=== PATIENT | male | born 1985 | race Caucasian/White ===

== ENCOUNTER 2018-04-30 20:27 | Emergency (ER) | payer OTHER, SELFPAY ==
[2018-04-30 20:28] VITALS: BP 154/76; PULSE 86; RESP 14; TEMP 37.3; O2SAT 98; BMI 32.8
--- NOTE | 2018-04-30 21:42 | ED.VISSUMM ---
- ER Visit Summary Date of Service: 04/30/18 Chief Complaint: Knee pain History of Present Illness: Patient presents with left knee pain. Apparently there was a lesion which the broke up and expectorated pus from yesterday. Now there is worsening redness around it. There is no joint pain no pain with ambulation. There is no fever chills or noted lymphangitic streaking. Physical Examination: Otherwise unremarkable exam. He has no abdominal pain. He has a small lesion anterior knee. There is no bursitis in the prepatellar region. There is slight cellulitis. No induration or fluctuance present. The knee has full range of motion without any pain or signs of effusion. Emergency Department Course and Treatment: Patient has cellulitis there are no signs or symptoms of septic arthritis there are no signs or symptoms of prepatellar bursitis. There are no signs or symptoms of an abscess that needs drained. Patient will be started on antibiotics she was warned about all the above symptoms and if he worsens he needs to return. Discharge stable condition Impression: [Left knee cellulitis] This note was generated with inmobly dictation software. It may contain incorrect words, spelling, and punctuation that were not noted in review of the chart prior to signing ED Disposition - Plan for ED Patient: Disposition: Home or Assisted Living Chief Complaint: Lower Extremity Injury Instructions: Cellulitis - Causes,Symptoms,Treating Prescriptions: Clindamycin [Cleocin] 300 mg PO 4X/DAY #80 cap Referrals: NOT,DEFINED [Primary Care Provider] - 3-5 Days
[2018-04-30] MEDS: Clindamycin HCl 150 MG Capsule 300 MG PO (23:06)
[2018-04-30 23:11] VITALS: BP 131/67; PULSE 94; RESP 18; O2SAT 100
--- NOTE | 2018-04-30 23:12 | ED.RN ---
THIS NURSE REVIEWED D/C INSTRUCTIONS WITH PT. PT VERBALIZED UNDERSTANDING OF INSTRUCTIONS. PT DENIES FURTHER NEEDS OR QUESTIONS AT THIS TIME. PT AMBULATES FROM ROOM ON OWN WITHOUT ASSISTANCE FROM STAFF
== END 2018-04-30 23:13 | disposition home or self-care (01) ==
PROVIDERS: Emergency Provider Emergency Medicine; Family Provider Family Medicine; PCP Family Medicine
DX: L03.116 Cellulitis of left lower limb (principal); B96.89 Other specified bacterial agents as the cause of diseases classified elsewhere; Z72.0 Tobacco use
CPT/HCPCS: 99283

== ENCOUNTER 2018-05-02 05:52 | Inpatient (IN) | payer OTHER, SELFPAY ==
[2018-05-02] VITALS (7 sets, daily range): BP systolic 123–149; BP diastolic 68–85; PULSE 83–107; RESP 16–18; TEMP 36.8–39; O2SAT 94–98; BMI 29.0; BMI 32.3; BMI 32.4
--- NOTE | 2018-05-02 06:25 | ED.VISSUMM ---
- ER Visit Summary Date of Service: 05/02/18 Chief Complaint: [Redness and swelling to the left knee] History of Present Illness: The patient is a 33 M [presents the emergency department complaint of redness and swelling the left knee that started initially about 5 days ago. Patient started with what he thought was a pimple on his left knee and he and the try to squeeze it and pop it. Patient continued to have increased redness and swelling and was seen in the emergency department 2 days ago and was started on clindamycin. Patient continues to have increased redness and swelling and pain and presents back to the emergency department. Patient denies any fever or chills. He has no medical history otherwise.] Physical Examination: [HEENT-PERRLA, EOMI. Cranial nerves II through XII grossly intact. TMs clear. Mucous membranes moist. No adenopathy. Cardiovascular-regular rate and rhythm without murmur or ectopy Lungs-clear to auscultation, chest wall stable without crepitus or subcu emphysema Abdomen-normoactive bowel sounds, soft, nontender, no rebound or rigidity, no peritoneal signs. Extremities-intact ?4, normal range of motion, normal pulses, atraumatic]. Left knee-patient has induration over the area of the patella with a small vesicular lesion measuring about a centimeter in diameter oozing some yellowish discharge. Discussed surrounding erythema and involving the area of the knee down onto the lao and now extending toward the thigh. Area is warm to the touch. Patient neurovascular intact distally. He has no significant joint pain with range of motion. Test Results: [CBC with differential and chemistries ordered. Wound culture ordered from the fluid anterior to the patella. There is no significant abscess noted for incision and drainage.] Emergency Department Course and Treatment: [Patient was started on Unasyn and vancomycin. I do not feel patient has a septic joint.] Treatment Plan: [Admit for IV antibiotics] Disposition: [Admit] Impression: [Cellulitis left lower extremity with failed outpatient therapy] This note was generated with [employer] dictation software. It may contain incorrect words, spelling, and punctuation that were not noted in review of the chart prior to signing ED Disposition - Plan for ED Patient: Chief Complaint: Cellulitis Referrals: Jian Syed MD [Primary Care Provider] -
[2018-05-02 06:44] LABS: Absolute Lymphocyte Count 1.03 X10^3/ul (0.83-4.51); Basophil# 0.01 X10^3/uL; Basophil% 0.1 % (0-1); Eosinophil# 0.13 X10^3/uL; Eosinophils% 0.8 % (0-5); Hemoglobin 14.5 g/dl (13.0-16.5); Lymphocyte # 1.03 X10^3/ul (4.0); Lymphocyte % 6.2 % (19-41); Mean Corp Hgb Conc 33.7 g/gl (32-36); Mean Corpuscular Hgb 29.7 pg (27.0-32.0); Mean Corpuscular Volume 88.1 fL (80-94); Mean Platelet Vol. 11.5 fl (6.2-12.0); Monocyte# 1.47 X10^3/uL; Monocyte% 8.8 % (0-10); Neutrophil # 14.02 X10^3/uL (2.7-7.7); Neutrophil % 83.8 % (47-70); POSITIVE COUNT NO; POSITIVE DIFFERENTIAL NO; POSITIVE MORPHOLOGY NO; Platelet Count 173 K/mm3 (150-450); RBC Distribution Width CV 11.9 % (11.6-14.6); RBC Distribution Width SD 37.8 fl (35.1-43.9); Red Blood Count 4.88 M/mm3 (4.6-6.2); White Blood Count 16.7 K/mm3 (4.4-11.0)
[2018-05-02 06:52] LABS: Anion Gap 6 (5-15); BUN 13 mg/dL (7-18); BUN/Creat Ratio 12.5 RATIO (10-20); Calcium,Total 8.1 mg/dL (8.5-10.1); Chloride 106 mmol/L (98-107); Creatinine, Serum 1.04 mg/dL (0.70-1.30); EST Glomerular Filtration Rate 87 mL/min (>60); Est Glom Filt Rate - Afr Amer 106 mL/min (>60); Estimated Creatinine Clearance 110.89 ml/min; Glucose 125 mg/dL (74-106); Potassium 3.6 mmol/L (3.5-5.1); Sodium Level 138 mmol/L (136-145)
--- NOTE | 2018-05-02 07:22 | PCM.HP.STD ---
Problem List (1) Left leg cellulitis Status: Acute (2) Sepsis Status: Acute History of Present Illness Date of Admission: 05/02/18 Chief Complaint: left leg redness. The patient is a 33 year old M who presents with left lower extremity redness. Approximately Monday patient noted a pimple on his left kneecap that would irritate him when he would wear pants. Patient squeeze and did get some slight purulence out. Went to work and noted that he had some swelling in his right knee. Presented to the emergency room and diagnosed with cellulitis. Patient was discharged and since with clindamycin. Patient took clindamycin yesterday and this morning noted that he is left leg was much more swollen and painful and red. Presented to the emergency room and diagnosed with a left lower extremity cellulitis and I received Unasyn as well as for vancomycin. Patient has never had cellulitis before. [] Past Medical History Allergies No Known Allergies Allergy (Verified 04/30/18 20:31) Home Medications: Ambulatory Orders Medication Instructions Recorded Clindamycin [Cleocin] 300 mg PO 4X/DAY #80 cap 04/30/18 Psychiatric History: No pertinent psych hx Lives: Spouse/ Significant Other Smoking Status: Never smoker Tobacco Use: Chew Alcohol: Occasional Drugs: None - *Family History Maternal History Items: - - No medical history that he is aware of. Paternal History Items: - - Medical history that he is aware of Review of Systems Constitutional: Denies: Anorexia, Chills, Fever, Malaise, Weakness Eyes: Denies: Blurred vision, Double vision HEENT: Denies: Head Aches, Sinus Congestion, Sinus Drainage Cardiovascular: Denies: Chest Pain, Palpitations Respiratory: Denies: Cough, Shortness of breath at rest, Sputum production Gastrointestinal: Denies: Abdominal Pain, Nausea, Vomiting Genitourinary: Denies: Dysuria Musculoskeletal: Reports: Leg Pain. Denies: Arm Pain Skin: Denies: Dryness, Jaundice Neurological: Denies: Numbness, Tingling, Focal weakness Psychiatric: Denies: Anxiety, Depression Hematologic/ Lymphatic: Denies: Easy Bruising, Easy Bleeding, Hx of blood clot Comment: All review of systems are negative except as mentioned in the history of present illness and the other review of systems. VTE Information - Inpt Only VTE Present on Admission: No VTE Pharm Prophylaxis ordered?: Yes Patient Problems: Active and Suspected Problems Left leg cellulitis (Acute) Sepsis (Acute) - Physical Exam General: Alert, No apparent distress HEENT: Atraumatic, Normocephalic Oral: Moist Mucosa, No Gingival or Mucosal Lesions/ Ulcerations Neck: No Nodes, Thyroid Normal Size and Texture Lungs: Clear to auscultation, Normal air movement, No rhonchi, No wheeze Cardiovascular: Regular rate, Regular Rhythm, Normal S1, Normal S2, No murmurs Abdomen: Bowel Sounds Present, Soft, Non Tender, Non-Distended, No Hepato-splenomegaly Extremities: No edema, No Calf Tenderness, - - No joint effusion Skin: - - Left anterior knee with some mild induration and numbness. No fluctuance appreciated. Does have splotchy areas of erythema extending proximally up his thigh from his knee but also distally down his anterior calf. Is some tenderness to palpation. Musculoskeletal: No Muscle Wasting, Tenderness Neurological: Neuro grossly intact, Sensory exam intact to light touch and pain, Coordination normal Psych/Mental Status: Normal Affect, Appropriate Vital Signs Temp Pulse Resp BP Pulse Ox 36.9 C 98 18 149/85 H 97 05/02/18 05:52 05/02/18 05:52 05/02/18 06:12 05/02/18 05:52 05/02/18 05:52 Oxygen Delivery Method Room Air Weight: 96.9 kg Body Mass Index (BMI) 29.0 Laboratory Tests Past 24 Hrs 05/02/18 05/02/18 06:30 06:30 WBC 16.7 H RBC 4.88 Hgb 14.5 Hct 43.0 MCV 88.1 MCH 29.7 MCHC 33.7 RDW 11.9 RDW Differential 37.8 Plt Count 173 MPV 11.5 Immature Gran % (Auto) 0.300 Neut % (Auto) 83.8 H Lymph % (Auto) 6.2 L [place] % (Auto) 8.8 Eos % (Auto) 0.8 Baso % (Auto) 0.1 Absolute Neuts (auto) 14.0 H Absolute Lymphs (auto) 1.03 Total Counted Not Reportable Sodium 138 Potassium 3.6 Chloride 106 Carbon Dioxide 26.0 Anion Gap 6 BUN 13 Creatinine 1.04 Estim Creat Clear Calc 110.89 Est GFR (MDRD) Af Amer 106 Est GFR (MDRD) Non-Af 87 BUN/Creatinine Ratio 12.5 Glucose 125 H Calcium 8.1 L Assessment/Plan All Active Problems Left leg cellulitis (Acute) Sepsis (Acute) 1. Sepsis Present on admission Secondary to left lower extremity cellulitis Supportive management 2. Left lower extremity cellulitis Secondary to is a pimple or squeezing the pimple that he had on his knee Continue with vancomycin Culture was done and will await results. Would like to see great improvement of the patient's cellulitis prior to him being discharged. Patient does demonstrate good improvements on the 18th is possible that he could be discharged then but would prefer something along the lines of Bactrim or doxycycline. Failed outpatient clindamycin 3. DVT prophylaxis: Moderate risk given the left lower extremity cellulitis. Patient will be on Lovenox. Code Visit Inpatient E&M: 24096 Init Hosp L3
--- NOTE | 2018-05-02 07:26 | HP.PCM_ITS ---
Problem List (1) Left leg cellulitis Status: Acute (2) Sepsis Status: Acute History of Present Illness Date of Admission: 05/02/18 Chief Complaint: left leg redness. The patient is a 33 year old M who presents with left lower extremity redness. Approximately Monday patient noted a pimple on his left kneecap that would irritate him when he would wear pants. Patient squeeze and did get some slight purulence out. Went to work and noted that he had some swelling in his right knee. Presented to the emergency room and diagnosed with cellulitis. Patient was discharged and since with clindamycin. Patient took clindamycin yesterday and this morning noted that he is left leg was much more swollen and painful and red. Presented to the emergency room and diagnosed with a left lower extremity cellulitis and I received Unasyn as well as for vancomycin. Patient has never had cellulitis before. [] Past Medical History Allergies No Known Allergies Allergy (Verified 04/30/18 20:31) Home Medications: Ambulatory Orders Medication Instructions Recorded Clindamycin [Cleocin] 300 mg PO 4X/DAY #80 cap 04/30/18 Psychiatric History: No pertinent psych hx Lives: Spouse/ Significant Other Smoking Status: Never smoker Tobacco Use: Chew Alcohol: Occasional Drugs: None - *Family History Maternal History Items: - - No medical history that he is aware of. Paternal History Items: - - Medical history that he is aware of Review of Systems Constitutional: Denies: Anorexia, Chills, Fever, Malaise, Weakness Eyes: Denies: Blurred vision, Double vision HEENT: Denies: Head Aches, Sinus Congestion, Sinus Drainage Cardiovascular: Denies: Chest Pain, Palpitations Respiratory: Denies: Cough, Shortness of breath at rest, Sputum production Gastrointestinal: Denies: Abdominal Pain, Nausea, Vomiting Genitourinary: Denies: Dysuria Musculoskeletal: Reports: Leg Pain. Denies: Arm Pain Skin: Denies: Dryness, Jaundice Neurological: Denies: Numbness, Tingling, Focal weakness Psychiatric: Denies: Anxiety, Depression Hematologic/ Lymphatic: Denies: Easy Bruising, Easy Bleeding, Hx of blood clot Comment: All review of systems are negative except as mentioned in the history of present illness and the other review of systems. VTE Information - Inpt Only VTE Present on Admission: No VTE Pharm Prophylaxis ordered?: Yes Patient Problems: Active and Suspected Problems Left leg cellulitis (Acute) Sepsis (Acute) - Physical Exam General: Alert, No apparent distress HEENT: Atraumatic, Normocephalic Oral: Moist Mucosa, No Gingival or Mucosal Lesions/ Ulcerations Neck: No Nodes, Thyroid Normal Size and Texture Lungs: Clear to auscultation, Normal air movement, No rhonchi, No wheeze Cardiovascular: Regular rate, Regular Rhythm, Normal S1, Normal S2, No murmurs Abdomen: Bowel Sounds Present, Soft, Non Tender, Non-Distended, No Hepato- splenomegaly Extremities: No edema, No Calf Tenderness, - - No joint effusion Skin: - - Left anterior knee with some mild induration and numbness. No fluctuance appreciated. Does have splotchy areas of erythema extending proximally up his thigh from his knee but also distally down his anterior calf. Is some tenderness to palpation. Musculoskeletal: No Muscle Wasting, Tenderness Neurological: Neuro grossly intact, Sensory exam intact to light touch and pain, Coordination normal Psych/Mental Status: Normal Affect, Appropriate Vital Signs Temp Pulse Resp BP Pulse Ox 36.9 C 98 18 149/85 H 97 05/02/18 05:52 05/02/18 05:52 05/02/18 06:12 05/02/18 05:52 05/02/18 05:52 Oxygen Delivery Method Room Air Weight: 96.9 kg Body Mass Index (BMI) 29.0 Laboratory Tests Past 24 Hrs 05/02/18 05/02/18 06:30 06:30 WBC 16.7 H RBC 4.88 Hgb 14.5 Hct 43.0 MCV 88.1 MCH 29.7 MCHC 33.7 RDW 11.9 RDW Differential 37.8 Plt Count 173 MPV 11.5 Immature Gran % (Auto) 0.300 Neut % (Auto) 83.8 H Lymph % (Auto) 6.2 L [place] % (Auto) 8.8 Eos % (Auto) 0.8 Baso % (Auto) 0.1 Absolute Neuts (auto) 14.0 H Absolute Lymphs (auto) 1.03 Total Counted Not Reportable Sodium 138 Potassium 3.6 Chloride 106 Carbon Dioxide 26.0 Anion Gap 6 BUN 13 Creatinine 1.04 Estim Creat Clear Calc 110.89 Est GFR (MDRD) Af Amer 106 Est GFR (MDRD) Non-Af 87 BUN/Creatinine Ratio 12.5 Glucose 125 H Calcium 8.1 L Assessment/Plan All Active Problems Left leg cellulitis (Acute) Sepsis (Acute) 1. Sepsis * Present on admission * Secondary to left lower extremity cellulitis * Supportive management 2. Left lower extremity cellulitis * Secondary to is a pimple or squeezing the pimple that he had on his knee * Continue with vancomycin * Culture was done and will await results. * Would like to see great improvement of the patient's cellulitis prior to him being discharged. Patient does demonstrate good improvements on the 18th is possible that he could be discharged then but would prefer something along the lines of Bactrim or doxycycline. * Failed outpatient clindamycin 3. DVT prophylaxis: Moderate risk given the left lower extremity cellulitis. Patient will be on Lovenox. Code Visit Inpatient E&M: 22320 Init Hosp L3
[2018-05-02] MEDS: oxyCODONE 5 MG Tablet PO ×3 (10:35→20:27)
[2018-05-02] MEDS: Enoxaparin 40 MG/0.4 ML Syringe SC (10:36)
--- NOTE | 2018-05-02 10:48 | PCM.RX.CS ---
Consult Pharmacy has been consulted to manage selected antiobiotic: Vancomycin Type of Consult: New start Suspected Infection: Sepsis Prior Doses of Antibiotics Received/Current Regimen: 1 at 0732 on 05/02/18 Labs: Sodium 138 mmol/L (136-145) 05/02/18 06:30 Potassium 3.6 mmol/L (3.5-5.1) 05/02/18 06:30 Chloride 106 mmol/L (98-107) 05/02/18 06:30 Carbon Dioxide 26.0 mmol/L (21.0-32.0) 05/02/18 06:30 Anion Gap 6 (5-15) 05/02/18 06:30 BUN 13 mg/dL (7-18) 05/02/18 06:30 Creatinine 1.04 mg/dL (0.70-1.30) 05/02/18 06:30 Est GFR (MDRD) Af Amer 106 mL/min (>60) 05/02/18 06:30 Est GFR (MDRD) Non-Af 87 mL/min (>60) 05/02/18 06:30 BUN/Creatinine Ratio 12.5 RATIO (10-20) 05/02/18 06:30 Glucose 125 mg/dL (74-106) H 05/02/18 06:30 Microbiology: Microbiology 05/02/18 06:06 Wound - Knee Gram Stain - Final Weight used for dosin.3 kg Estimated Creatinine Clearance: 111 Goal Trough: 15-20 mcg/mL - VANCOMYCIN 1250MG IVPB Q8H, CHECK TROUGH LEVEL PRIOR TO 4TH DOSE Pharmacy Plan for Drug Dosing: Pharmacy Service will continue to monitor and adjust dosing as required.
--- NOTE | 2018-05-02 11:09 | NURSING ---
wound photo: left knee
[2018-05-02 12:23] LABS: M R Staph aureus DNA By PCR POSITIVE (Negative); Probe Check PASS; Staph aureus DNA By PCR POSITIVE (Negative)
--- NOTE | 2018-05-02 14:10 | CASEMGMT ---
DAMARIS CASTANO INITIAL REVIEW ASSESSMENT D/C PLAN: Home Face to Face with patient for initial transition planning/care coordination assessment. DAMARIS CASTANO introduced self and role at [facility]. Care providers, pharmacy, and demographics verified. PCP:Dr Jian Syed Preferred Pharmacy: [facility]. [facility] on discharge day only. Insurance: [employer] Living Will/HPOA: States does not have LW or HPOA. Declines wanting any further information. Living Arrangements: Lives with his in one-story home. 1 step to enter. Independent at home with ADL's and ambulation. Transportation: Pt reports he drives. DME: Denies using any DME and denies needs. HHC: Pt states has never use HHC in the past of been to SNF. Pt's plans on D/C: Wishes to return home. Denies needs or concerns. CM to follow for any further discharge planning needs that may arise. Tree HOLT RN, CM
[2018-05-02 16:06] LABS: Bedside Glucose 114 mg/dL (70-110)
[2018-05-02] MEDS: Ondansetron 4 MG/2 ML Vial IV (20:26)
[2018-05-02] MEDS: Acetaminophen 325 MG Tablet 650 MG PO (21:06)
[2018-05-03] VITALS (8 sets, daily range): BP systolic 112–135; BP diastolic 54–83; PULSE 85–108; RESP 16–18; TEMP 36.9–38.1; O2SAT 93–98
[2018-05-03] MEDS: 0.9% NaCl Peripheral Flush Adult/Peds IV ×3 (04:43→15:36)
[2018-05-03] MEDS: oxyCODONE 5 MG Tablet PO ×4 (07:01→19:49)
[2018-05-03 07:38] LABS: Absolute Lymphocyte Count 1.81 X10^3/ul (0.83-4.51); Absolute Neutrophil Count 12.7 X10^3/uL (2.0-7.7); Basophil# 0.02 X10^3/uL; Basophil% 0.1 % (0-1); Eosinophil# 0.18 X10^3/uL; Eosinophils% 1.1 % (0-5); Hematocrit 42.7 % (40-54); Hemoglobin 13.8 g/dl (13.0-16.5); Lymphocyte # 1.81 X10^3/ul (4.0); Lymphocyte % 11.1 % (19-41); Mean Corp Hgb Conc 32.3 g/gl (32-36); Mean Corpuscular Hgb 29.4 pg (27.0-32.0); Mean Corpuscular Volume 90.9 fL (80-94); Mean Platelet Vol. 10.9 fl (6.2-12.0); Monocyte# 1.52 X10^3/uL; Monocyte% 9.4 % (0-10); Neutrophil # 12.69 X10^3/uL (2.7-7.7); Neutrophil % 78.2 % (47-70); Platelet Count 164 K/mm3 (150-450); RBC Distribution Width CV 12.2 % (11.6-14.6); RBC Distribution Width SD 40.5 fl (35.1-43.9); White Blood Count 16.2 K/mm3 (4.4-11.0)
[2018-05-03 07:41] LABS: Anion Gap 5 (5-15); BUN 11 mg/dL (7-18); BUN/Creat Ratio 10.4 RATIO (10-20); Calcium,Total 8.5 mg/dL (8.5-10.1); Chloride 105 mmol/L (98-107); Creatinine, Serum 1.06 mg/dL (0.70-1.30); EST Glomerular Filtration Rate 86 mL/min (>60); Est Glom Filt Rate - Afr Amer 103 mL/min (>60); Estimated Creatinine Clearance 108.79 ml/min; Glucose 102 mg/dL (74-106); Potassium 4.3 mmol/L (3.5-5.1); Sodium Level 139 mmol/L (136-145)
[2018-05-03 07:42] LABS: Vancomycin, Trough Level 13.6 ug/mL (5.0-15.0)
[2018-05-03 07:43] LABS: Differential Indicated SCAN CRITERIA MET; POSITIVE COUNT NO; POSITIVE DIFFERENTIAL YES; POSITIVE MORPHOLOGY NO
[2018-05-03] MEDS: Enoxaparin 40 MG/0.4 ML Syringe SC (09:00)
[2018-05-03] MEDS: Acetaminophen 325 MG Tablet 650 MG PO ×2 (10:05→20:14)
--- NOTE | 2018-05-03 10:32 | CT_ITS ---
STUDY: CT LEFT KNEE WITH CONTRAST REASON FOR EXAM: Male, 33 years old. Redness, swelling, and drainage left knee x 4 days. RADIATION DOSAGE (If Supplied By Facility): CTDIvol = ( ) mGy, DLP = ( ) mGycm TECHNIQUE: Transaxial CT imaging of the knee was performed post contrast administration. The examination was performed with intravenous administration of 100 ml of Isovue-300 contrast material. # of Images: 518 Individualized dose optimization techniques were used for this CT. COMPARISON: None. FINDINGS: Normal medial femoral condyle and medial tibial plateau. There is preservation of the articular joint space of the medial knee compartment. Normal lateral femoral condyle and lateral tibial plateau. There is preservation of the articular joint space of the lateral knee compartment. Normal proximal tibiofibular articulation. There is minimal retropatellar fluid, but no significant joint effusion. There is medial superficial soft tissue edema in the lower thigh, extending anteriorly and posteriorly at the level of the knee, and becoming more circumferential in the calf. More defined, elongated lentiform shaped fluid accumulations noted within the tissue planes of the subcutaneous fat and superficial fascial margins of the vessel bundles at these levels. There is no demonstrated abnormal enhancement or sign of a defined abscess. 2 mm calcification incidentally noted in the superficial anterior suprapatellar fatty tissues. The quadriceps tendon is grossly normal. The patellar tendon is grossly normal. Normal Hoffa's fat pad. CT/Extremity Lower WITH Contrast IMPRESSION: Superficial soft tissue swelling with fluid accumulations along the fatty and superficial muscular fascial planes from the mid thigh to the mid lower leg, as noted. No defined rim-enhancing collection to indicate an abscess. No acute osseous abnormality to suggest osteomyelitis. Electronically Signed: Aaron Queen MD at 12:19 EDT , Service support ,
--- NOTE | 2018-05-03 13:46 | PHA.PHARE_ITS ---
Consult Pharmacy has been consulted to manage selected antiobiotic: Vancomycin Type of Consult: Follow-up Suspected Infection: Sepsis, Skin/Soft tissue Prior Doses of Antibiotics Received/Current Regimen: VANCOMYCIN 1250MG IV Q8H: 05/02 @1548, 05/03 @0012, 0854 Labs: Sodium 139 mmol/L (136-145) 05/03/18 07:20 Potassium 4.3 mmol/L (3.5-5.1) 05/03/18 07:20 Chloride 105 mmol/L (98-107) 05/03/18 07:20 Carbon Dioxide 29.0 mmol/L (21.0-32.0) 05/03/18 07:20 Anion Gap 5 (5-15) 05/03/18 07:20 BUN 11 mg/dL (7-18) 05/03/18 07:20 Creatinine 1.06 mg/dL (0.70-1.30) 05/03/18 07:20 Est GFR (MDRD) Af Amer 103 mL/min (>60) 05/03/18 07:20 Est GFR (MDRD) Non-Af 86 mL/min (>60) 05/03/18 07:20 BUN/Creatinine Ratio 10.4 RATIO (10-20) 05/03/18 07:20 Glucose 102 mg/dL (74-106) 05/03/18 07:20 Vancomycin Trough 13.6 ug/mL (5.0-15.0) 05/03/18 07:20 Microbiology: Microbiology 05/02/18 06:06 Wound - Knee Gram Stain - Final 05/02/18 06:06 Wound - Knee Wound Culture - Preliminary Staphylococcus aureus Goal Trough: 15-20 mcg/mL Pharmacy Plan for Drug Dosing: The patient had a trough level drawn 03/03/18 @0720, prior to the 4th total dose of vancomycin (initial loading + scheduled), which resulted in a value of 13.6 (drawn ~7.5hrs from last administered dose). The patient's vital signs appear stable at this time, and his WBC did go down from the previous day. Wound Cx are MRSA(+). Given that the patient is on a Q8hr schedule, and the dose is higher, will continue for now and draw a trough in another 4 doses instead of a few days to analyze the trough at that time. Would hesitate to increase the dose at this time, since the patient has only got 2 doses of the Q8h scheduled plus the one- time loading dose. Will continue to follow. PLAN/RECOMMENDATIONS 1. Continue vancomycin 1250mg IV Q8hr 2. Trough scheduled for 05/04/18 @1530 to assess at that time. 3. Pharmacy Service will continue to monitor and adjust dosing as required.
--- NOTE | 2018-05-03 17:08 | PN_ITS ---
Patient Problems: Active and Suspected Problems Left leg cellulitis (Acute) Sepsis (Acute) Subjective: Patient was seen and examined today, his significant other was in the room today and I talked with her briefly also, wound care nurse felt it cleary to get a CT of the patient's left knee to make sure there was not an abscess present, there was not an abscess present however. The patient's demarcation lines on his leg appears to be resolving, patient's white blood cell count today is still elevated. Patient's max temp today was 99.2 - Physical Exam General: Alert, Oriented x3, Cooperative, No apparent distress, Well developed, Well nourished HEENT: Atraumatic, PERRLA, EOMI, Normocephalic Oral: Moist Mucosa Neck: Supple, Trachea Midline, Thyroid Normal Size and Texture Lungs: Clear to auscultation, Normal air movement, No rhonchi, No wheeze, No rales Cardiovascular: Regular rate, Regular Rhythm, Normal S1, Normal S2, No murmurs, No Ectopic Activity, PMI Normal, No rub noted, No Gallop Abdomen: Bowel Sounds Present, Soft, Non Tender, Non-Distended, No hernias noted Extremities: Capillary Refill Less than 3 Seconds, Edema - There is generalized edema noted around the left patellar area extending into the distal thigh area Skin: No rashes, - - There is an eschar present over the patient's left patellar area, this area is also reddened and tender to palpation, no drainage could be expressed at this time from the area Neurological: Cranial nerves II-XII grossly intact, Neuro grossly intact, Coordination normal Psych/Mental Status: Normal Affect, Appropriate, Alert and oriented to time, place, person, mood and affect Vital Signs Temp Pulse Resp BP Pulse Ox 98.4 F 99 18 126/74 H 98 05/03/18 15:38 05/03/18 15:38 05/03/18 15:38 05/03/18 15:38 05/03/18 15:38 Oxygen Delivery Method Room Air Weight: 108.3 kg Body Mass Index (BMI) 32.3 Intake and Output for Last 24 Hours 05/01/18 05/02/18 05/03/18 23:59 23:59 23:59 Intake Total 2292 / 2292 1946 / 1946 Output Total 825 / 825 Balance 229 / 2292 1121 / 1121 Microbiology Past 72 Hours 05/02/18 06:06 Gram Stain - Final Wound - Knee Wound Culture - Preliminary Staphylococcus aureus Laboratory Tests Past 24 Hrs 05/02/18 05/03/18 05/03/18 21:38 07:20 07:20 WBC 16.2 H RBC 4.70 Hgb 13.8 Hct 42.7 MCV 90.9 MCH 29.4 MCHC 32.3 RDW 12.2 RDW Differential 40.5 Plt Count 164 MPV 10.9 Immature Gran % (Auto) 0.100 Neut % (Auto) 78.2 H Lymph % (Auto) 11.1 L [place] % (Auto) 9.4 Eos % (Auto) 1.1 Baso % (Auto) 0.1 Absolute Neuts (auto) 12.7 H Absolute Lymphs (auto) 1.81 Total Counted Not Reportable Diff Path Review May foll Sodium 139 Potassium 4.3 Chloride 105 Carbon Dioxide 29.0 Anion Gap 5 BUN 11 Creatinine 1.06 Estim Creat Clear Calc 108.79 Est GFR (MDRD) Af Amer 103 Est GFR (MDRD) Non-Af 86 BUN/Creatinine Ratio 10.4 Glucose 102 Lactic Acid 1.0 Calcium 8.5 Vancomycin Trough 05/03/18 07:20 WBC RBC Hgb Hct MCV MCH MCHC RDW RDW Differential Plt Count MPV Immature Gran % (Auto) Neut % (Auto) Lymph % (Auto) [place] % (Auto) Eos % (Auto) Baso % (Auto) Absolute Neuts (auto) Absolute Lymphs (auto) Total Counted Diff Path Review Sodium Potassium Chloride Carbon Dioxide Anion Gap BUN Creatinine Estim Creat Clear Calc Est GFR (MDRD) Af Amer Est GFR (MDRD) Non-Af BUN/Creatinine Ratio Glucose Lactic Acid Calcium Vancomycin Trough 13.6 Medical Necessity - Tobacco Use Smoking Status: Never smoker Tobacco Use: Chew Assessment/Plan All Active Problems Left leg cellulitis (Acute) Sepsis (Acute) #1 acute sepsis secondary to left leg cellulitis from MRSA-continue vancomycin, await for cultures to come back for sensitivity on MRSA #2 acute cellulitis of the left leg secondary to MRSA, failed outpatient treatment-patient will have a CBC repeated tomorrow Code Visit Inpatient E&M: 56252 Subs Hosp L2
[2018-05-04] VITALS (10 sets, daily range): BP systolic 123–158; BP diastolic 68–90; PULSE 92–106; RESP 16–18; TEMP 36.8–38.1; O2SAT 90–95; BMI 32.3
[2018-05-04 05:47] LABS: Absolute Lymphocyte Count 2.56 X10^3/ul (0.83-4.51); Absolute Neutrophil Count 11.1 X10^3/uL (2.0-7.7); Basophil# 0.03 X10^3/uL; Basophil% 0.2 % (0-1); Differential Indicated SCAN CRITERIA MET; Eosinophil# 0.26 X10^3/uL; Eosinophils% 1.7 % (0-5); Hematocrit 40.9 % (40-54); Hemoglobin 13.4 g/dl (13.0-16.5); Lymphocyte # 2.56 X10^3/ul (4.0); Lymphocyte % 16.4 % (19-41); Mean Corp Hgb Conc 32.8 g/gl (32-36); Mean Corpuscular Hgb 29.8 pg (27.0-32.0); Mean Corpuscular Volume 91.1 fL (80-94); Mean Platelet Vol. 10.6 fl (6.2-12.0); Monocyte# 1.67 X10^3/uL; Monocyte% 10.7 % (0-10); Neutrophil # 11.06 X10^3/uL (2.7-7.7); Neutrophil % 70.7 % (47-70); POSITIVE COUNT NO; POSITIVE DIFFERENTIAL YES; POSITIVE MORPHOLOGY NO; Platelet Count 201 K/mm3 (150-450); RBC Distribution Width CV 11.9 % (11.6-14.6); RBC Distribution Width SD 39.3 fl (35.1-43.9); Red Blood Count 4.49 M/mm3 (4.6-6.2); White Blood Count 15.6 K/mm3 (4.4-11.0)
[2018-05-04 06:15] LABS: Differential Comment SCANNED
[2018-05-04] MEDS: oxyCODONE 5 MG Tablet PO ×3 (06:20→15:12)
[2018-05-04] MEDS: Acetaminophen 325 MG Tablet 650 MG PO ×2 (07:31→13:31)
[2018-05-04] MEDS: 0.9% NaCl Peripheral Flush Adult/Peds IV (08:22)
[2018-05-04] MEDS: Enoxaparin 40 MG/0.4 ML Syringe SC (08:24)
--- NOTE | 2018-05-04 11:45 | NURSING ---
wound photo: left knee
--- NOTE | 2018-05-04 11:45 | NURSING ---
wound photo: left knee
--- NOTE | 2018-05-04 11:47 | NURSING ---
wound photo: left leg (medial view)
--- NOTE | 2018-05-04 15:44 | CON.PCM_ITS ---
Problem List (1) Left leg cellulitis Status: Acute Reason for Consult: cellulitis Consulted by: Dr. Manriquez History of Present Illness: The patient is a 33 year old M with no past h/o MRSA who presented 05/02 with 2 days of progressive L knee pain, swelling, and redness that started as a small pimple. His tried to pop it with her fingers, but minimal fluid obtained. Redness spread up and down leg. Pain was severe. Had fever, chills, nausea. Came to ED, started on vanc, also given unasyn x1. Redness has continued to worsen, and still with purulence able to be expressed per wound care nurse. Full ROS performed and neg except as noted above. - Medical History Surgical History: reviewed Allergies/Adverse Reactions: Allergies No Known Allergies Allergy (Verified 04/30/18 20:31) Home Medications: Ambulatory Orders Medication Instructions Recorded Clindamycin [Cleocin] 300 mg PO 4X/DAY #80 cap 04/30/18 - Social History SMOKING STATUS:: Never smoker Vital Signs Temp Pulse Resp BP Pulse Ox 99.3 F H 94 16 144/73 H 94 05/04/18 15:00 05/04/18 15:00 05/04/18 15:00 05/04/18 15:00 05/04/18 15:00 Oxygen Flow Rate (L/min) 2 Oxygen Delivery Method Room Air Weight: 108.3 kg Body Mass Index (BMI) 32.3 Microbiology Past 72 Hours 05/02/18 06:06 Gram Stain - Final Wound - Knee Wound Culture - Final Meth. resistant Staph. aureus Laboratory Tests Past 24 Hrs 05/04/18 05:20 WBC 15.6 H RBC 4.49 L Hgb 13.4 Hct 40.9 MCV 91.1 MCH 29.8 MCHC 32.8 RDW 11.9 RDW Differential 39.3 Plt Count 201 MPV 10.6 Immature Gran % (Auto) 0.300 Neut % (Auto) 70.7 H Lymph % (Auto) 16.4 L [place] % (Auto) 10.7 H Eos % (Auto) 1.7 Baso % (Auto) 0.2 Absolute Neuts (auto) 11.1 H Absolute Lymphs (auto) 2.56 Total Counted Not Reportable Differential Comment SCANNED - Other Studies Radiology: [] reviewed Other Studies: [] Route of nutrition/ use of supplements: [] Nutritional Intake: [] IV Site: [] Alfaro Catheter: [] - Physical Exam General: Alert, Oriented x3, Cooperative, No apparent distress HEENT: Atraumatic, PERRLA, EOMI Neck: Supple, No Nodes Lungs: Clear to auscultation, Normal air movement Cardiovascular: Regular rate, Regular Rhythm Abdomen: Soft, Non Tender, Non-Distended Extremities: Edema Skin: Ulcer/ Wound - L patella with surrounding redness, tenderness IV Site: Peripheral, without redness Neurological: Cranial nerves II-XII grossly intact - Assessment/Plan Antibiotics: [] Assessment/Plan: [] Active and Suspected Problems Left leg cellulitis (Acute) Sepsis (Acute) sepsis due to L patellar MRSA abscess and cellulitis - worsening despite IV vanc with ongoing purulent drainage. Recommend surgical I&D for source control. Continue vanc. Bcx neg. Will follow, thank you. D/w nursing and primary team.
--- NOTE | 2018-05-04 16:13 | PCM.PROGNOTE ---
Patient Problems: Active and Suspected Problems Left leg cellulitis (Acute) Sepsis (Acute) Subjective: Patient seen and examined today, he continues to have redness over the area of his left patella and distal thigh area as well as some redness over the lower leg. I decided to have infectious diseases see the patient today and also plastic surgery for possible debridement. Patient is still running a low-grade temperature, white blood cell count is still elevated at 15.6 - Physical Exam General: Alert, Oriented x3, Cooperative, No apparent distress, Well developed, Well nourished HEENT: Atraumatic, PERRLA, EOMI, Normocephalic Oral: Moist Mucosa Neck: Supple, No Nuchal Rigidity, Trachea Midline, Thyroid Normal Size and Texture Lungs: Clear to auscultation, Normal air movement, No rhonchi, No wheeze, No rales Cardiovascular: Regular rate, Regular Rhythm, Normal S1, Normal S2, No murmurs, No Ectopic Activity, PMI Normal, No rub noted, No Gallop Abdomen: Bowel Sounds Present, Soft, Non Tender, Non-Distended Extremities: Capillary Refill Less than 3 Seconds, Edema - There is edema noted around the patella area of the left leg along with erythema and tenderness. Pressure on the area elicits purulent material from the center of the eschar over the patella Skin: Rash Present - There is a reddened area noted over the patient's patella, distal left thigh, and proximal left lower leg Musculoskeletal: No Tenderness to Palpation of Joints or Extremities Neurological: Cranial nerves II-XII grossly intact, Neuro grossly intact, Sensory exam intact to light touch and pain, Coordination normal Psych/Mental Status: Normal Affect, Appropriate, Alert and oriented to time, place, person, mood and affect Vital Signs Temp Pulse Resp BP Pulse Ox 99.3 F H 94 16 144/73 H 94 05/04/18 15:00 05/04/18 15:00 05/04/18 15:00 05/04/18 15:00 05/04/18 15:00 Oxygen Flow Rate (L/min) 2 Oxygen Delivery Method Room Air Weight: 108.3 kg Body Mass Index (BMI) 32.3 Intake and Output for Last 24 Hours 05/02/18 05/03/18 05/04/18 23:59 23:59 23:59 Intake Total 2292 / 2292 2546 / 2546 2194 / 2194 Output Total 825 / 825 1300 / 1300 Balance 2292 / 2292 1721 / 1721 894 / 894 Microbiology Past 72 Hours 05/02/18 06:06 Gram Stain - Final Wound - Knee Wound Culture - Final Meth. resistant Staph. aureus Laboratory Tests Past 24 Hrs 05/04/18 05/04/18 05:20 15:40 WBC 15.6 H RBC 4.49 L Hgb 13.4 Hct 40.9 MCV 91.1 MCH 29.8 MCHC 32.8 RDW 11.9 RDW Differential 39.3 Plt Count 201 MPV 10.6 Immature Gran % (Auto) 0.300 Neut % (Auto) 70.7 H Lymph % (Auto) 16.4 L [place] % (Auto) 10.7 H Eos % (Auto) 1.7 Baso % (Auto) 0.2 Absolute Neuts (auto) 11.1 H Absolute Lymphs (auto) 2.56 Total Counted Not Reportable Differential Comment SCANNED Vancomycin Trough Pending Medical Necessity - Tobacco Use Smoking Status: Never smoker Tobacco Use: Chew Assessment/Plan All Active Problems Left leg cellulitis (Acute) Sepsis (Acute) #1 acute sepsis secondary to left leg cellulitis from MRSA-continue vancomycin, infectious diseases is participating and his care, plastic surgery will see the patient today #2 acute cellulitis of the left leg secondary to MRSA, failed outpatient treatment-continue IV vancomycin per ID Code Visit Inpatient E&M: 63424 Subs Hosp L2
[2018-05-04 16:30] LABS: Vancomycin, Trough Level 15.4 ug/mL (5.0-15.0)
--- NOTE | 2018-05-04 16:59 | PCM.RX.CS ---
Consult Pharmacy has been consulted to manage selected antiobiotic: Vancomycin Type of Consult: Follow-up Suspected Infection: Sepsis, Skin/Soft tissue Prior Doses of Antibiotics Received/Current Regimen: Currently receiving 1250mg iv q8h. Labs: Sodium 139 mmol/L (136-145) 05/03/18 07:20 Potassium 4.3 mmol/L (3.5-5.1) 05/03/18 07:20 Chloride 105 mmol/L (98-107) 05/03/18 07:20 Carbon Dioxide 29.0 mmol/L (21.0-32.0) 05/03/18 07:20 Anion Gap 5 (5-15) 05/03/18 07:20 BUN 11 mg/dL (7-18) 05/03/18 07:20 Creatinine 1.06 mg/dL (0.70-1.30) 05/03/18 07:20 Est GFR (MDRD) Af Amer 103 mL/min (>60) 05/03/18 07:20 Est GFR (MDRD) Non-Af 86 mL/min (>60) 05/03/18 07:20 BUN/Creatinine Ratio 10.4 RATIO (10-20) 05/03/18 07:20 Glucose 102 mg/dL (74-106) 05/03/18 07:20 Vancomycin Trough 15.4 ug/mL (5.0-15.0) H 05/04/18 15:40 Microbiology: Microbiology 05/02/18 06:06 Wound - Knee Gram Stain - Final 05/02/18 06:06 Wound - Knee Wound Culture - Final Meth. resistant Staph. aureus Weight used for dosin.3 kg Estimated Creatinine Clearance: 109 ml/hr Goal Trough: 10-15 mcg/mL Pharmacy Plan for Drug Dosing: Trough on 05.04.18 15.4 mcg/ml. Renal status same. Will continue 1250mg iv q8h and obtain another trough level on 05.05.18 @1530. Pharmacy Service will continue to monitor and adjust dosing as required. Follow-Up Labs: Trough Vancomycin - 05.05.18 @1530 before 1600 dose
--- NOTE | 2018-05-04 18:52 | PCM.CONS.GEN ---
Reason for Consult Date of Consultation: 05/04/18 Reason for Consultation: Infected MRSA ulcer left knee with worsening cellulitis. REFERRING PHYSICIAN: Dr. Manriquez. MASTER HEARTH TECHNICIAN: Dr. Torrez. History of Present Illness: The patient is a 33 year old M who was recently admitted to the hospital on 05/02/18 because of increasing pain and redness and swelling in his left lower extremity. On Monday. 04/29/18, patient noted a pimple on his left kneecap that would irritate him when he would wear pants. Patient's tried to squeeze it and did get some slight purulence out. Went to work and noted that he had some swelling in his right knee. Presented to the emergency room on 04/30/17 and diagnosed with cellulitis. Patient was discharged on clindamycin. Patient continued to have worsening symptoms and went to the ED on 05/02/18 and was admitted. He received Unasyn and was started on Vancomycin. Upon admission his Temp was 102.2. It is still low grade at 99.6. His WBC on admission was 16.7 and has only improved slightly to 15.6 despite being on Vancomycin. CT was done on 05/03/18 which showed Superficial soft tissue swelling with fluid accumulations along the fatty and superficial muscular fascial planes from the mid thigh to the mid lower leg, as noted. No defined rim-enhancing collection to indicate an abscess. No acute osseous abnormality to suggest osteomyelitis. Initial culture from the infected ulcer showed MRSA. Despite the Vancomycin, the cellulitis has spread. Because of his worsening symptomatology, I was asked to evaluate this patient for surgical options for treatment. Past Medical History Allergies No Known Allergies Allergy (Verified 04/30/18 20:31) Current Medications Acetaminophen (Tylenol) 650 mg PO Q6H PRN Enoxaparin Sodium (Lovenox) 40 mg SC DAILY@1000 [facility]ODA Vancomycin IV Pharmacy to Dose (1 ea/ Sodium Chloride) 500 mls @ 250 mls/hr IV X1 PRN; Protocol Vancomycin HCl 1,250 mg/ (Sodium Chloride) 275 mls @ 167 mls/hr IV Q8H [facility] Magnesium Hydroxide (Milk Of Magnesia) 30 ml PO DAILY PRN Ondansetron HCl (Zofran) 4 mg IV Q8H PRN Oxycodone HCl (Oxyir) 5 - 10 mg PO Q4H PRN Home Medications: Ambulatory Orders Medication Instructions Recorded Clindamycin [Cleocin] 300 mg PO 4X/DAY #80 cap 04/30/18 Psychiatric History: No pertinent psych hx Lives: Spouse/ Significant Other Smoking Status: Never smoker Tobacco Use: Chew Alcohol: Occasional Drugs: None - *Family History Maternal History Items: - - No medical history that he is aware of. Paternal History Items: - - Medical history that he is aware of Review of Systems Comment: Constitutional: Denies: Anorexia, Chills, Fever, Malaise, Weakness. Eyes: Denies: Blurred vision, Double vision. HEENT: Denies: Head Aches, Sinus Congestion, Sinus Drainage. Cardiovascular: Denies: Chest Pain, Palpitations. Respiratory: Denies: Cough, Shortness of breath at rest, Sputum production. Gastrointestinal: Denies: Abdominal Pain, Nausea, Vomiting. Genitourinary: Denies: Dysuria. Musculoskeletal: Reports: Leg Pain. Denies: Arm Pain. Skin: Denies: Dryness, Jaundice. Neurological: Denies: Numbness, Tingling, Focal weakness. Psychiatric: Denies: Anxiety, Depression. Hematologic/ Lymphatic: Denies: Easy Bruising, Easy Bleeding, Hx of blood clot. Patient Problems: Active and Suspected Problems Abscess of left knee (Acute) MRSA (methicillin resistant Staphylococcus aureus) infection (Acute) Necrotizing soft tissue infection (Acute) Left leg cellulitis (Acute) Sepsis (Acute) - Physical Exam General: Alert, Oriented. Patient is shivering. Is fearful. HEENT: PERRL. EOMI. Oral: Moist Mucosa. Neck: soft and nontender. No cervical adenopathy. Lungs: Clear to auscultation. Cardiovascular: Regular rate, Regular Rhythm. Abdomen: Soft, Non-Distended. Extremities: Left leg is more swollen than the right leg. Dorsalis pedis pulses are palpable. No inguinal adenopathy. No sensory deficits. Skin: - - Left anterior knee with a draining ulcer with purulent drainage. Increased palpable tenderness extending laterally with discoloration. Indurated. Fluctuant. Has extensive cellulitis (blotchy) extending proximally 2/3 up the thigh and distally 2/3 down the leg. Increased tenderness to palpation in these areas as well. Musculoskeletal: No Muscle Wasting, Tenderness Neurological: CN II - XII grossly intact, Sensory exam intact to light touch and pain, Coordination normal Psych/Mental Status: Normal Affect, Appropriate Vital Signs Temp Pulse Resp BP Pulse Ox 99.3 F H 94 16 144/73 H 94 05/04/18 15:00 05/04/18 15:00 05/04/18 15:00 05/04/18 15:00 05/04/18 15:00 Oxygen Flow Rate (L/min) 2 Oxygen Delivery Method Room Air Weight: 238 lb 12.17 oz Body Mass Index (BMI) 32.3 Intake and Output for Last 24 Hours 05/02/18 05/03/18 05/04/18 23:59 23:59 23:59 Intake Total 2292 / 2292 2546 / 2546 2940 / 2940 Output Total 825 / 825 2650 / 2650 Balance 2292 / 2292 1721 / 1721 290 / 290 Microbiology Past 72 Hours 05/02/18 06:06 Gram Stain - Final Wound - Knee Wound Culture - Final Meth. resistant Staph. aureus Laboratory Tests Past 24 Hrs 05/04/18 05/04/18 05:20 15:40 WBC 15.6 H RBC 4.49 L Hgb 13.4 Hct 40.9 MCV 91.1 MCH 29.8 MCHC 32.8 RDW 11.9 RDW Differential 39.3 Plt Count 201 MPV 10.6 Immature Gran % (Auto) 0.300 Neut % (Auto) 70.7 H Lymph % (Auto) 16.4 L [place] % (Auto) 10.7 H Eos % (Auto) 1.7 Baso % (Auto) 0.2 Absolute Neuts (auto) 11.1 H Absolute Lymphs (auto) 2.56 Total Counted Not Reportable Differential Comment SCANNED Vancomycin Trough 15.4 H Assessment/Plan All Active Problems Abscess of left knee (Acute) MRSA (methicillin resistant Staphylococcus aureus) infection (Acute) Necrotizing soft tissue infection (Acute) Left leg cellulitis (Acute) Sepsis (Acute) 1. Infected MRSA ulcer left knee. 2. Worsening cellulitis extending proximally onto thigh and distally onto leg. 3. MRSA. 4. Possible necrotizing infection. Continue Vancomycin. He has a MRSA infection that has spread both proximally and distally along with increasing pain and swelling. He has worsening symptomatology despite being on Vancomycin. He still has low grade temps and his WBC has improved very little. CT reviewed. There is no defined abscess but there is soft tissue swelling along fatty and superficial muscular fascial planes extending both proximally onto the thigh and distally onto the leg. Clinically there is concern about a necrotizing process. Recommend operative intervention today CHASITY. He needs the infection around the knee opened up and drained. He will also need aggressive I&D along the thigh and leg to look for a necrotizing process involving the muscle and fascia. With concern for a necrotizing process, will add Zosyn to cover the Anaerobes. At the time of surgery, will send tissue to Pathology for analysis and to Microbiology for culture. A positive culture may necessitate antibiotic modification. Will leave the wounds open and proceed with daily dressing changes after surgery. It may be difficult to apply the VAC because of the anticipated multiple incisions made during surgery. After discharge, can followup at [facility]. Depending on the healing process, we may proceed with delayed complex secondary wound closure and/or skin grafting. Postop I anticipate increased metabolic demands from the wounds and from the infection. Will check a Prealbumin and encourage nutritional supplementation with protein to help the healing process. Patient was informed of the risks and complications of the procedure including alternatives to surgery. These were discussed with the patient personally. Patient voices understanding and wishes to proceed. Patient understands that there will be several open wounds after the surgery. He voices understanding and wishes to proceed. He understands that if surgery is not done, he is at increased risk for worsening infection, amputation, or . Code Visit Inpatient E&M: 19742 Subs Hosp L3 - Modifier 57 ICD-10 - M79.89, L02.416, A49.02, L03.116
[2018-05-04] MEDS: Piperacil/Tazobactam 3.375 GM/50 ML ML IV (19:56)
--- NOTE | 2018-05-04 22:25 | PCM.IMDPSTOP ---
Immediate Post-Op Note Date of Procedure: 05/04/18 Primary Surgeon/Physician: Dipak Torrez financial business analyst: None Pre-Operative Diagnosis: 1. Infected MRSA ulcer left knee. 2. Worsening cellulitis extending proximally onto thigh and distally onto leg. 3. MRSA. 4. Possible necrotizing infection. Post-Operative Diagnosis: 1. Necrotizing infected MRSA ulcer left knee. 2. Worsening cellulitis extending proximally onto thigh and distally onto leg. 3. MRSA. Surgery/Procedure Performed:: 1. Surgical preparation left knee and left thigh and left leg with incision and drainage and excisional debridement necrotizing infected MRSA ulcer (275.5 cm2). 2. Multiple left leg and left thigh fasciotomies. Description of Surgical Findings:: The patient is a 33 year old M who was recently admitted to the hospital on 05/02/18 because of increasing pain and redness and swelling in his left lower extremity. On Monday. 04/29/18, patient noted a pimple on his left kneecap that would irritate him when he would wear pants. Patient's tried to squeeze it and did get some slight purulence out. Went to work and noted that he had some swelling in his right knee. Presented to the emergency room on 04/30/17 and diagnosed with cellulitis. Patient was discharged on clindamycin. Patient continued to have worsening symptoms and went to the ED on 05/02/18 and was admitted. He received Unasyn and was started on Vancomycin. Upon admission his Temp was 102.2. It is still low grade at 99.6. His WBC on admission was 16.7 and has only improved slightly to 15.6 despite being on Vancomycin. CT was done on 05/03/18 which showed Superficial soft tissue swelling with fluid accumulations along the fatty and superficial muscular fascial planes from the mid thigh to the mid lower leg, as noted. No defined rim-enhancing collection to indicate an abscess. No acute osseous abnormality to suggest osteomyelitis. Initial culture from the infected ulcer showed MRSA. Despite the Vancomycin, the cellulitis has spread. Because of his worsening symptomatology, I was asked to evaluate this patient for surgical options for treatment. There was concern about a necrotizing process and urgent surgical debridement was recommended CHASITY. Patient was aware that multiple incisions will be made and the wounds will be left open. Patient was also aware that an unnecessary delay in surgery may increase risk of worsening infection, amputation, or . He voiced understanding and wished to proceed. He was then taken to surgery urgently where he underwent surgical preparation left knee and left thigh and left leg with incision and drainage and excisional debridement necrotizing infected MRSA ulcer (275.5 cm2) and multiple left leg and left thigh fasciotomies. Size of defect left knee - 12.5 x 3 x 1 cm. Size of defect left medial thigh - 14 x 5 x 4 cm. Size of defect left medial leg - 15 x 4 x 2.5 cm. Size of defect left lateral thigh - 15 x 4 x 3 cm. Size of defect left lateral leg - 16 x 3 x 1 cm. Estimated Blood Loss: 150 ml. Specimen's removed: Left knee and lower extremity necrotizing MRSA ulcer to Pathology and Microbiology. Drains: None. Type of Anesthesia:: General - Admit VTE Documentation VTE Present on Admission: No VTE Mechan Device Prophylaxis: SCD's VTE Pharm Prophylaxis ordered?: Yes
--- NOTE | 2018-05-04 22:56 | NURSING ---
Patient left floor at [address] Torrez for a surgical preparation left knee and lower extremity with incision and drainage and excisional debridement infected MRSA ulcer.
[2018-05-05 01:35] VITALS: BP 113/56; PULSE 89; RESP 16; TEMP 36.4; O2SAT 96
[2018-05-05 03:41] VITALS: BP 118/58; PULSE 73; RESP 16; TEMP 36.4; O2SAT 95
[2018-05-05] MEDS: Piperacil/Tazobactam 3.375 GM/50 ML ML IV ×3 (05:29→22:25)
[2018-05-05] MEDS: oxyCODONE 5 MG Tablet PO ×2 (05:39→09:35)
[2018-05-05 08:58] VITALS: BP 120/65; PULSE 83; RESP 18; TEMP 36.6; O2SAT 94
[2018-05-05] MEDS: Magnesium Hydroxide 30 ML UDC PO (10:43)
[2018-05-05] MEDS: BENZOCAINE/MENTHOL 1 LOZENGE MUCOUS MEM (10:43)
[2018-05-05] MEDS: Enoxaparin 40 MG/0.4 ML Syringe SC (10:44)
--- NOTE | 2018-05-05 11:56 | PCM.PROGNOTE ---
Patient Problems: Active and Suspected Problems Left leg cellulitis (Acute) Sepsis (Acute) Subjective: Patient was seen and examined today, patient's wound culture grew out staph aureus from yesterday, his left leg is wrapped with an Davy wrap and surgical dressing. I talked briefly with plastic surgery about his care today, they are not against him being ambulatory in the room but they do not want him to remain standing for long periods of time. Also if the patient is more ambulatory today, his Alfaro could be removed. - Physical Exam General: Alert, Oriented x3, Cooperative, No apparent distress HEENT: Atraumatic, PERRLA, EOMI, Normocephalic Oral: Moist Mucosa Neck: Supple, No Nuchal Rigidity, Trachea Midline, Thyroid Normal Size and Texture Lungs: Clear to auscultation, Normal air movement, No rhonchi, No wheeze, No rales Cardiovascular: Regular rate, Regular Rhythm, Normal S1, Normal S2, No murmurs, No Ectopic Activity, PMI Normal Abdomen: Bowel Sounds Present, Soft, Non Tender, Non-Distended, No hernias noted Extremities: Capillary Refill Less than 3 Seconds Neurological: Cranial nerves II-XII grossly intact, Neuro grossly intact, Sensory exam intact to light touch and pain, Coordination normal Psych/Mental Status: Normal Affect, Appropriate, Alert and oriented to time, place, person, mood and affect Vital Signs Temp Pulse Resp BP Pulse Ox 98 F 83 18 120/65 94 05/05/18 08:58 05/05/18 08:58 05/05/18 08:58 05/05/18 08:58 05/05/18 08:58 Oxygen Flow Rate (L/min) 2 Oxygen Delivery Method Nasal Cannula Weight: 108.3 kg Body Mass Index (BMI) 32.3 Intake and Output for Last 24 Hours 05/03/18 05/04/18 05/05/18 23:59 23:59 23:59 Intake Total 2546 / 2546 4640 / 4640 2485 / 2485 Output Total 825 / 825 3300 / 3300 1900 / 1900 Balance 1721 / 1721 1340 / 1340 585 / 585 Microbiology Past 72 Hours 05/04/18 22:00 Wound Culture - Preliminary Tissue - Other Staphylococcus aureus 05/02/18 21:38 Blood Culture - Preliminary Blood Culture (Wb) - Anticubital Right No growth in 48 hours. 05/02/18 21:30 Blood Culture - Preliminary Blood Culture (Wb) - Anticubital Left No growth in 48 hours. 05/02/18 06:06 Gram Stain - Final Wound - Knee Wound Culture - Final Meth. resistant Staph. aureus Laboratory Tests Past 24 Hrs 05/04/18 15:40 Vancomycin Trough 15.4 H Medical Necessity - Tobacco Use Smoking Status: Never smoker Tobacco Use: Chew Assessment/Plan All Active Problems Left leg cellulitis (Acute) Sepsis (Acute) #1 acute sepsis secondary to left leg cellulitis from MRSA-continue vancomycin, infectious diseases is participating and his care, plastic surgery is also participating in his care. Plastic surgery requested continuation of Zosyn for now until we get final culture results back. CBC will be ordered for tomorrow morning. I will discontinue IV fluids for now, patient is able to intake fluids on his own. Postop day #1 incision and drainage of left leg #2 acute cellulitis of the left leg secondary to MRSA, failed outpatient treatment-continue IV vancomycin Code Visit Inpatient E&M: 32674 Subs Hosp L2
--- NOTE | 2018-05-05 12:33 | OP.PCM_ITS ---
Report of Operation Date of Procedure: 05/04/18 Pre-Operative Diagnosis: 1. Infected MRSA ulcer left knee. 2. Worsening cellulitis extending proximally onto thigh and distally onto leg. 3. MRSA. 4. Possible necrotizing infection. Post-Operative Diagnosis: 1. Necrotizing infected MRSA ulcer left knee. 2. Worsening cellulitis extending proximally onto thigh and distally onto leg. 3. MRSA. Surgery/Procedure Performed:: 1. Surgical preparation left knee and left thigh and left leg with incision and drainage and excisional debridement necrotizing infected MRSA ulcer (275.5 cm2). 2. Multiple left leg and left thigh fasciotomies. Description of Surgical Findings:: The patient is a 33 year old M who was recently admitted to the hospital on 05/02/18 because of increasing pain and redness and swelling in his left lower extremity. On Monday. 04/29/18, patient noted a pimple on his left kneecap that would irritate him when he would wear pants. Patient's tried to squeeze it and did get some slight purulence out. Went to work and noted that he had some swelling in his right knee. Presented to the emergency room on 04/30/17 and diagnosed with cellulitis. Patient was discharged on clindamycin. Patient continued to have worsening symptoms and went to the ED on 05/02/18 and was admitted. He received Unasyn and was started on Vancomycin. Upon admission his Temp was 102.2. It is still low grade at 99.6. His WBC on admission was 16.7 and has only improved slightly to 15.6 despite being on Vancomycin. CT was done on 05/03/18 which showed Superficial soft tissue swelling with fluid accumulations along the fatty and superficial muscular fascial planes from the mid thigh to the mid lower leg, as noted. No defined rim-enhancing collection to indicate an abscess. No acute osseous abnormality to suggest osteomyelitis. Initial culture from the infected ulcer showed MRSA. Despite the Vancomycin, the cellulitis has spread. Because of his worsening symptomatology, I was asked to evaluate this patient for surgical options for treatment. There was concern about a necrotizing process and urgent surgical debridement was recommended CHASITY. Patient was informed of the risks and complications of the procedure including alternatives to surgery. These were discussed with the patient personally. Patient voices understanding and wishes to proceed. Patient understands that there will be several open wounds after the surgery. He voices understanding and wishes to proceed. He understands that if surgery is not done, he is at increased risk for worsening infection, amputation, or . Size of defect left knee - 12.5 x 3 x 1 cm. Size of defect left medial thigh - 14 x 5 x 4 cm. Size of defect left medial leg - 15 x 4 x 2.5 cm. Size of defect left lateral thigh - 15 x 4 x 3 cm. Size of defect left lateral leg - 16 x 3 x 1 cm. oil process stillman: None Type of Anesthesia:: General Specimen's removed: Left knee and lower extremity necrotizing MRSA ulcer to Pathology and Microbiology. Drains: None. Estimated Blood Loss (mL): 150 ml. Description of Procedure: Patient was taken to OR in supine position and was placed under general anesthesia. The left lower extremity was prepped and draped in the usual fashion. SCD's were placed on the right leg for DVT prophylaxis . Perioperative antibiotics were given intravenously. A lagos catheter was then placed. I probed the MRSA ulcer left knee and there was a large cavity which extended laterally. Copious amounts of thick discolored looking pus was expressed with some odor. I proceeded with an aggressive incision and drainage to open up the undermined areas. The initial circular incision around the knee ulcer extended as a horizontal ellipse to encompass the extension of the pus laterally. There was a lot of necrotizing subcutaneous tissue. No exposed bone was seen. Due to the rapidity of the worsening of the cellulitis and the lack of CT findings, I was concerned about a necrotizing process and made several longitudinal incisions both proximally on the thigh and distally on the leg. The incisions were made on both the medial and lateral aspects. The subcutaneous tissue was necrotic and brownish grayish looking. Some bubbles were noted in the subcutaneous tissue. I extended the incisions down to the muscle and fascia. The fascia was inflamed and looked viable. Fasciotomies were placed and the underlying muscles were initially dusky but became pink and viable with releasing some tension and irrigation with saline and allowing air into the wounds. So I made 4 separate longitudinal incisions (medial thigh, lateral thigh, medial leg, and lateral leg). Fasciotomies were made in all the incisions. The firmness of the skin softened up fairly quickly after these incisions were made. A lot of edema was seen in the wounds and extra gauze bandages and suction was needed to keep the wounds relatively dry. Tissue that was removed tonight was sent to Pathology for analysis to rule out carcinoma and to Microbiology for culture. A positive culture may necessitate antibiotic modification. He has MRSA thus far. After irrigation of the wounds in a pulsatile fashion, I obtained hemostasis with electrocautery. The size of the defects created with the multiple incisions were - 12.5 x 3 x 1 cm for the left knee with extension laterally, 14 x 5 x 4 cm for the left medial thigh, 15 x 4 x 2.5 cm for the left medial leg, 15 x 4 x 3 cm for the left lateral thigh, and 16 x 3 x 1 cm for the left lateral leg for a combined 275.5 cm2. The wounds were then dressed with Mepitel nonadherent dressing followed by Kerlix gauze with Betadine followed by dry Kerlix gauze followed by 6 inch pal wraps for compression. Patient tolerated the procedure well and was sent to PACU in stable condition. Patient will be sent upstairs for continued postop care. With multiple wounds, will begin wound care with Silver dressing changes daily. Will reassess clinically over the next several days to see if additional operative intervention is necessary depending on how the wounds look during the healing process and how well the patient is doing clinically. Grafts/Implants Used: None. - Complications None. - Admit VTE Documentation VTE Present on Admission: No VTE Mechan Device Prophylaxis: SCD's VTE Pharm Prophylaxis ordered?: Yes Code Visit Surgery Charges CPT - 42630 ICD-10 - L02.416, A49.02, M79.89, L03.116, S81.002A, S71.102A, S81.802A 89641 L02.416, A49.02, M79.89, L03.116, S81.002A, S71.102A, S81.802A 66162 L02.416, A49.02, M79.89, L03.116, S81.002A 36281 L02.416, A49.02, M79.89, L03.116, S71.102A 39553 L02.416, A49.02, M79.89, L03.166, S81.802A
[2018-05-05 12:52] LABS: Hematocrit 41.2 % (40-54); Hemoglobin 13.5 g/dl (13.0-16.5); Mean Corp Hgb Conc 32.8 g/gl (32-36); Mean Corpuscular Hgb 29.1 pg (27.0-32.0); Mean Corpuscular Volume 88.8 fL (80-94); Mean Platelet Vol. 10.4 fl (6.2-12.0); Platelet Count 258 K/mm3 (150-450); RBC Distribution Width CV 11.7 % (11.6-14.6); RBC Distribution Width SD 37.8 fl (35.1-43.9); Red Blood Count 4.64 M/mm3 (4.6-6.2); Scan Indicated on CBC? Y/N NO; White Blood Count 14.8 K/mm3 (4.4-11.0)
[2018-05-05 13:10] LABS: Anion Gap 9 (5-15); BUN 13 mg/dL (7-18); BUN/Creat Ratio 11.6 RATIO (10-20); Calcium,Total 8.4 mg/dL (8.5-10.1); Chloride 104 mmol/L (98-107); Creatinine, Serum 1.12 mg/dL (0.70-1.30); EST Glomerular Filtration Rate 80 mL/min (>60); Est Glom Filt Rate - Afr Amer 97 mL/min (>60); Estimated Creatinine Clearance 102.97 ml/min; Glucose 222 mg/dL (74-106); Prealbumin 9.9 mg/dL (20.0-40.0); Sodium Level 139 mmol/L (136-145)
[2018-05-05] MEDS: HYDROmorphone 1 MG/ML Syringe IV (13:26)
--- NOTE | 2018-05-05 13:45 | PCM.PN.SRG ---
Patient Problems: Active and Suspected Problems Abscess of left knee (Acute) MRSA (methicillin resistant Staphylococcus aureus) infection (Acute) Necrotizing soft tissue infection (Acute) Left leg cellulitis (Acute) Sepsis (Acute) Subjective: Postop #1 Patient is resting comfortably. Silver dressing change done today. He needed IV analgesia and tolerated it reasonably well. States when he stands up he is able to put more weight on his left leg. - Physical Exam General: Alert, Oriented x3 HEENT: PERRLA, EOMI Oral: Moist Mucosa Neck: Supple Extremities: Edema - much less edema in left leg today., Peripheral Pulses Normal Skin: Ulcer/ Wound - wounds left leg are stable. No bleeding seen. Muscle looks pink and viable. No further evidence of infection. Cellulitis much improved. Redressed wounds with Aquacel Silver. Lymphatic: - - no inguinal adenopathy. Neurological: Cranial nerves II-XII grossly intact Psych/Mental Status: Normal Affect, Appropriate Vital Signs Temp Pulse Resp BP Pulse Ox 98 F 83 18 120/65 94 05/05/18 08:58 05/05/18 08:58 05/05/18 08:58 05/05/18 08:58 05/05/18 08:58 Oxygen Flow Rate (L/min) 2 Oxygen Delivery Method Nasal Cannula Weight: 238 lb 12.17 oz Body Mass Index (BMI) 32.3 Intake and Output for Last 24 Hours 05/03/18 05/04/18 05/05/18 23:59 23:59 23:59 Intake Total 2546 / 2546 4640 / 4640 2485 / 2485 Output Total 825 / 825 3300 / 3300 1900 / 1900 Balance 1721 / 1721 1340 / 1340 585 / 585 Microbiology Past 72 Hours 05/04/18 22:00 Gram Stain - Final Tissue - Other Wound Culture - Preliminary Staphylococcus aureus 05/02/18 21:38 Blood Culture - Preliminary Blood Culture (Wb) - Anticubital Right No growth in 48 hours. 05/02/18 21:30 Blood Culture - Preliminary Blood Culture (Wb) - Anticubital Left No growth in 48 hours. 05/02/18 06:06 Gram Stain - Final Wound - Knee Wound Culture - Final Meth. resistant Staph. aureus Laboratory Tests Past 24 Hrs 05/04/18 05/05/18 05/05/18 15:40 11:30 11:30 WBC 14.8 H RBC 4.64 Hgb 13.5 Hct 41.2 MCV 88.8 MCH 29.1 MCHC 32.8 RDW 11.7 RDW Differential 37.8 Plt Count 258 MPV 10.4 Sodium 139 Potassium 4.0 Chloride 104 Carbon Dioxide 26.0 Anion Gap 9 BUN 13 Creatinine 1.12 Estim Creat Clear Calc 102.97 Est GFR (MDRD) Af Amer 97 Est GFR (MDRD) Non-Af 80 BUN/Creatinine Ratio 11.6 Glucose 222 H Calcium 8.4 L Prealbumin 9.9 L Vancomycin Trough 15.4 H Medical Necessity - Tobacco Use Smoking Status: Never smoker Tobacco Use: Chew Assessment/Plan All Active Problems Abscess of left knee (Acute) MRSA (methicillin resistant Staphylococcus aureus) infection (Acute) Necrotizing soft tissue infection (Acute) Left leg cellulitis (Acute) Sepsis (Acute) 1. Necrotizing infected MRSA ulcer left knee. 2. Worsening cellulitis extending proximally onto thigh and distally onto leg. 3. MRSA. 4. s/p surgical preparation left knee and left thigh and left leg with incision and drainage and excisional debridement necrotizing infected MRSA ulcer (275.5 cm2). Continue Vancomycin for the MRSA. Continue Zosyn through the weekend until the operative cultures are available. Thus far it shows Staphylococcus aureus. Wounds are clean. Muscle is pink and viable. Much less swelling. Cellulitis is much improved. Redressed the wounds with Aquacel Silver. Needed IV analgesia and tolerated it reasonably well. Prealbumin was 9.9. Encourage nutritional supplementation with protein to help the healing process. May ambulate with assist. No standing. When he sits, he needs to elevate left leg. Alfaro catheter can be removed today. After discharge, can followup at the [facility]. Depending on the healing process, we may proceed with delayed complex secondary wound closure and/or skin grafting.
[2018-05-05 14:30] VITALS: BP 136/67; PULSE 86; RESP 18; TEMP 36.7; O2SAT 96
[2018-05-05 16:23] LABS: Vancomycin, Trough Level 15.6 ug/mL (5.0-15.0)
[2018-05-05] MEDS: oxyCODONE 5 MG Tablet 10 MG PO ×2 (16:24→20:37)
--- NOTE | 2018-05-05 17:24 | PCM.RX.CS ---
Consult Pharmacy has been consulted to manage selected antiobiotic: Vancomycin Type of Consult: Follow-up Suspected Infection: Skin/Soft tissue Prior Doses of Antibiotics Received/Current Regimen: VANCOMYCIN 1250MG IV Q8HRS SINCE 05/03/18 Labs: Sodium 139 mmol/L (136-145) 05/05/18 11:30 Potassium 4.0 mmol/L (3.5-5.1) 05/05/18 11:30 Chloride 104 mmol/L (98-107) 05/05/18 11:30 Carbon Dioxide 26.0 mmol/L (21.0-32.0) 05/05/18 11:30 Anion Gap 9 (5-15) 05/05/18 11:30 BUN 13 mg/dL (7-18) 05/05/18 11:30 Creatinine 1.12 mg/dL (0.70-1.30) 05/05/18 11:30 Est GFR (MDRD) Af Amer 97 mL/min (>60) 05/05/18 11:30 Est GFR (MDRD) Non-Af 80 mL/min (>60) 05/05/18 11:30 BUN/Creatinine Ratio 11.6 RATIO (10-20) 05/05/18 11:30 Glucose 222 mg/dL (74-106) H 05/05/18 11:30 Vancomycin Trough 15.6 ug/mL (5.0-15.0) H 05/05/18 15:30 Microbiology: Microbiology 05/04/18 22:00 Tissue - Other Gram Stain - Final 05/04/18 22:00 Tissue - Other Wound Culture - Preliminary Staphylococcus aureus 05/02/18 21:38 Blood Culture (Wb) - Anticubital Right Blood Culture - Preliminary No growth in 48 hours. 05/02/18 21:30 Blood Culture (Wb) - Anticubital Left Blood Culture - Preliminary No growth in 48 hours. 05/02/18 06:06 Wound - Knee Gram Stain - Final 05/02/18 06:06 Wound - Knee Wound Culture - Final Meth. resistant Staph. aureus Goal Trough: 15-20 mcg/mL Pharmacy Plan for Drug Dosing: The patient had a trough drawn which resulted in a value of 15.6 (drawn 6hrs from last dose given). Since the patient has a goal of 15-20, will continue current regimen and reassess the trough in 4 days per protocol. Will plan on drawing a trough sooner is there are any acute changes in renal function. PLAN/RECOMMENDATIONS 1. Continue vancomycin 1250mg iv q8hr 2. Trough scheduled 05/09 @1530 to assess dosing 3. Pharmacy Service will continue to monitor and adjust dosing as required.
[2018-05-05] MEDS: Acetaminophen 325 MG Tablet 650 MG PO (20:38)
[2018-05-05 20:39] VITALS: BP 147/71; PULSE 88; RESP 16; RESP 18; TEMP 36.7; O2SAT 92
[2018-05-06] VITALS: BP 129/74; PULSE 76; RESP 16; TEMP 36.5; O2SAT 96
[2018-05-06 05:31] VITALS: BP 130/77; PULSE 88; RESP 16; TEMP 36.6; O2SAT 96
[2018-05-06] MEDS: oxyCODONE 5 MG Tablet 10 MG PO ×4 (05:35→19:55)
[2018-05-06] MEDS: Piperacil/Tazobactam 3.375 GM/50 ML ML IV ×2 (05:35→13:54)
[2018-05-06] MEDS: Acetaminophen 325 MG Tablet 650 MG PO (05:35)
[2018-05-06 06:53] LABS: Hematocrit 37.4 % (40-54); Hemoglobin 12.3 g/dl (13.0-16.5); Mean Corp Hgb Conc 32.9 g/gl (32-36); Mean Corpuscular Hgb 29.6 pg (27.0-32.0); Mean Corpuscular Volume 90.1 fL (80-94); Mean Platelet Vol. 10.7 fl (6.2-12.0); Platelet Count 251 K/mm3 (150-450); RBC Distribution Width CV 11.4 % (11.6-14.6); RBC Distribution Width SD 36.7 fl (35.1-43.9); Red Blood Count 4.15 M/mm3 (4.6-6.2); White Blood Count 17.2 K/mm3 (4.4-11.0)
[2018-05-06 06:59] LABS: Scan Indicated on CBC? Y/N NO
[2018-05-06 07:10] LABS: Anion Gap 4 (5-15); BUN 18 mg/dL (7-18); BUN/Creat Ratio 18.1 RATIO (10-20); Calcium,Total 8.2 mg/dL (8.5-10.1); Chloride 104 mmol/L (98-107); EST Glomerular Filtration Rate 92 mL/min (>60); Est Glom Filt Rate - Afr Amer 111 mL/min (>60); Estimated Creatinine Clearance 115.32 ml/min; Glucose 150 mg/dL (74-106); Potassium 4.2 mmol/L (3.5-5.1); Sodium Level 138 mmol/L (136-145)
[2018-05-06 08:42] VITALS: BP 133/74; PULSE 83; RESP 18; TEMP 37; O2SAT 96
[2018-05-06] MEDS: Enoxaparin 40 MG/0.4 ML Syringe SC (08:44)
[2018-05-06 13:02] VITALS: O2SAT 97
[2018-05-06 13:58] VITALS: BP 144/79; PULSE 83; RESP 18; TEMP 36.6; O2SAT 96
--- NOTE | 2018-05-06 14:42 | PCM.PN.SRG ---
Patient Problems: Active and Suspected Problems Abscess of left knee (Acute) MRSA (methicillin resistant Staphylococcus aureus) infection (Acute) Necrotizing soft tissue infection (Acute) Left leg cellulitis (Acute) Sepsis (Acute) Subjective: Postop #2 Patient is resting comfortably. Does have some burning pain in the lateral wounds. After lagos removed, he has been voiding without difficulty. - Physical Exam General: Alert, Oriented x3 HEENT: PERRLA, EOMI Oral: Moist Mucosa Neck: Supple Abdomen: Soft, Non-Distended Extremities: Edema - much improved in left leg., Peripheral Pulses Normal, - - has some burning pain in lateral wounds. dorsiflexion intact in left foot. Skin: Ulcer/ Wound - left lower extremities wounds are clean. No bleeding noted. No further evidence of infection noted. Swelling much improved. Lymphatic: - - no inguinal adenopathy. Neurological: Cranial nerves II-XII grossly intact Psych/Mental Status: Normal Affect, Appropriate Vital Signs Temp Pulse Resp BP Pulse Ox 98 F 83 18 144/79 H 96 05/06/18 13:58 05/06/18 13:58 05/06/18 13:58 05/06/18 13:58 05/06/18 13:58 Oxygen Flow Rate (L/min) 2 Oxygen Delivery Method Room Air Weight: 238 lb 12.17 oz Body Mass Index (BMI) 32.3 Intake and Output for Last 24 Hours 05/04/18 05/05/18 05/06/18 23:59 23:59 23:59 Intake Total 4640 / 4640 4190 / 4190 2495.7 / 2495.7 Output Total 3300 / 3300 3950 / 3950 1100 / 1100 Balance 1340 / 1340 240 / 240 1395.7 / 1395.7 Microbiology Past 72 Hours 05/04/18 22:00 Gram Stain - Final Tissue - Other Wound Culture - Final Meth. resistant Staph. aureus 05/02/18 21:38 Blood Culture - Preliminary Blood Culture (Wb) - Anticubital Right No growth in 48 hours. 05/02/18 21:30 Blood Culture - Preliminary Blood Culture (Wb) - Anticubital Left No growth in 48 hours. 05/02/18 06:06 Gram Stain - Final Wound - Knee Wound Culture - Final Meth. resistant Staph. aureus Laboratory Tests Past 24 Hrs 05/05/18 05/06/18 05/06/18 15:30 06:31 06:31 WBC 17.2 H RBC 4.15 L Hgb 12.3 L Hct 37.4 L MCV 90.1 MCH 29.6 MCHC 32.9 RDW 11.4 L RDW Differential 36.7 Plt Count 251 MPV 10.7 Sodium 138 Potassium 4.2 Chloride 104 Carbon Dioxide 30.0 Anion Gap 4 L BUN 18 Creatinine 1.00 Estim Creat Clear Calc 115.32 Est GFR (MDRD) Af Amer 111 Est GFR (MDRD) Non-Af 92 BUN/Creatinine Ratio 18.1 Glucose 150 H Calcium 8.2 L Vancomycin Trough 15.6 H Medical Necessity - Tobacco Use Smoking Status: Never smoker Tobacco Use: Chew Assessment/Plan All Active Problems Abscess of left knee (Acute) MRSA (methicillin resistant Staphylococcus aureus) infection (Acute) Necrotizing soft tissue infection (Acute) Left leg cellulitis (Acute) Sepsis (Acute) 1. Necrotizing infected MRSA ulcer left knee. 2. Cellulitis extending proximally onto thigh and distally onto leg, much improved after surgery. 3. MRSA. 4. s/p surgical preparation left knee and left thigh and left leg with incision and drainage and excisional debridement necrotizing infected MRSA ulcer (275.5 cm2). Continue Vancomycin for the MRSA. Operative culture also shows Staphylococcus aureus. Will stop Zosyn and begin Flagyl until Anaerobic cultures are available. Wounds are clean. Muscle is pink and viable. Much less swelling. Cellulitis is much improved. WBC has increased a little today. Will observe. Could be residual effect form surgical manipulation on Monday. If WBC continues to increase, will obtain a CXR and Urinalysis to look for other sources. Also a repeat scan would be done as well. Patient is aware that if continued increase is seen and no other source is found, then further operative irrigation and debridement would be necessary. Redressed the wounds with Aquacel Silver. Needed IV analgesia and tolerated it reasonably well. Had some burning pain in lateral wounds. Will add Neurontin. Prealbumin was 9.9. Encourage nutritional supplementation with protein to help the healing process. May ambulate with assist. No standing. When he sits, he needs to elevate left leg. Lagos removed yesterday. He is voiding today without difficulty. After discharge, can followup at the [facility] Center. Depending on the healing process, we may proceed with delayed complex secondary wound closure and/or skin grafting.
[2018-05-06] MEDS: Gabapentin 300 MG Capsule PO (15:39)
[2018-05-06] MEDS: diazePAM 5 MG Tablet PO (16:18)
--- NOTE | 2018-05-06 18:25 | PCM.PROGNOTE ---
Patient Problems: Active and Suspected Problems Left leg cellulitis (Acute) Sepsis (Acute) Subjective: Patient was seen and examined today, his white blood cell count was 17.2 today, patient has been afebrile, he does not complain of excessive pain in the area of his leg wounds. - Physical Exam General: Alert, Oriented x3, Cooperative, No apparent distress, Well developed, Well nourished HEENT: Atraumatic, PERRLA, EOMI, Normocephalic Oral: Moist Mucosa Neck: Supple, No Nuchal Rigidity, Trachea Midline, Thyroid Normal Size and Texture Lungs: Clear to auscultation, Normal air movement, No rhonchi, No wheeze, No rales Cardiovascular: Regular rate, Regular Rhythm, Normal S1, Normal S2, No murmurs, No Ectopic Activity, PMI Normal, No rub noted, No Gallop Abdomen: Bowel Sounds Present, Soft, Non Tender, Non-Distended, No hernias noted Extremities: No clubbing, No cyanosis, Capillary Refill Less than 3 Seconds Skin: Ulcer/ Wound - There are multiple leg wounds noted over the left leg, these wounds are bandaged at this time and I have not remove the bandage for inspection of the wounds Neurological: Cranial nerves II-XII grossly intact, Neuro grossly intact, Sensory exam intact to light touch and pain, Coordination normal Psych/Mental Status: Normal Affect, Appropriate, Alert and oriented to time, place, person, mood and affect Vital Signs Temp Pulse Resp BP Pulse Ox 98 F 83 18 144/79 H 96 05/06/18 13:58 05/06/18 13:58 05/06/18 13:58 05/06/18 13:58 05/06/18 13:58 Oxygen Flow Rate (L/min) 2 Oxygen Delivery Method Room Air Weight: 108.3 kg Body Mass Index (BMI) 32.3 Intake and Output for Last 24 Hours 05/04/18 05/05/18 05/06/18 23:59 23:59 23:59 Intake Total 4640 / 4640 4190 / 4190 4588.7 / 4588.7 Output Total 3300 / 3300 3950 / 3950 3100 / 3100 Balance 1340 / 1340 240 / 240 1488.7 / 1488.7 Microbiology Past 72 Hours 05/04/18 22:00 Gram Stain - Final Tissue - Other Wound Culture - Final Meth. resistant Staph. aureus 05/02/18 21:38 Blood Culture - Preliminary Blood Culture (Wb) - Anticubital Right No growth in 48 hours. 05/02/18 21:30 Blood Culture - Preliminary Blood Culture (Wb) - Anticubital Left No growth in 48 hours. 05/02/18 06:06 Gram Stain - Final Wound - Knee Wound Culture - Final Meth. resistant Staph. aureus Laboratory Tests Past 24 Hrs 05/06/18 05/06/18 06:31 06:31 WBC 17.2 H RBC 4.15 L Hgb 12.3 L Hct 37.4 L MCV 90.1 MCH 29.6 MCHC 32.9 RDW 11.4 L RDW Differential 36.7 Plt Count 251 MPV 10.7 Sodium 138 Potassium 4.2 Chloride 104 Carbon Dioxide 30.0 Anion Gap 4 L BUN 18 Creatinine 1.00 Estim Creat Clear Calc 115.32 Est GFR (MDRD) Af Amer 111 Est GFR (MDRD) Non-Af 92 BUN/Creatinine Ratio 18.1 Glucose 150 H Calcium 8.2 L Medical Necessity - Tobacco Use Smoking Status: Never smoker Tobacco Use: Chew Assessment/Plan All Active Problems Abscess of left knee (Acute) MRSA (methicillin resistant Staphylococcus aureus) infection (Acute) Necrotizing soft tissue infection (Acute) Left leg cellulitis (Acute) Sepsis (Acute) #1 acute sepsis secondary to left leg cellulitis from MRSA- Postop day #2 incision and drainage of left leg by plastic surgery (Dr. Torrze) #2 acute cellulitis of the left leg secondary to MRSA, failed outpatient treatment-continue IV vancomycin, infectious diseases is participating in his care Code Visit Inpatient E&M: 12130 Subs Hosp L2
[2018-05-06 19:48] VITALS: BP 143/80; PULSE 89; RESP 16; TEMP 36.8; O2SAT 95
[2018-05-06 20:12] LABS: Hematocrit 38.4 % (40-54); Hemoglobin 12.5 g/dl (13.0-16.5); Mean Corp Hgb Conc 32.6 g/gl (32-36); Mean Corpuscular Hgb 29.2 pg (27.0-32.0); Mean Corpuscular Volume 89.7 fL (80-94); Mean Platelet Vol. 10.2 fl (6.2-12.0); Platelet Count 239 K/mm3 (150-450); RBC Distribution Width CV 11.8 % (11.6-14.6); RBC Distribution Width SD 38.4 fl (35.1-43.9); Red Blood Count 4.28 M/mm3 (4.6-6.2); Scan Indicated on CBC? Y/N NO; White Blood Count 14.1 K/mm3 (4.4-11.0)
[2018-05-06 20:51] LABS: Anion Gap 8 (5-15); BUN 20 mg/dL (7-18); BUN/Creat Ratio 17.7 RATIO (10-20); Calcium,Total 8.1 mg/dL (8.5-10.1); Chloride 105 mmol/L (98-107); Creatinine, Serum 1.13 mg/dL (0.70-1.30); EST Glomerular Filtration Rate 79 mL/min (>60); Est Glom Filt Rate - Afr Amer 96 mL/min (>60); Estimated Creatinine Clearance 102.06 ml/min; Glucose 146 mg/dL (74-106); Potassium 3.7 mmol/L (3.5-5.1); Prealbumin 15.3 mg/dL (20.0-40.0); Sodium Level 143 mmol/L (136-145)
[2018-05-06] MEDS: Docusate Sodium 100 MG Capsule PO (22:26)
[2018-05-07] VITALS (8 sets, daily range): BP systolic 121–137; BP diastolic 61–81; PULSE 73–90; RESP 14–18; TEMP 36.6–37.1; O2SAT 89–96
--- NOTE | 2018-05-07 | LES_PTH ---
PATIENT: NILSON PINA LOC: [facility] U#:[id number] AGE/SX: 33/M ROOM: [facility] RE05/02/[address]: Dr. Fortunato Lucio MD : [id number] BED: 1 DIS: 05/11/2018 SPEC #: [id number] RECD: 05/07/18 13:43 STATUS: REJI REQ #: [id number] MARISA: 05/07/18 00:[address]: Dipak Torrez DEPT: SURGICAL PATHOLOGY RECD BY: Shorty Llanes ENTERED: 05/07/18 13:44 SP TYPE: Lesion OTHR DR: Dr. Kevin Cervantes, MD Dr. Jian Reese Dr., MD Dr. Mark Tereletsky, DO Dr. Alec oRyal MD Tissues: Knee, NOS Procedures: Special Stain Group I Surgery Specimen Level III AFB Stain (control) GMS Stain (control) Comments: @ Ordering doctor for SUIII edited from to @ by DARIA at 05/08/18909 @ Submitting doctor edited from to @ by RGOOD at 05/08/18909 HEADER OPERATION: Left knee and lower extremity with incision and drainage PRE-OP DIAGNOSIS: Left leg cellulitis TISSUE SUBMITTED: Left knee MRSA infection MICROSCOPIC DIAGNOSIS Left knee MRSA infection: Skin with underlying tissue with acute and chronic inflammation and abscess formation. Special stains for acid fast bacilli and fungi are negative for organisms; matched controls are appropriate. POWER:maddie 05/08/18 MICROSCOPIC DESCRIPTION Slides are reviewed. GROSS DESCRIPTION Received in fixative is one container labeled with the patient's name and designated left knee MRSA infection. The specimen consists of multiple pieces of skin with underlying tissue. A piece of tissue consists of a round piece of skin which measures 3.5 x 3 cm and up to 1.4 cm in thickness. Additional pieces measure in aggregate 5 x 3 x 0.5 cm. A focal area of ulceration is noted. Financial Underwriter sections are submitted in two cassettes. / Angeline 05/07/18 TC:2 CPT: 83580, 01287 x2
[2018-05-07] MEDS: oxyCODONE 5 MG Tablet 10 MG PO ×6 (00:17→22:33)
[2018-05-07 07:46] LABS: Anion Gap 9 (5-15); BUN 18 mg/dL (7-18); BUN/Creat Ratio 19.6 RATIO (10-20); Calcium,Total 8.1 mg/dL (8.5-10.1); Chloride 105 mmol/L (98-107); Creatinine, Serum 0.92 mg/dL (0.70-1.30); EST Glomerular Filtration Rate 101 mL/min (>60); Est Glom Filt Rate - Afr Amer 122 mL/min (>60); Estimated Creatinine Clearance 125.35 ml/min; Glucose 99 mg/dL (74-106); Potassium 3.8 mmol/L (3.5-5.1); Sodium Level 142 mmol/L (136-145)
[2018-05-07 07:53] LABS: Hematocrit 37.3 % (40-54); Hemoglobin 12.2 g/dl (13.0-16.5); Mean Corp Hgb Conc 32.7 g/gl (32-36); Mean Corpuscular Volume 91.9 fL (80-94); Mean Platelet Vol. 10.6 fl (6.2-12.0); Platelet Count 245 K/mm3 (150-450); RBC Distribution Width CV 11.7 % (11.6-14.6); RBC Distribution Width SD 38.4 fl (35.1-43.9); Red Blood Count 4.06 M/mm3 (4.6-6.2); White Blood Count 11.1 K/mm3 (4.4-11.0)
[2018-05-07] MEDS: Docusate Sodium 100 MG Capsule PO ×2 (08:06→22:34)
[2018-05-07] MEDS: Gabapentin 300 MG Capsule PO ×2 (08:06→16:50)
[2018-05-07 08:07] LABS: Scan Indicated on CBC? Y/N NO
[2018-05-07] MEDS: Enoxaparin 40 MG/0.4 ML Syringe SC (08:21)
[2018-05-07] MEDS: diazePAM 5 MG Tablet PO (11:02)
[2018-05-07] MEDS: Ondansetron 4 MG/2 ML Vial IV (11:06)
[2018-05-07 11:48] LABS: Pathologist Review Reviewed
[2018-05-07] MEDS: 0.9% NaCl Peripheral Flush Adult/Peds IV (13:25)
[2018-05-07] MEDS: HYDROmorphone 1 MG/ML Syringe IV (13:25)
--- NOTE | 2018-05-07 13:47 | PCM.PN.ID ---
Patient Problems: Active and Suspected Problems Open wound of left lower leg (Acute) left medial leg and left lateral leg Open wound of left knee (Acute) Open wound of left thigh (Acute) left medial thigh and left lateral thigh Left leg cellulitis (Acute) Sepsis (Acute) Subjective: Feeling ok, pain controlled, no fever, no n/v/d. - Physical Exam General: Alert, Cooperative, No apparent distress Lungs: Clear to auscultation, Normal air movement Cardiovascular: Regular rate, Regular Rhythm Abdomen: Soft, Non Tender, Non-Distended Skin: Incision - Leg wrapped Vital Signs Temp Pulse Resp BP Pulse Ox 98.5 F 73 16 129/69 H 89 05/07/18 11:36 05/07/18 11:36 05/07/18 11:42 05/07/18 11:36 05/07/18 11:42 Oxygen Flow Rate (L/min) 2 Oxygen Delivery Method Room Air Weight: 108.3 kg Body Mass Index (BMI) 32.3 Intake and Output for Last 24 Hours 05/05/18 05/06/18 05/07/18 23:59 23:59 23:59 Intake Total 4190 / 4190 4588.7 / 4588.7 1633 / 1633 Output Total 3950 / 3950 3100 / 3100 1000 / 1000 Balance 240 / 240 1488.7 / 1488.7 633 / 633 Microbiology Past 72 Hours 05/04/18 22:00 Gram Stain - Final Tissue - Other Wound Culture - Final Meth. resistant Staph. aureus 05/02/18 21:38 Blood Culture - Preliminary Blood Culture (Wb) - Anticubital Right No growth in 48 hours. 05/02/18 21:30 Blood Culture - Preliminary Blood Culture (Wb) - Anticubital Left No growth in 48 hours. Laboratory Tests Past 24 Hrs 05/03/18 05/06/18 05/06/18 07:20 19:45 19:45 WBC 14.1 H RBC 4.28 L Hgb 12.5 L Hct 38.4 L MCV 89.7 MCH 29.2 MCHC 32.6 RDW 11.8 RDW Differential 38.4 Plt Count 239 MPV 10.2 Diff Path Review Reviewed Sodium 143 Potassium 3.7 Chloride 105 Carbon Dioxide 30.0 Anion Gap 8 BUN 20 H Creatinine 1.13 Estim Creat Clear Calc 102.06 Est GFR (MDRD) Af Amer 96 Est GFR (MDRD) Non-Af 79 BUN/Creatinine Ratio 17.7 Glucose 146 H Calcium 8.1 L Prealbumin 15.3 L 05/07/18 05/07/18 06:28 06:28 WBC 11.1 H RBC 4.06 L Hgb 12.2 L Hct 37.3 L MCV 91.9 MCH 30.0 MCHC 32.7 RDW 11.7 RDW Differential 38.4 Plt Count 245 MPV 10.6 Diff Path Review Sodium 142 Potassium 3.8 Chloride 105 Carbon Dioxide 28.0 Anion Gap 9 BUN 18 Creatinine 0.92 Estim Creat Clear Calc 125.35 Est GFR (MDRD) Af Amer 122 Est GFR (MDRD) Non-Af 101 BUN/Creatinine Ratio 19.6 Glucose 99 Calcium 8.1 L Prealbumin Medical Necessity - Tobacco Use Smoking Status: Never smoker Tobacco Use: Chew Route of nutrition/ use of supplements: [] Nutritional Intake: [] IV Site: [] Alfaro Catheter: [] - Assessment/Plan Antibiotics: [] Assessment/Plan: [] Active and Suspected Problems Left leg cellulitis (Acute) Sepsis (Acute) sepsis due to L patellar MRSA abscess and cellulitis causing nec fasc - Taken to OR 05/[address] Torrez. On iv vanc. Will stop flagyl. Will use iv clinda instead for toxin production related to nec fasc. Will follow
--- NOTE | 2018-05-07 14:25 | NURSING ---
wound photo: left lateral thigh
--- NOTE | 2018-05-07 14:26 | NURSING ---
wound photo: left lateral lower leg
--- NOTE | 2018-05-07 14:26 | NURSING ---
wound photo: left knee
--- NOTE | 2018-05-07 14:27 | NURSING ---
wound photo: left medial lower leg
--- NOTE | 2018-05-07 14:27 | NURSING ---
wound photo: left medial thigh
--- NOTE | 2018-05-07 17:53 | PCM.PROGNOTE ---
Patient Problems: Active and Suspected Problems Left leg cellulitis (Acute) Sepsis (Acute) Subjective: Patient was seen and examined today, his is in the room, we discussed who would pack the patient's wounds if he returned home-his states that they would probably hire nursing to come in on the days that the visiting nurse service does not come in to change his dressing. I briefly discussed his care with plastic surgery today. I also briefly discussed his care with infectious diseases who ordered IV clindamycin on the patient for control of toxin-the MRSA is not sensitive to clindamycin. Patient remains on vancomycin at this time. - Physical Exam General: Alert, Oriented x3, Cooperative, Well developed HEENT: Atraumatic, PERRLA, EOMI, Normocephalic Oral: Moist Mucosa Neck: Supple, Trachea Midline, Thyroid Normal Size and Texture Lungs: Clear to auscultation, Normal air movement, No rhonchi, No wheeze, No rales Cardiovascular: Regular rate, Regular Rhythm, Normal S1, Normal S2, No murmurs, No Ectopic Activity, PMI Normal, No rub noted, No Gallop Abdomen: Bowel Sounds Present, Soft, Non Tender, Non-Distended Extremities: No clubbing, No cyanosis, Edema - There is generalized edema noted in the right foot below his leg bandage Neurological: Cranial nerves II-XII grossly intact, Neuro grossly intact, Sensory exam intact to light touch and pain, Coordination normal Psych/Mental Status: Normal Affect, Appropriate, Alert and oriented to time, place, person, mood and affect Vital Signs Temp Pulse Resp BP Pulse Ox 98.2 F 84 18 121/61 H 93 05/07/18 16:47 05/07/18 16:47 05/07/18 16:47 05/07/18 16:47 05/07/18 16:47 Oxygen Flow Rate (L/min) 2 Oxygen Delivery Method Room Air Weight: 108.3 kg Body Mass Index (BMI) 32.3 Intake and Output for Last 24 Hours 05/05/18 05/06/18 05/07/18 23:59 23:59 23:59 Intake Total 4190 / 4190 4588.7 / 4588.7 2483 / 2483 Output Total 3950 / 3950 3100 / 3100 1000 / 1000 Balance 240 / 240 1488.7 / 1488.7 1483 / 1483 Microbiology Past 72 Hours 05/04/18 22:00 Gram Stain - Final Tissue - Other Wound Culture - Final Meth. resistant Staph. aureus 05/02/18 21:38 Blood Culture - Preliminary Blood Culture (Wb) - Anticubital Right No growth in 48 hours. 05/02/18 21:30 Blood Culture - Preliminary Blood Culture (Wb) - Anticubital Left No growth in 48 hours. Laboratory Tests Past 24 Hrs 05/03/18 05/06/18 05/06/18 07:20 19:45 19:45 WBC 14.1 H RBC 4.28 L Hgb 12.5 L Hct 38.4 L MCV 89.7 MCH 29.2 MCHC 32.6 RDW 11.8 RDW Differential 38.4 Plt Count 239 MPV 10.2 Diff Path Review Reviewed Sodium 143 Potassium 3.7 Chloride 105 Carbon Dioxide 30.0 Anion Gap 8 BUN 20 H Creatinine 1.13 Estim Creat Clear Calc 102.06 Est GFR (MDRD) Af Amer 96 Est GFR (MDRD) Non-Af 79 BUN/Creatinine Ratio 17.7 Glucose 146 H Calcium 8.1 L Prealbumin 15.3 L 05/07/18 05/07/18 06:28 06:28 WBC 11.1 H RBC 4.06 L Hgb 12.2 L Hct 37.3 L MCV 91.9 MCH 30.0 MCHC 32.7 RDW 11.7 RDW Differential 38.4 Plt Count 245 MPV 10.6 Diff Path Review Sodium 142 Potassium 3.8 Chloride 105 Carbon Dioxide 28.0 Anion Gap 9 BUN 18 Creatinine 0.92 Estim Creat Clear Calc 125.35 Est GFR (MDRD) Af Amer 122 Est GFR (MDRD) Non-Af 101 BUN/Creatinine Ratio 19.6 Glucose 99 Calcium 8.1 L Prealbumin Medical Necessity - Tobacco Use Smoking Status: Never smoker Tobacco Use: Chew Assessment/Plan All Active Problems Open wound of left lower leg (Acute) Open wound of left knee (Acute) Open wound of left thigh (Acute) Abscess of left knee (Acute) MRSA (methicillin resistant Staphylococcus aureus) infection (Acute) Necrotizing soft tissue infection (Acute) Left leg cellulitis (Acute) Sepsis (Acute) #1 acute sepsis secondary to left leg cellulitis from MRSA- Postop day #3 incision and drainage of left leg by plastic surgery (Dr. Torrez) #2 acute cellulitis of the left leg secondary to MRSA, failed outpatient treatment-continue IV vancomycin and IV Cleocin, infectious diseases is participating in his care The plan is for the patient to return home with home nursing for bandage changes. Code Visit Inpatient E&M: [id number] Subs Hosp L2
[2018-05-08 03:53] VITALS: BP 128/70; PULSE 88; RESP 18; TEMP 37.1; O2SAT 94
[2018-05-08] MEDS: oxyCODONE 5 MG Tablet 10 MG PO ×5 (06:00→22:50)
[2018-05-08 07:56] VITALS: O2SAT 94
[2018-05-08 08:20] VITALS: BP 149/80; PULSE 74; RESP 16; TEMP 36.3; O2SAT 92
[2018-05-08] MEDS: diazePAM 5 MG Tablet PO ×2 (08:26→13:22)
[2018-05-08] MEDS: Gabapentin 300 MG Capsule PO ×2 (08:26→17:14)
[2018-05-08] MEDS: Docusate Sodium 100 MG Capsule PO ×2 (08:26→22:50)
[2018-05-08] MEDS: Enoxaparin 40 MG/0.4 ML Syringe SC (08:31)
[2018-05-08] MEDS: 0.9% NaCl Peripheral Flush Adult/Peds IV ×2 (08:33→10:23)
[2018-05-08] MEDS: Ondansetron 4 MG/2 ML Vial IV (10:22)
--- NOTE | 2018-05-08 10:41 | PCM.PN.HOSP ---
Patient Problems: Active and Suspected Problems Left leg cellulitis (Acute) Sepsis (Acute) Subjective: Patient is a 33-year-old male who was admitted for left knee cellulitis and is status post I&D on 05/04/18. Patient doing well, without any current complaints. Does have difficulty with ambulation requiring assistance and use of a walker. Does report that he gets nauseated and somewhat dizzy with ambulation but gets better following Zofran. States pain is adequately controlled. Vitals/I&O's: Vital Signs Temp Pulse Resp BP Pulse Ox 98.8 F 88 18 128/70 H 94 05/08/18 03:53 05/08/18 03:53 05/08/18 03:53 05/08/18 03:53 05/08/18 07:56 Oxygen Flow Rate (L/min) 2 Oxygen Delivery Method Room Air Weight: 108.3 kg Body Mass Index (BMI) 32.3 Intake and Output for Last 24 Hours 05/06/18 05/07/18 05/08/18 23:59 23:59 23:59 Intake Total 4588.7 / 4588.7 3608 / 3608 1769 / 1769 Output Total 3100 / 3100 1999 / 1999 Balance 1488.7 / 1488.7 1608 / 1608 1769 / 1769 General: Alert, Oriented x3, Cooperative HEENT: Normocephalic Neck: Supple, No JVD Lungs: Clear to auscultation, Normal air movement Cardiovascular: Regular rate, No murmurs Abdomen: Bowel Sounds Present, Soft, Non Tender Extremities: No edema, - - Left knee wrapped, and dressing, no drainage noted. Skin: No rashes, No breakdown Musculoskeletal: - Neurological: Cranial nerves II-XII grossly intact Psych/Mental Status: Normal Affect, Appropriate Microbiology Past 72 Hours 05/02/18 21:38 Blood Culture (Wb) - Anticubital Right Blood Culture - Final No growth in 5 days. 05/02/18 21:30 Blood Culture (Wb) - Anticubital Left Blood Culture - Final No growth in 5 days. 05/04/18 22:00 Tissue - Other Gram Stain - Final 05/04/18 22:00 Tissue - Other Wound Culture - Final Meth. resistant Staph. aureus Laboratory Results 05/03/18 07:20: Diff Path Review Reviewed Current Medications Acetaminophen (Tylenol) 650 mg PO Q6H PRN PRN PRN Reason: Mild Pain (1-3)/Temp > 100.7 F Last Admin: 05/06/18 05:35 Dose: 650 mg Diazepam (Valium) 5 mg PO 4X/DAY PRN PRN PRN Reason: SPASMS Last Admin: 05/08/18 08:26 Dose: 5 mg Docusate Sodium (Colace) 100 mg PO BID [facility] Last Admin: 05/08/18 08:26 Dose: 100 mg Enoxaparin Sodium (Lovenox) 40 mg SC DAILY@1000 [facility] Last Admin: 05/08/18 08:31 Dose: 40 mg Fentanyl (Duragesic Patch) 50 mcg TRANSDERM. Q3D [facility] Last Admin: 05/05/18 13:26 Dose: 50 mcg Gabapentin (Neurontin) 300 mg PO BIDCM [facility] Last Admin: 05/08/18 08:26 Dose: 300 mg Hydromorphone HCl (Dilaudid Inj) 1 mg IV Q2H PRN PRN PRN Reason: SEVERE PAIN (6-1010) Last Admin: 05/07/18 13:25 Dose: 1 mg Vancomycin IV Pharmacy to Dose (1 ea/ Sodium Chloride) 500 mls @ 250 mls/hr IV X1 PRN; Protocol PRN Reason: Rx to Dose Vancomycin HCl 1,250 mg/ (Sodium Chloride) 275 mls @ 167 mls/hr IV Q8H [facility] Last Admin: 05/08/18 10:24 Dose: 167 mls/hr Clindamycin Phosphate 600 mg/ (Dextrose) 54 mls @ 100 mls/hr IV Q8 [facility] Last Admin: 05/08/18 06:01 Dose: 100 mls/hr Lactobacillus Acidophilus (Acidophilus) 1 tablet PO TID [facility] Last Admin: 05/08/18 06:00 Dose: 1 tablet Magnesium Hydroxide (Milk Of Magnesia) 30 ml PO DAILY PRN PRN PRN Reason: Constipation Last Admin: 05/05/18 10:43 Dose: 30 ml Nutritional Formula (Shaggy - [place] Flavor) [facility] Last Admin: 05/08/18 08:26 Dose: 1 packet Nutritional Formula (Lactose Free) (Ensure Enlive) 120 ml PO 4X/DAY [facility] Ondansetron HCl (Zofran) 4 mg IV Q8H PRN PRN PRN Reason: NAUSEA Last Admin: 05/08/18 10:22 Dose: 4 mg Oxycodone HCl (Oxyir) 10 mg PO Q4H PRN PRN PRN Reason: SEVERE PAIN (6-10/10) Last Admin: 05/08/18 10:32 Dose: 10 mg Silver Nitrate/Potassium Nitrate (Silver Nitrate (Bkc)) 1 each TOPICAL UD PRN Sodium Chloride () 5 - 30 ml IV UD PRN PRN Reason: SALINE FLUSH Last Admin: 05/08/18 10:23 Dose: 20 ml Throat Lozenges (Cepacol Sore Throat Lozenge) 1 lozenge MUCOUS MEM Q2H PRN PRN PRN Reason: SORE THROAT Last Admin: 05/05/18 10:43 Dose: 1 lozenge Medical Necessity - Tobacco Use Smoking Status: Never smoker Tobacco Use: Chew Assessment/Plan All Active Problems Open wound of left lower leg (Acute) Open wound of left knee (Acute) Open wound of left thigh (Acute) Abscess of left knee (Acute) MRSA (methicillin resistant Staphylococcus aureus) infection (Acute) Necrotizing soft tissue infection (Acute) Left leg cellulitis (Acute) Sepsis (Acute) Patient is a 33-year-old 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 1. Sepsis, secondary to left knee cellulitis, resolved Sepsis now resolved, initially febrile with tachycardia and leukocytosis with source of infection. Receive adequate IV fluid bolus and fluid resuscitation. 2. Left leg cellulitis, MRSA Status post I&D with left thigh fasciotomy on 05/04/18. Appreciate surgery and infectious disease. Currently on vancomycin and Cleocin. Await recommendations from infectious disease regarding outpatient antibiotics. Evaluate need for IV antibiotics, may need PICC line. 3. Normocytic anemia Aware, likely related to minimal blood loss anemia. Asymptomatic, will monitor. 4. DVT prophylaxis On lovenox Anticipate likely discharge home with home health soon pending recommendations regarding IV antibiotics. Code Visit Inpatient E&M: [id number] [place] [phone]
--- NOTE | 2018-05-08 10:48 | PN_ITS ---
Patient Problems: Active and Suspected Problems Left leg cellulitis (Acute) Sepsis (Acute) Subjective: Patient is a 33-year-old male who was admitted for left knee cellulitis and is status post I&D on 05/04/18. Patient doing well, without any current complaints. Does have difficulty with ambulation requiring assistance and use of a walker. Does report that he gets nauseated and somewhat dizzy with ambulation but gets better following Zofran. States pain is adequately controlled. Vitals/I&O's: Vital Signs Temp Pulse Resp BP Pulse Ox 98.8 F 88 18 128/70 H 94 05/08/18 03:53 05/08/18 03:53 05/08/18 03:53 05/08/18 03:53 05/08/18 07:56 Oxygen Flow Rate (L/min) 2 Oxygen Delivery Method Room Air Weight: 108.3 kg Body Mass Index (BMI) 32.3 Intake and Output for Last 24 Hours 05/06/18 05/07/18 05/08/18 23:59 23:59 23:59 Intake Total 4588.7 / 4588.7 3608 / 3608 1769 / 1769 Output Total 3100 / 3100 1999 / 1999 Balance 1488.7 / 1488.7 1608 / 1608 1769 / 1769 General: Alert, Oriented x3, Cooperative HEENT: Normocephalic Neck: Supple, No JVD Lungs: Clear to auscultation, Normal air movement Cardiovascular: Regular rate, No murmurs Abdomen: Bowel Sounds Present, Soft, Non Tender Extremities: No edema, - - Left knee wrapped, and dressing, no drainage noted. Skin: No rashes, No breakdown Musculoskeletal: - Neurological: Cranial nerves II-XII grossly intact Psych/Mental Status: Normal Affect, Appropriate Microbiology Past 72 Hours 05/02/18 21:38 Blood Culture (Wb) - Anticubital Right Blood Culture - Final No growth in 5 days. 05/02/18 21:30 Blood Culture (Wb) - Anticubital Left Blood Culture - Final No growth in 5 days. 05/04/18 22:00 Tissue - Other Gram Stain - Final 05/04/18 22:00 Tissue - Other Wound Culture - Final Meth. resistant Staph. aureus Laboratory Results 05/03/18 07:20: Diff Path Review Reviewed Current Medications Acetaminophen (Tylenol) 650 mg PO Q6H PRN PRN PRN Reason: Mild Pain (1-3)/Temp > 100.7 F Last Admin: 05/06/18 05:35 Dose: 650 mg Diazepam (Valium) 5 mg PO 4X/DAY PRN PRN PRN Reason: SPASMS Last Admin: 05/08/18 08:26 Dose: 5 mg Docusate Sodium (Colace) 100 mg PO BID [facility] Last Admin: 05/08/18 08:26 Dose: 100 mg Enoxaparin Sodium (Lovenox) 40 mg SC DAILY@1000 [facility] Last Admin: 05/08/18 08:31 Dose: 40 mg Fentanyl (Duragesic Patch) 50 mcg TRANSDERM. Q3D [facility] Last Admin: 05/05/18 13:26 Dose: 50 mcg Gabapentin (Neurontin) 300 mg PO BIDCM [facility] Last Admin: 05/08/18 08:26 Dose: 300 mg Hydromorphone HCl (Dilaudid Inj) 1 mg IV Q2H PRN PRN PRN Reason: SEVERE PAIN (6-1010) Last Admin: 05/07/18 13:25 Dose: 1 mg Vancomycin IV Pharmacy to Dose (1 ea/ Sodium Chloride) 500 mls @ 250 mls/hr IV X1 PRN; Protocol PRN Reason: Rx to Dose Vancomycin HCl 1,250 mg/ (Sodium Chloride) 275 mls @ 167 mls/hr IV Q8H [facility] Last Admin: 05/08/18 10:24 Dose: 167 mls/hr Clindamycin Phosphate 600 mg/ (Dextrose) 54 mls @ 100 mls/hr IV Q8 [facility] Last Admin: 05/08/18 06:01 Dose: 100 mls/hr Lactobacillus Acidophilus (Acidophilus) 1 tablet PO TID [facility] Last Admin: 05/08/18 06:00 Dose: 1 tablet Magnesium Hydroxide (Milk Of Magnesia) 30 ml PO DAILY PRN PRN PRN Reason: Constipation Last Admin: 05/05/18 10:43 Dose: 30 ml Nutritional Formula (Shaggy - [place] Flavor) [facility] Last Admin: 05/08/18 08:26 Dose: 1 packet Nutritional Formula (Lactose Free) (Ensure Enlive) 120 ml PO 4X/DAY [facility] Ondansetron HCl (Zofran) 4 mg IV Q8H PRN PRN PRN Reason: NAUSEA Last Admin: 05/08/18 10:22 Dose: 4 mg Oxycodone HCl (Oxyir) 10 mg PO Q4H PRN PRN PRN Reason: SEVERE PAIN (6-10/10) Last Admin: 05/08/18 10:32 Dose: 10 mg Silver Nitrate/Potassium Nitrate (Silver Nitrate (Bkc)) 1 each TOPICAL UD PRN Sodium Chloride () 5 - 30 ml IV UD PRN PRN Reason: SALINE FLUSH Last Admin: 05/08/18 10:23 Dose: 20 ml Throat Lozenges (Cepacol Sore Throat Lozenge) 1 lozenge MUCOUS MEM Q2H PRN PRN PRN Reason: SORE THROAT Last Admin: 05/05/18 10:43 Dose: 1 lozenge Medical Necessity - Tobacco Use Smoking Status: Never smoker Tobacco Use: Chew Assessment/Plan All Active Problems Open wound of left lower leg (Acute) Open wound of left knee (Acute) Open wound of left thigh (Acute) Abscess of left knee (Acute) MRSA (methicillin resistant Staphylococcus aureus) infection (Acute) Necrotizing soft tissue infection (Acute) Left leg cellulitis (Acute) Sepsis (Acute) Patient is a 33-year-old 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 1. Sepsis, secondary to left knee cellulitis, resolved * Sepsis now resolved, initially febrile with tachycardia and leukocytosis with source of infection. Receive adequate IV fluid bolus and fluid resuscitation. 2. Left leg cellulitis, MRSA * Status post I&D with left thigh fasciotomy on 05/04/18. Appreciate surgery a nd infectious disease. Currently on vancomycin and Cleocin. Await recommendations from infectious disease regarding outpatient antibiotics. Evaluate need for IV antibiotics, may need PICC line. 3. Normocytic anemia * Aware, likely related to minimal blood loss anemia. Asymptomatic, will monitor. 4. DVT prophylaxis * On lovenox * Anticipate likely discharge home with home health soon pending recommendations regarding IV antibiotics. Code Visit Inpatient E&M: [id number] [place] [id number]
--- NOTE | 2018-05-08 11:04 | PCM.PN.ID ---
Patient Problems: Active and Suspected Problems Left leg cellulitis (Acute) Sepsis (Acute) Subjective: Feeling ok, some nausea. Pain in LLE. - Physical Exam General: Alert, Cooperative, No apparent distress Lungs: Clear to auscultation, Normal air movement Cardiovascular: Regular rate, Regular Rhythm Abdomen: Soft, Non Tender, Non-Distended Skin: Incision - deep but clean incisions on LLE Vital Signs Temp Pulse Resp BP Pulse Ox 98.8 F 88 18 128/70 H 94 05/08/18 03:53 05/08/18 03:53 05/08/18 03:53 05/08/18 03:53 05/08/18 07:56 Oxygen Flow Rate (L/min) 2 Oxygen Delivery Method Room Air Weight: 108.3 kg Body Mass Index (BMI) 32.3 Intake and Output for Last 24 Hours 05/06/18 05/07/18 05/08/18 23:59 23:59 23:59 Intake Total 4588.7 / 4588.7 3608 / 3608 1769 / 1769 Output Total 3100 / 3100 1999 / 1999 Balance 1488.7 / 1488.7 1608 / 1608 1769 / 1769 Microbiology Past 72 Hours 05/02/18 21:38 Blood Culture - Final Blood Culture (Wb) - Anticubital Right No growth in 5 days. 05/02/18 21:30 Blood Culture - Final Blood Culture (Wb) - Anticubital Left No growth in 5 days. 05/04/18 22:00 Gram Stain - Final Tissue - Other Wound Culture - Final Meth. resistant Staph. aureus Laboratory Tests Past 24 Hrs 05/03/18 07:20 Diff Path Review Reviewed Medical Necessity - Tobacco Use Smoking Status: Never smoker Tobacco Use: Chew Route of nutrition/ use of supplements: [] Nutritional Intake: [] IV Site: [] Alfaro Catheter: [] - Assessment/Plan Antibiotics: [] Assessment/Plan: [] Active and Suspected Problems Left leg cellulitis (Acute) Sepsis (Acute) sepsis due to L patellar MRSA abscess and cellulitis causing nec fasc - Taken to OR 05/[address] Torrez. On iv vanc and iv clinda. Plan will be for po abx at discharge as long as wounds are showing improvement. Will follow
--- NOTE | 2018-05-08 11:18 | PCM.HOSP.N ---
Hospitalist Note Plan for likely p.o. antibiotics upon discharge (likely will not require IV antibiotics). Await further recommendations from infectious disease and improvement in wounds. Continue with current PT/OT. Will require home health for wound dressing and PT/OT.
[2018-05-08] MEDS: HYDROmorphone 1 MG/ML Syringe IV (13:22)
[2018-05-08 15:30] VITALS: BP 124/74; PULSE 69; RESP 16; TEMP 36.9; O2SAT 98
--- NOTE | 2018-05-08 17:17 | PCM.PN.SRG ---
Patient Problems: Active and Suspected Problems Left leg cellulitis (Acute) Sepsis (Acute) Subjective: Postop #4 Patient is resting comfortably. VAC applied today. - Physical Exam General: Alert, Oriented x3 HEENT: PERRLA, EOMI Oral: Moist Mucosa Neck: Supple Abdomen: Soft, Non-Distended Extremities: Edema - resolving., Peripheral Pulses Normal Skin: Ulcer/ Wound - left lower extremity wounds are clean. No bleeding. No further evidence of infection. VAC applied today. Swelling much improved. Some mild residual cellulitis seen in the lateral thigh area. Will observe. Musculoskeletal: - - has some stiffness in his left knee and ankle. Dorsiflexion and plantar flexion are intact. Neurological: Cranial nerves II-XII grossly intact Psych/Mental Status: Normal Affect, Appropriate Vital Signs Temp Pulse Resp BP Pulse Ox 98.5 F 69 16 124/74 H 98 05/08/18 15:30 05/08/18 15:30 05/08/18 15:30 05/08/18 15:30 05/08/18 15:30 Oxygen Flow Rate (L/min) 2 Oxygen Delivery Method Room Air Weight: 238 lb 12.17 oz Body Mass Index (BMI) 32.3 Intake and Output for Last 24 Hours 05/06/18 05/07/18 05/08/18 23:59 23:59 23:59 Intake Total 4588.7 / 4588.7 3608 / 3608 2736 / 2736 Output Total 3100 / 3100 1999 / 1999 1100 / 1100 Balance 1488.7 / 1488.7 1608 / 1608 1636 / 1636 Microbiology Past 72 Hours 05/02/18 21:38 Blood Culture - Final Blood Culture (Wb) - Anticubital Right No growth in 5 days. 05/02/18 21:30 Blood Culture - Final Blood Culture (Wb) - Anticubital Left No growth in 5 days. 05/04/18 22:00 Gram Stain - Final Tissue - Other Wound Culture - Final Meth. resistant Staph. aureus Medical Necessity - Tobacco Use Smoking Status: Never smoker Tobacco Use: Chew Assessment/Plan All Active Problems Open wound of left lower leg (Acute) Open wound of left knee (Acute) Open wound of left thigh (Acute) Abscess of left knee (Acute) MRSA (methicillin resistant Staphylococcus aureus) infection (Acute) Necrotizing soft tissue infection (Acute) Left leg cellulitis (Acute) Sepsis (Acute) 1. Necrotizing infected MRSA ulcer left knee. 2. Cellulitis extending proximally onto thigh and distally onto leg, much improved after surgery. 3. MRSA. 4. s/p surgical preparation left knee and left thigh and left leg with incision and drainage and excisional debridement necrotizing infected MRSA ulcer (275.5 cm2). Continue Vancomycin for the MRSA. Operative culture also shows Staphylococcus aureus. The Flagyl was changed to Cleocin until Anaerobic cultures are available. Wounds are clean. Muscle is pink and viable. Much less swelling. Cellulitis is much improved. Some persistent cellulitis is seen on lateral thigh but is better. Will observef. He has some burning nerve pain in the lateral thigh wound. Was started on Neurontin. He states it feels a little better. WBC has decreased to 11.1. VAC was applied today. To be changed three times per week at 150 mmHg continuous suction. Prealbumin was 9.9. Encourage nutritional supplementation with protein to help the healing process. May ambulate with assist. No standing. When he sits, he needs to elevate left leg. He states he is still having trouble with bending his left knee and placing weight on his left foot. Sometimes when he stands to go to the bathroom, he christiano get nauseated. Will PT evaluate and treat for ambulation, gait training, and strengthening. Depending on their findings, he may benefit from a short stay in the Rehab Unit. After discharge, can followup at the Wound Center. He has a tentative appointment set up for 05/14/18, at 1100am. Depending on the healing process, we may proceed with delayed complex secondary wound closure and/or skin grafting.
[2018-05-08 19:45] VITALS: BP 149/79; PULSE 82; RESP 18; TEMP 37.2; O2SAT 94
--- NOTE | 2018-05-08 19:45 | NURSING ---
DISCUSSED, NUTRITION, ACTIVITY, IN-BED EXERCISES, FLUID INTAKE, I.S., HEALING PROCESS IN DEPTH W/PT, AND MOTHER. ENC ENS CLEAR FOR WOUND HEALING/INCREASE APPETITE SINCE PT IS UNABLE TO ALEKSANDRA ENS ENLIVE. ENC FREQUENT IN-BED EXERCISES FOR MUSCLE RECOVERY. ENC I.S. FOR DIM LS AND INCREASE OXYGENATION. PT AND FAMILY RECEPTIVE TO ENCOURAGEMENT AND EXPRESS APPRECIATION OF INFORMATION.
[2018-05-09 00:24] VITALS: BP 136/82; PULSE 92; RESP 18; TEMP 37.2; O2SAT 97
[2018-05-09 06:10] LABS: Hematocrit 40.9 % (40-54); Hemoglobin 13.3 g/dl (13.0-16.5); Mean Corp Hgb Conc 32.5 g/gl (32-36); Mean Corpuscular Hgb 29.6 pg (27.0-32.0); Mean Corpuscular Volume 91.1 fL (80-94); Mean Platelet Vol. 9.8 fl (6.2-12.0); Platelet Count 290 K/mm3 (150-450); RBC Distribution Width SD 39.1 fl (35.1-43.9); Red Blood Count 4.49 M/mm3 (4.6-6.2); White Blood Count 13.1 K/mm3 (4.4-11.0)
[2018-05-09 06:15] LABS: Scan Indicated on CBC? Y/N NO
[2018-05-09] MEDS: Acetaminophen 325 MG Tablet 650 MG PO (06:25)
[2018-05-09] MEDS: oxyCODONE 5 MG Tablet 10 MG PO ×4 (06:26→18:57)
[2018-05-09 06:32] LABS: Anion Gap 7 (5-15); BUN 17 mg/dL (7-18); BUN/Creat Ratio 17.7 RATIO (10-20); Calcium,Total 8.5 mg/dL (8.5-10.1); Chloride 102 mmol/L (98-107); Creatinine, Serum 0.96 mg/dL (0.70-1.30); EST Glomerular Filtration Rate 96 mL/min (>60); Est Glom Filt Rate - Afr Amer 116 mL/min (>60); Estimated Creatinine Clearance 120.13 ml/min; Glucose 97 mg/dL (74-106); Potassium 4.3 mmol/L (3.5-5.1); Sodium Level 139 mmol/L (136-145)
[2018-05-09 07:46] VITALS: O2SAT 97
[2018-05-09 08:30] VITALS: BP 127/65; PULSE 70; RESP 16; TEMP 36.6; O2SAT 92
[2018-05-09] MEDS: Docusate Sodium 100 MG Capsule PO ×2 (08:35→22:07)
[2018-05-09] MEDS: Gabapentin 300 MG Capsule PO (08:35)
[2018-05-09] MEDS: Enoxaparin 40 MG/0.4 ML Syringe SC (08:35)
--- NOTE | 2018-05-09 08:46 | NURSING ---
encouraged pt to get up to chair. c/o dizziness and nausea when head of bed is lifted. encouraged pt to elevate head of bed slowly and to try to sit up in increments. pt agrees to getting up to chair when breakfast comes. using I/S and verbalized understanding to breathe deeply.
--- NOTE | 2018-05-09 09:33 | CASEMGMT ---
Social Work Note Per PT, pt is agreeable and would benefit from TCU. AZUL placed a call to referral line. Per Hali she is able to accept pt. AZUL met with pt, pt's present in room. Pt confirms he is agreeable to TCU. SW informed Hali to submit for pre-cert. Plan: TCU pending pre-cert Sally Wei [employer] CREASER, ARMOR SENIOR SERGEANT
--- NOTE | 2018-05-09 10:43 | VDLE_ITS ---
[id number] VL^VDUL^Venous Duplex US- Unilateral [id number] TAG_START Cardiovascular Services Venous Doppler [facility] [place] [address] Ordering Physician: Jacquelin Mosquera TAG_ENDED TAG_START Name: NILSON PINA Study Date: 05/09/2018 11:05 AM Patient Location: MS3^[id number]^1^[facility] : 1985 Gender: Male Age: 33 yrs TAG_ENDED Reason For Study: LEG SWELLING Procedure LEFT Exam performed in department. GSV is normal. A preliminary report was called and/or faxed CFV is compressible, spontaneous, phasic, to Dr. Hernandez. competent, and demonstrates normal augmentation. FV is compressible, spontaneous, phasic, competent and demonstrates normal augmentation. POP V is compressible, spontaneous, phasic, competent and demonstrates normal augmentation. PTV is compressible. LT PerV is compressible. T/P trunk and prox calf were not obtained due to wound vac location. <> Interpretation Summary Deep veins of the left lower extremity are patent and compressible segmentally. There is no evidence of left lower extremity deep vein thrombosis. Valvular competence appears intact within the proximal deep venous system on the left . The left greater saphenous vein appears patent and compressible segmentally. The left tibio-peroneal trunk and proximal deep calf veins were not visualized due to the presence of a Wound VAC. TAG_START TAG_ENDED Ordering Physician: Jacquelin Mosquera Referring Physician: MD Kunal Jian Performed By: Matthew MCMAHAN RDCS, Brittni and Student
[2018-05-09] MEDS: DiphenhydrAMINE 25 MG Capsule PO (11:49)
--- NOTE | 2018-05-09 12:49 | PCM.PN.ID ---
Patient Problems: Active and Suspected Problems Left leg cellulitis (Acute) Sepsis (Acute) Subjective: New rash on back and redness around LLE incision sites, spreading up L lateral thigh. Pain is stable, no fever. - Physical Exam General: Alert, Cooperative, No apparent distress Lungs: Clear to auscultation, Normal air movement Cardiovascular: Regular rate, Regular Rhythm Abdomen: Soft, Non Tender, Non-Distended Skin: Rash Present - blanching macular rash on back. Redness around LLE incisions, spreading up to mid-L lateral thigh Vital Signs Temp Pulse Resp BP Pulse Ox 97.8 F 70 16 127/65 H 92 05/09/18 08:30 05/09/18 08:30 05/09/18 08:30 05/09/18 08:30 05/09/18 08:30 Oxygen Flow Rate (L/min) 2 Oxygen Delivery Method Room Air Weight: 108.3 kg Body Mass Index (BMI) 32.3 Intake and Output for Last 24 Hours 05/07/18 05/08/18 05/09/18 23:59 23:59 23:59 Intake Total 3608 / 3608 4193 / 4193 2455 / 2455 Output Total 1999 / 1999 3100 / 3100 1650 / 1650 Balance 1608 / 1608 1093 / 1093 805 / 805 Microbiology Past 72 Hours 05/04/18 22:00 Gram Stain - Final Tissue - Other Wound Culture - Final Meth. resistant Staph. aureus Anaerobic Culture - Final No anaerobic bacteria isolated. 05/02/18 21:38 Blood Culture - Final Blood Culture (Wb) - Anticubital Right No growth in 5 days. 05/02/18 21:30 Blood Culture - Final Blood Culture (Wb) - Anticubital Left No growth in 5 days. Laboratory Tests Past 24 Hrs 05/09/18 05/09/18 05:40 05:40 WBC 13.1 H RBC 4.49 L Hgb 13.3 Hct 40.9 MCV 91.1 MCH 29.6 MCHC 32.5 RDW 12.0 RDW Differential 39.1 Plt Count 290 MPV 9.8 Sodium 139 Potassium 4.3 Chloride 102 Carbon Dioxide 30.0 Anion Gap 7 BUN 17 Creatinine 0.96 Estim Creat Clear Calc 120.13 Est GFR (MDRD) Af Amer 116 Est GFR (MDRD) Non-Af 96 BUN/Creatinine Ratio 17.7 Glucose 97 Calcium 8.5 Medical Necessity - Tobacco Use Smoking Status: Never smoker Tobacco Use: Chew Route of nutrition/ use of supplements: [] Nutritional Intake: [] IV Site: [] Alfaro Catheter: [] - Assessment/Plan Antibiotics: [] Assessment/Plan: [] Active and Suspected Problems Left leg cellulitis (Acute) Sepsis (Acute) sepsis due to L patellar MRSA abscess and cellulitis causing nec fasc - Taken to OR 05/[address] Torrez. On iv vanc and iv clinda. Concern for drug rash and/or worsening infection. Will stop vanc/clinda. Start iv linezolid. No fever and pain is stable, but wbc is up slightly. Will follow, d/w primary team.
--- NOTE | 2018-05-09 13:41 | PN_ITS ---
Patient Problems: Active and Suspected Problems Left leg cellulitis (Acute) Sepsis (Acute) Subjective: Patient is a 33-year-old male who was admitted for left knee MRSA cellulitis with necrotizing fasciitis and is status post I&D on 05/04/18. At this time, patient continues to have pain but no worse than yesterday. He has noticed that he has developed a rash over his back as well as his right upper arm. Denies any itching but does admit some burning sensation in his back. His reports that he developed the rash last night, started on his shoulders then has progressed to his back and abdomen. Also with increased erythema and warmth of his left lower extremity surrounding operative site. Continues to have difficulty with ambulation, requiring full assistance. Objective: General: Alert, Oriented x3, Cooperative HEENT: Normocephalic Neck: Supple, No JVD Lungs: Clear to auscultation, Normal air movement Cardiovascular: Regular rate, No murmurs Abdomen: Bowel Sounds Present, Soft, Non Tender Extremities: No edema, - - Left knee wrapped, and dressing, no drainage noted. Skin: No rashes, No breakdown Musculoskeletal: - Neurological: Cranial nerves II-XII grossly intact Psych/Mental Status: Normal Affect, Appropriate Vitals/I&O's: Vital Signs Temp Pulse Resp BP Pulse Ox 97.8 F 70 16 127/65 H 92 05/09/18 08:30 05/09/18 08:30 05/09/18 08:30 05/09/18 08:30 05/09/18 08:30 Oxygen Flow Rate (L/min) 2 Oxygen Delivery Method Room Air Weight: 108.3 kg Body Mass Index (BMI) 32.3 Intake and Output for Last 24 Hours 05/07/18 05/08/18 05/09/18 23:59 23:59 23:59 Intake Total 3608 / 3608 4193 / 4193 2455 / 2455 Output Total 1999 / 1999 3100 / 3100 1650 / 1650 Balance 1608 / 1608 1093 / 1093 805 / 805 Skin: - - With noted maculopapular rash surrounding the entire back, right axillary region as well as few areas on abdomen, chest, not pruritic Microbiology Past 72 Hours 05/04/18 22:00 Tissue - Other Gram Stain - Final 05/04/18 22:00 Tissue - Other Wound Culture - Final Meth. resistant Staph. aureus 05/04/18 22:00 Tissue - Other Anaerobic Culture - Final No anaerobic bacteria isolated. 05/02/18 21:38 Blood Culture (Wb) - Anticubital Right Blood Culture - Final No growth in 5 days. 05/02/18 21:30 Blood Culture (Wb) - Anticubital Left Blood Culture - Final No growth in 5 days. Laboratory Results 05/09/18 05:40: WBC 13.1 H, RBC 4.49 L, Hgb 13.3, Hct 40.9, MCV 91.1, MCH 29.6, MCHC 32.5, RDW 12.0, RDW Differential 39.1, Plt Count 290, MPV 9.8 05/09/18 05:40: Sodium 139, Potassium 4.3, Chloride 102, Carbon Dioxide 30.0, Anion Gap 7, BUN 17, Creatinine 0.96, Estim Creat Clear Calc 120.13, Est GFR (MDRD) Af Amer 116, Est GFR (MDRD) Non-Af 96, BUN/Creatinine Ratio 17.7, Glucose 97, Calcium 8.5 Current Medications Acetaminophen (Tylenol) 650 mg PO Q6H PRN PRN PRN Reason: Mild Pain (1-3)/Temp > 100.7 F Last Admin: 05/09/18 06:25 Dose: 650 mg Diazepam (Valium) 5 mg PO 4X/DAY PRN PRN PRN Reason: SPASMS Last Admin: 05/08/18 13:22 Dose: 5 mg Diphenhydramine HCl (Benadryl) 25 mg PO TID PRN PRN PRN Reason: ITCHING Last Admin: 05/09/18 11:49 Dose: 25 mg Docusate Sodium (Colace) 100 mg PO BID [facility] Last Admin: 05/09/18 08:35 Dose: 100 mg Enoxaparin Sodium (Lovenox) 40 mg SC DAILY@1000 [facility] Last Admin: 05/09/18 08:35 Dose: 40 mg Fentanyl (Duragesic Patch) 50 mcg TRANSDERM. Q3D [facility] Last Admin: 05/08/18 13:38 Dose: 50 mcg [facility]) [facility] Last Admin: 05/09/18 08:35 Dose: 300 mg Hydrocortisone (Hytone) 1 applic TOPICAL BID [facility]; Protocol Hydromorphone HCl (Dilaudid Inj) 1 mg IV Q2H PRN PRN PRN Reason: SEVERE PAIN (6-10/10) Last Admin: 05/08/18 13:22 Dose: 1 mg Linezolid (Zyvox 600mg) 600 mg in 300 mls @ 200 mls/hr IV Q12 [facility] Lactobacillus Acidophilus (Acidophilus) 1 tablet PO TID [facility] Last Admin: 05/09/18 06:26 Dose: 1 tablet Magnesium Hydroxide (Milk Of Magnesia) 30 ml PO DAILY PRN PRN PRN Reason: Constipation Last Admin: 05/05/18 10:43 Dose: 30 ml Nutritional Formula (Shaggy - Coulters Flavor) 1 packet PO BIDCM [facility] Last Admin: 05/09/18 08:37 Dose: 1 packet Nutritional Formula (Lactose Free) (Ensure Clear) 120 ml PO 4X/DAY [facility] Last Admin: 05/09/18 08:34 Dose: 120 ml Ondansetron HCl (Zofran) 4 mg IV Q8H PRN PRN PRN Reason: NAUSEA Last Admin: 05/08/18 10:22 Dose: 4 mg Oxycodone HCl (Oxyir) 10 mg PO Q4H PRN PRN PRN Reason: SEVERE PAIN (6-10/10) Last Admin: 05/09/18 11:03 Dose: 10 mg Pantoprazole Sodium (Protonix) 20 mg PO BID [facility] Silver Nitrate/Potassium Nitrate (Silver Nitrate (Bkc)) 1 each TOPICAL UD PRN Sodium Chloride () 5 - 30 ml IV UD PRN PRN Reason: SALINE FLUSH Last Admin: 05/08/18 10:23 Dose: 20 ml Throat Lozenges (Cepacol Sore Throat Lozenge) 1 lozenge MUCOUS MEM Q2H PRN PRN PRN Reason: SORE THROAT Last Admin: 05/05/18 10:43 Dose: 1 lozenge Medical Necessity - Tobacco Use Smoking Status: Never smoker Tobacco Use: Chew Assessment/Plan All Active Problems Open wound of left lower leg (Acute) Open wound of left knee (Acute) Open wound of left thigh (Acute) Abscess of left knee (Acute) MRSA (methicillin resistant Staphylococcus aureus) infection (Acute) Necrotizing soft tissue infection (Acute) Left leg cellulitis (Acute) Sepsis (Acute) Patient is a 33-year-old male with a history of MRSA who was admitted for left knee cellulitis with necrotizing fasciitis, status post I&D and excisional debridement of necrotizing infected MRSA ulcer with left thigh fasciotomy on 05/04/18. 1. Sepsis, secondary to left knee cellulitis, resolved * Sepsis now resolved, initially febrile with tachycardia and leukocytosis with source of infection. Receive adequate IV fluid bolus and fluid resuscitation. 2. Left leg cellulitis with necrotizing fasciitis, MRSA * Status post I&D with left thigh fasciotomy on 05/04/18. Was previously on vancomycin and Cleocin. Given suspicion for drug rash, he has been changed to Zyvox instead today. With increased erythema and warmth but no increase in pain. Doppler ultrasounds were ordered and are pending, though this will presumably be limited due to current dressing/wraps. If with progression of erythema, swelling or if with continued leukocytosis and fever, will likely need to reimage site of infection, i.e. CT left lower extremity. Appreciate surgery and infectious disease. Discussed with ID. Blood cultures have been negative. 3. Diffuse maculopapular rash * Possibly related to drug rash? Place him on Pepcid, Benadryl and discontinue vancomycin and Cleocin. Will give 1 dose of Solu-Medrol (anticipating that this will cause further leukocytosis). Add as needed topical hydrocortisone. 3. Normocytic anemia * Resolved. Likely related to minimal blood loss anemia. Continue to monitor. 4. DVT prophylaxis * On lovenox * Anticipate likely discharge to inpatient rehab following clinical improvement. If patient does require IV antibiotics, will need a PICC line (however will evaluate patient on newly started IV Zyvox then can be transitioned to p.o. Zyvox upon discharge). Continue with PT/OT. Discussed with case management, patient is agreeable to rehab versus being discharged home with home health given limited mobility.
--- NOTE | 2018-05-09 14:37 | CASEMGMT ---
Social Work Note AZUL received call from Hali in TCU stating pre-cert has been obtained. AZUL spoke with Dr. Torrez who states pt is not medically cleared to be discharged yet. AZUL updated Hali in TCU of this. Plan: TCU once medically cleared Sally Wei [employer]EWEL [employer]IVING MACHINE OPERATOR, GPS NAVIGATION INSTALLER
--- NOTE | 2018-05-09 14:43 | PN.SURG_ITS ---
Patient Problems: Active and Suspected Problems Left leg cellulitis (Acute) Sepsis (Acute) Subjective: Postop #5 Patient is resting comfortably. He has a systemic rash, mostly on his back but also on his left lower extremity as well. Vancomycin has been changed to Zyvox. - Physical Exam General: Alert, Oriented x3 HEENT: PERRLA, EOMI Oral: Moist Mucosa Neck: Supple Abdomen: Soft, Non-Distended Extremities: Edema - left leg edema continues to improve., Peripheral Pulses Normal Skin: Ulcer/ Wound - wounds left lower extremity are stable. No further evidence of infection noted. Muscles appear pink and viable. Redness on left lateral thigh showing progression proximally. Clinically looks like a rash but associated cellulitis is also possible., Rash Present - maculopapule rash mostly on back. Some is seen on the abdominal wall and right inner thigh. Some is noted on the left lower extremity. Neurological: Cranial nerves II-XII grossly intact Psych/Mental Status: Normal Affect, Appropriate Vital Signs Temp Pulse Resp BP Pulse Ox 97.8 F 70 16 127/65 H 92 05/09/18 08:30 05/09/18 08:30 05/09/18 08:30 05/09/18 08:30 05/09/18 08:30 Oxygen Flow Rate (L/min) 2 Oxygen Delivery Method Room Air Weight: 238 lb 12.17 oz Body Mass Index (BMI) 32.3 Intake and Output for Last 24 Hours 05/07/18 05/08/18 05/09/18 23:59 23:59 23:59 Intake Total 3608 / 3608 4193 / 4193 2455 / 2455 Output Total 1999 / 1999 3100 / 3100 1650 / 1650 Balance 1608 / 1608 1093 / 1093 805 / 805 Microbiology Past 72 Hours 05/04/18 22:00 Gram Stain - Final Tissue - Other Wound Culture - Final Meth. resistant Staph. aureus Anaerobic Culture - Final No anaerobic bacteria isolated. 05/02/18 21:38 Blood Culture - Final Blood Culture (Wb) - Anticubital Right No growth in 5 days. 05/02/18 21:30 Blood Culture - Final Blood Culture (Wb) - Anticubital Left No growth in 5 days. Laboratory Tests Past 24 Hrs 05/09/18 05/09/18 05:40 05:40 WBC 13.1 H RBC 4.49 L Hgb 13.3 Hct 40.9 MCV 91.1 MCH 29.6 MCHC 32.5 RDW 12.0 RDW Differential 39.1 Plt Count 290 MPV 9.8 Sodium 139 Potassium 4.3 Chloride 102 Carbon Dioxide 30.0 Anion Gap 7 BUN 17 Creatinine 0.96 Estim Creat Clear Calc 120.13 Est GFR (MDRD) Af Amer 116 Est GFR (MDRD) Non-Af 96 BUN/Creatinine Ratio 17.7 Glucose 97 Calcium 8.5 Medical Necessity - Tobacco Use Smoking Status: Never smoker Tobacco Use: Chew Assessment/Plan All Active Problems Open wound of left lower leg (Acute) Open wound of left knee (Acute) Open wound of left thigh (Acute) Abscess of left knee (Acute) MRSA (methicillin resistant Staphylococcus aureus) infection (Acute) Necrotizing soft tissue infection (Acute) Left leg cellulitis (Acute) Sepsis (Acute) 1. Necrotizing infected MRSA ulcer left knee. 2. Cellulitis was much improved after surgery, now has increased redness on left lateral thigh with superimposed rash. 3. MRSA. 4. s/p surgical preparation left knee and left thigh and left leg with incision and drainage and excisional debridement necrotizing infected MRSA ulcer (275.5 cm2). 5. Medication rash possibly from Vancomycin. Vancomycin has been stopped and Zyvox started for the MRSA. Operative culture also shows Staphylococcus aureus. Anaerobic culture is negative. Cleocin has been stopped. Wounds are clean. Muscle is pink and viable. Much less swelling. Cellulitis is much improved except for some persistent cellulitis on lateral thigh. Today there is a superimposed rash in this area white proximal extension as well as other areas of the left lower extremity, abdominal wall, and back. Will order Solu-Medrol to see if the rash starts to improve. If so, will hold off on operative intervention at this time. If no improvement in the rash is s een after starting Solu-Medrol, will re-evaluate for operative intervention with further I&D. He has some burning nerve pain in the lateral thigh wound. Was started on Neurontin. He states it feels a little better. WBC has decreased to 13.1. VAC in place. To be changed three times per week at 150 mmHg continuous suction. Prealbumin was 9.9. Encourage nutritional supplementation with protein to help the healing process. May ambulate with assist. No standing. When he sits, he needs to elevate left leg. He states he is still having trouble with bending his left knee and placing weight on his left foot. Sometimes when he stands to go to the bathroom, he christiano get nauseated. Will PT evaluate and treat for ambulation, gait training, and strengthening. Depending on their findings, he may benefit from a short stay in the Rehab Unit. After discharge, can followup at the Wound Center. He has a tentative appointment set up for 05/14/18, at 1100am. Depending on the healing process, we may proceed with delayed complex secondary wound closure and/or skin grafting.
[2018-05-09 14:45] VITALS: BP 130/66; PULSE 78; RESP 16; TEMP 36.4; O2SAT 94
[2018-05-09] MEDS: Linezolid 600 MG 600 MG/300 ML BAG 200 MG IV ×2 (14:45→22:07)
[2018-05-09] MEDS: Hydrocortisone 2.5% Crm 1 APPLIC TOPICAL ×2 (14:52→22:07)
--- NOTE | 2018-05-09 15:34 | NURSING ---
In to assess redness to the left leg with Dr Torrez. the redness to the thighs appears to be a drug reaction rather than infection redness. very blotchy rash noted. patient also has rash to his back, buttocks, posterior thighs, and around his abdomen.
[2018-05-09 16:30] LABS: Vancomycin, Trough Level 19.3 ug/mL (5.0-15.0)
[2018-05-09] MEDS: MethylPREDNISolone 125 MG/2 ML Vial IV (17:39)
[2018-05-09 20:38] VITALS: BP 131/72; PULSE 89; RESP 18; TEMP 36.8; O2SAT 91
[2018-05-09] MEDS: Famotidine 20 MG Tablet PO (22:06)
--- NOTE | 2018-05-09 22:38 | PCM.PN.BLA ---
Progress Note Came up to re-evaluate the patient after having started Solu-Medrol. The redness on the left lateral thigh is more pinkish in color and not as bright red as it was earlier. The redness has not progressed. The thigh is soft and nontender. Clinically it looks more rashlike. Will continue the Solu-Medrol for 24 hours. Will re-evaluate in the morning. If it continues to show improvement, will allow him to eat and then make him NPO at midnight and repeat the process daily.
[2018-05-10] VITALS: BP 136/78; PULSE 86; RESP 18; TEMP 37; O2SAT 92
[2018-05-10] MEDS: oxyCODONE 5 MG Tablet 10 MG PO ×6 (00:07→23:40)
[2018-05-10] MEDS: MethylPREDNISolone 125 MG/2 ML Vial IV ×3 (00:08→12:04)
[2018-05-10] MEDS: DiphenhydrAMINE 25 MG Capsule PO ×3 (00:08→22:15)
[2018-05-10] MEDS: 0.9% NaCl Peripheral Flush Adult/Peds IV ×3 (00:08→12:04)
[2018-05-10 06:00] VITALS: BP 118/64; PULSE 66; RESP 16; TEMP 36.7; O2SAT 91
[2018-05-10] MEDS: Ondansetron 4 MG/2 ML Vial IV (06:49)
[2018-05-10 07:00] LABS: Absolute Lymphocyte Count 1.19 X10^3/ul (0.83-4.51); Absolute Neutrophil Count 16.2 X10^3/uL (2.0-7.7); Basophil# 0.01 X10^3/uL; Basophil% 0.1 % (0-1); Eosinophil# 0.02 X10^3/uL; Eosinophils% 0.1 % (0-5); Hematocrit 41.4 % (40-54); Hemoglobin 13.9 g/dl (13.0-16.5); Lymphocyte # 1.19 X10^3/ul (4.0); Lymphocyte % 6.6 % (19-41); Mean Corp Hgb Conc 33.6 g/gl (32-36); Mean Corpuscular Hgb 29.6 pg (27.0-32.0); Mean Corpuscular Volume 88.3 fL (80-94); Mean Platelet Vol. 10.1 fl (6.2-12.0); Monocyte# 0.21 X10^3/uL; Monocyte% 1.2 % (0-10); Neutrophil # 16.21 X10^3/uL (2.7-7.7); Neutrophil % 89.8 % (47-70); Platelet Count 361 K/mm3 (150-450); RBC Distribution Width CV 11.3 % (11.6-14.6); Red Blood Count 4.69 M/mm3 (4.6-6.2)
[2018-05-10 07:02] LABS: POSITIVE COUNT YES; POSITIVE DIFFERENTIAL NO; POSITIVE MORPHOLOGY YES
[2018-05-10 07:12] LABS: Anion Gap 10 (5-15); BUN 22 mg/dL (7-18); Calcium,Total 8.5 mg/dL (8.5-10.1); Chloride 103 mmol/L (98-107); Creatinine, Serum 0.92 mg/dL (0.70-1.30); EST Glomerular Filtration Rate 101 mL/min (>60); Est Glom Filt Rate - Afr Amer 123 mL/min (>60); Estimated Creatinine Clearance 125.35 ml/min; Glucose 140 mg/dL (74-106); Potassium 4.9 mmol/L (3.5-5.1); Sodium Level 140 mmol/L (136-145)
--- NOTE | 2018-05-10 08:01 | PN.SURG_ITS ---
Patient Problems: Active and Suspected Problems Left leg cellulitis (Acute) Sepsis (Acute) Subjective: Postop #6 Patient is resting comfortably. - Physical Exam General: Alert, Oriented x3 HEENT: PERRLA, EOMI Oral: Moist Mucosa Neck: Supple Abdomen: Soft, Non-Distended Extremities: Edema - resolving edema in left lower extremity. Skin: Ulcer/ Wound - left lower extremity wounds are stable. VAC in place. Minimal drainage in canister. Area on lateral thigh shows no progression. More pinkish in color. Nontender. Looks more rashlike. Neurological: Cranial nerves II-XII grossly intact Psych/Mental Status: Normal Affect, Appropriate Vital Signs Temp Pulse Resp BP Pulse Ox 98.1 F 66 16 118/64 91 05/10/18 06:00 05/10/18 06:00 05/10/18 06:00 05/10/18 06:00 05/10/18 06:00 Oxygen Flow Rate (L/min) 2 Oxygen Delivery Method Room Air Weight: 238 lb 12.17 oz Body Mass Index (BMI) 32.3 Intake and Output for Last 24 Hours 05/08/18 05/09/18 05/10/18 23:59 23:59 23:59 Intake Total 4193 / 4193 3380 / 3380 1400 / 1400 Output Total 3100 / 3100 3650 / 3650 1400 / 1400 Balance 1093 / 1093 -270 / -270 0 / 0 Microbiology Past 72 Hours 05/04/18 22:00 Gram Stain - Final Tissue - Other Wound Culture - Final Meth. resistant Staph. aureus Anaerobic Culture - Final No anaerobic bacteria isolated. 05/02/18 21:38 Blood Culture - Final Blood Culture (Wb) - Anticubital Right No growth in 5 days. 05/02/18 21:30 Blood Culture - Final Blood Culture (Wb) - Anticubital Left No growth in 5 days. Laboratory Tests Past 24 Hrs 05/09/18 05/10/18 05/10/18 15:30 05:48 05:48 WBC 18.0 H RBC 4.69 Hgb 13.9 Hct 41.4 MCV 88.3 MCH 29.6 MCHC 33.6 RDW 11.3 L RDW Differential 36.0 Plt Count 361 MPV 10.1 Immature Gran % (Auto) 2.200 H Neut % (Auto) 89.8 H Lymph % (Auto) 6.6 L [place] % (Auto) 1.2 Eos % (Auto) 0.1 Baso % (Auto) 0.1 Absolute Neuts (auto) 16.2 H Absolute Lymphs (auto) 1.19 Total Counted Not Reportable Diff Path Review May foll Sodium 140 Potassium 4.9 Chloride 103 Carbon Dioxide 27.0 Anion Gap 10 BUN 22 H Creatinine 0.92 Estim Creat Clear Calc 125.35 Est GFR (MDRD) Af Amer 123 Est GFR (MDRD) Non-Af 101 BUN/Creatinine Ratio 24.0 H Glucose 140 H Calcium 8.5 Vancomycin Trough 19.3 H Medical Necessity - Tobacco Use Smoking Status: Never smoker Tobacco Use: Chew Assessment/Plan All Active Problems Open wound of left lower leg (Acute) Open wound of left knee (Acute) Open wound of left thigh (Acute) Abscess of left knee (Acute) MRSA (methicillin resistant Staphylococcus aureus) infection (Acute) Necrotizing soft tissue infection (Acute) Left leg cellulitis (Acute) Sepsis (Acute) 1. Necrotizing infected MRSA ulcer left knee. 2. Cellulitis was much improved after surgery, now has increased redness on left lateral thigh with superimposed rash. 3. MRSA. 4. s/p surgical preparation left knee and left thigh and left leg with incision and drainage and excisional debridement necrotizing infected MRSA ulcer (275.5 cm2). 5. Medication rash possibly from Vancomycin. Continue Zyvox started for the MRSA. Operative culture also shows Staphylococcus aureus. Anaerobic culture is negative. Cleocin has been stopped. VAC in place. Minimal drainage in canister. Redness on lateral thigh shows no progression. More pinkish in color. There is additional rash on his back. Will continue to observe to allow the Solu-Medrol a chance to work. If no improvement or worsening, will need further operative I&D. Right now will continue to observe. He can eat breakfast. Tonight will make him NPO again and reassess in the morning. He has some burning nerve pain in the lateral thigh wound. Was started on Neurontin. He states it feels a little better. WBC has increased to 18. Not reliiable indicator of infection at present because the steroids can increase the WBC. Prealbumin was 9.9. Encourage nutritional supplementation with protein to help the healing process. May ambulate with assist. No standing. When he sits, he needs to elevate left leg. He states he is still having trouble with bending his left knee and placing weight on his left foot. Sometimes when he stands to go to the bathroom, he christiano get nauseated. Will PT evaluate and treat for ambulation, gait training, and strengthening. He tolerated PT yesterday without complaining of much pain. With increasing infection it would be expected to be much more painful during therapy. He has been approved to go to TCU. Will wait a few days to make sure he doesn't need to return to surgery for additional I&D. After discharge, [facility] He has a tentative appointment set up for 05/14/18, at 1100am. Depending on the healing process, we may proceed with delayed complex secondary wound closure and/or skin grafting.
[2018-05-10] MEDS: Gabapentin 300 MG Capsule PO ×2 (08:53→16:58)
[2018-05-10] MEDS: Docusate Sodium 100 MG Capsule PO ×2 (08:53→22:09)
[2018-05-10] MEDS: Famotidine 20 MG Tablet PO ×2 (08:53→22:09)
[2018-05-10] MEDS: Enoxaparin 40 MG/0.4 ML Syringe SC (08:54)
[2018-05-10] MEDS: Hydrocortisone 2.5% Crm 1 APPLIC TOPICAL ×2 (08:54→20:43)
[2018-05-10 09:28] VITALS: BP 128/75; PULSE 76; RESP 16; TEMP 36.4; O2SAT 95
[2018-05-10 09:29] VITALS: PULSE 80
[2018-05-10] MEDS: Linezolid 600 MG 600 MG/300 ML BAG 200 MG IV ×2 (09:33→22:09)
--- NOTE | 2018-05-10 10:21 | PCM.PN.HOSP ---
Patient Problems: Active and Suspected Problems Left leg cellulitis (Acute) Sepsis (Acute) Subjective: Patient is a 33-year-old white male with MRSA of the left knee with necrotizing fasciitis status post I&D on 05/04/2018, developed a rash secondary to vancomycin, patient was DC'd vancomycin and started on Zyvox and given Solu-Medrol. Patient's white count seems to be increasing secondary to Solu-Medrol however reports that rash has improved, and is less itchy. He has still some pain of the surgical wound but not bad working with physical therapy spoke with case management looking for placement to transitional care tomorrow possible if the wound looks okay. Patient currently denies any nausea vomiting diarrhea constipation fevers chills. Vitals/I&O's: Vital Signs Temp Pulse Resp BP Pulse Ox 97.6 F L 80 16 128/75 H 95 05/10/18 09:28 05/10/18 09:29 05/10/18 09:28 05/10/18 09:28 05/10/18 09:28 Oxygen Flow Rate (L/min) 2 Oxygen Delivery Method Room Air Weight: 108.3 kg Body Mass Index (BMI) 32.3 Intake and Output for Last 24 Hours 05/08/18 05/09/18 05/10/18 23:59 23:59 23:59 Intake Total 4193 / 4193 3380 / 3380 1400 / 1400 Output Total 3100 / 3100 3650 / 3650 1400 / 1400 Balance 1093 / 1093 -270 / -270 0 / 0 General: Alert, Oriented x3, Cooperative HEENT: Atraumatic, PERRLA, EOMI Oral: Moist Mucosa, No Gingival or Mucosal Lesions/ Ulcerations Neck: Supple, No JVD, Trachea Midline Lungs: Clear to auscultation, Normal air movement, No rhonchi, No wheeze, No rales Cardiovascular: Regular rate, Normal S1, Normal S2 Abdomen: Soft, Non Tender, Non-Distended Extremities: No clubbing, No cyanosis, Tenderness, - - Patient has a left leg bandage with a wound VAC did not take down dressing and edema associated with that Skin: Ulcer/ Wound, Incision Musculoskeletal: No Tenderness to Palpation of Joints or Extremities Lymphatic: No Cervical, Supraclavicular, or Inguinal Adenopathy Neurological: Cranial nerves II-XII grossly intact, Neuro grossly intact Psych/Mental Status: Normal Affect, Appropriate, Alert and oriented to time, place, person, mood and affect Microbiology Past 72 Hours 05/04/18 22:00 Tissue - Other Gram Stain - Final 05/04/18 22:00 Tissue - Other Wound Culture - Final Meth. resistant Staph. aureus 05/04/18 22:00 Tissue - Other Anaerobic Culture - Final No anaerobic bacteria isolated. 05/02/18 21:38 Blood Culture (Wb) - Anticubital Right Blood Culture - Final No growth in 5 days. 05/02/18 21:30 Blood Culture (Wb) - Anticubital Left Blood Culture - Final No growth in 5 days. Laboratory Results 05/09/18 15:30: Vancomycin Trough 19.3 H 05/10/18 05:48: WBC 18.0 H, RBC 4.69, Hgb 13.9, Hct 41.4, MCV 88.3, MCH 29.6, MCHC 33.6, RDW 11.3 L, RDW Differential 36.0, Plt Count 361, MPV 10.1, Immature Gran % (Auto) 2.200 H, Neut % (Auto) 89.8 H, Lymph % (Auto) 6.6 L, [place] % (Auto) 1.2, Eos % (Auto) 0.1, Baso % (Auto) 0.1, Absolute Neuts (auto) 16.2 H, Absolute Lymphs (auto) 1.19, Total Counted Not Reportable, Diff Path Review November05/10/18 05:48: Sodium 140, Potassium 4.9, Chloride 103, Carbon Dioxide 27.0, Anion Gap 10, BUN 22 H, Creatinine 0.92, Estim Creat Clear Calc 125.35, Est GFR (MDRD) Af Amer 123, Est GFR (MDRD) Non-Af 101, BUN/Creatinine Ratio 24.0 H, Glucose 140 H, Calcium 8.5 Current Medications Acetaminophen (Tylenol) 650 mg PO Q6H PRN PRN PRN Reason: Mild Pain (1-3)/Temp > 100.7 F Last Admin: 05/09/18 06:25 Dose: 650 mg Diazepam (Valium) 5 mg PO 4X/DAY PRN PRN PRN Reason: SPASMS Last Admin: 05/08/18 13:22 Dose: 5 mg Diphenhydramine HCl (Benadryl) 25 mg PO TID PRN PRN PRN Reason: ITCHING Last Admin: 05/10/18 00:08 Dose: 25 mg Docusate Sodium (Colace) 100 mg PO BID [facility] Last Admin: 05/10/18 08:53 Dose: 100 mg Enoxaparin Sodium (Lovenox) 40 mg SC DAILY@1000 [facility] Last Admin: 05/10/18 08:54 Dose: 40 mg Famotidine (Pepcid) 20 mg PO BID [facility] Last Admin: 05/10/18 08:53 Dose: 20 mg Fentanyl (Duragesic Patch) 50 mcg TRANSDERM. Q3D [facility] Last Admin: 05/08/18 13:38 Dose: 50 mcg [facility] Last Admin: 05/10/18 08:53 Dose: 300 mg Hydrocortisone (Hytone) 1 applic TOPICAL BID [facility]; Protocol Last Admin: 05/10/18 08:54 Dose: 1 applicatio Hydromorphone HCl (Dilaudid Inj) 1 mg IV Q2H PRN PRN PRN Reason: SEVERE PAIN (6-04/25) Last Admin: 05/08/18 13:22 Dose: 1 mg Linezolid (Zyvox 600mg) 600 mg in 300 mls @ 200 mls/hr IV Q12 [facility] Last Admin: 05/10/18 09:33 Dose: 200 mls/hr Lactobacillus Acidophilus (Acidophilus) 1 tablet PO TID [facility] Last Admin: 05/10/18 06:49 Dose: 1 tablet Magnesium Hydroxide (Milk Of Magnesia) 30 ml PO DAILY PRN PRN PRN Reason: Constipation Last Admin: 05/05/18 10:43 Dose: 30 ml Methylprednisolone (Solu-Medrol) 125 mg IV Q6 [facility] Stop: 05/10/18 12:01 Last Admin: 05/10/18 06:49 Dose: 125 mg Nutritional Formula (Shaggy - [place] Flavor) 1 packet PO BIDCM [facility] Last Admin: 05/10/18 08:52 Dose: 1 packet Nutritional Formula (Lactose Free) (Ensure Clear) 120 ml PO 4X/DAY [facility] Last Admin: 05/10/18 08:53 Dose: 120 ml Ondansetron HCl (Zofran) 4 mg IV Q8H PRN PRN PRN Reason: NAUSEA Last Admin: 05/10/18 06:49 Dose: 4 mg Oxycodone HCl (Oxyir) 10 mg PO Q4H PRN PRN PRN Reason: SEVERE PAIN (6-10/10) Last Admin: 05/10/18 06:49 Dose: 5 mg Silver Nitrate/Potassium Nitrate (Silver Nitrate (Bkc)) 1 each TOPICAL UD PRN Sodium Chloride () 5 - 30 ml IV UD PRN PRN Reason: SALINE FLUSH Last Admin: 05/10/18 06:49 Dose: 10 ml Throat Lozenges (Cepacol Sore Throat Lozenge) 1 lozenge MUCOUS MEM Q2H PRN PRN PRN Reason: SORE THROAT Last Admin: 05/05/18 10:43 Dose: 1 lozenge Medical Necessity - Tobacco Use Smoking Status: Never smoker Tobacco Use: Chew Assessment/Plan All Active Problems Open wound of left lower leg (Acute) Open wound of left knee (Acute) Open wound of left thigh (Acute) Abscess of left knee (Acute) MRSA (methicillin resistant Staphylococcus aureus) infection (Acute) Necrotizing soft tissue infection (Acute) Left leg cellulitis (Acute) Sepsis (Acute) Patient is a 33-year-old male with a history of MRSA who was admitted for left knee cellulitis with necrotizing fasciitis, status post I&D and excisional debridement of necrotizing infected MRSA ulcer with left thigh fasciotomy on 05/04/18. 1. Sepsis, secondary to left knee cellulitis, resolved Resolved, will continue Zyvox, however developed a drug rash secondary to vancomycin. Patient likely can be switched to p.o. Zyvox as an outpatient. Hopefully will not need a PICC line. Awaiting recommendations of surgery, will continue wound VAC and monitor. Leukocytosis is elevated secondary to steroids 2. Left leg cellulitis with necrotizing fasciitis, MRSA Status post I&D with left thigh fasciotomy on 05/04/18. Was previously on vancomycin and Cleocin. Given suspicion for drug rash, he has been changed to Zyvox. Patient seems to be moving better, less suspicion for for repeat I&D. Appreciate surgery and infectious disease. Blood cultures have been negative. Possible to the TCU if okay with surgery 3. Diffuse maculopapular rash Possibly related to drug rash? Place him on Pepcid, Benadryl and discontinue vancomycin and Cleocin. On 3 of 4 Solu-Medrol (anticipating that this will cause further leukocytosis). Add as needed topical hydrocortisone. Seems to be improving according to patient 3. Normocytic anemia Resolved. Likely related to minimal blood loss anemia. Continue to monitor. 4. DVT prophylaxis On lovenox. Code status full Possibly going to transitional care unit tomorrow, will monitor patient, possibly can be placed on p.o. Zyvox as an outpatient. Have discussed with case management, monitor recommendations of surgery Chart is dictated with community sports coordinator software. Errors may occur in dictation that may change providers meaning. This note was generated with [employer] dictation software. It may contain incorrect words, spelling, and punctuation that were not noted in checking the note before signing.
--- NOTE | 2018-05-10 10:35 | PN_ITS ---
Patient Problems: Active and Suspected Problems Left leg cellulitis (Acute) Sepsis (Acute) Subjective: Patient is a 33-year-old white male with MRSA of the left knee with necrotizing fasciitis status post I&D on 05/04/2018, developed a rash secondary to vancomycin, patient was DC'd vancomycin and started on Zyvox and given Solu-Me drol. Patient's white count seems to be increasing secondary to Solu-Medrol however reports that rash has improved, and is less itchy. He has still some pain of the surgical wound but not bad working with physical therapy spoke with case management looking for placement to transitional care tomorrow possible if the wound looks okay. Patient currently denies any nausea vomiting diarrhea constipation fevers chills. Vitals/I&O's: Vital Signs Temp Pulse Resp BP Pulse Ox 97.6 F L 80 16 128/75 H 95 05/10/18 09:28 05/10/18 09:29 05/10/18 09:28 05/10/18 09:28 05/10/18 09:28 Oxygen Flow Rate (L/min) 2 Oxygen Delivery Method Room Air Weight: 108.3 kg Body Mass Index (BMI) 32.3 Intake and Output for Last 24 Hours 05/08/18 05/09/18 05/10/18 23:59 23:59 23:59 Intake Total 4193 / 4193 3380 / 3380 1400 / 1400 Output Total 3100 / 3100 3650 / 3650 1400 / 1400 Balance 1093 / 1093 -270 / -270 0 / 0 General: Alert, Oriented x3, Cooperative HEENT: Atraumatic, PERRLA, EOMI Oral: Moist Mucosa, No Gingival or Mucosal Lesions/ Ulcerations Neck: Supple, No JVD, Trachea Midline Lungs: Clear to auscultation, Normal air movement, No rhonchi, No wheeze, No rales Cardiovascular: Regular rate, Normal S1, Normal S2 Abdomen: Soft, Non Tender, Non-Distended Extremities: No clubbing, No cyanosis, Tenderness, - - Patient has a left leg bandage with a wound VAC did not take down dressing and edema associated with that Skin: Ulcer/ Wound, Incision Musculoskeletal: No Tenderness to Palpation of Joints or Extremities Lymphatic: No Cervical, Supraclavicular, or Inguinal Adenopathy Neurological: Cranial nerves II-XII grossly intact, Neuro grossly intact Psych/Mental Status: Normal Affect, Appropriate, Alert and oriented to time, place, person, mood and affect Microbiology Past 72 Hours 05/04/18 22:00 Tissue - Other Gram Stain - Final 05/04/18 22:00 Tissue - Other Wound Culture - Final Meth. resistant Staph. aureus 05/04/18 22:00 Tissue - Other Anaerobic Culture - Final No anaerobic bacteria isolated. 05/02/18 21:38 Blood Culture (Wb) - Anticubital Right Blood Culture - Final No growth in 5 days. 05/02/18 21:30 Blood Culture (Wb) - Anticubital Left Blood Culture - Final No growth in 5 days. Laboratory Results 05/09/18 15:30: Vancomycin Trough 19.3 H 05/10/18 05:48: WBC 18.0 H, RBC 4.69, Hgb 13.9, Hct 41.4, MCV 88.3, MCH 29.6, MCHC 33.6, RDW 11.3 L, RDW Differential 36.0, Plt Count 361, MPV 10.1, Immature Gran % (Auto) 2.200 H, Neut % (Auto) 89.8 H, Lymph % (Auto) 6.6 L, [place] % (Auto) 1.2, Eos % (Auto) 0.1, Baso % (Auto) 0.1, Absolute Neuts (auto) 16.2 H, Absolute Lymphs (auto) 1.19, Total Counted Not Reportable, Diff Path Review November05/10/18 05:48: Sodium 140, Potassium 4.9, Chloride 103, Carbon Dioxide 27.0, Anion Gap 10, BUN 22 H, Creatinine 0.92, Estim Creat Clear Calc 125.35, Est GFR (MDRD) Af Amer 123, Est GFR (MDRD) Non-Af 101, BUN/Creatinine Ratio 24.0 H, Glucose 140 H, Calcium 8.5 Current Medications Acetaminophen (Tylenol) 650 mg PO Q6H PRN PRN PRN Reason: Mild Pain (1-3)/Temp > 100.7 F Last Admin: 05/09/18 06:25 Dose: 650 mg Diazepam (Valium) 5 mg PO 4X/DAY PRN PRN PRN Reason: SPASMS Last Admin: 05/08/18 13:22 Dose: 5 mg Diphenhydramine HCl (Benadryl) 25 mg PO TID PRN PRN PRN Reason: ITCHING Last Admin: 05/10/18 00:08 Dose: 25 mg Docusate Sodium (Colace) 100 mg PO BID [facility] Last Admin: 05/10/18 08:53 Dose: 100 mg Enoxaparin Sodium (Lovenox) 40 mg SC DAILY@1000 [facility] Last Admin: 05/10/18 08:54 Dose: 40 mg Famotidine (Pepcid) 20 mg PO BID [facility] Last Admin: 05/10/18 08:53 Dose: 20 mg Fentanyl (Duragesic Patch) 50 mcg TRANSDERM. Q3D [facility] Last Admin: 05/08/18 13:38 Dose: 50 mcg [facility] Last Admin: 05/10/18 08:53 Dose: 300 mg Hydrocortisone (Hytone) 1 applic TOPICAL BID [facility]; Protocol Last Admin: 05/10/18 08:54 Dose: 1 applicatio Hydromorphone HCl (Dilaudid Inj) 1 mg IV Q2H PRN PRN PRN Reason: SEVERE PAIN (-04/25) Last Admin: 05/08/18 13:22 Dose: 1 mg Linezolid (Zyvox 600mg) 600 mg in 300 mls @ 200 mls/hr IV Q12 [facility] Last Admin: 05/10/18 09:33 Dose: 200 mls/hr Lactobacillus Acidophilus (Acidophilus) 1 tablet PO TID [facility] Last Admin: 05/10/18 06:49 Dose: 1 tablet Magnesium Hydroxide (Milk Of Magnesia) 30 ml PO DAILY PRN PRN PRN Reason: Constipation Last Admin: 05/05/18 10:43 Dose: 30 ml Methylprednisolone (Solu-Medrol) 125 mg IV Q6 [facility] Stop: 05/10/18 12:01 Last Admin: 05/10/18 06:49 Dose: 125 mg Nutritional Formula (Shaggy - [place] Flavor) 1 packet PO BIDCM [facility] Last Admin: 05/10/18 08:52 Dose: 1 packet Nutritional Formula (Lactose Free) (Ensure Clear) 120 ml PO 4X/DAY [facility] Last Admin: 05/10/18 08:53 Dose: 120 ml Ondansetron HCl (Zofran) 4 mg IV Q8H PRN PRN PRN Reason: NAUSEA Last Admin: 05/10/18 06:49 Dose: 4 mg Oxycodone HCl (Oxyir) 10 mg PO Q4H PRN PRN PRN Reason: SEVERE PAIN (6-10/10) Last Admin: 05/10/18 06:49 Dose: 5 mg Silver Nitrate/Potassium Nitrate (Silver Nitrate (Bkc)) 1 each TOPICAL UD PRN Sodium Chloride () 5 - 30 ml IV UD PRN PRN Reason: SALINE FLUSH Last Admin: 05/10/18 06:49 Dose: 10 ml Throat Lozenges (Cepacol Sore Throat Lozenge) 1 lozenge MUCOUS MEM Q2H PRN PRN PRN Reason: SORE THROAT Last Admin: 05/05/18 10:43 Dose: 1 lozenge Medical Necessity - Tobacco Use Smoking Status: Never smoker Tobacco Use: Chew Assessment/Plan All Active Problems Open wound of left lower leg (Acute) Open wound of left knee (Acute) Open wound of left thigh (Acute) Abscess of left knee (Acute) MRSA (methicillin resistant Staphylococcus aureus) infection (Acute) Necrotizing soft tissue infection (Acute) Left leg cellulitis (Acute) Sepsis (Acute) Patient is a 33-year-old male with a history of MRSA who was admitted for left knee cellulitis with necrotizing fasciitis, status post I&D and excisional debridement of necrotizing infected MRSA ulcer with left thigh fasciotomy on 05/04/18. 1. Sepsis, secondary to left knee cellulitis, resolved Resolved, will continue Zyvox, however developed a drug rash secondary to vancomycin. Patient likely can be switched to p.o. Zyvox as an outpatient. Hopefully will not need a PICC line. Awaiting recommendations of surgery, will continue wound VAC and monitor. Leukocytosis is elevated secondary to steroids 2. Left leg cellulitis with necrotizing fasciitis, MRSA Status post I&D with left thigh fasciotomy on 05/04/18. Was previously on vancomycin and Cleocin. Given suspicion for drug rash, he has been changed to Zyvox. Patient seems to be moving better, less suspicion for for repeat I&D. Appreciate surgery and infectious disease. Blood cultures have been negative. Possible to the TCU if okay with surgery 3. Diffuse maculopapular rash Possibly related to drug rash? Place him on Pepcid, Benadryl and discontinue vancomycin and Cleocin. On 3 of 4 Solu-Medrol (anticipating that this will ca use further leukocytosis). Add as needed topical hydrocortisone. Seems to be improving according to patient 3. Normocytic anemia Resolved. Likely related to minimal blood loss anemia. Continue to monitor. 4. DVT prophylaxis On lovenox. Code status full Possibly going to transitional care unit tomorrow, will monitor patient, possibly can be placed on p.o. Zyvox as an outpatient. Have discussed with case management, monitor recommendations of surgery Chart is dictated with core setter software. Errors may occur in dictation that may change providers meaning. This note was generated with [email or web address] dictation software. It may contain incorrect words, spelling, and punctuation that were not noted in checking the note before signing.
--- NOTE | 2018-05-10 10:47 | PCM.PN.ID ---
Patient Problems: Active and Suspected Problems Left leg cellulitis (Acute) Sepsis (Acute) Subjective: Solumedrol started yesterday. No fever. Pain stable. Rash better. - Physical Exam General: Alert, Cooperative, No apparent distress Lungs: Clear to auscultation, Normal air movement Cardiovascular: Regular rate, Regular Rhythm Abdomen: Soft, Non Tender, Non-Distended Skin: Incision - redness on back and L lateral thigh fading Vital Signs Temp Pulse Resp BP Pulse Ox 97.6 F L 80 16 128/75 H 95 05/10/18 09:28 05/10/18 09:29 05/10/18 09:28 05/10/18 09:28 05/10/18 09:28 Oxygen Flow Rate (L/min) 2 Oxygen Delivery Method Room Air Weight: 108.3 kg Body Mass Index (BMI) 32.3 Intake and Output for Last 24 Hours 05/08/18 05/09/18 05/10/18 23:59 23:59 23:59 Intake Total 4193 / 4193 3380 / 3380 1400 / 1400 Output Total 3100 / 3100 3650 / 3650 1400 / 1400 Balance 1093 / 1093 -270 / -270 0 / 0 Microbiology Past 72 Hours 05/04/18 22:00 Gram Stain - Final Tissue - Other Wound Culture - Final Meth. resistant Staph. aureus Anaerobic Culture - Final No anaerobic bacteria isolated. 05/02/18 21:38 Blood Culture - Final Blood Culture (Wb) - Anticubital Right No growth in 5 days. 05/02/18 21:30 Blood Culture - Final Blood Culture (Wb) - Anticubital Left No growth in 5 days. Laboratory Tests Past 24 Hrs 05/09/18 05/10/18 05/10/18 15:30 05:48 05:48 WBC 18.0 H RBC 4.69 Hgb 13.9 Hct 41.4 MCV 88.3 MCH 29.6 MCHC 33.6 RDW 11.3 L RDW Differential 36.0 Plt Count 361 MPV 10.1 Immature Gran % (Auto) 2.200 H Neut % (Auto) 89.8 H Lymph % (Auto) 6.6 L [place] % (Auto) 1.2 Eos % (Auto) 0.1 Baso % (Auto) 0.1 Absolute Neuts (auto) 16.2 H Absolute Lymphs (auto) 1.19 Total Counted Not Reportable Diff Path Review May foll Sodium 140 Potassium 4.9 Chloride 103 Carbon Dioxide 27.0 Anion Gap 10 BUN 22 H Creatinine 0.92 Estim Creat Clear Calc 125.35 Est GFR (MDRD) Af Amer 123 Est GFR (MDRD) Non-Af 101 BUN/Creatinine Ratio 24.0 H Glucose 140 H Calcium 8.5 Vancomycin Trough 19.3 H Medical Necessity - Tobacco Use Smoking Status: Never smoker Tobacco Use: Chew Route of nutrition/ use of supplements: [] Nutritional Intake: [] IV Site: [] Alfaro Catheter: [] - Assessment/Plan Antibiotics: [] Assessment/Plan: [] Active and Suspected Problems Left leg cellulitis (Acute) Sepsis (Acute) sepsis due to L patellar MRSA abscess and cellulitis causing nec fasc - Taken to OR 05/[address] Torrez. New redness on back and LLE on 05/09. Concern for drug rash and/or worsening infection, so changed vanc/clinda to linezolid. Solumedrol started by surgery, so Wbc up. Redness better. Would try to limit further steroid use given risk of worsening infection and wound healing. Will follow
--- NOTE | 2018-05-10 10:54 | CASEMGMT ---
Social Work Note Per Dr. Torrez he is hoping to discharge pt tomorrow to TCU. SW placed a call to Hali in TCU and left her a message and updated her on this. Plan: Discharge to TCU once medically cleared Sally Wei MANAGER CASE, R[employer]/ENDANGERED [employer]CI[employer]IST
--- NOTE | 2018-05-10 11:36 | NURSING ---
The redness to the left lower leg is improved. still has diffuse rash over trunk, buttocks, and thighs but is much it investment/portfolio manager red today. plan to change wound VAC dressing tomorrow since patient may be discharged to TCU this weekend. that way patient can be on a -- VAC schedule since the dressings take so long to change. patient doing much better with therapy and home VAC has already been approved, so patient should not have to stay in TCU long. present at bedside.
--- NOTE | 2018-05-10 12:26 | CASEMGMT ---
Social Work Note DAMARIS Daron updated this worker that pt and pt's Ginna are requesting to speak to this worker. AZUL met with pt and pt's Ginna. Ginna asked this worker if insurance has approved for pt to go to TCU. SW explained that [facility] and insurance has approved pt to go. SW explained that pre-cert is only good until tomorrow though and per physician it sounded like pt may be able to discharge tomorrow to TCU. AZUL explained that if pt doesn't go tomorrow, pre-cert will most likely have to be resubmitted and if insurance doesn't get back to TCU tomorrow pt would be at [facility] through the weekend. AZUL explained that the bed at [facility] will be on hold though for pt until he is medically cleared. Pt and pt's states understanding. Plan: TCU when medically cleared Sally Wei STATOR CONNECTOR, MARINA SALES AND SERVICE SUPERVISOR
[2018-05-10 13:31] LABS: Pathologist Review Reviewed
[2018-05-10 14:38] VITALS: BP 147/81; PULSE 102; RESP 16; TEMP 36.4; O2SAT 94
[2018-05-10 20:30] VITALS: BP 153/75; PULSE 89; RESP 20; TEMP 36.8; O2SAT 93
[2018-05-11 02:30] VITALS: BP 126/68; PULSE 67; RESP 16; TEMP 36.6; O2SAT 94
[2018-05-11 06:47] LABS: Absolute Lymphocyte Count 3.75 X10^3/ul (0.83-4.51); Basophil# 0.03 X10^3/uL; Basophil% 0.1 % (0-1); Eosinophil# 0.38 X10^3/uL; Eosinophils% 1.8 % (0-5); Hematocrit 38.6 % (40-54); Hemoglobin 12.5 g/dl (13.0-16.5); Lymphocyte # 3.75 X10^3/ul (4.0); Lymphocyte % 17.4 % (19-41); Mean Corp Hgb Conc 32.4 g/gl (32-36); Mean Corpuscular Hgb 29.2 pg (27.0-32.0); Mean Corpuscular Volume 90.2 fL (80-94); Mean Platelet Vol. 10.1 fl (6.2-12.0); Monocyte% 5.6 % (0-10); Neutrophil % 74.2 % (47-70); Platelet Count 337 K/mm3 (150-450); RBC Distribution Width SD 38.6 fl (35.1-43.9); Red Blood Count 4.28 M/mm3 (4.6-6.2); White Blood Count 21.6 K/mm3 (4.4-11.0)
[2018-05-11 06:52] LABS: POSITIVE COUNT NO; POSITIVE DIFFERENTIAL NO; POSITIVE MORPHOLOGY NO
[2018-05-11 06:55] LABS: Anion Gap 6 (5-15); BUN 25 mg/dL (7-18); BUN/Creat Ratio 25.3 RATIO (10-20); Calcium,Total 8.2 mg/dL (8.5-10.1); Chloride 106 mmol/L (98-107); Creatinine, Serum 0.99 mg/dL (0.70-1.30); EST Glomerular Filtration Rate 93 mL/min (>60); Est Glom Filt Rate - Afr Amer 112 mL/min (>60); Estimated Creatinine Clearance 116.49 ml/min; Glucose 99 mg/dL (74-106); Phosphorus 3.1 mg/dL (2.5-4.9); Potassium 4.5 mmol/L (3.5-5.1); Sodium Level 141 mmol/L (136-145)
[2018-05-11 07:48] VITALS: BP 130/78; PULSE 65; RESP 16; TEMP 36.8; O2SAT 94
[2018-05-11 08:06] VITALS: PULSE 80
[2018-05-11] MEDS: oxyCODONE 5 MG Tablet 10 MG PO (10:11)
[2018-05-11] MEDS: Hydrocortisone 2.5% Crm 1 APPLIC TOPICAL (10:42)
[2018-05-11] MEDS: Enoxaparin 40 MG/0.4 ML Syringe SC (10:44)
[2018-05-11] MEDS: Linezolid 600 MG 600 MG/300 ML BAG 200 MG IV (10:45)
[2018-05-11] MEDS: diazePAM 5 MG Tablet PO (10:46)
[2018-05-11] MEDS: Famotidine 20 MG Tablet PO (10:53)
[2018-05-11] MEDS: HYDROmorphone 1 MG/ML Syringe IV (11:30)
[2018-05-11] MEDS: 0.9% NaCl Peripheral Flush Adult/Peds IV ×2 (11:31→13:23)
--- NOTE | 2018-05-11 11:38 | TREXTCAR_ITS ---
- Diet 05/11/18 11:22 Diet: Regular Diet Is pt able to select menu?: Yes - Routine Orders/Code Status Enema Type: Fleetz Enema Frequency: Daily PRN Suppository Type: Dulcolax 10mg Suppository Frequency: Daily PRN Routine Lab Work: CBC Code Status: Full Code - Wound(s) LEFT KNEE Wound Type: Open Surgical Wound Dressing Change: applied KCI wound VAC left lateral thigh Wound Type: Open Surgical Wound Dressing Change: applied KCI wound VAC left lateral lower leg Wound Type: Open Surgical Wound Dressing Change: applied KCI wound VAC left medial lower leg Wound Type: Open Surgical Wound Dressing Change: applied KCI wound VAC left medial thigh Wound Type: Open Surgical Wound Dressing Change: applied KCI wound VAC - Therapies Weight Bearing: Weight bearing as tolerated Physical Therapy: Eval and Treat Occupational Therapy: Eval and Treat - Allergies/Procedures Done in Hospital Allergies/Adverse Reactions: Allergies No Known Allergies Allergy (Verified 04/30/18 20:31) Procedures: Wound Vac placement, - - Patient Name: NILSON PINA edical Record Number: [id number] Date of : [birth year]Patient Status: Inpatient Attending Provider: Fortunato LucioAccount Number: [id number] Date: 05/04/18 23:13Initialization Date: 05/05/18 12:33 Report of Operation Date of Procedure: 05/04/18 Pre-Operative Diagnosis: 1. Infected MRSA ulcer left knee. 2. Worsening cellulitis extending proximally onto thigh and distally onto leg. 3. MRSA. 4. Possible necrotizing infection. Post-Operative Diagnosis: 1. Necrotizing infected MRSA ulcer left knee. 2. Worsening cellulitis extending proximally onto thigh and distally onto leg. 3. MRSA. Surgery/Procedure Performed:: 1. Surgical preparation left knee and left thigh and left leg with incision and drainage and excisional debridement necrotizing infected MRSA ulcer (275.5 cm2). 2. Multiple left leg and left thigh fasciotomies. Description of Surgical Findings:: The patient is a 33 year old M who was recently admitted to the hospital on 05/02/18 because of increasing pain and redness and swelling in his left lower extremity. On Monday. 04/29/18, patient noted a pimple on his left kneecap that would irritate him when he would wear pants. Patient's tried to squeeze it and did get some slight purulence out. Went to work and noted that he had some swelling in his right knee. Presented to the emergency room on 04/30/17 and diagnosed with cellulitis. Patient was discharged on clindamycin. Patient continued to have worsening symptoms and went to the ED on 05/02/18 and was admitted. He received Unasyn and was started on Vancomycin. Upon admission his Temp was 102.2. It is still low grade at 99.6. His WBC on admission was 16.7 and has only improved slightly to 15.6 despite being on Vancomycin. CT was done on 05/03/18 which showed Superficial soft tissue swelling with fluid accumulations along the fatty and superficial muscular fascial planes from the mid thigh to the mid lower leg, as noted. No defined rim-enhancing collection to indicate an abscess. No acute osseous abnormality to suggest osteomyelitis. Initial culture from the infected ulcer showed MRSA. Despite the Vancomycin, the cellulitis has spread. Because of his worsening symptomatology, I was asked to evaluate this patient for surgical options for treatment. There was concern about a necrotizing process and urgent surgical debridement was recommended CHASITY. Patient was informed of the risks and complications of the procedure including alternatives to surgery. These were discussed with the patient personally. Patient voices understanding and wishes to proceed. Patient understands that there will be several open wounds after the surgery. He voices understanding and wishes to proceed. He understands that if surgery is not done, he is at increased risk for worsening infection, amputation, or . Size of defect left knee - 12.5 x 3 x 1 cm. Size of defect left medial thigh - 14 x 5 x 4 cm. Size of defect left medial leg - 15 x 4 x 2.5 cm. Size of defect left lateral thigh - 15 x 4 x 3 cm. Size of defect left lateral leg - 16 x 3 x 1 cm. retail interior designer: None Type of Anesthesia:: General Specimen's removed: Left knee and lower extremity necrotizing MRSA ulcer to Pathology and Microbiology. Drains: None. Estimated Blood Loss (mL): 150 ml. Description of Procedure: Patient was taken to OR in supine position and was placed under general anesthesia. The left lower extremity was prepped and draped in the usual fashion. SCD's were placed on the right leg for DVT prophylaxis . Perioperative antibiotics were given intravenously. A lagos catheter was then placed. I probed the MRSA ulcer left knee and there was a la rge cavity which extended laterally. Copious amounts of thick discolored looking pus was expressed with some odor. I proceeded with an aggressive incision and drainage to open up the undermined areas. The initial circular incision around the knee ulcer extended as a horizontal ellipse to encompass the extension of the pus laterally. There was a lot of necrotizing subcutaneous tissue. No exposed bone was seen. Due to the rapidity of the worsening of the cellulitis and the lack of CT findings, I was concerned about a necrotizing process and made several longitudinal incisions both proximally on the thigh and distally on the leg. The incisions were made on both the medial and lateral aspects. The subcutaneous tissue was necrotic and brownish grayish looking. Some bubbles were noted in the subcutaneous tissue. I extended the incisions down to the muscle and fascia. The fascia was inflamed and looked viable. Fasciotomies were placed and the underlying muscles were initially dusky but became pink and viable with releasing some tension and irrigation with saline and allowing air into the wounds. So I made 4 separate longitudinal incisions (medial thigh, lateral thigh, medial leg, and lateral leg). Fasciotomies were made in all the incisions. The firmness of the skin softened up fairly quickly after these incisions were made. A lot of edema was seen in the wounds and ex tra gauze bandages and suction was needed to keep the wounds relatively dry. Tissue that was removed tonight was sent to Pathology for analysis to rule out carcinoma and to Microbiology for culture. A positive culture may necessitate antibiotic modification. He has MRSA thus far. After irrigation of the wounds in a pulsatile fashion, I obtained hemostasis with electrocautery. The size of the defects created with the multiple incisions were - 12.5 x 3 x 1 cm for the left knee with extension laterally, 14 x 5 x 4 cm for the left medial thigh, 15 x 4 x 2.5 cm for the left medial leg, 15 x 4 x 3 cm for the left lateral thigh, and 16 x 3 x 1 cm for the left lateral leg for a combined 275.5 cm2. The wounds were then dressed with Mepitel nonadherent dressing followed by Kerlix gauze with Betadine followed by dry Kerlix gauze followed by 6 inch pal wraps for compression. Patient tolerated the procedure well and was sent to PACU in stable condition. Patient will be sent upstairs for continued postop care. With multiple wounds, will begin wound care with Silver dressing changes daily. Will reassess clinically over the next several days to see if additional operative intervention is necessary depending on how the wounds look during the healing process and how well the patient is doing clinically. Grafts/Implants Used: None. - Complications None. - Admit VTE Documentation VTE Present on Admission: No VTE Mechan Device Prophylaxis: SCD's VTE Pharm Prophylaxis ordered?: Yes Additional CC's: Kevin Manriquez [facility] - Type of Care/Length of Stay Estimated LOS: Convalescent Care Less Than 30 days Type of Care Needed: Skilled Rehab Potential: Good Prognosis: Good - Additional Orders/Day of Discharge H&P will serve as current which was dated: 05/02/18 Day of Discharge: 05/11/18 - Dietary and Speech Recommendations Dietitian Recommendations/Changes: Will order ONS medpass to help w/ skin healing - Follow Up Care Primary Care Physician: Jian Syed MD [Primary Care Provider] - Please follow up with your Primary Care Physician in: 1-2 week Code Visit Inpatient E&M: 94007 Disch Hosp
--- NOTE | 2018-05-11 11:53 | DS.PCM_ITS ---
Discharge Date and Diagnosis - Problem List Patient Problems: Active and Suspected Problems Left leg cellulitis (Acute) Sepsis (Acute) Date of Admission: 05/02/18 - Primary Discharge Diagnosis Active and Suspected Problems Left leg cellulitis (Acute) Sepsis (Acute) Hospital Course and Treatment Consultations 05/03/18 10:34 Consult: Onc/Wound/loading unit operator powder charging Routine Comment: Reason for Consult:: left knee Operations: - - Status post incision and drainage: Patient Name: NILSON PINA RMedical Record Number: [id number] Date of : [birth year]Patient Status: Inpatient Attending Provider: Fortunato LucioAccount Number: [id number] Date: 05/04/18 23:13Initialization Date: 05/05/18 12:33 Report of Operation Date of Procedure: 05/04/18 Pre-Operative Diagnosis: 1. Infected MRSA ulcer left knee. 2. Worsening cellulitis extending proximally onto thigh and distally onto leg. 3. MRSA. 4. Possible necrotizing infection. Post-Operative Diagnosis: 1. Necrotizing infected MRSA ulcer left knee. 2. Worsening cellulitis extending proximally onto thigh and distally onto leg. 3. MRSA. Surgery/Procedure Performed:: 1. Surgical preparation left knee and left thigh and left leg with incision and drainage and excisional debridement necrotizing infected MRSA ulcer (275.5 cm2). 2. Multiple left leg and left thigh fasciotomies. Description of Surgical Findings:: The patient is a 33 year old M who was recently admitted to the hospital on 05/02/18 because of increasing pain and redness and swelling in his left lower extremity. On Monday. 04/29/18, patient noted a pimple on his left kneecap that would irritate him when he would wear pants. Patient's tried to squeeze it and did get some slight purulence out. Went to work and noted that he had some swelling in his right knee. Presented to the emergency room on 04/30/17 and diagnosed with cellulitis. Patient was discharged on clindamycin. Patient continued to have worsening symptoms and went to the ED on 05/02/18 and was admitted. He received Unasyn and was started on Vancomycin. Upon admission his Temp was 102.2. It is still low grade at 99.6. His WBC on admission was 16.7 and has only improved slightly to 15.6 despite being on Vancomycin. CT was done on 05/03/18 which showed Superficial soft tissue swelling with fluid accumulations along the fatty and superficial muscular fascial planes from the mid thigh to the mid lower leg, as noted. No defined rim-enhancing collection to indicate an abscess. No acute osseous abnormality to suggest osteomyelitis. Initial culture from the infected ulcer showed MRSA. Despite the Vancomycin, the cellulitis has spread. Because of his worsening symptomatology, I was asked to evaluate this patient for surgical options for treatment. There was concern about a necrotizing process and urgent surgical debridement was recommended CHASITY. Patient was informed of the risks and complications of the procedure including alternatives to surgery. These were discussed with the patient personally. Patient voices understanding and wishes to proceed. Patient understands that there will be several open wounds after the surgery. He voices understanding and wishes to proceed. He understands that if surgery is not done, he is at increased risk for worsening infection, amputation, or . Size of defect left knee - 12.5 x 3 x 1 cm. Size of defect left medial thigh - 14 x 5 x 4 cm. Size of defect left medial leg - 15 x 4 x 2.5 cm. Size of defect left lateral thigh - 15 x 4 x 3 cm. Size of defect left lateral leg - 16 x 3 x 1 cm. overlock operator: None Type of Anesthesia:: General Specimen's removed: Left knee and lower extremity necrotizing MRSA ulcer to Pathology and Microbiology. Drains: None. Estimated Blood Loss (mL): 150 ml. Description of Procedure: Patient was taken to OR in supine position and was placed under general anesthesia. The left lower extremity was prepped and draped in the usual fashion. SCD's were placed on the right leg for DVT prophylaxis . Perioperative antibiotics were given intravenously. A lagos catheter was then placed. I probed the MRSA ulcer left knee and there was a large cavity which extended laterally. Copious amounts of thick discolored looking pus was expressed with some odor. I proceeded with an aggressive incision and drainage to open up the undermined areas. The initial circular incision around the knee ulcer extended as a horizontal ellipse to encompass the extension of the pus laterally. There was a lot of necrotizing subcutaneous tissue. No exposed bone was seen. Due to the rapidity of the worsening of the cellulitis and the lack of CT findings, I was concerned about a necrotizing process and made several longitudinal incisions both proximally on the thigh and distally on the leg. The incisions were made on both the medial and lateral aspects. The subcutaneous tissue was necrotic and brownish grayish looking. Some bubbles were noted in the subcutaneous tissue. I extended the incisions down to the muscle and fascia. The fascia was inflamed and looked viable. Fasciotomies were placed and the underlying muscles were initially dusky but became pink and viable with releasing some tension and irrigation with saline and allowing air into the wounds. So I made 4 separate longitudinal incisions (medial thigh, lateral thigh, medial leg, and lateral leg). Fasciotomies were made in all the incisions. The firmness of the skin softened up fairly quickly after these incisions were made. A lot of edema was seen in the wounds and extra gauze bandages and suction was needed to keep the wounds relatively dry. Tissue that was removed tonight was sent to Pathology for analysis to rule out carcinoma and to Microbiology for culture. A positive culture may necessitate antibiotic modification. He has MRSA thus far. After irrigation of the wounds in a pulsatile fashion, I obtained hemostasis with electrocautery. The size of the defects created with the multiple incisions were - 12.5 x 3 x 1 cm for the left knee with extension laterally, 14 x 5 x 4 cm for the left medial thigh, 15 x 4 x 2.5 cm for the left medial leg, 15 x 4 x 3 cm for the left lateral thigh, and 16 x 3 x 1 cm for the left lateral leg for a combined 275.5 cm2. The wounds were then dressed with Mepitel nonadherent dressing followed by Kerlix gauze with Betadine followed by dry Kerlix gauze followed by 6 inch pal wraps for compression. Patient tolerated the procedure well and was sent to PACU in stable condition. Patient will be sent upstairs for continued postop care. With multiple wounds, will begin wound care with Silver dressing changes daily. Will reassess clinically over the next several days to see if additional operative intervention is necessary depending on how the wounds look during the healing process and how well the patient is doing clinically. Grafts/Implants Used: None. - Complications None. - Admit VTE Documentation VTE Present on Admission: No VTE Mechan Device Prophylaxis: SCD's VTE Pharm Prophylaxis ordered?: Yes Additional CC's: Kevin Michael [facility] Procedures: Wound vac placement Summary of Care Provided: Patient is a 33-year-old male with a history of MRSA who was admitted for left knee cellulitis with necrotizing fasciitis, status post I&D and excisional debridement of necrotizing infected MRSA ulcer with left thigh fasciotomy on 05/04/18. 1. Sepsis, secondary to left knee cellulitis, resolved Resolved, will continue Zyvox, patient had a drug rash secondary to vancomycin and Clinda presumably, rash has improved remarkably, however had a increased leukocytosis due to Solu-Medrol. Patient could be switched to p.o. Zyvox if ID prefers, however will defer to their clinical judgment and continue IV Zyvox until opinion. Patient to go to TCU and continue wound VAC as patient is much more ambulatory and able to put weight on left leg. Surgery and ID have been consulted 2. Left leg cellulitis with necrotizing fasciitis, MRSA Status post I&D with left thigh fasciotomy on 05/04/18. Was previously on vancomycin and Cleocin. Given suspicion for drug rash, he has been changed to Zyvox. Patient will go to TCU as per surgery 3. Diffuse maculopapular rash Possibly related to drug rash? Is improved remarkably, as had leukocytosis and due to increasing Solu-Medrol. As needed topical hydrocortisone. 3. Normocytic anemia Resolved. Likely related to minimal blood loss anemia. Continue to monitor. 4. DVT prophylaxis On lovenox. Code status full Disposition patient will go to TCU when bed available Medications reviewed with the patient. Risks, benefits, alternatives, side effects, potential complications and dangers of medications discussed. Patient wishes to utilize these agents despite risk. A signed medical consent/advisement form regarding narcotic medications and a side medication agreement are located in the patient's chart. Chart is dictated with house shorer software. Errors may occur in dictation that may change providers meaning. This note was generated with [employer] dictation software. It may contain incorrect words, spelling, and punctuation that were not noted in checking the note before signing. Patient Problems: Active and Suspected Problems Left leg cellulitis (Acute) Sepsis (Acute) - Physical Exam General: Alert, Oriented x3, Cooperative HEENT: Atraumatic, PERRLA, EOMI, Normocephalic Oral: Moist Mucosa, No Gingival or Mucosal Lesions/ Ulcerations Neck: Supple, No JVD, Trachea Midline Lungs: Clear to auscultation, No rhonchi, No wheeze, No rales Cardiovascular: Regular rate, Normal S1, Normal S2 Abdomen: Bowel Sounds Present, Soft, Non Tender, Non-Distended Extremities: No clubbing, No cyanosis, Edema, Tenderness, - - Positive wound VAC Skin: Rash Present - Improved maculopapular rash noted Musculoskeletal: No Tenderness to Palpation of Joints or Extremities Lymphatic: No Cervical, Supraclavicular, or Inguinal Adenopathy Neurological: Cranial nerves II-XII grossly intact, Neuro grossly intact Psych/Mental Status: Normal Affect, Appropriate, Alert and oriented to time, place, person, mood and affect Vital Signs Temp Pulse Resp BP Pulse Ox 98.3 F 80 16 130/78 H 94 05/11/18 07:48 05/11/18 08:06 05/11/18 07:48 05/11/18 07:48 05/11/18 07:48 Oxygen Flow Rate (L/min) 2 Oxygen Delivery Method Room Air Weight: 108.3 kg Body Mass Index (BMI) 32.3 Intake and Output for Last 24 Hours 05/09/18 05/10/18 05/11/18 23:59 23:59 23:59 Intake Total 3380 / 3380 3685 / 3685 85.7 / 85.7 Output Total 3650 / 3650 4100 / 4100 Balance -270 / -270 -415 / -415 85.7 / 85.7 Microbiology Past 72 Hours 05/04/18 22:00 Gram Stain - Final Tissue - Other Wound Culture - Final Meth. resistant Staph. aureus Anaerobic Culture - Final No anaerobic bacteria isolated. Laboratory Tests Past 24 Hrs 05/10/18 05/11/18 05/11/18 05:48 06:10 06:10 WBC 21.6 H RBC 4.28 L Hgb 12.5 L Hct 38.6 L MCV 90.2 MCH 29.2 MCHC 32.4 RDW 12.0 RDW Differential 38.6 Plt Count 337 MPV 10.1 Immature Gran % (Auto) 0.900 Neut % (Auto) 74.2 H Lymph % (Auto) 17.4 L Norton % (Auto) 5.6 Eos % (Auto) 1.8 Baso % (Auto) 0.1 Absolute Neuts (auto) 16.0 H Absolute Lymphs (auto) 3.75 Total Counted Not Reportable Diff Path Review Reviewed Sodium 141 Potassium 4.5 Chloride 106 Carbon Dioxide 29.0 Anion Gap 6 BUN 25 H Creatinine 0.99 Estim Creat Clear Calc 116.49 Est GFR (MDRD) Af Amer 112 Est GFR (MDRD) Non-Af 93 BUN/Creatinine Ratio 25.3 H Glucose 99 Calcium 8.2 L Phosphorus 3.1 Magnesium 2.0 Discharge Diet: No Restrictions Discharge Activity: Return to Normal Activity - As able to Call your doctor if your incision/area has: Continuous Slow Oozing, Sudden Increased Bleeding, Increased Pain/ Swelling, Increased Redness, Foul Smelling Discharge Call your doctor if you observe: Fever of 101 or Higher, Shortness of breath, Dizziness, Fainting spells, Chest pain, Increased palpitations (irregular heartbeat), Uncontrolled pain Cleanse incision/area with: - - As per surgery Home Medications: Medications to take at Discharge Acetaminophen [Tylenol Tablet] 650 mg PO Q6H PRN PRN #0 tablet 05/11/18 DiphenhydrAMINE [Benadryl] 25 mg PO TID PRN PRN capsule 05/11/18 Docusate Sodium [Colace] 100 mg PO BID capsule 05/11/18 Enoxaparin [Lovenox] 40 mg SC DAILY@1000 syringe 05/11/18 Ensure Clear 120 ml PO 4X/DAY liquid 05/11/18 Famotidine [Pepcid] 20 mg PO BID tablet 05/11/18 Gabapentin [Neurontin] 300 mg PO BIDCM capsule 05/11/18 Hydrocortisone 2.5% Crm [Hytone] 1 applic TOPICAL BID tube 05/11/18 Lactobacillus Acidophilus [Acidophilus] 1 tablet PO TID tablet 05/11/18 Linezolid 600 MG [Zyvox 600mg IVPB] 600 mg IV Q12 bag 05/11/18 Magnesium Hydroxide [Milk Of Magnesia] 30 ml PO DAILY PRN PRN udc 05/11/18 Nutritional Supplement [Shaggy - ORANGE FLAVOR] 1 packet PO BIDCM packet 05/11/18 Oxycodone [Oxyir] 10 mg PO Q4H PRN PRN 7 Days #30 tablet 05/11/18 Primary Care Physician: Jian Syed MD [Primary Care Provider] - Please follow up with your Primary Care Physician in: 1-2 week Disposition: Longterm facility Patient Condition:: Good Medical Necessity - Tobacco Use Smoking Status: Never smoker Tobacco Use: Chew Meaningful Use Info Meaningful Use Diagnoses (Choose all that apply): None applicable Code Visit Inpatient E&M: 70652 Disch Hosp
--- NOTE | 2018-05-11 11:57 | CASEMGMT ---
Social Work Note Per Dr. Torrez pt is able to discharge to TCU today. AZUL updated physician of this. AZUL placed a call to Hali in TCU. Per Hali the pre-cert is still good for today and pt is able to discharge to TCU today. Plan: Discharge to TCU today Sally Wei SCREENER AND BLENDER, CEMENT FINISHER HELPER
--- NOTE | 2018-05-11 12:56 | PN.ID_ITS ---
Patient Problems: Active and Suspected Problems Left leg cellulitis (Acute) Sepsis (Acute) Subjective: Feeling better, redness much improved, no fever - Physical Exam General: Alert, Cooperative, No apparent distress Lungs: Clear to auscultation, Normal air movement Cardiovascular: Regular rate, Regular Rhythm Abdomen: Soft, Non Tender, Non-Distended Skin: Ulcer/ Wound - redness improved Vital Signs Temp Pulse Resp BP Pulse Ox 98.3 F 80 16 130/78 H 94 05/11/18 07:48 05/11/18 08:06 05/11/18 07:48 05/11/18 07:48 05/11/18 07:48 Oxygen Flow Rate (L/min) 2 Oxygen Delivery Method Room Air Weight: 108.3 kg Body Mass Index (BMI) 32.3 Intake and Output for Last 24 Hours 05/09/18 05/10/18 05/11/18 23:59 23:59 23:59 Intake Total 3380 / 3380 3685 / 3685 85.7 / 85.7 Output Total 3650 / 3650 4100 / 4100 Balance -270 / -270 -415 / -415 85.7 / 85.7 Microbiology Past 72 Hours 05/04/18 22:00 Gram Stain - Final Tissue - Other Wound Culture - Final Meth. resistant Staph. aureus Anaerobic Culture - Final No anaerobic bacteria isolated. Laboratory Tests Past 24 Hrs 05/10/18 05/11/18 05/11/18 05:48 06:10 06:10 WBC 21.6 H RBC 4.28 L Hgb 12.5 L Hct 38.6 L MCV 90.2 MCH 29.2 MCHC 32.4 RDW 12.0 RDW Differential 38.6 Plt Count 337 MPV 10.1 Immature Gran % (Auto) 0.900 Neut % (Auto) 74.2 H Lymph % (Auto) 17.4 L [place] % (Auto) 5.6 Eos % (Auto) 1.8 Baso % (Auto) 0.1 Absolute Neuts (auto) 16.0 H Absolute Lymphs (auto) 3.75 Total Counted Not Reportable Diff Path Review Reviewed Sodium 141 Potassium 4.5 Chloride 106 Carbon Dioxide 29.0 Anion Gap 6 BUN 25 H Creatinine 0.99 Estim Creat Clear Calc 116.49 Est GFR (MDRD) Af Amer 112 Est GFR (MDRD) Non-Af 93 BUN/Creatinine Ratio 25.3 H Glucose 99 Calcium 8.2 L Phosphorus 3.1 Magnesium 2.0 Medical Necessity - Tobacco Use Smoking Status: Never smoker Tobacco Use: Chew Route of nutrition/ use of supplements: [] Nutritional Intake: [] IV Site: [] Alfaro Catheter: [] - Assessment/Plan Antibiotics: [] Assessment/Plan: [] Active and Suspected Problems Left leg cellulitis (Acute) Sepsis (Acute) sepsis due to L patellar MRSA abscess and cellulitis causing nec fasc - Taken to OR 05/[address] Torrez. New redness on back and LLE on 05/09. Concern for drug rash and/or worsening infection, so changed vanc/clinda to linezolid. Redness much better, now off solumedrol. Ok for d/c to TCU on po linezolid, stop date 05/18/18. Will follow
--- NOTE | 2018-05-11 13:03 | PN.SURG_ITS ---
Patient Problems: Active and Suspected Problems Left leg cellulitis (Acute) Sepsis (Acute) Subjective: Postop #7 Patient is resting comfortably. - Physical Exam General: Alert, Oriented x3 HEENT: PERRLA, EOMI Oral: Moist Mucosa Neck: Supple Extremities: Edema - resolving edema left lower extremity. Skin: Ulcer/ Wound - left lower extremity wounds are stable. No further evidence of infection. Rash nearly resolved. VAC in place., Rash Present - Much improved. Nearly resolved after Solu-Medrol. Neurological: Cranial nerves II-XII grossly intact Psych/Mental Status: Normal Affect, Appropriate Vital Signs Temp Pulse Resp BP Pulse Ox 98.3 F 80 16 130/78 H 94 05/11/18 07:48 05/11/18 08:06 05/11/18 07:48 05/11/18 07:48 05/11/18 07:48 Oxygen Flow Rate (L/min) 2 Oxygen Delivery Method Room Air Weight: 238 lb 12.17 oz Body Mass Index (BMI) 32.3 Intake and Output for Last 24 Hours 05/09/18 05/10/18 05/11/18 23:59 23:59 23:59 Intake Total 3380 / 3380 3685 / 3685 85.7 / 85.7 Output Total 3650 / 3650 4100 / 4100 Balance -270 / -270 -415 / -415 85.7 / 85.7 Microbiology Past 72 Hours 05/04/18 22:00 Gram Stain - Final Tissue - Other Wound Culture - Final Meth. resistant Staph. aureus Anaerobic Culture - Final No anaerobic bacteria isolated. Laboratory Tests Past 24 Hrs 05/10/18 05/11/18 05/11/18 05:48 06:10 06:10 WBC 21.6 H RBC 4.28 L Hgb 12.5 L Hct 38.6 L MCV 90.2 MCH 29.2 MCHC 32.4 RDW 12.0 RDW Differential 38.6 Plt Count 337 MPV 10.1 Immature Gran % (Auto) 0.900 Neut % (Auto) 74.2 H Lymph % (Auto) 17.4 L [place] % (Auto) 5.6 Eos % (Auto) 1.8 Baso % (Auto) 0.1 Absolute Neuts (auto) 16.0 H Absolute Lymphs (auto) 3.75 Total Counted Not Reportable Diff Path Review Reviewed Sodium 141 Potassium 4.5 Chloride 106 Carbon Dioxide 29.0 Anion Gap 6 BUN 25 H Creatinine 0.99 Estim Creat Clear Calc 116.49 Est GFR (MDRD) Af Amer 112 Est GFR (MDRD) Non-Af 93 BUN/Creatinine Ratio 25.3 H Glucose 99 Calcium 8.2 L Phosphorus 3.1 Magnesium 2.0 Medical Necessity - Tobacco Use Smoking Status: Never smoker Tobacco Use: Chew Assessment/Plan All Active Problems Open wound of left lower leg (Acute) Open wound of left knee (Acute) Open wound of left thigh (Acute) Abscess of left knee (Acute) MRSA (methicillin resistant Staphylococcus aureus) infection (Acute) Necrotizing soft tissue infection (Acute) Left leg cellulitis (Acute) Sepsis (Acute) 1. Necrotizing infected MRSA ulcer left knee. 2. Cellulitis was much improved after surgery, now has increased redness on left lateral thigh with superimposed rash. 3. MRSA. 4. s/p surgical preparation left knee and left thigh and left leg with incision and drainage and excisional debridement necrotizing infected MRSA ulcer (275.5 cm2). 5. Medication rash possibly from Vancomycin, nearly resolved. Continue Zyvox for the MRSA. Operative culture also shows Staphylococcus aureus. Anaerobic culture is negative. Cleocin has been stopped. VAC in place. Minimal drainage in canister. Rash nearly resolved after the Solu-Medrol. No further evidence of infection. He has some burning nerve pain in the lateral thigh wound. Was started on Neurontin. He states it feels a little better. WBC has increased to 21.6. It is secondary to the recent use of steroids. Prealbumin was 9.9. Encourage nutritional supplementation with protein to help the healing process. May ambulate with assist. No standing. When he sits, he needs to elevate left leg. He has been doing well with PT for ambulation, gait training, and strengthening. He can walk better and bend his knee better and bend his ankle better. He has been approved to go to TCU. There is no need for further surgical intervention at this time. Can discharge him to TCU. After discharge, can followup at the [facility]. He had a tentative appointment set up for 05/14/18, at 1100am. Will cancel that since he is going to TCU. When he is discharged home, then followup at the Wound Center. Depending on the healing process, we may proceed with delayed complex secondary wound closure and/or skin grafting.
[2018-05-11 13:25] VITALS: BP 139/70; PULSE 72; RESP 18; TEMP 36.5; O2SAT 95
[2018-05-11 13:51] VITALS: BP 142/82; PULSE 75; RESP 12; TEMP 36.4; O2SAT 98
--- NOTE | 2018-05-11 13:56 | NURSING ---
wound photo: left lateral thigh
--- NOTE | 2018-05-11 13:57 | NURSING ---
wound photo: left lateral lower leg
--- NOTE | 2018-05-11 13:57 | NURSING ---
wound photo: left knee
--- NOTE | 2018-05-11 13:58 | NURSING ---
wound photo: left medial lower leg
--- NOTE | 2018-05-11 13:59 | NURSING ---
wound photo: left medial thigh
--- NOTE | 2018-05-11 14:52 | NURSING ---
REPORT CALLED TO JAGDISH OCAMPO IN TCU.
== END 2018-05-11 15:25 | disposition skilled nursing facility (03) | DRG 853 ==
LOC: ED 06:44 → MS2 07:43 → MS3 05-05 12:17
PROVIDERS: Family Medicine; Hospitalist; Internal Medicine; Surgery; Emergency Provider Emergency Medicine; Family Provider Family Medicine; PCP Family Medicine; Visit Provider Internal Medicine
PROC: 0JBP0ZZ Excision of Left Lower Leg Subcutaneous Tissue and Fascia, Open Approach (ICD-10-PCS; principal; 2018-05-04 20:45)
DX: A41.9 Sepsis, unspecified organism (principal); M72.6 Necrotizing fasciitis; L03.116 Cellulitis of left lower limb; L02.416 Cutaneous abscess of left lower limb; I96 Gangrene, not elsewhere classified; B95.62 Methicillin resistant Staphylococcus aureus infection as the cause of diseases classified elsewhere; L27.0 Generalized skin eruption due to drugs and medicaments taken internally; T36.8X5A Adverse effect of other systemic antibiotics, initial encounter; D50.0 Iron deficiency anemia secondary to blood loss (chronic)
CPT/HCPCS: 36415; 73701; 80048; 80202; 82962; 83605; 83735; 84100; 84134; 85025; 85027; 87040; 87070; 87075; 87077; 87102; 87186; 87205; 87206; 87640; 88304; 88312; 93971; 97110; 97116; 97162; 97165; 97530; 99285; J2020; J7030; J7040; J7050; Q9967; A4216; J0295; J2405

== ENCOUNTER 2018-05-11 13:30 | Inpatient (IN) | payer OTHER, SELFPAY ==
--- NOTE | 2018-05-11 16:14 | PCM.HP.STD ---
Problem List (1) Open wound of left lower leg Status: Acute Comment: left medial leg and left lateral leg (2) Open wound of left knee Status: Acute (3) Open wound of left thigh Status: Acute Comment: left medial thigh and left lateral thigh (4) Abscess of left knee Status: Acute (5) MRSA (methicillin resistant Staphylococcus aureus) infection Status: Acute (6) Left leg cellulitis Status: Acute (7) Sepsis Status: Acute History of Present Illness Date of Admission: 05/11/18 Chief Complaint: Here for rehabilitation, strengthening, prior to discharge home with spouse. The patient is a 33 year old Male with below past medical history presented to [facility] Emergency Department 05/02/2018 with left knee swelling, redness. Going on for 5 days, started as pimple left knee, spouse tried to express it. Start on Clindamycin without improvement. Wound culture sent. Unasyn, Vancomycin IV given. 05/02/2018 Admit to Hospital. Vancomycin IV. Failed Clindamycin. 05/03/2018 CT of left knee showed cellulitis with fluid collections. 05/04/2018 Dr. Royal noted left knee worsening on IV Vancomycin. Recommend incision and drainage. 05/04/2018 Dr. Torrez noted MRSA, recommend incision and drainage. 05/04/2018 Dr. Torrez performed incision and drainage, left knee left thigh, left leg. Left thigh, left leg fasciotomies, wound vac applied. Developed drug rash from Vancomycin, Clindamycin. Treated with Solu-Medrol. Elevated WBC from Solu-Medrol, Hydrocortisone cream PRN. IV Zyvox for MRSA, transitioned to oral Zyvox. Gabapentin for neuropathic pain. 05/09/2018 Doppler ultrasound left lower extremity NEGATIVE for DVT. 05/11/2018 Admit to TCU with debility, here for rehabilitation, strengthening, wound care, prior to discharge home with spouse. Past Medical History Allergies clindamycin Allergy (Verified 05/11/18 15:02) Hives vancomycin Allergy (Verified 05/11/18 15:02) Hives Home Medications: Ambulatory Orders Medication Instructions Recorded Acetaminophen [Tylenol Tablet] 650 mg PO Q6H PRN PRN #0 tablet 05/11/18 DiphenhydrAMINE [Benadryl] 25 mg PO TID PRN PRN capsule 05/11/18 Docusate Sodium [Colace] 100 mg PO BID 05/11/18 Enoxaparin [Lovenox] 40 mg SC DAILY@1000 05/11/18 Ensure Clear 120 ml PO 4X/DAY 05/11/18 Famotidine [Pepcid] 20 mg PO BID 05/11/18 Gabapentin [Neurontin] 300 mg PO BIDCM 05/11/18 Hydrocortisone 2.5% Crm [Hytone] 1 applic TOPICAL BID 05/11/18 Lactobacillus Acidophilus 1 tablet PO TID 05/11/18 [Acidophilus] Linezolid 600 MG [Zyvox 600mg IVPB] 600 mg IV Q12 05/11/18 Magnesium Hydroxide [Milk Of 30 ml PO DAILY PRN PRN udc 05/11/18 Magnesia] Nutritional Supplement [Shaggy - 1 packet PO BIDCM 05/11/18 ORANGE FLAVOR] Oxycodone [Oxyir] 10 mg PO Q4H PRN PRN 7 Days #30 05/11/18 tablet Surgical History: no surgical history Psychiatric History: No pertinent psych hx Lives: Spouse/ Significant Other Smoking Status: Never smoker Tobacco Use: Chew Alcohol: Occasional Drugs: None - *Family History Maternal History Items: - - No medical history that he is aware of. Paternal History Items: - - Medical history that he is aware of Review of Systems Constitutional: Denies: Chills, Fever, Weight Change HEENT: Denies: Head Aches, Sinus Congestion, Sinus Drainage Cardiovascular: Denies: Chest Pain, Palpitations Respiratory: Denies: Cough, Shortness of breath at rest, Sputum production Gastrointestinal: Denies: Abdominal Pain, Nausea, Vomiting Genitourinary: Denies: Dysuria Musculoskeletal: Denies: Joint Pain, Joint Tenderness Skin: Denies: Rash, Wounds Neurological: Denies: Numbness, Tingling, Focal weakness Psychiatric: Denies: Anxiety, Depression, Homicidal Ideations, Suicidal Ideations Hematologic/ Lymphatic: Denies: Easy Bruising, Easy Bleeding VTE Information - Inpt Only VTE Present on Admission: No VTE Mechan Device Prophylaxis: Knee High SERG Hose VTE Pharm Prophylaxis ordered?: Yes - Physical Exam General: Alert, Oriented x3, Cooperative HEENT: Atraumatic, PERRLA, EOMI, Normocephalic Neck: Supple, No JVD, Negative Carotid Bruits Lungs: Clear to auscultation, Normal air movement Cardiovascular: Regular rate, No murmurs Abdomen: Bowel Sounds Present, Soft, Non Tender Extremities: No edema, Capillary Refill Less than 3 Seconds, Edema - 1+ pitting edema left lower extremity., - - Wound vac on left patella, left medial thigh, left lateral thigh, left medial leg, left medial thigh. Skin: No rashes, No breakdown Musculoskeletal: No Tenderness to Palpation of Joints or Extremities Neurological: Cranial nerves II-XII grossly intact Psych/Mental Status: Normal Affect, Appropriate Assessment/Plan All Active Problems Open wound of left lower leg (Acute) Open wound of left knee (Acute) Open wound of left thigh (Acute) Abscess of left knee (Acute) MRSA (methicillin resistant Staphylococcus aureus) infection (Acute) Necrotizing soft tissue infection (Acute) Left leg cellulitis (Acute) Sepsis (Acute) 33 year old male with below past medical history hospitalized for sepsis, secondary to MRSA cellulitis left knee, requiring incision, drainage, fasciotomies, left knee, thigh, leg x 5, admitted to TCU with debility, here for rehabilitation, strengthening, prior to discharge home with spouse. Debility - PT/OT. Pain - Tylenol 650MG Q6H PRN mild pain, Oxycodone 10MG Q4H PRN moderate pain. Bowel - Miralax 17GM daily, Senna/colace 1 tablet BID PRN, Dulcolax 10MG po daily PRN. Pneumonia vaccination - not recommended. DVT prophylaxis - Lovenox 40MG sc daily. Pruritus - Benadryl 25MG TID PRN, Hydrocortisone 2.5% cream BID. Nutrition - Ensure Clear 120ML 4x/day, Shaggy 1 packet BID. GERD - Famotidine 20MG twice daily. Neuropathic pain - Gabapentin 300MG twice daily. GI prophylaxis - Lactobacillus 1 tablet twice daily. MRSA cellulitis - status post incision/drainage/fasciotomy, Linezolid 600MG PO BID, stop date per Dr. Royal.
--- NOTE | 2018-05-11 16:24 | HP.PCM_ITS ---
Problem List (1) Open wound of left lower leg Status: Acute Comment: left medial leg and left lateral leg (2) Open wound of left knee Status: Acute (3) Open wound of left thigh Status: Acute Comment: left medial thigh and left lateral thigh (4) Abscess of left knee Status: Acute (5) MRSA (methicillin resistant Staphylococcus aureus) infection Status: Acute (6) Left leg cellulitis Status: Acute (7) Sepsis Status: Acute History of Present Illness Date of Admission: 05/11/18 Chief Complaint: Here for rehabilitation, strengthening, prior to discharge home with spouse. The patient is a 33 year old Male with below past medical history presented to [facility] Emergency Department 05/02/2018 with left knee swelling, redness. Going on for 5 days, started as pimple left knee, spouse tried to express it. Start on Clindamycin without improvement. Wound culture sent. Unasyn, Vancomycin IV given. 05/02/2018 Admit to Hospital. Vancomycin IV. Failed Clindamycin. 05/03/2018 CT of left knee showed cellulitis with fluid collections. 05/04/2018 Dr. Royal noted left knee worsening on IV Vancomycin. Recommend incision and drainage. 05/04/2018 Dr. Torrez noted MRSA, recommend incision and drainage. 05/04/2018 Dr. Torrez performed incision and drainage, left knee left thigh, left leg. Left thigh, left leg fasciotomies, wound vac applied. Developed drug rash from Vancomycin, Clindamycin. Treated with Solu-Medrol. Elevated WBC from Solu-Medrol, Hydrocortisone cream PRN. IV Zyvox for MRSA, transitioned to oral Zyvox. Gabapentin for neuropathic pain. 05/09/2018 Doppler ultrasound left lower extremity NEGATIVE for DVT. 05/11/2018 Admit to TCU with debility, here for rehabilitation, strengthening, wound care, prior to discharge home with spouse. Past Medical History Allergies clindamycin Allergy (Verified 05/11/18 15:02) Hives vancomycin Allergy (Verified 05/11/18 15:02) Hives Home Medications: Ambulatory Orders Medication Instructions Recorded Acetaminophen [Tylenol Tablet] 650 mg PO Q6H PRN PRN #0 tablet 05/11/18 DiphenhydrAMINE [Benadryl] 25 mg PO TID PRN PRN capsule 05/11/18 Docusate Sodium [Colace] 100 mg PO BID 05/11/18 Enoxaparin [Lovenox] 40 mg SC DAILY@1000 05/11/18 Ensure Clear 120 ml PO 4X/DAY 05/11/18 Famotidine [Pepcid] 20 mg PO BID 05/11/18 Gabapentin [Neurontin] 300 mg PO BIDCM 05/11/18 Hydrocortisone 2.5% Crm [Hytone] 1 applic TOPICAL BID 05/11/18 Lactobacillus Acidophilus 1 tablet PO TID 05/11/18 [Acidophilus] Linezolid 600 MG [Zyvox 600mg IVPB] 600 mg IV Q12 05/11/18 Magnesium Hydroxide [Milk Of 30 ml PO DAILY PRN PRN udc 05/11/18 Magnesia] Nutritional Supplement [Shaggy - 1 packet PO BIDCM 05/11/18 [place] FLAVOR] Oxycodone [Oxyir] 10 mg PO Q4H PRN PRN 7 Days #30 05/11/18 tablet Surgical History: no surgical history Psychiatric History: No pertinent psych hx Lives: Spouse/ Significant Other Smoking Status: Never smoker Tobacco Use: Chew Alcohol: Occasional Drugs: None - *Family History Maternal History Items: - - No medical history that he is aware of. Paternal History Items: - - Medical history that he is aware of Review of Systems Constitutional: Denies: Chills, Fever, Weight Change HEENT: Denies: Head Aches, Sinus Congestion, Sinus Drainage Cardiovascular: Denies: Chest Pain, Palpitations Respiratory: Denies: Cough, Shortness of breath at rest, Sputum production Gastrointestinal: Denies: Abdominal Pain, Nausea, Vomiting Genitourinary: Denies: Dysuria Musculoskeletal: Denies: Joint Pain, Joint Tenderness Skin: Denies: Rash, Wounds Neurological: Denies: Numbness, Tingling, Focal weakness Psychiatric: Denies: Anxiety, Depression, Homicidal Ideations, Suicidal Ideations Hematologic/ Lymphatic: Denies: Easy Bruising, Easy Bleeding VTE Information - Inpt Only VTE Present on Admission: No VTE Mechan Device Prophylaxis: Knee High SERG Hose VTE Pharm Prophylaxis ordered?: Yes - Physical Exam General: Alert, Oriented x3, Cooperative HEENT: Atraumatic, PERRLA, EOMI, Normocephalic Neck: Supple, No JVD, Negative Carotid Bruits Lungs: Clear to auscultation, Normal air movement Cardiovascular: Regular rate, No murmurs Abdomen: Bowel Sounds Present, Soft, Non Tender Extremities: No edema, Capillary Refill Less than 3 Seconds, Edema - 1+ pitting edema left lower extremity., - - Wound vac on left patella, left medial thigh, left lateral thigh, left medial leg, left medial thigh. Skin: No rashes, No breakdown Musculoskeletal: No Tenderness to Palpation of Joints or Extremities Neurological: Cranial nerves II-XII grossly intact Psych/Mental Status: Normal Affect, Appropriate Assessment/Plan All Active Problems Open wound of left lower leg (Acute) Open wound of left knee (Acute) Open wound of left thigh (Acute) Abscess of left knee (Acute) MRSA (methicillin resistant Staphylococcus aureus) infection (Acute) Necrotizing soft tissue infection (Acute) Left leg cellulitis (Acute) Sepsis (Acute) 33 year old male with below past medical history hospitalized for sepsis, secondary to MRSA cellulitis left knee, requiring incision, drainage, fasciotomies, left knee, thigh, leg x 5, admitted to TCU with debility, here for rehabilitation, strengthening, prior to discharge home with spouse. * Debility - PT/OT. * Pain - Tylenol 650MG Q6H PRN mild pain, Oxycodone 10MG Q4H PRN moderate pain. * Bowel - Miralax 17GM daily, Senna/colace 1 tablet BID PRN, Dulcolax 10MG po daily PRN. * Pneumonia vaccination - not recommended. * DVT prophylaxis - Lovenox 40MG sc daily. * Pruritus - Benadryl 25MG TID PRN, Hydrocortisone 2.5% cream BID. * Nutrition - Ensure Clear 120ML 4x/day, Shaggy 1 packet BID. * GERD - Famotidine 20MG twice daily. * Neuropathic pain - Gabapentin 300MG twice daily. * GI prophylaxis - Lactobacillus 1 tablet twice daily. * MRSA cellulitis - status post incision/drainage/fasciotomy, Linezolid 600MG PO BID, stop date per Dr. Royal.
[2018-05-11 16:39] VITALS: BP 146/88; PULSE 83; RESP 20; TEMP 36.8; O2SAT 95
--- NOTE | 2018-05-11 16:55 | NURSING ---
pt arrived at 1515 from [facility] via bed
[2018-05-11] MEDS: oxyCODONE 5 MG Tablet 10 MG PO ×2 (16:57→21:08)
[2018-05-11 17:00] VITALS: BMI 32.4
[2018-05-11 17:05] VITALS: BMI 32.4
[2018-05-11] MEDS: Gabapentin 300 MG Capsule PO (17:59)
[2018-05-11] MEDS: Famotidine 20 MG Tablet PO (17:59)
[2018-05-11] MEDS: Linezolid 600 MG Tablet PO (18:20)
[2018-05-11] MEDS: Hydrocortisone 2.5% Crm 1 APPLIC TOPICAL (20:45)
--- NOTE | 2018-05-11 20:47 | NURSING ---
Pt remains in room for isolation precautions for MRSA in wound. All care given in room, family/ present.
[2018-05-12] MEDS: oxyCODONE 5 MG Tablet 10 MG PO ×5 (01:09→20:57)
[2018-05-12] MEDS: Hydrocortisone 2.5% Crm 1 APPLIC TOPICAL ×2 (05:29→20:27)
[2018-05-12] MEDS: Famotidine 20 MG Tablet PO ×2 (05:31→17:55)
[2018-05-12] MEDS: Linezolid 600 MG Tablet PO ×2 (05:31→17:55)
[2018-05-12 07:03] LABS: Absolute Lymphocyte Count 4.76 X10^3/ul (0.83-4.51); Basophil# 0.04 X10^3/uL; Basophil% 0.3 % (0-1); Eosinophil# 0.51 X10^3/uL; Eosinophils% 3.7 % (0-5); Hematocrit 40.7 % (40-54); Hemoglobin 12.8 g/dl (13.0-16.5); Lymphocyte # 4.76 X10^3/ul (4.0); Mean Corp Hgb Conc 31.4 g/gl (32-36); Mean Corpuscular Hgb 28.9 pg (27.0-32.0); Mean Corpuscular Volume 91.9 fL (80-94); Mean Platelet Vol. 10.2 fl (6.2-12.0); Monocyte# 1.09 X10^3/uL; Neutrophil # 6.98 X10^3/uL (2.7-7.7); Neutrophil % 51.3 % (47-70); Platelet Count 301 K/mm3 (150-450); RBC Distribution Width CV 12.3 % (11.6-14.6); RBC Distribution Width SD 41.5 fl (35.1-43.9); Red Blood Count 4.43 M/mm3 (4.6-6.2); White Blood Count 13.6 K/mm3 (4.4-11.0)
[2018-05-12 07:17] LABS: POSITIVE COUNT NO; POSITIVE DIFFERENTIAL NO; POSITIVE MORPHOLOGY NO
[2018-05-12 07:29] LABS: Anion Gap 6 (5-15); BUN 28 mg/dL (7-18); BUN/Creat Ratio 27.7 RATIO (10-20); Chloride 105 mmol/L (98-107); Creatinine, Serum 1.01 mg/dL (0.70-1.30); EST Glomerular Filtration Rate 90 mL/min (>60); Est Glom Filt Rate - Afr Amer 109 mL/min (>60); Estimated Creatinine Clearance 114.18 ml/min; Glucose 102 mg/dL (74-106); Potassium 3.9 mmol/L (3.5-5.1); Sodium Level 139 mmol/L (136-145)
[2018-05-12] MEDS: Gabapentin 300 MG Capsule PO ×2 (09:02→16:58)
[2018-05-12] MEDS: Enoxaparin 40 MG/0.4 ML Syringe SC (09:03)
[2018-05-12] MEDS: Tuberculin,Purif.prot.deriv. 50 TU/ML Vial 5 ML ID (13:38)
[2018-05-12] MEDS: fentaNYL 25 MCG Patch TRANSDERM. (16:50)
[2018-05-12 21:26] VITALS: PULSE 85; RESP 16; O2SAT 94
--- NOTE | 2018-05-12 21:55 | NURSING ---
Patient remains in room for precautions due to MRSA in Wound.
--- NOTE | 2018-05-12 22:12 | NURSING ---
Dr. Royal consulted and aware that patient is on our unit. Zyvox order clarified that patient is to be on 600 mg Zyvox BID.
[2018-05-13] MEDS: oxyCODONE 5 MG Tablet 10 MG PO ×6 (01:03→22:00)
[2018-05-13] MEDS: Linezolid 600 MG Tablet PO ×2 (05:09→16:57)
[2018-05-13] MEDS: Famotidine 20 MG Tablet PO ×2 (05:09→16:57)
--- NOTE | 2018-05-13 08:30 | NURSING ---
Pt remains in isolation precautions for MRSA in wound. All care given in room.
[2018-05-13] MEDS: Enoxaparin 40 MG/0.4 ML Syringe SC (09:14)
[2018-05-13] MEDS: Gabapentin 300 MG Capsule PO ×2 (09:14→16:57)
[2018-05-13] MEDS: Hydrocortisone 2.5% Crm 1 APPLIC TOPICAL ×2 (09:24→21:14)
--- NOTE | 2018-05-13 09:25 | NURSING ---
Duragesic patch intact to left shoulder
--- NOTE | 2018-05-13 11:50 | NURSING ---
Pt c/o feeling nauseated and dizzy today. Dr. Lee updated, N.O. for Zofran 8mg Q6H PRN. Pt and updated.
[2018-05-13] MEDS: Ondansetron ODT 4 MG Tablet 8 MG PO (12:19)
[2018-05-13] MEDS: Acetaminophen 325 MG Tablet 650 MG PO ×2 (13:34→22:07)
[2018-05-13 15:19] VITALS: BP 143/79; PULSE 84; RESP 14; TEMP 35.4; O2SAT 98
[2018-05-13 22:10] VITALS: PULSE 88; RESP 18; O2SAT 98
[2018-05-14] MEDS: oxyCODONE 5 MG Tablet 10 MG PO ×5 (02:01→20:34)
--- NOTE | 2018-05-14 02:47 | NURSING ---
DURAGESIC PATCH VERIFIED TO BE POST LEFT SHOULDER.
[2018-05-14] MEDS: Acetaminophen 325 MG Tablet 650 MG PO (06:23)
[2018-05-14] MEDS: Linezolid 600 MG Tablet PO ×2 (06:24→17:58)
[2018-05-14] MEDS: Famotidine 20 MG Tablet PO ×2 (06:24→17:58)
[2018-05-14] MEDS: Gabapentin 300 MG Capsule PO ×2 (08:04→17:58)
[2018-05-14] MEDS: Ondansetron ODT 4 MG Tablet 8 MG PO (08:11)
[2018-05-14] MEDS: Hydrocortisone 2.5% Crm 1 APPLIC TOPICAL ×2 (08:12→20:36)
--- NOTE | 2018-05-14 08:24 | NURSING ---
PT IN PRECAUTIONS FOR MRSA IN WOUND. ALL CARE GIVEN IN ROOM.
[2018-05-14] MEDS: Enoxaparin 40 MG/0.4 ML Syringe SC (09:28)
--- NOTE | 2018-05-14 10:54 | NURSING ---
Per infection control, patient can now be modified contact. Moved to clean room and housekeeping made aware of need for rm 3 to be sanitized.
--- NOTE | 2018-05-14 11:24 | NURSING ---
WOUND VAC CHANGED BY DAMARIS VALENZUELA WOUND NURSE.
--- NOTE | 2018-05-14 11:30 | NURSING ---
Pt requesting higher dose of oxyir and valium before wound vac change. Dr. Lee updated. NO for oxyir 20mg PO before wound vac change and valium 10mg PO x1 before wound vac change.
[2018-05-14] MEDS: oxyCODONE 5 MG Tablet 20 MG PO (12:03)
[2018-05-14] MEDS: diazePAM 5 MG Tablet 10 MG PO (12:03)
--- NOTE | 2018-05-14 13:41 | NURSING ---
wound photo: left lateral thigh
--- NOTE | 2018-05-14 13:42 | NURSING ---
wound photo: left lateral lower leg
--- NOTE | 2018-05-14 13:42 | NURSING ---
wound photo: left knee
--- NOTE | 2018-05-14 13:42 | NURSING ---
wound photo: left medial thigh
--- NOTE | 2018-05-14 13:43 | NURSING ---
wound photo: left medial lower leg
--- NOTE | 2018-05-14 15:01 | PCM.PN.ID ---
Subjective: Feeling much better, rash nearly resolved, no fever. - Physical Exam General: Alert, Cooperative, No apparent distress Lungs: Clear to auscultation, Normal air movement Cardiovascular: Regular rate, Regular Rhythm Abdomen: Soft, Non Tender, Non-Distended Skin: Incision - wrapped Vital Signs Temp Pulse Resp BP Pulse Ox 95.7 F L 88 18 143/79 H 98 05/13/18 15:19 05/13/18 22:10 05/13/18 22:10 05/13/18 15:19 05/13/18 22:10 Oxygen Delivery Method Room Air Weight: 108.5 kg Body Mass Index (BMI) 32.4 Intake and Output for Last 24 Hours 05/12/18 05/13/18 05/14/18 23:59 23:59 23:59 Intake Total 1800 / 1800 920 / 920 920 / 920 Output Total 1000 / 1000 3100 / 3100 1000 / 1000 Balance 800 / 800 -2180 / -2180 -80 / -80 Medical Necessity - Tobacco Use Smoking Status: Never smoker Tobacco Use: Chew Route of nutrition/ use of supplements: [] Nutritional Intake: [] IV Site: [] Alfaro Catheter: [] - Assessment/Plan Antibiotics: [] Assessment/Plan: [] LLE MRSA necrotizing fasciitis - improving, on linezolid, stop date planned for 05/18/18. S/p OR with Dr. Torrez 05/04. Will follow.
[2018-05-14 15:09] VITALS: BP 143/89; PULSE 100; RESP 18; TEMP 36.6; O2SAT 92
[2018-05-14 21:38] VITALS: PULSE 78; RESP 18; O2SAT 97
[2018-05-15] MEDS: oxyCODONE 5 MG Tablet 10 MG PO ×6 (00:35→22:04)
[2018-05-15] MEDS: Linezolid 600 MG Tablet PO ×2 (04:50→17:25)
[2018-05-15] MEDS: Famotidine 20 MG Tablet PO ×2 (04:50→17:25)
[2018-05-15] MEDS: Gabapentin 300 MG Capsule PO ×2 (08:21→17:25)
[2018-05-15] MEDS: Enoxaparin 40 MG/0.4 ML Syringe SC (09:28)
[2018-05-15] MEDS: Hydrocortisone 2.5% Crm 1 APPLIC TOPICAL ×2 (09:28→22:06)
--- NOTE | 2018-05-15 09:32 | NURSING ---
VERIFIED DURAGESIC PATCH TO LEFT SHOULDER.
[2018-05-15 15:40] VITALS: BP 138/78; PULSE 93; RESP 16; TEMP 36.8; O2SAT 95
[2018-05-15] MEDS: fentaNYL 25 MCG Patch TRANSDERM. (16:16)
--- NOTE | 2018-05-15 16:19 | NURSING ---
THIS NURSE REMOVED OLD FENTANYL PATCH AND APPLIED NEW FENTANYL PATCH TO RIGHT SHOULDER.
--- NOTE | 2018-05-15 16:22 | NURSING ---
OLD FENTANYL PATCHED FLUSHED, WITNESS BY DAMARIS ECHEVERRIA
[2018-05-15 22:10] VITALS: PULSE 90; RESP 18; O2SAT 98
[2018-05-16] MEDS: oxyCODONE 5 MG Tablet 10 MG PO ×5 (02:07→20:30)
[2018-05-16] MEDS: Linezolid 600 MG Tablet PO ×2 (06:27→18:07)
[2018-05-16] MEDS: Famotidine 20 MG Tablet PO ×2 (06:27→18:07)
[2018-05-16 07:11] VITALS: PULSE 84; RESP 16; O2SAT 97
[2018-05-16] MEDS: Gabapentin 300 MG Capsule PO ×2 (08:31→18:07)
[2018-05-16] MEDS: Enoxaparin 40 MG/0.4 ML Syringe SC (08:33)
[2018-05-16] MEDS: Hydrocortisone 2.5% Crm 1 APPLIC TOPICAL ×2 (08:35→20:29)
[2018-05-16] MEDS: oxyCODONE 5 MG Tablet 20 MG PO (09:59)
[2018-05-16] MEDS: diazePAM 5 MG Tablet 10 MG PO (10:01)
--- NOTE | 2018-05-16 13:56 | CASEMGMT ---
Insurance Clinical information faxed. Pending continued stay approval at this time. Auth#[id number] LOTUS Blake, TRAVEL RN OR
--- NOTE | 2018-05-16 14:40 | CASEMGMT ---
Plan of care meeting held. Resident present as well as resident spouse. Collaborating with team, discharge date set for 05/18/18. Resident plans to discharge to home with spouse at time of discharge. Nursing recommending for resident to have continued services within the home for wound care management. Resident requesting for referral to be made to [facility] for the home health services. No further therapy being recommended at this time. Resident reporting to have a walker already set up within the home. Resident spouse plans to provide transportation home for resident at time of discharge. Support given. Telephone call to [facility]. This social services analyst making referral for prison. Clinical information faxed. Will fax discharge orders when obtained. P: [phone]; F: [phone]. Proposed discharge date: 05/18/18 PLAN: Discharge to home with spouse and home health services. LOTUS Blake, CURB MACHINE OPERATOR
[2018-05-16] MEDS: Ondansetron ODT 4 MG Tablet 8 MG PO (14:41)
--- NOTE | 2018-05-16 15:33 | NURSING ---
Pt tolerated wound VAC change much better today. wounds continue to improve.
[2018-05-16 15:37] VITALS: BP 131/76; PULSE 87; RESP 16; TEMP 36.6; O2SAT 98
--- NOTE | 2018-05-16 16:33 | PCM.PN.ID ---
Subjective: Feeling better, no fever, leg improving, no n/v/d. - Physical Exam General: Alert, Cooperative, No apparent distress Lungs: Clear to auscultation, Normal air movement Cardiovascular: Regular rate, Regular Rhythm Abdomen: Soft, Non Tender, Non-Distended Skin: Incision - wound vac on LLE Vital Signs Temp Pulse Resp BP Pulse Ox 97.9 F 87 16 131/76 H 98 05/16/18 15:37 05/16/18 15:37 05/16/18 15:37 05/16/18 15:37 05/16/18 15:37 Oxygen Delivery Method Room Air Weight: 108.097 kg Body Mass Index (BMI) 32.4 Intake and Output for Last 24 Hours 05/14/18 05/15/18 05/16/18 23:59 23:59 23:59 Intake Total 1480 / 1480 1620 / 1620 720 / 720 Output Total 1000 / 1000 1900 / 1900 Balance 480 / 480 -280 / -280 720 / 720 Medical Necessity - Tobacco Use Smoking Status: Never smoker Tobacco Use: Chew Route of nutrition/ use of supplements: [] Nutritional Intake: [] IV Site: [] Alfaro Catheter: [] - Assessment/Plan Antibiotics: [] Assessment/Plan: [] LLE MRSA necrotizing fasciitis - improving, on linezolid, stop date planned for 05/18/18. S/p OR with Dr. Torrez 05/04. Will follow as needed, please call with any ?s.
--- NOTE | 2018-05-16 19:58 | DCINST_ITS ---
You will use the following diet at home:: No restrictions, Regular Your food should be the consistency of: Regular Your liquids should be the consistency of: Regular/Thin Discharge Activity: Return to Normal Activity, May Shower, Use Walker May resume sexual activity in: No Restrictions Weight Bearing Status: Weight bearing as tolerated Call your doctor if you observe: Fever of 101 or Higher, Inability to urinate, Inability to have a bowel movement, Shortness of breath, Chest pain, Uncontrolled pain Allergies/Adverse Reactions: Allergies clindamycin Allergy (Verified 05/11/18 15:02) Hives vancomycin Allergy (Verified 05/11/18 15:02) Hives Medications to take at Discharge Acetaminophen [Tylenol Tablet] 650 mg PO Q6H PRN PRN #0 tablet 05/11/18 DiphenhydrAMINE [Benadryl] 25 mg PO TID PRN PRN capsule 05/11/18 Lactobacillus Acidophilus [Acidophilus] 1 tablet PO TID 05/11/18 Diazepam [Valium] 10 mg PO DAILY PRN 30 Days #30 tab 05/16/18 Famotidine [Pepcid] 20 mg PO BID #60 tablet 05/16/18 Gabapentin [Neurontin] 300 mg PO BIDCM #60 capsule 05/16/18 Hydrocortisone 2.5% Crm [Hytone] 1 applic TOPICAL BID #1 tube 05/16/18 Nutritional Supplement [Shaggy - ORANGE FLAVOR] 1 packet PO BIDCM #60 packet 05/16/18 Ondansetron [Zofran Odt] 8 mg PO Q6H PRN PRN #60 tablet 05/16/18 Oxycodone [Oxyir] 10 mg PO Q4H PRN PRN 7 Days #84 tab 05/16/18 Polyethylene Glycol 3350 [Miralax] 17 gm PO DAILY #30 packet 05/16/18 Senna/Docusate Sodium [Senokot-S] 1 tablet PO BID PRN #60 tablet 05/16/18 fentaNYL patch [Duragesic patch] 25 mcg TRANSDERM. Q3D 14 Days #5 patch 05/16/18 The following prescriptions were given: Oxycodone [Oxyir] 10 mg PO Q4H PRN PRN 7 Days #84 tab PRN Reason: Severe Pain (6-04/25) Ondansetron [Zofran Odt] 8 mg PO Q6H PRN PRN #60 tablet PRN Reason: NAUSEA/VOMITING Diazepam [Valium] 10 mg PO DAILY PRN 30 Days #30 tab PRN Reason: Anxiety fentaNYL patch [Duragesic patch] 25 mcg TRANSDERM. Q3D 14 Days #5 patch Polyethylene Glycol 3350 [Miralax] 17 gm PO DAILY #30 packet Famotidine [Pepcid] 20 mg PO BID #60 tablet Gabapentin [Neurontin] 300 mg PO BIDCM #60 capsule Hydrocortisone 2.5% Crm [Hytone] 1 applic TOPICAL BID #1 tube Nutritional Supplement [Shaggy - ORANGE FLAVOR] 1 packet PO BIDCM #60 packet Senna/Docusate Sodium [Senokot-S] 1 tablet PO BID PRN #60 tablet PRN Reason: Constipation Primary Care Physician: Jian Syed MD [Primary Care Provider] - Please follow up with your Primary Care Physician in: 1 week. Test Results: Test results from this visit will be discussed in further detail at your follow- up appointment, if applicable. Proposed Discharge Date: 05/18/18
--- NOTE | 2018-05-16 20:00 | DS.PCM_ITS ---
Discharge Date and Diagnosis Date of Admission: 05/11/18 Date of Discharge: 05/18/18 Hospital Course and Treatment Imaging Results: 05/11/18 16:34 Diet: Regular Diet Consultations 05/11/18 Consult: Onc/Wound/in service educator Routine Comment: Operations: None, - - Status post incision and drainage: Patient Name: NILSON PINA RMedical Record Number: [id number] Date of : [birth year]Patient Status: Inpatient Attending Provider: Fortunato LucioAccount Number: [id number] Date: 05/04/18 23:13Initialization Date: 05/05/18 12:33 Report of Operation Date of Procedure: 05/04/18 Pre-Operative Diagnosis: 1. Infected MRSA ulcer left knee. 2. Worsening cellulitis extending proximally onto thigh and distally onto leg. 3. MRSA. 4. Possible necrotizing infection. Post- Operative Diagnosis: 1. Necrotizing infected MRSA ulcer left knee. 2. Worsening cellulitis extending proximally onto thigh and distally onto leg. 3. MRSA. Surgery/Procedure Performed:: 1. Surgical preparation left knee and left thigh and left leg with incision and drainage and excisional debridement necrotizing infected MRSA ulcer (275.5 cm2). 2. Multiple left leg and left thigh fasciotomies. Description of Surgical Findings:: The patient is a 33 year old M who was recently admitted to the hospital on 05/02/18 because of increasing pain and redness and swelling in his left lower extremity. On Monday. 04/29/18, patient noted a pimple on his left kneecap that would irritate him when he would wear pants. Patient's tried to squeeze it and did get some slight purulence out. Went to work and noted that he had some swelling in his right knee. Presented to the emergency room on 04/30/17 and diagnosed with cellulitis. Patient was discharged on clindamycin. Patient continued to have worsening symptoms and went to the ED on 05/02/18 and was admitted. He received Unasyn and was started on Vancomycin. Upon admission his Temp was 102.2. It is still low grade at 99.6. His WBC on admission was 16.7 and has only improved slightly to 15.6 despite being on Vancomycin. CT was done on 05/03/18 which showed Superficial soft tissue swelling with fluid accumulations along the fatty and superficial muscular fascial planes from the mid thigh to the mid lower leg, as noted. No defined rim-enhancing collection to indicate an abscess. No acute osseous abnormality to suggest osteomyelitis. Initial culture from the infected ulcer showed MRSA. Despite the Vancomycin, the cellulitis has spread. Because of his worsening symptomatology, I was asked to evaluate this patient for surgical options for treatment. There was concern about a necrotizing process and urgent surgical debridement was recommended CHASITY. Patient was informed of the risks and complications of the procedure including alternatives to surgery. These were discussed with the patient personally. Patient voices understanding and wishes to proceed. Patient understands that there will be several open wounds after the surgery. He voices understanding and wishes to proceed. He understands that if surgery is not done, he is at increased risk for worsening infection, amputation, or . Size of defect left knee - 12.5 x 3 x 1 cm. Size of defect left medial thigh - 14 x 5 x 4 cm. Size of defect left medial leg - 15 x 4 x 2.5 cm. Size of defect left lateral thigh - 15 x 4 x 3 cm. Size of defect left lateral leg - 16 x 3 x 1 cm. pet stylist: None Type of Anesthesia:: General Specimen's removed: Left knee and lower extremity necrotizing MRSA ulcer to Pathology and Microbiology. Drains: None. Estimated Blood Loss (mL): 150 ml. Description of Procedure: Patient was taken to OR in supine position and was placed under general anesthesia. The left lower extremity was prepped and draped in the usual fashion. SCD's were placed on the right leg for DVT prophylaxis . Perioperative antibiotics were given intravenously. A lagos catheter was then placed. I probed the MRSA ulcer left knee and there was a large cavity which extended laterally. Copious amounts of thick discolored looking pus was expressed with some odor. I proceeded with an aggressive incision and drainage to open up the undermined areas. The initial circular incision around the knee ulcer extended as a horizontal ellipse to encompass the extension of the pus laterally. There was a lot of necrotizing subcutaneous tissue. No exposed bone was seen. Due to the rapidity of the worsening of the cellulitis and the lack of CT findings, I was concerned about a necrotizing process and made several longitudinal incisions both proximally on the thigh and distally on the leg. The incisions were made on both the medial and lateral aspects. The subcutaneous tissue was necrotic and brownish grayish looking. Some bubbles were noted in the subcutaneous tissue. I extended the incisions down to the muscle and fascia. The fascia was inflamed and looked viable. Fasciotomies were placed and the underlying muscles were initially dusky but became pink and viable with releasing some tension and irrigation with saline and allowing air into the wounds. So I made 4 separate longitudinal incisions (medial thigh, lateral thigh, medial leg, and lateral leg). Fasciotomies were made in all the incisions. The firmness of the skin softened up fairly quickly after these incisions were made. A lot of edema was seen in the wounds and extra gauze bandages and suction was needed to keep the wounds relatively dry. Tissue that was removed tonight was sent to Pathology for analysis to rule out carcinoma and to Microbiology for culture. A positive culture may necessitate antibiotic modification. He has MRSA thus far. After irrigation of the wounds in a pulsatile fashion, I obtained hemostasis with electrocautery. The size of the defects created with the multiple incisions were - 12.5 x 3 x 1 cm for the left knee with extension laterally, 14 x 5 x 4 cm for the left medial thigh, 15 x 4 x 2.5 cm for the left medial leg, 15 x 4 x 3 cm for the left lateral thigh, and 16 x 3 x 1 cm for the left lateral leg for a combined 275.5 cm2. The wounds were then dressed with Mepitel nonadherent dressing followed by Kerlix gauze with Betadine followed by dry Kerlix gauze followed by 6 inch pal wraps for compression. Patient tolerated the procedure well and was sent to PACU in stable condition. Patient will be sent upstairs for continued postop care. W ith multiple wounds, will begin wound care with Silver dressing changes daily. Will reassess clinically over the next several days to see if additional operative intervention is necessary depending on how the wounds look during the healing process and how well the patient is doing clinically. Grafts/Implants Used: None. - Complications None. - Admit VTE Documentation VTE Present on Admission: No VTE Mechan Device Prophylaxis: SCD's VTE Pharm Prophylaxis ordered?: Yes Additional CC's: Kevin Manriquez [facility] Procedures: None Summary of Care Provided: The patient is a 33 year old Male with below past medical history hospitalized for sepsis, secondary to MRSA cellulitis left knee, requiring incision, drainage, fasciotomies, left knee, thigh, leg x 5, admitted to TCU with debility, here for rehabilitation, strengthening, prior to discharge home with spouse. Discharge home with spouse, and Home Health Services. - Physical Exam Vital Signs Temp Pulse Resp BP Pulse Ox 97.9 F 87 16 131/76 H 98 05/16/18 15:37 05/16/18 15:37 05/16/18 15:37 05/16/18 15:37 05/16/18 15:37 Oxygen Delivery Method Room Air Weight: 108.097 kg Body Mass Index (BMI) 32.4 Intake and Output for Last 24 Hours 05/14/18 05/15/18 05/16/18 23:59 23:59 23:59 Intake Total 1480 / 1480 1620 / 1620 1080 / 1080 Output Total 1000 / 1000 1900 / 1900 Balance 480 / 480 -280 / -280 1080 / 1080 Discharge Diet: No Restrictions Discharge Activity: Return to Normal Activity, May Shower, Use Walker May resume sexual activity in: No Restrictions Weight Bearing Status: Weight bearing as tolerated Call your doctor if you observe: Fever of 101 or Higher, Inability to urinate, Inability to have a bowel movement, Shortness of breath, Chest pain, Uncontrolled pain Home Medications: Medications to take at Discharge Acetaminophen [Tylenol Tablet] 650 mg PO Q6H PRN PRN #0 tablet 05/11/18 DiphenhydrAMINE [Benadryl] 25 mg PO TID PRN PRN capsule 05/11/18 Lactobacillus Acidophilus [Acidophilus] 1 tablet PO TID 05/11/18 Diazepam [Valium] 10 mg PO DAILY PRN 30 Days #30 tab 05/16/18 Famotidine [Pepcid] 20 mg PO BID #60 tablet 05/16/18 Gabapentin [Neurontin] 300 mg PO BIDCM #60 capsule 05/16/18 Hydrocortisone 2.5% Crm [Hytone] 1 applic TOPICAL BID #1 tube 05/16/18 Nutritional Supplement [Shaggy - ORANGE FLAVOR] 1 packet PO BIDCM #60 packet 05/16/18 Ondansetron [Zofran Odt] 8 mg PO Q6H PRN PRN #60 tablet 05/16/18 Oxycodone [Oxyir] 10 mg PO Q4H PRN PRN 7 Days #84 tab 05/16/18 Polyethylene Glycol 3350 [Miralax] 17 gm PO DAILY #30 packet 05/16/18 Senna/Docusate Sodium [Senokot-S] 1 tablet PO BID PRN #60 tablet 05/16/18 fentaNYL patch [Duragesic patch] 25 mcg TRANSDERM. Q3D 14 Days #5 patch 05/16/18 Following Prescrptions Were Given to Patient: Oxycodone [Oxyir] 10 mg PO Q4H PRN PRN 7 Days #84 tab PRN Reason: Severe Pain (6-04/25) Ondansetron [Zofran Odt] 8 mg PO Q6H PRN PRN #60 tablet PRN Reason: NAUSEA/VOMITING Diazepam [Valium] 10 mg PO DAILY PRN 30 Days #30 tab PRN Reason: Anxiety fentaNYL patch [Duragesic patch] 25 mcg TRANSDERM. Q3D 14 Days #5 patch Polyethylene Glycol 3350 [Miralax] 17 gm PO DAILY #30 packet Famotidine [Pepcid] 20 mg PO BID #60 tablet Gabapentin [Neurontin] 300 mg PO BIDCM #60 capsule Hydrocortisone 2.5% Crm [Hytone] 1 applic TOPICAL BID #1 tube Nutritional Supplement [Shaggy - ORANGE FLAVOR] 1 packet PO BIDCM #60 packet Senna/Docusate Sodium [Senokot-S] 1 tablet PO BID PRN #60 tablet PRN Reason: Constipation Primary Care Physician: Jian Syed MD [Primary Care Provider] - Please follow up with your Primary Care Physician in: 1 week. Please Follow Up With: [facility] When: 3 days. Disposition: Home with Home Health Minutes spent on discharge:: 35 Patient Condition:: Good Medical Necessity - Tobacco Use Smoking Status: Never smoker Tobacco Use: Chew Meaningful Use Info Meaningful Use Diagnoses (Choose all that apply): None applicable
--- NOTE | 2018-05-16 20:01 | HHNOTE_ITS ---
Home Health Note - Plan Overview of reason of hospitalization: The patient is a 33 year old Male with below past medical history hospitalized for sepsis, secondary to MRSA cellulitis left knee, requiring incision, drainage, fasciotomies, left knee, thigh, leg x 5, admitted to TCU with debility, here for rehabilitation, strengthening, prior to discharge home with spouse. Discharge home with spouse, and Home Health Services. Problems: Complete List of Medical Problems Open wound of left lower leg (Acute) Open wound of left knee (Acute) Open wound of left thigh (Acute) Abscess of left knee (Acute) MRSA (methicillin resistant Staphylococcus aureus) infection (Acute) Necrotizing soft tissue infection (Acute) Left leg cellulitis (Acute) Sepsis (Acute) - Requirements and Reasons Disciplines Needed/Ordered: [facility] Reason for Disciplines: Disease Specific Monitoring/education, Wound Care Related To: Limited/Poor Endurance, Intractable Pain Patient is unable to leave the home: Without Aid of Supportive Devices (crutches, cane, wheelchair, walker), Without the assistance of another person
--- NOTE | 2018-05-16 23:14 | PCM.PN.SRG ---
Subjective: Postop #12 Patient is resting comfortably. Most of his pain is during therapy and during the VAC dressing changes. - Physical Exam General: Alert, Oriented x3 HEENT: PERRLA, EOMI Oral: Moist Mucosa Neck: Supple Abdomen: Soft, Non-Distended Extremities: No clubbing, No cyanosis, No edema, Peripheral Pulses Normal Skin: Ulcer/ Wound - wounds are clean with good granulation tissue. Dimensions are decreasing with less depth. Continue VAC changes three times per week. Lymphatic: - - no inguinal adenopathy. Neurological: Cranial nerves II-XII grossly intact Psych/Mental Status: Normal Affect, Appropriate Vital Signs Temp Pulse Resp BP Pulse Ox 97.9 F 87 16 131/76 H 98 05/16/18 15:37 05/16/18 15:37 05/16/18 15:37 05/16/18 15:37 05/16/18 15:37 Oxygen Delivery Method Room Air Weight: 238 lb 5 oz Body Mass Index (BMI) 32.4 Intake and Output for Last 24 Hours 05/14/18 05/15/18 05/16/18 23:59 23:59 23:59 Intake Total 1480 / 1480 1620 / 1620 1080 / 1080 Output Total 1000 / 1000 1900 / 1900 Balance 480 / 480 -280 / -280 1080 / 1080 Medical Necessity - Tobacco Use Smoking Status: Never smoker Tobacco Use: Chew Assessment/Plan All Active Problems Open wound of left lower leg (Acute) Open wound of left knee (Acute) Open wound of left thigh (Acute) Abscess of left knee (Acute) MRSA (methicillin resistant Staphylococcus aureus) infection (Acute) Necrotizing soft tissue infection (Acute) Left leg cellulitis (Acute) Sepsis (Acute) 1. Necrotizing infected MRSA ulcer left knee. 2. Open surgical wounds left medial and lateral thigh and left medial and lateral leg. 3. MRSA. 4. s/p surgical preparation left knee and left thigh and left leg with incision and drainage and excisional debridement necrotizing infected MRSA ulcer (275.5 cm2). He is finishing Zyvox for MRSA. Continue the VAC to be changed three times per week at 150 mmHg continuous suction. Encourage nutritional supplementation with protein to help the healing process. Doing well with PT for range of motion exercises, ambulation, and strengthening. He will continue the excercises at home to minimize stiffness. Anticipate discharge later in week. Ok from my standpoint. Scripts already written for Valium, Oxycodone, and Duragesic Patch. Followup at [facility] Center on Monday05/21/18. As an outpatient, will discuss further surgery with surgical preparation of these multiple leg lower extremity wounds with excisional debridement and either skin grafting and/o complex secondary wound closure. 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
[2018-05-17] MEDS: oxyCODONE 5 MG Tablet 10 MG PO ×6 (01:23→20:38)
[2018-05-17] MEDS: Linezolid 600 MG Tablet PO ×2 (06:46→16:28)
[2018-05-17] MEDS: Famotidine 20 MG Tablet PO ×2 (06:46→16:28)
[2018-05-17] MEDS: Enoxaparin 40 MG/0.4 ML Syringe SC (08:40)
[2018-05-17] MEDS: Gabapentin 300 MG Capsule PO ×2 (08:40→16:28)
[2018-05-17] MEDS: Hydrocortisone 2.5% Crm 1 APPLIC TOPICAL ×2 (08:46→20:41)
[2018-05-17 10:00] VITALS: PULSE 88; RESP 16; O2SAT 96
--- NOTE | 2018-05-17 10:52 | CASEMGMT ---
Insurance Continued stay approved with next update due on 05/18/18. Auth#[id number] LOTUS Blake, [employer]
--- NOTE | 2018-05-17 14:00 | MDS.RN ---
Pain interview for so 05/18/18 completed.
[2018-05-17 16:00] VITALS: BP 136/80; PULSE 88; RESP 20; TEMP 36.4; O2SAT 99
--- NOTE | 2018-05-17 16:33 | CHAPLAIN ---
Type of Pastoral Visit _x__ Initial Visit ___ Follow-up Visit ___ On-call Visit ___ General Patient Visit ___ Spiritual Assessment ___ Family Conference ___ Bereavement ___ Rapid Response ___ Code Blue ___ Other (describe below) Pastoral Care Referral From _x__ Patient ___ Family ___ Nurse ___ Physician ___ Street Light Repairer ___ Rn Operating Room _x__ Other (describe below) Sacrament/Intervention _x__ Active listening ___ Anointing ___ Cheondoism ___ Bereavement ___ Communion ___ Britta exploration ___ ___ Life review ___ Prayer ___ Reconciliation ___ Sacrament of Sick ___ Supportive presence ___ Wedding ___ Other (describe below) Pastoral Comments introduced self to patient and made offer of support; pt spoke of his illness and how he is dealing with the change in life; pt reports having great emotional support and good care from hospital staff; pt has a episcopalian connection; pt speaks of optimism in improved health and has seen progress even today; pt welcomes future visits
[2018-05-18] MEDS: oxyCODONE 5 MG Tablet 10 MG PO ×4 (01:58→15:47)
[2018-05-18] MEDS: Linezolid 600 MG Tablet PO ×2 (06:25→16:32)
[2018-05-18] MEDS: Famotidine 20 MG Tablet PO (06:25)
[2018-05-18 10:00] VITALS: PULSE 84; RESP 18; O2SAT 96
[2018-05-18] MEDS: diazePAM 5 MG Tablet 10 MG PO (10:13)
[2018-05-18] MEDS: oxyCODONE 5 MG Tablet 20 MG PO (10:14)
[2018-05-18] MEDS: Enoxaparin 40 MG/0.4 ML Syringe SC (10:18)
[2018-05-18] MEDS: Gabapentin 300 MG Capsule PO (10:18)
--- NOTE | 2018-05-18 13:42 | CASEMGMT ---
Brief interview for mental status (BIMS) and resident mood interview (PHQ-9) completed on this day. BIMS score 15. PHQ-9 score 08/12
[2018-05-18 16:00] VITALS: BP 128/76; PULSE 88; RESP 14; TEMP 36.6; O2SAT 98
[2018-05-18 18:27] VITALS: BP 124/64; PULSE 68; RESP 16; TEMP 36.9; O2SAT 98
--- NOTE | 2018-05-21 15:58 | CASEMGMT ---
Insurance Notified insurance of resident discharge on 05/18/18 to home with spouse and home health care. Auth#[id number] LOTUS Blake, [employer]
--- NOTE | 2018-05-24 10:45 | MDS.RN ---
Information for the mds was obtained from review of the clinical record, interview of resident, staff, and direct observation of resident's care.
== END 2018-05-18 17:00 | disposition home health service (06) | DRG 948 ==
PROVIDERS: Admitting Provider Family Medicine Geriatric Medicine; Family Provider Family Medicine; PCP Family Medicine; Referring Provider Family Medicine Geriatric Medicine; Visit Provider Family Medicine Geriatric Medicine
DX: R53.81 Other malaise (principal); L03.116 Cellulitis of left lower limb; L97.129 Non-pressure chronic ulcer of left thigh with unspecified severity; L97.829 Non-pressure chronic ulcer of other part of left lower leg with unspecified severity; B95.62 Methicillin resistant Staphylococcus aureus infection as the cause of diseases classified elsewhere; K21.9 Gastro-esophageal reflux disease without esophagitis; G62.9 Polyneuropathy, unspecified; F17.220 Nicotine dependence, chewing tobacco, uncomplicated
CPT/HCPCS: 80048; 85025; 97110; 97116; 97162; 97166; 97530; 97535; 97802

== ENCOUNTER 2018-05-26 14:54 | Outpatient (RCR) | payer OTHER, SELFPAY ==
[2018-05-26 15:38] LABS: Color, Urine Yellow (Yellow); Glucose, Dipstick Normal (Normal); Ketone-Dipstick Negative (Negative); Leukocyte Esterase-Dipstick Negative /ul (Negative); Nitrite-Dipstick Negative (Negative); Occult Blood-Urine Negative /ul (Negative); Protein-Dipstick Negative (Negative); Urine Bilirubin Dipstick Negative (Negative); Urine Clarity Clear (Clear); Urine Urobilinogen Normal (Normal); Urine pH 6.5 (5.0 - 8.0)
== END 2018-06-15 23:59 ==
LOC: HHLAB 14:54
PROVIDERS: Family Provider Family Medicine; PCP Family Medicine; Referring Provider Family Medicine; Visit Provider Family Medicine
DX: S81.802A Unspecified open wound, left lower leg, initial encounter (principal); M72.6 Necrotizing fasciitis; B95.62 Methicillin resistant Staphylococcus aureus infection as the cause of diseases classified elsewhere
CPT/HCPCS: 81002; 87086

== ENCOUNTER 2018-06-11 10:15 | Outpatient (RCR) | payer OTHER, SELFPAY ==
[2018-05-21 10:11] VITALS: BP 130/69; PULSE 91; RESP 18; TEMP 36.8; BMI 31.8
--- NOTE | 2018-05-21 12:34 | HP.PCM_ITS ---
(1) Open wound of left lower leg Status: Acute Code(s): S81.802A - Unspecified open wound, left lower leg, initial encounter Comment: left medial leg and left lateral leg (2) Open wound of left knee Status: Acute Code(s): S81.002A - Unspecified open wound, left knee, initial encounter (3) Open wound of left thigh Status: Acute Code(s): S71.102A - Unspecified open wound, left thigh, initial encounter Comment: left medial thigh and left lateral thigh (4) MRSA (methicillin resistant Staphylococcus aureus) infection Status: Acute Code(s): A49.02 - Methicillin resistant Staphylococcus aureus infection, unspecified site (5) Abscess of left knee Status: Acute Code(s): L02.416 - Cutaneous abscess of left lower limb (6) Necrotizing soft tissue infection Status: Acute Code(s): M79.89 - Other specified soft tissue disorders (7) Left leg cellulitis Status: Acute Code(s): L03.116 - Cellulitis of left lower limb History of Present Illness Date of Service: 05/21/18 Chief Complaint: Multiple open wounds on left leg after surgery 05/04/18 for necrotizing infection. History of Wound: 04/29/18 He popped a pimple on his left knee. Presented to Ed 04/30/17 and diagnosed with cellulits. Admitted 05/02/18 for worsening symptoms and started on Unasynand Vancomycin. Wound culture showed MRSA. Symptoms worsened while on IV antibiotics, taken to the OR 05/04/18 for 1. Surgical preparation left knee and left thigh and left leg with incision and drainage and excisional debridement necrotizing infected MRSA ulcer (274.4 cm2). 2. Multiple left leg and left thigh fasciotomies. He was discharged 05/18/18 from TCU. ID discontinued his antibiotics before discharged to home. Past Medical History Surgical History: no surgical history Allergies/Adverse Reactions: Allergies clindamycin Allergy (Verified 05/21/18 10:53) Hives vancomycin Allergy (Verified 05/21/18 10:53) Hives Home Medications: Ambulatory Orders Medication Instructions Recorded Acetaminophen [Tylenol Tablet] 650 mg PO Q6H PRN PRN #0 tablet 05/11/18 Lactobacillus Acidophilus 1 tablet PO TID 05/11/18 [Acidophilus] Diazepam [Valium] 10 mg PO DAILY PRN 30 Days #30 tab 05/16/18 Gabapentin [Neurontin] 300 mg PO BIDCM #60 capsule 05/16/18 Nutritional Supplement [Shaggy - 1 packet PO BIDCM #60 packet 05/16/18 [facility]LA[facility]] Ondansetron [Zofran Odt] 8 mg PO Q6H PRN PRN #60 tablet 05/16/18 Senna/Docusate Sodium [Senokot-S] 1 tablet PO BID PRN #60 tablet 05/16/18 Nutritional Supplement [Shaggy - 1 packet PO BIDCM #60 packet 05/17/18 [place] [facility]] - Family History Maternal - - No medical history that he is aware of. Paternal - - Medical history that he is aware of Smoking Status: Never smoker Review of Systems Constitutional: Denies: Anorexia, Chills, Fever HEENT: Denies: Difficulty Hearing, Difficulty Swallowing, Sinus Congestion Cardiovascular: Denies: Chest Pain, Palpitations Respiratory: Denies: Cough, Shortness of Breath Gastrointestinal: Denies: Diarrhea, Nausea, Vomiting Musculoskeletal: Denies: Joint Pain, Joint stiffness, Joint swelling Skin: Reports: Wounds - Multiple left leg wounds. Neurological: Denies: Balance problems, Blurred vision, Change in Speech, Incoordination Psychiatric: Denies: Anxiety Endocrine: Denies: Heat/ Cold Intolerance - Physical Exam Vital Signs Temp Pulse Resp BP 98.2 F 91 18 130/69 H 05/21/18 10:11 05/21/18 10:11 05/21/18 10:11 05/21/18 10:11 General: Alert, Oriented x3, Cooperative HEENT: Atraumatic, PERRLA Oral: Moist Mucosa Lungs: Normal air movement Cardiovascular: Regular rate Extremities: No clubbing, No Calf Tenderness, Edema - +1 edema left lower leg., Peripheral Pulses Normal Skin: Ulcer/ Wound - Left lateral and medial thigh, left knee and left medial and lateral lower leg. Wound Measurements and Assessment WC - Nurse 1 - General Ulcer Measurement Start: 05/21/18 10:11 Freq: Status: Active Protocol: Activity Type Activity Date Activity User E-Sign Co-Sign Detail Recorded Client Recorded Date Recorded By Document 05/21/18 10:11 DL [id number] 05/21/18 10:51 DL 05/21/18 10:11 Wound Center Nurse 1 [Ulcer Assessment] 5 left lateral lower leg -Combined with other wound No -Current Size (cm) - Length 15.4 -Current Size (cm) - Width 2.0 -Current Size (cm) - Depth 1.0 -Total Square Cm 30.80 -Date of Last Picture (Recall this 05/21/18 field) -Photo Taken Yes -Epithelialization Medium 34-66% -Tunneling No -Undermining/Tunneling No -Circular Undermining No -Exudate Amt Medium (34-66%) -Exudate Type Serosanguineous -Wound Margin Distinct, Outline Attached -Granulation Amt Medium (34-66%) -Granulation Quality Red -Slough/Fibrin Yes -Necrosis Amt Medium (34-66%) -Necrotic Tissue Type Adherent Slough -Structure Exposed Fascia Muscle Fat Layer Exposed -Texture (Crystal-wound Skin Appearance) Assessed Scarring -Moisture (Crystal-wound Skin Appearance No Abnormality ) Assessed -Color (Crystal-wound Skin Appearance) No Abnormality Assessed -Temperature (Crystal-wound Skin No Abnormality Appearance) (Pt Warm) -Tenderness on Palpation (Crystal-wound No Skin Appearance) -Ulcer Cleansing Rinsed/ Irrigated with Saline -Foul Odor after Cleansing No -Anesthetic Used 4% Lidocaine Solution 4 Left medial lower leg -Combined with other wound No -Current Size (cm) - Length 14.8 -Current Size (cm) - Width 3.5 -Current Size (cm) - Depth 1.0 -Total Square Cm 51.80 -Date of Last Picture (Recall this 05/21/18 field) -Photo Taken Yes -Epithelialization Medium 34-66% -Tunneling No -Undermining/Tunneling No -Circular Undermining No -Exudate Amt Medium (34-66%) -Exudate Type Serosanguineous -Wound Margin Distinct, Outline Attached -Granulation Amt Medium (34-66%) -Granulation Quality Red -Slough/Fibrin Yes -Necrosis Amt Medium (34-66%) -Necrotic Tissue Type Adherent Slough -Structure Exposed Fascia Muscle -Texture (Crystal-wound Skin Appearance) Assessed Scarring -Moisture (Crystal-wound Skin Appearance No Abnormality ) Assessed -Color (Crystal-wound Skin Appearance) No Abnormality Assessed -Temperature (Crystal-wound Skin No Abnormality Appearance) (Pt Warm) -Tenderness on Palpation (Crystal-wound No Skin Appearance) -Ulcer Cleansing Rinsed/ Irrigated with Saline -Foul Odor after Cleansing No -Anesthetic Used 4% Lidocaine Solution 3 Left lateral thigh -Combined with other wound No -Current Size (cm) - Length 14.6 -Current Size (cm) - Width 2.0 -Current Size (cm) - Depth 1.1 -Total Square Cm 29.20 -Date of Last Picture (Recall this 05/21/18 field) -Photo Taken Yes -Epithelialization Medium 34-66% -Tunneling No -Undermining/Tunneling No -Circular Undermining No -Exudate Amt Medium (34-66%) -Exudate Type Serosanguineous -Granulation Amt Medium (34-66%) -Granulation Quality Red -Slough/Fibrin Yes -Necrosis Amt Medium (34-66%) -Necrotic Tissue Type Adherent Slough -Structure Exposed Fascia Muscle Fat Layer Exposed -Texture (Crystal-wound Skin Appearance) Assessed Scarring -Moisture (Crystal-wound Skin Appearance No Abnormality ) Assessed -Color (Crystal-wound Skin Appearance) No Abnormality Assessed -Temperature (Crystal-wound Skin No Abnormality Appearance) (Pt Warm) -Tenderness on Palpation (Crystal-wound No Skin Appearance) -Ulcer Cleansing Rinsed/ Irrigated with Saline -Foul Odor after Cleansing No -Anesthetic Used 4% Lidocaine Solution 2 Left medial thigh -Combined with other wound No -Current Size (cm) - Length 13 -Current Size (cm) - Width 3.3 -Current Size (cm) - Depth 1.5 -Total Square Cm 42.9 -Date of Last Picture (Recall this 05/21/18 field) -Photo Taken No -Epithelialization Small 1-33% -Tunneling No -Undermining/Tunneling No -Circular Undermining No -Exudate Amt Medium (34-66%) -Exudate Type Serosanguineous -Wound Margin Distinct, Outline Attached -Granulation Amt Medium (34-66%) -Granulation Quality Red -Slough/Fibrin Yes -Necrosis Amt Medium (34-66%) -Structure Exposed Fascia Muscle -Texture (Crystal-wound Skin Appearance) Assessed Scarring -Moisture (Crystal-wound Skin Appearance No Abnormality ) Assessed -Color (Crystal-wound Skin Appearance) No Abnormality Assessed -Temperature (Crystal-wound Skin No Abnormality Appearance) (Pt Warm) -Tenderness on Palpation (Crystal-wound No Skin Appearance) -Ulcer Cleansing Rinsed/ Irrigated with Saline -Foul Odor after Cleansing No -Anesthetic Used 4% Lidocaine Solution 1 Left Knee -Combined with other wound No -Current Size (cm) - Length 4.0 -Current Size (cm) - Width 12 -Current Size (cm) - Depth 0.9 -Total Square Cm 48.0 -Date of Last Picture (Recall this 05/21/18 field) -Photo Taken Yes -Epithelialization Medium 34-66% -Tunneling No -Undermining/Tunneling No -Circular Undermining No -Exudate Amt Large (67-100%) -Exudate Type Serosanguineous -Wound Margin Distinct, Outline Attached -Granulation Amt Medium (34-66%) -Granulation Quality Red -Slough/Fibrin Yes -Necrosis Amt Medium (34-66%) -Necrotic Tissue Type Adherent Slough -Structure Exposed Fascia Muscle Fat Layer Exposed -Texture (Crystal-wound Skin Appearance) Assessed Scarring -Moisture (Crystal-wound Skin Appearance No Abnormality ) Assessed -Color (Crystal-wound Skin Appearance) No Abnormality Assessed -Temperature (Crystal-wound Skin No Abnormality Appearance) (Pt Warm) -Tenderness on Palpation (Crystal-wound No Skin Appearance) -Ulcer Cleansing Rinsed/ Irrigated with Saline -Foul Odor after Cleansing No -Anesthetic Used 4% Lidocaine Solution WC - Nurse 2 - General Ulcer CM Notes Start: 05/21/18 10:11 Freq: Status: Active Protocol: Activity Type Activity Date Activity User E-Sign Co-Sign Detail Recorded Client Recorded Date Recorded By Document 05/21/18 11:29 AUR[facility]A [id number] 05/21/18 11:48 A[facility]A 05/21/18 11:29 Wound Center Nurse 2 [Procedure/Treatment] 5 left lateral lower leg -Time 11:38 -Correct Patient Yes -Correct Side, Site, Position Yes -Correct Procedure Yes -Procedure Performed Yes -Type of Procedure Debridement -Clinical Debridement Subcutaneous -Post Debridement Size (cm) - Length 16.4 -Post Debridement Size (cm) - Width 2.5 -Post Debridement Size (cm) - Depth 0.7 -Total Square Cm 41.00 -Wound/Ulcer Outcome Not Healed -Ulcer Cleansing Rinsed/ Irrigated with Saline -Foul Odor after Cleansing No -Bioengineered Tissue No -Bleeding Controlled with Pressure -Treatment Response Procedure Tolerated Well 4 Left medial lower leg -Time 11:38 -Correct Patient Yes -Correct Side, Site, Position Yes -Correct Procedure Yes -Procedure Performed Yes -Type of Procedure Debridement -Clinical Debridement Subcutaneous -Post Debridement Size (cm) - Length 14.3 -Post Debridement Size (cm) - Width 3.7 -Post Debridement Size (cm) - Depth 2.0 -Total Square Cm 52.91 -Wound/Ulcer Outcome Not Healed -Ulcer Cleansing Rinsed/ Irrigated with Saline -Foul Odor after Cleansing No -Bioengineered Tissue No -Bleeding Controlled with Pressure Silver Nitrate -Treatment Response Procedure Tolerated Well 3 Left lateral thigh -Time 11:29 -Correct Patient Yes -Correct Side, Site, Position Yes -Correct Procedure Yes -Procedure Performed Yes -Type of Procedure Debridement -Clinical Debridement Subcutaneous -Post Debridement Size (cm) - Length 14.7 -Post Debridement Size (cm) - Width 2.3 -Post Debridement Size (cm) - Depth 1.4 -Total Square Cm 33.81 -Wound/Ulcer Outcome Not Healed -Ulcer Cleansing Rinsed/ Irrigated with Saline -Foul Odor after Cleansing No -Bioengineered Tissue No -Bleeding Controlled with Pressure -Treatment Response Procedure Tolerated Well 2 Left medial thigh -Time 11:34 -Correct Patient Yes -Correct Side, Site, Position Yes -Correct Procedure Yes -Procedure Performed Yes -Type of Procedure Debridement -Clinical Debridement Subcutaneous -Post Debridement Size (cm) - Length 13.4 -Post Debridement Size (cm) - Width 3.5 -Post Debridement Size (cm) - Depth 1.5 -Total Square Cm 46.90 -Wound/Ulcer Outcome Not Healed -Ulcer Cleansing Rinsed/ Irrigated with Saline -Foul Odor after Cleansing No -Bioengineered Tissue No -Bleeding Controlled with Pressure -Treatment Response Procedure Tolerated Well 1 Left Knee -Time 11:31 -Correct Patient Yes -Correct Side, Site, Position Yes -Correct Procedure Yes -Procedure Performed Yes -Type of Procedure Debridement -Clinical Debridement Subcutaneous -Post Debridement Size (cm) - Length 4.0 -Post Debridement Size (cm) - Width 12.5 -Post Debridement Size (cm) - Depth 0.6 -Total Square Cm 50.00 -Wound/Ulcer Outcome Not Healed -Ulcer Cleansing Rinsed/ Irrigated with Saline -Foul Odor after Cleansing No -Bioengineered Tissue No -Bleeding Controlled with Pressure -Treatment Response Procedure Tolerated Well [See Physician Procedure note for Specifics] Pain Scale: 0-10 Numeric [Pain] -Is Patient Pain Free? Yes Musculoskeletal: No Tenderness to Palpation of Joints or Extremities Neurological: Neuro grossly intact Psych/Mental Status: Normal Affect, Appropriate Debridement Note Post-Debridement Measurements/Treatment WC - Nurse 2 - General Ulcer CM Notes Start: 05/21/18 10:11 Freq: Status: Active Protocol: Activity Type Activity Date Activity User E-Sign Co-Sign Detail Recorded Client Recorded Date Recorded By Document 05/21/18 11:29 [id number] 05/21/18 11:48 [facility] 05/21/18 11:29 Wound Center Nurse 2 5 left lateral lower leg -Time 11:38 -Correct Patient Yes -Correct Side, Site, Position Yes -Correct Procedure Yes -Procedure Performed Yes -Type of Procedure Debridement -Clinical Debridement Subcutaneous -Post Debridement Size (cm) - Length 16.4 -Post Debridement Size (cm) - Width 2.5 -Post Debridement Size (cm) - Depth 0.7 -Total Square Cm 41.00 -Wound/Ulcer Outcome Not Healed -Ulcer Cleansing Rinsed/ Irrigated with Saline -Foul Odor after Cleansing No -Bioengineered Tissue No -Bleeding Controlled with Pressure -Treatment Response Procedure Tolerated Well 4 Left medial lower leg -Time 11:38 -Correct Patient Yes -Correct Side, Site, Position Yes -Correct Procedure Yes -Procedure Performed Yes -Type of Procedure Debridement -Clinical Debridement Subcutaneous -Post Debridement Size (cm) - Length 14.3 -Post Debridement Size (cm) - Width 3.7 -Post Debridement Size (cm) - Depth 2.0 -Total Square Cm 52.91 -Wound/Ulcer Outcome Not Healed -Ulcer Cleansing Rinsed/ Irrigated with Saline -Foul Odor after Cleansing No -Bioengineered Tissue No -Bleeding Controlled with Pressure Silver Nitrate -Treatment Response Procedure Tolerated Well 3 Left lateral thigh -Time 11:29 -Correct Patient Yes -Correct Side, Site, Position Yes -Correct Procedure Yes -Procedure Performed Yes -Type of Procedure Debridement -Clinical Debridement Subcutaneous -Post Debridement Size (cm) - Length 14.7 -Post Debridement Size (cm) - Width 2.3 -Post Debridement Size (cm) - Depth 1.4 -Total Square Cm 33.81 -Wound/Ulcer Outcome Not Healed -Ulcer Cleansing Rinsed/ Irrigated with Saline -Foul Odor after Cleansing No -Bioengineered Tissue No -Bleeding Controlled with Pressure -Treatment Response Procedure Tolerated Well 2 Left medial thigh -Time 11:34 -Correct Patient Yes -Correct Side, Site, Position Yes -Correct Procedure Yes -Procedure Performed Yes -Type of Procedure Debridement -Clinical Debridement Subcutaneous -Post Debridement Size (cm) - Length 13.4 -Post Debridement Size (cm) - Width 3.5 -Post Debridement Size (cm) - Depth 1.5 -Total Square Cm 46.90 -Wound/Ulcer Outcome Not Healed -Ulcer Cleansing Rinsed/ Irrigated with Saline -Foul Odor after Cleansing No -Bioengineered Tissue No -Bleeding Controlled with Pressure -Treatment Response Procedure Tolerated Well 1 Left Knee -Time 11:31 -Correct Patient Yes -Correct Side, Site, Position Yes -Correct Procedure Yes -Procedure Performed Yes -Type of Procedure Debridement -Clinical Debridement Subcutaneous -Post Debridement Size (cm) - Length 4.0 -Post Debridement Size (cm) - Width 12.5 -Post Debridement Size (cm) - Depth 0.6 -Total Square Cm 50.00 -Wound/Ulcer Outcome Not Healed -Ulcer Cleansing Rinsed/ Irrigated with Saline -Foul Odor after Cleansing No -Bioengineered Tissue No -Bleeding Controlled with Pressure -Treatment Response Procedure Tolerated Well Pain Scale: 0-10 Numeric Is Patient Pain Free? Yes Wound debrided: Left lateral thigh Laterality: Left Type of Debridement: Excisional debridement Anesthesia Used: 4% Lidocaine Solution Depth: Down to and including healthy tissue, in the subcutaneous layer Percentage of wound debrided: 100 Instrument Used: 3mm curette Tissue Removed: Subcutaneous tissue and slough Severity: Fat Layer Exposed Amount of bleeding with debridement: Mild Bleeding Controlled with: Pressure, Compression and gauze Patient did not tolerate procedure well - Additional Wound Wound debrided: Left knee Laterality: Left Type of Debridement: Excisional debridement Anesthesia Used: 4% Lidocaine Solution Depth: Down to and including healthy tissue, in the subcutaneous layer Percentage of wound debrided: 100 Instrument Used: 3mm curette Tissue Removed: Large amount of subcutaneous tissue, slough and bioderm Severity: Fat Layer Exposed Amount of bleeding with debridement: Moderate Bleeding Controlled with: Compression and gauze Patient tolerated procedure: Patient did not tolerate procedure well - Additional Wound Wound debrided: Left lateral lower leg Laterality: Left Type of Debridement: Excisional debridement Anesthesia Used: 4% Lidocaine Solution Depth: Down to and including healthy tissue, in the subcutaneous layer Percentage of wound debrided: 100 Instrument Used: 3mm curette Tissue Removed: Subcutaneous tissue and slough Severity: Fat Layer Exposed Amount of bleeding with debridement: Mild Bleeding Controlled with: Pressure, Compression and gauze Patient tolerated procedure: Patient did not tolerate procedure well - Additional Wound Wound debrided: Left medial thigh Laterality: Left Type of Debridement: Excisional debridement Anesthesia Used: 4% Lidocaine Solution Depth: Down to and including healthy tissue, in the subcutaneous layer Percentage of wound debrided: 100 Instrument Used: 3mm curette Tissue Removed: Subcutaneous tissue and slough Severity: Fat Layer Exposed Amount of bleeding with debridement: Moderate Bleeding Controlled with: Pressure, Compression and gauze, Silver Nitrate Patient tolerated procedure: Patient did not tolerate procedure well - Additional Wound Wound debrided: Left medial lower leg Laterality: Left Type of Debridement: Excisional debridement Anesthesia Used: 4% Lidocaine Solution Depth: Down to and including healthy tissue, in the subcutaneous layer Percentage of wound debrided: 100 Instrument Used: 3mm curette Tissue Removed: Subcutaneous tissue and slough Severity: Fat Layer Exposed Amount of bleeding with debridement: Mild Bleeding Controlled with: Pressure Patient tolerated procedure: Patient did not tolerate procedure well Assessment/Plan Assessment: 1. Open wound of left lower leg (Acute). 2. Left medial leg and left lateral leg. 3. Open wound of left knee (Acute). 4. Open wound of left thigh (Acute). 5. Left medial thigh and left lateral thigh. 6. MRSA (methicillin resistant Staphylococcus aureus) infection (Acute) Plan: The patient was seen and examinied at the wound center today and a plan of care was established. A subcutaneous debridement was performed today. The patient did not tolerate debridement well. He was having a lot of pain during this time. Once the debridement was complete, he was doing fine. He has fi nished his antibiotics and they were discontinued by ID. Will continue the wound VAC to all open areas. Encouraged increased protein. He has been taking Shaggy along with eating increased protein. Also encouraged to start taking Ibuprofen with food every 6 hours to help with pain and inflammation. Will follow up in one week with Dr. Torrez. Code Visit [id number]
[2018-05-28 09:15] VITALS: BP 130/72; PULSE 86; RESP 22; TEMP 35.9; BMI 31.8
--- NOTE | 2018-05-30 15:56 | PN.PCM_ITS ---
Type of Wound Date of Service: 05/28/18 Chief Complaint: Nonhealing MRSA ulcer left knee and multiple open wounds left thigh and left leg after surgery 05/04/18 for necrotizing infection. History of Wound: Surgery 05/04/18 - 1. Surgical preparation left knee and left thigh and left leg with incision and drainage and excisional debridement necrotizing infected MRSA ulcer (275.5 cm2). 2. Multiple left leg and left thigh fasciotomies. Wound care - VAC. Operative culture - MRSA. He was [place] addy with Vancomycin and then Zyvox and has finished them. Prealbumin from 05/06/[address] left leg from 05/03/18 showed superficial soft tissue swelling with fluid accumulations along the fatty and superficial muscular fascial planes from the mid thigh to the mid lower leg, as noted. No defined rim-enhancing collection to indicate an abscess. No acute osseous abnormality to suggest osteomyelitis.. Today he denies fever. His appetite is good. He still has some discomfort with the VAC dressing changes. - Physical Exam Vital Signs Temp Pulse Resp BP 96.6 F L 86 22 H 130/72 H 05/28/18 09:15 05/28/18 09:15 05/28/18 09:15 05/28/18 09:15 Wound Measurements and Assessment WC - Nurse 1 - General Ulcer Measurement Start: 05/21/18 10:11 Freq: Status: Active Protocol: Activity Type Activity Date Activity User E-Sign Co-Sign Detail Recorded Client Recorded Date Recorded By Document 05/28/18 09:15 DL [id number] 05/28/18 09:43 DL 05/28/18 09:15 Wound Center Nurse 1 [Ulcer Assessment] 5 left lateral lower leg -Current Size (cm) - Length 15.6 -Current Size (cm) - Width 1.5 -Current Size (cm) - Depth 0.3 -Total Square Cm 23.40 -Photo Taken No -Exudate Amt Medium (34-66%) -Exudate Type Serosanguineous -Wound Margin Distinct, Outline Attached -Granulation Amt Large (67-100%) -Granulation Quality Red -Necrosis Amt None Present (0 %) -Structure Exposed N/A -Texture (Crystal-wound Skin Appearance) Scarring -Moisture (Crystal-wound Skin Appearance No Abnormality ) -Color (Crystal-wound Skin Appearance) No Abnormality -Temperature (Crystal-wound Skin No Abnormality Appearance) (Pt Warm) -Tenderness on Palpation (Crystal-wound No Skin Appearance) -Ulcer Cleansing Wound Cleanser -Foul Odor after Cleansing No -Anesthetic Used 4% Lidocaine Solution 4 Left medial lower leg -Current Size (cm) - Length 14.8 -Current Size (cm) - Width 2.8 -Current Size (cm) - Depth 1.1 -Total Square Cm 41.44 -Photo Taken No -Exudate Amt Medium (34-66%) -Exudate Type Serous -Wound Margin Distinct, Outline Attached -Granulation Amt Large (67-100%) -Granulation Quality Red -Necrosis Amt None Present (0 %) -Structure Exposed N/A -Texture (Crystal-wound Skin Appearance) Scarring -Moisture (Crystal-wound Skin Appearance Dry/Scaly ) -Color (Crystal-wound Skin Appearance) No Abnormality -Temperature (Crystal-wound Skin No Abnormality Appearance) (Pt Warm) -Ulcer Cleansing Wound Cleanser -Foul Odor after Cleansing No -Anesthetic Used 4% Lidocaine Solution 3 Left lateral thigh -Current Size (cm) - Length 14.8 -Current Size (cm) - Width 1.5 -Current Size (cm) - Depth 0.6 -Total Square Cm 22.20 -Photo Taken No -Exudate Amt Medium (34-66%) -Exudate Type Serosanguineous -Wound Margin Distinct, Outline Attached -Granulation Amt Large (67-100%) -Granulation Quality Red -Necrosis Amt None Present (0 %) -Structure Exposed N/A -Texture (Crystal-wound Skin Appearance) Scarring -Moisture (Crystal-wound Skin Appearance No Abnormality ) -Color (Crystal-wound Skin Appearance) No Abnormality -Temperature (Crystal-wound Skin No Abnormality Appearance) (Pt Warm) -Ulcer Cleansing Wound Cleanser -Foul Odor after Cleansing No -Anesthetic Used 4% Lidocaine Solution 2 Left medial thigh -Current Size (cm) - Length 13 -Current Size (cm) - Width 2.2 -Current Size (cm) - Depth 1 -Total Square Cm 28.6 -Photo Taken No -Exudate Amt Medium (34-66%) -Exudate Type Serosanguineous -Wound Margin Distinct, Outline Attached -Granulation Amt Large (67-100%) -Granulation Quality Red -Necrosis Amt None Present (0 %) -Structure Exposed N/A -Texture (Crystal-wound Skin Appearance) Scarring -Moisture (Crystal-wound Skin Appearance No Abnormality ) -Color (Crystal-wound Skin Appearance) No Abnormality -Temperature (Crystal-wound Skin No Abnormality Appearance) (Pt Warm) -Tenderness on Palpation (Crystal-wound No Skin Appearance) -Ulcer Cleansing Wound Cleanser -Foul Odor after Cleansing No 1 Left Knee -Current Size (cm) - Length 4 -Current Size (cm) - Width 12.3 -Current Size (cm) - Depth 0.4 -Total Square Cm 49.2 -Photo Taken No -Exudate Amt Medium (34-66%) -Exudate Type Serosanguineous -Wound Margin Distinct, Outline Attached -Granulation Amt Large (67-100%) -Granulation Quality Red -Necrosis Amt None Present (0 %) -Structure Exposed N/A -Texture (Crystal-wound Skin Appearance) Scarring -Moisture (Crystal-wound Skin Appearance No Abnormality ) -Color (Crystal-wound Skin Appearance) No Abnormality -Temperature (Crystal-wound Skin No Abnormality Appearance) (Pt Warm) -Ulcer Cleansing Wound Cleanser -Foul Odor after Cleansing No -Anesthetic Used 4% Lidocaine Solution [Edema Assessment] -Left Ankle (cm) 38.5 -Left Foot (cm) 24 WC - Nurse 2 - General Ulcer CM Notes Start: 05/21/18 10:11 Freq: Status: Active Protocol: Activity Type Activity Date Activity User E-Sign Co-Sign Detail Recorded Client Recorded Date Recorded By Document 05/28/18 09:58 [email or web address] [id number] 05/28/18 10:05 AUR[facility]A 05/28/18 09:58 Wound Center Nurse 2 [Procedure/Treatment] 5 left lateral lower leg -Time 10:03 -Correct Patient Yes -Correct Side, Site, Position Yes -Correct Procedure Yes -Procedure Performed Yes -Type of Procedure Debridement -Clinical Debridement Subcutaneous -Post Debridement Size (cm) - Length 15.6 -Post Debridement Size (cm) - Width 1.6 -Post Debridement Size (cm) - Depth 0.3 -Total Square Cm 24.96 -Wound/Ulcer Outcome Not Healed -Ulcer Cleansing Rinsed/ Irrigated with Saline -Foul Odor after Cleansing No -Bioengineered Tissue No -Bleeding Controlled with Pressure -Treatment Response Procedure Tolerated Well 4 Left medial lower leg -Time 10:03 -Correct Patient Yes -Correct Side, Site, Position Yes -Correct Procedure Yes -Procedure Performed Yes -Type of Procedure Debridement -Clinical Debridement Subcutaneous -Post Debridement Size (cm) - Length 14.8 -Post Debridement Size (cm) - Width 2.9 -Post Debridement Size (cm) - Depth 1.2 -Total Square Cm 42.92 -Wound/Ulcer Outcome Not Healed -Ulcer Cleansing Rinsed/ Irrigated with Saline -Foul Odor after Cleansing No -Bioengineered Tissue No -Bleeding Controlled with Pressure -Treatment Response Procedure Tolerated Well 3 Left lateral thigh -Time 10:04 -Correct Patient Yes -Correct Side, Site, Position Yes -Correct Procedure Yes -Procedure Performed Yes -Type of Procedure Debridement -Clinical Debridement Subcutaneous -Post Debridement Size (cm) - Length 14.8 -Post Debridement Size (cm) - Width 1.6 -Post Debridement Size (cm) - Depth 0.6 -Total Square Cm 23.68 -Wound/Ulcer Outcome Not Healed -Ulcer Cleansing Rinsed/ Irrigated with Saline -Foul Odor after Cleansing No -Bioengineered Tissue No -Bleeding Controlled with Pressure -Treatment Response Procedure Tolerated Well 2 Left medial thigh -Time 10:04 -Correct Patient Yes -Correct Side, Site, Position Yes -Correct Procedure Yes -Procedure Performed Yes -Type of Procedure Debridement -Clinical Debridement Subcutaneous -Post Debridement Size (cm) - Length 13 -Post Debridement Size (cm) - Width 2.3 -Post Debridement Size (cm) - Depth 1.0 -Total Square Cm 29.9 -Wound/Ulcer Outcome Not Healed -Ulcer Cleansing Rinsed/ Irrigated with Saline -Foul Odor after Cleansing No -Bioengineered Tissue No -Bleeding Controlled with Pressure -Treatment Response Procedure Tolerated Well 1 Left Knee -Time 10:04 -Correct Patient Yes -Correct Side, Site, Position Yes -Correct Procedure Yes -Procedure Performed Yes -Type of Procedure Debridement -Clinical Debridement Subcutaneous -Post Debridement Size (cm) - Length 4.1 -Post Debridement Size (cm) - Width 12.3 -Post Debridement Size (cm) - Depth 0.4 -Total Square Cm 50.43 -Wound/Ulcer Outcome Not Healed -Ulcer Cleansing Rinsed/ Irrigated with Saline -Foul Odor after Cleansing No -Bioengineered Tissue No -Bleeding Controlled with Pressure -Treatment Response Procedure Tolerated Well [See Physician Procedure note for Specifics] Pain Scale: 0-10 Numeric [Pain] -Is Patient Pain Free? Yes Debridement Note Post-Debridement Measurements/Treatment WC - Nurse 2 - General Ulcer CM Notes Start: 05/21/18 10:11 Freq: Status: Active Protocol: Activity Type Activity Date Activity User E-Sign Co-Sign Detail Recorded Client Recorded Date Recorded By Document 05/21/18 11:29 [id number] 05/21/18 11:48 Document 05/28/18 09:58 [id number] 05/28/18 10:05 05/21/18 05/28/18 11:29 09:58 Wound Center Nurse 2 5 left lateral lower leg -Time 11:38 10:03 -Correct Patient Yes Yes -Correct Side, Site, Position Yes Yes -Correct Procedure Yes Yes -Procedure Performed Yes Yes -Type of Procedure Debridement Debridement -Clinical Debridement Subcutaneous Subcutaneous -Post Debridement Size (cm) - Length 16.4 15.6 -Post Debridement Size (cm) - Width 2.5 1.6 -Post Debridement Size (cm) - Depth 0.7 0.3 -Total Square Cm 41.00 24.96 -Wound/Ulcer Outcome Not Healed Not Healed -Ulcer Cleansing Rinsed/ Rinsed/ Irrigated with Irrigated with Saline Saline -Foul Odor after Cleansing No No -Bioengineered Tissue No No -Bleeding Controlled with Pressure Pressure -Treatment Response Procedure Procedure Tolerated Well Tolerated Well 4 Left medial lower leg -Time 11:38 10:03 -Correct Patient Yes Yes -Correct Side, Site, Position Yes Yes -Correct Procedure Yes Yes -Procedure Performed Yes Yes -Type of Procedure Debridement Debridement -Clinical Debridement Subcutaneous Subcutaneous -Post Debridement Size (cm) - Length 14.3 14.8 -Post Debridement Size (cm) - Width 3.7 2.9 -Post Debridement Size (cm) - Depth 2.0 1.2 -Total Square Cm 52.91 42.92 -Wound/Ulcer Outcome Not Healed Not Healed -Ulcer Cleansing Rinsed/ Rinsed/ Irrigated with Irrigated with Saline Saline -Foul Odor after Cleansing No No -Bioengineered Tissue No No -Bleeding Controlled with Pressure Pressure Silver Nitrate -Treatment Response Procedure Procedure Tolerated Well Tolerated Well 3 Left lateral thigh -Time 11:29 10:04 -Correct Patient Yes Yes -Correct Side, Site, Position Yes Yes -Correct Procedure Yes Yes -Procedure Performed Yes Yes -Type of Procedure Debridement Debridement -Clinical Debridement Subcutaneous Subcutaneous -Post Debridement Size (cm) - Length 14.7 14.8 -Post Debridement Size (cm) - Width 2.3 1.6 -Post Debridement Size (cm) - Depth 1.4 0.6 -Total Square Cm 33.81 23.68 -Wound/Ulcer Outcome Not Healed Not Healed -Ulcer Cleansing Rinsed/ Rinsed/ Irrigated with Irrigated with Saline Saline -Foul Odor after Cleansing No No -Bioengineered Tissue No No -Bleeding Controlled with Pressure Pressure -Treatment Response Procedure Procedure Tolerated Well Tolerated Well 2 Left medial thigh -Time 11:34 10:04 -Correct Patient Yes Yes -Correct Side, Site, Position Yes Yes -Correct Procedure Yes Yes -Procedure Performed Yes Yes -Type of Procedure Debridement Debridement -Clinical Debridement Subcutaneous Subcutaneous -Post Debridement Size (cm) - Length 13.4 13 -Post Debridement Size (cm) - Width 3.5 2.3 -Post Debridement Size (cm) - Depth 1.5 1.0 -Total Square Cm 46.90 29.9 -Wound/Ulcer Outcome Not Healed Not Healed -Ulcer Cleansing Rinsed/ Rinsed/ Irrigated with Irrigated with Saline Saline -Foul Odor after Cleansing No No -Bioengineered Tissue No No -Bleeding Controlled with Pressure Pressure -Treatment Response Procedure Procedure Tolerated Well Tolerated Well 1 Left Knee -Time 11:31 10:04 -Correct Patient Yes Yes -Correct Side, Site, Position Yes Yes -Correct Procedure Yes Yes -Procedure Performed Yes Yes -Type of Procedure Debridement Debridement -Clinical Debridement Subcutaneous Subcutaneous -Post Debridement Size (cm) - Length 4.0 4.1 -Post Debridement Size (cm) - Width 12.5 12.3 -Post Debridement Size (cm) - Depth 0.6 0.4 -Total Square Cm 50.00 50.43 -Wound/Ulcer Outcome Not Healed Not Healed -Ulcer Cleansing Rinsed/ Rinsed/ Irrigated with Irrigated with Saline Saline -Foul Odor after Cleansing No No -Bioengineered Tissue No No -Bleeding Controlled with Pressure Pressure -Treatment Response Procedure Procedure Tolerated Well Tolerated Well Pain Scale: 0-10 Numeric Is Patient Pain Free? Yes Yes Wound debrided: #1 Left knee. Laterality: Left Wound Grade/Stage: 3. Type of Debridement: Excisional debridement Anesthesia Used: 4% Lidocaine Solution Depth: Down to and including healthy tissue, in the subcutaneous layer Percentage of wound debrided: 100 Instrument Used: 3mm curette Tissue Removed: subcutaneous tissue. Severity: Fat Layer Exposed Amount of bleeding with debridement: Mild Bleeding Controlled with: Pressure Patient tolerated procedure well - Additional Wound Wound debrided: #2 Left medial thigh. Laterality: Left Wound Grade/Stage: 3. Type of Debridement: Excisional debridement Anesthesia Used: 4% Lidocaine Solution Depth: Down to and including healthy tissue, in the subcutaneous layer Percentage of wound debrided: 100 Instrument Used: 3mm curette Tissue Removed: subcutaneous tissue. Severity: Fat Layer Exposed Amount of bleeding with debridement: Mild Bleeding Controlled with: Pressure Patient tolerated procedure: Patient tolerated procedure well - Additional Wound Wound debrided: #3 Left lateral thigh. Laterality: Left Wound Grade/Stage: 3. Type of Debridement: Excisional debridement Anesthesia Used: 4% Lidocaine Solution Depth: Down to and including healthy tissue, in the subcutaneous layer Percentage of wound debrided: 100 Instrument Used: 3mm curette Tissue Removed: subcutaneous tissue. Severity: Fat Layer Exposed Amount of bleeding with debridement: Mild Bleeding Controlled with: Pressure Patient tolerated procedure: Patient tolerated procedure well - Additional Wound Wound debrided: #4 Left medial leg. Laterality: Left Wound Grade/Stage: 3. Type of Debridement: Excisional debridement Anesthesia Used: 4% Lidocaine Solution Depth: Down to and including healthy tissue, in the subcutaneous layer Percentage of wound debrided: 100 Instrument Used: 3mm curette Tissue Removed: subcutaneous tissue. Severity: Fat Layer Exposed Amount of bleeding with debridement: Mild Bleeding Controlled with: Pressure Patient tolerated procedure: Patient tolerated procedure well - Additional Wound Wound debrided: #5 Left lateral leg. Laterality: Left Wound Grade/Stage: 3. Type of Debridement: Excisional debridement Anesthesia Used: 4% Lidocaine Solution Depth: Down to and including healthy tissue, in the subcutaneous layer Percentage of wound debrided: 100 Instrument Used: 3mm curette Tissue Removed: subcutaneous tissue. Severity: Fat Layer Exposed Amount of bleeding with debridement: Mild Bleeding Controlled with: Pressure Patient tolerated procedure: Patient tolerated procedure well Assessment/Plan Assessment: 1. Necrotizing infected MRSA ulcer left knee. 2. Open surgical wounds left medial and lateral thigh and left medial and lateral leg. 3. MRSA. 4. s/p surgical preparation left knee and left thigh and left leg with incision and drainage and excisional debridement necrotizing infected MRSA ulcer (275.5 cm2) and multiple left leg and left thigh fasciotomies. Plan: Continue the VAC. The wounds continue to show improvement. He has some discomfort with the VAC changes. He recently received Percocet (30 tabs) on 05/25/18. If the VAC continues to cause discomfort issues, may stop the VAC and begin daily Silver dressing changes. His operative culture showed MRSA. He was placed on Vancomycin and then Zyvox and has finished them. His Prealbumin was 15.3 on 05/06/18. Encourage nutritional supplementation with protein to help the healing process. Discussed with the patient that the wounds show good granulation tissue and consideration for further operative debridement and secondary wound closure and skin grafting can be done. He has expressed interest in pursuing further operative intervention for wound closure at this time. Followup one week.
[2018-06-04 09:44] VITALS: BP 149/85; PULSE 86; RESP 16; TEMP 36.6; BMI 31.8
--- NOTE | 2018-06-10 01:55 | PN.PCM_ITS ---
Type of Wound Date of Service: 06/04/18 Chief Complaint: Nonhealing MRSA ulcer left knee and multiple open wounds left thigh and left leg after surgery 05/04/18 for necrotizing infection. History of Wound: Surgery 05/04/18 - 1. Surgical preparation left knee and left thigh and left leg with incision and drainage and excisional debridement necrotizing infected MRSA ulcer (275.5 cm2). 2. Multiple left leg and left thigh fasciotomies. Wound care - VAC. Operative culture - MRSA. He was [place] add[place] with Vancomycin and then Zyvox and has finished them. He was started on Doxycycline. Prealbumin from 05/06/[address] left leg from 05/03/18 showed superficial soft tissue swelling with fluid accumulations along the fatty and superficial muscular fascial planes from the mid thigh to the mid lower leg, as noted. No defined rim-enhancing collection to indicate an abscess. No acute osseous abnormality to suggest osteomyelitis. Today he denies fever. His appetite is good. He still has some discomfort with the VAC dressing changes. Progress of Wound: Improved. - Physical Exam Vital Signs Temp Pulse Resp BP 98 F 86 16 149/85 H 06/04/18 09:44 06/04/18 09:44 06/04/18 09:44 06/04/18 09:44 Debridement Note Post-Debridement Measurements/Treatment WC - Nurse 2 - General Ulcer CM Notes Start: 05/21/18 10:11 Freq: Status: Active Protocol: Activity Type Activity Date Activity User E-Sign Co-Sign Detail Recorded Client Recorded Date Recorded By Document 05/21/18 11:29 [id number] 05/21/18 11:48 Document 05/28/18 09:58 [id number] 05/28/18 10:05 Document 06/04/18 12:46 [id number] 06/04/18 12:47 05/21/18 05/28/18 06/04/18 11:29 09:58 12:46 Wound Center Nurse 2 5 left lateral lower leg -Time 11:38 10:03 12:46 -Correct Patient Yes Yes Yes -Correct Side, Site, Position Yes Yes Yes -Correct Procedure Yes Yes Yes -Procedure Performed Yes Yes Yes -Type of Procedure Debridement Debridement Debridement -Clinical Debridement Subcutaneous Subcutaneous Subcutaneous -Post Debridement Size (cm) - Length 16.4 15.6 14.8 -Post Debridement Size (cm) - Width 2.5 1.6 15.1 -Post Debridement Size (cm) - Depth 0.7 0.3 0.2 -Total Square Cm 41.00 24.96 223.48 -Wound/Ulcer Outcome Not Healed Not Healed Not Healed -Ulcer Cleansing Rinsed/ Rinsed/ Rinsed/ Irrigated with Irrigated with Irrigated with Saline Saline Saline -Foul Odor after Cleansing No No No -Bioengineered Tissue No No No -Bleeding Controlled with Pressure Pressure Pressure -Treatment Response Procedure Procedure Procedure Tolerated Well Tolerated Well Tolerated Well 4 Left medial lower leg -Time 11:38 10:03 12:46 -Correct Patient Yes Yes Yes -Correct Side, Site, Position Yes Yes Yes -Correct Procedure Yes Yes Yes -Procedure Performed Yes Yes Yes -Type of Procedure Debridement Debridement Debridement -Clinical Debridement Subcutaneous Subcutaneous Subcutaneous -Post Debridement Size (cm) - Length 14.3 14.8 13.8 -Post Debridement Size (cm) - Width 3.7 2.9 2.3 -Post Debridement Size (cm) - Depth 2.0 1.2 0.9 -Total Square Cm 52.91 42.92 31.74 -Wound/Ulcer Outcome Not Healed Not Healed Not Healed -Ulcer Cleansing Rinsed/ Rinsed/ Rinsed/ Irrigated with Irrigated with Irrigated with Saline Saline Saline -Foul Odor after Cleansing No No No -Bioengineered Tissue No No No -Bleeding Controlled with Pressure Pressure Pressure Silver Nitrate -Treatment Response Procedure Procedure Procedure Tolerated Well Tolerated Well Tolerated Well 3 Left lateral thigh -Time 11:29 10:04 12:46 -Correct Patient Yes Yes Yes -Correct Side, Site, Position Yes Yes Yes -Correct Procedure Yes Yes Yes -Procedure Performed Yes Yes Yes -Type of Procedure Debridement Debridement Debridement -Clinical Debridement Subcutaneous Subcutaneous Subcutaneous -Post Debridement Size (cm) - Length 14.7 14.8 13.0 -Post Debridement Size (cm) - Width 2.3 1.6 1.1 -Post Debridement Size (cm) - Depth 1.4 0.6 0.3 -Total Square Cm 33.81 23.68 14.30 -Wound/Ulcer Outcome Not Healed Not Healed Not Healed -Ulcer Cleansing Rinsed/ Rinsed/ Rinsed/ Irrigated with Irrigated with Irrigated with Saline Saline Saline -Foul Odor after Cleansing No No No -Bioengineered Tissue No No No -Bleeding Controlled with Pressure Pressure Pressure -Treatment Response Procedure Procedure Procedure Tolerated Well Tolerated Well Tolerated Well 2 Left medial thigh -Time 11:34 10:04 12:47 -Correct Patient Yes Yes Yes -Correct Side, Site, Position Yes Yes Yes -Correct Procedure Yes Yes Yes -Procedure Performed Yes Yes Yes -Type of Procedure Debridement Debridement Debridement -Clinical Debridement Subcutaneous Subcutaneous Subcutaneous -Post Debridement Size (cm) - Length 13.4 13 11.3 -Post Debridement Size (cm) - Width 3.5 2.3 2.1 -Post Debridement Size (cm) - Depth 1.5 1.0 0.8 -Total Square Cm 46.90 29.9 23.73 -Wound/Ulcer Outcome Not Healed Not Healed Not Healed -Ulcer Cleansing Rinsed/ Rinsed/ Rinsed/ Irrigated with Irrigated with Irrigated with Saline Saline Saline -Foul Odor after Cleansing No No No -Bioengineered Tissue No No No -Bleeding Controlled with Pressure Pressure Pressure -Treatment Response Procedure Procedure Procedure Tolerated Well Tolerated Well Tolerated Well 1 Left Knee -Time 11:31 10:04 12:47 -Correct Patient Yes Yes Yes -Correct Side, Site, Position Yes Yes Yes -Correct Procedure Yes Yes Yes -Procedure Performed Yes Yes Yes -Type of Procedure Debridement Debridement Debridement -Clinical Debridement Subcutaneous Subcutaneous Subcutaneous -Post Debridement Size (cm) - Length 4.0 4.1 11.2 -Post Debridement Size (cm) - Width 12.5 12.3 3.7 -Post Debridement Size (cm) - Depth 0.6 0.4 0.1 -Total Square Cm 50.00 50.43 41.44 -Wound/Ulcer Outcome Not Healed Not Healed Not Healed -Ulcer Cleansing Rinsed/ Rinsed/ Rinsed/ Irrigated with Irrigated with Irrigated with Saline Saline Saline -Foul Odor after Cleansing No No No -Bioengineered Tissue No No No -Bleeding Controlled with Pressure Pressure Pressure -Treatment Response Procedure Procedure Procedure Tolerated Well Tolerated Well Tolerated Well Pain Scale: 0-10 Numeric Is Patient Pain Free? Yes Yes Yes Wound debrided: #1 Left knee. Laterality: Left Wound Grade/Stage: 3. Type of Debridement: Excisional debridement Anesthesia Used: 4% Lidocaine Solution Depth: Down to and including healthy tissue, in the subcutaneous layer Percentage of wound debrided: 100 Instrument Used: 7mm curette Tissue Removed: subcutaneous tissue. Severity: Fat Layer Exposed Amount of bleeding with debridement: Mild Bleeding Controlled with: Pressure Patient tolerated procedure well - Additional Wound Wound debrided: #2 Left medial thigh. Laterality: Left Wound Grade/Stage: 3. Type of Debridement: Excisional debridement Anesthesia Used: 4% Lidocaine Solution Depth: Down to and including healthy tissue, in the subcutaneous layer Percentage of wound debrided: 100 Instrument Used: 7mm curette Tissue Removed: subcutaneous tissue. Severity: Fat Layer Exposed Amount of bleeding with debridement: Mild Bleeding Controlled with: Pressure Patient tolerated procedure: Patient tolerated procedure well - Additional Wound Wound debrided: #3 Left lateral thigh. Laterality: Left Wound Grade/Stage: 3. Type of Debridement: Excisional debridement Anesthesia Used: 4% Lidocaine Solution Depth: Down to and including healthy tissue, in the subcutaneous layer Percentage of wound debrided: 100 Instrument Used: 7mm curette Tissue Removed: subcutaneous tissue. Severity: Fat Layer Exposed Amount of bleeding with debridement: Mild Bleeding Controlled with: Pressure Patient tolerated procedure: Patient tolerated procedure well - Additional Wound Wound debrided: #4 Left medial leg. Laterality: Left Wound Grade/Stage: 3. Type of Debridement: Excisional debridement Anesthesia Used: 4% Lidocaine Solution Depth: Down to and including healthy tissue, in the subcutaneous layer Percentage of wound debrided: 100 Instrument Used: 7mm curette Tissue Removed: subcutanenous tissue. Severity: Fat Layer Exposed Amount of bleeding with debridement: Mild Bleeding Controlled with: Pressure Patient tolerated procedure: Patient tolerated procedure well - Additional Wound Wound debrided: #5 Left lateral leg. Laterality: Left Wound Grade/Stage: 3. Type of Debridement: Excisional debridement Anesthesia Used: 4% Lidocaine Solution Depth: Down to and including healthy tissue, in the subcutaneous layer Percentage of wound debrided: 100 Instrument Used: 7mm curette Tissue Removed: subcutaneous tissue. Severity: Fat Layer Exposed Amount of bleeding with debridement: Mild Bleeding Controlled with: Pressure Patient tolerated procedure: Patient tolerated procedure well Assessment/Plan Assessment: 1. Necrotizing infected MRSA ulcer left knee. 2. Open surgical wounds left medial and lateral thigh and left medial and lateral leg. 3. MRSA. 4. s/p surgical preparation left knee and left thigh and left leg with incision and drainage and excisional debridement necrotizing infected MRSA ulcer (275.5 cm2) and multiple left leg and left thigh fasciotomies. Plan: Continue the VAC. The wounds continue to show improvement. He has some discomfort with the VAC changes. He recently received Percocet (30 tabs) on 06/01/18. If the VAC continues to cause discomfort issues, may stop the VAC and begin daily Silver dressing changes. He wants to continue the VAC and understands the Percocet is being weaned down. I renewed his Percocet for pain, (15 tabs) to be dispensed 06/08/18. His operative culture showed MRSA. He was placed on Vancomycin and then Zyvox and has finished them. He was started on Doxycycline. His Prealbumin was 15.3 on 05/06/18. Encourage nutritional supplementation with protein to help the healing process. Discussed with the patient that the wounds show good granulation tissue and consideration for further operative debridement and secondary wound closure and skin grafting can be done. He has expressed interest in pursuing further operative intervention for wound closure at this time. Followup one week. He states he is feeling depressed because he is not working which is causing stress and a sense of helplessness. Will start Zoloft.
[2018-06-11 10:26] VITALS: BP 135/73; PULSE 67; RESP 16; TEMP 37.6; BMI 31.8
--- NOTE | 2018-06-11 21:51 | PN.PCM_ITS ---
Type of Wound Date of Service: 06/11/18 Chief Complaint: Nonhealing MRSA ulcer left knee and multiple open wounds left thigh and left leg after surgery 05/04/18 for necrotizing infection. History of Wound: Surgery 05/04/18 - 1. Surgical preparation left knee and left thigh and left leg with incision and drainage and excisional debridement necrotizing infected MRSA ulcer (275.5 cm2). 2. Multiple left leg and left thigh fasciotomies. Wound care - VAC. Operative culture - MRSA. He was [place] addy with Vancomycin and then Zyvox and has finished them. He was started on Doxycycline. Prealbumin from 05/06/[address] left leg from 05/03/18 showed superficial soft tissue swelling with fluid accumulations along the fatty and superficial muscular fascial planes from the mid thigh to the mid lower leg, as noted. No defined rim-enhancing collection to indicate an abscess. No acute osseous abnormality to suggest osteomyelitis. Today he denies fever. His appetite is good. He still has some discomfort with the VAC dressing changes. Progress of Wound: Improved. - Physical Exam Vital Signs Temp Pulse Resp BP 99.6 F H 67 16 135/73 H 06/11/18 10:26 06/11/18 10:26 06/11/18 10:26 06/11/18 10:26 Wound Measurements and Assessment WC - Nurse 1 - General Ulcer Measurement Start: 05/21/18 10:11 Freq: Status: Active Protocol: Activity Type Activity Date Activity User E-Sign Co-Sign Detail Recorded Client Recorded Date Recorded By Document 06/11/18 10:26 DV [id number] 06/11/18 11:02 DV 06/11/18 10:26 Wound Center Nurse 1 [Ulcer Assessment] 5 left lateral lower leg -Combined with other wound No -Current Size (cm) - Length 13.5 -Current Size (cm) - Width 1.3 -Current Size (cm) - Depth 0.3 -Total Square Cm 17.55 -Photo Taken No -Epithelialization Small 1-33% -Tunneling No -Undermining/Tunneling No -Circular Undermining No -Exudate Amt Small (1-33%) -Exudate Type Serosanguineous -Wound Margin Distinct, Outline Attached -Granulation Amt Small (1-33%) -Granulation Quality Orrin Red -Slough/Fibrin Yes -Necrosis Amt Small (1-33%) -Necrotic Tissue Type Adherent Slough -Structure Exposed None/Limited to Skin Breakdown -Texture (Crystal-wound Skin Appearance) No Abnormality Assessed Scarring -Moisture (Crystal-wound Skin Appearance No Abnormality ) Assessed -Color (Crystal-wound Skin Appearance) No Abnormality Assessed -Temperature (Crystal-wound Skin No Abnormality Appearance) (Pt Warm) -Ulcer Cleansing Wound Cleanser -Anesthetic Used 5% Lidocaine Gel 4 Left medial lower leg -Combined with other wound No -Current Size (cm) - Length 13.5 -Current Size (cm) - Width 2.0 -Current Size (cm) - Depth 0.5 -Total Square Cm 27.00 -Photo Taken No -Epithelialization Small 1-33% -Tunneling No -Undermining/Tunneling No -Circular Undermining No -Classification - Thickness Full Thickness without Exposed Support Structure -Exudate Amt Medium (34-66%) -Exudate Type Serosanguineous -Wound Margin Distinct, Outline Attached -Granulation Amt Large (67-100%) -Granulation Quality Red -Slough/Fibrin Yes -Necrosis Amt Small (1-33%) -Necrotic Tissue Type Adherent Slough -Structure Exposed None/Limited to Skin Breakdown -Texture (Crystal-wound Skin Appearance) Assessed Scarring -Moisture (Crystal-wound Skin Appearance Assessed ) Weeping -Color (Crystal-wound Skin Appearance) No Abnormality Assessed -Temperature (Crystal-wound Skin No Abnormality Appearance) (Pt Warm) -Ulcer Cleansing Wound Cleanser -Foul Odor after Cleansing No -Anesthetic Used 5% Lidocaine Gel 3 Left lateral thigh -Combined with other wound No -Current Size (cm) - Length 14.0 -Current Size (cm) - Width 0.3 -Current Size (cm) - Depth 0.1 -Total Square Cm 4.20 -Photo Taken No -Epithelialization Small 1-33% -Tunneling No -Undermining/Tunneling No -Classification - Thickness Full Thickness without Exposed Support Structure -Exudate Amt None Present (0 %) -Wound Margin Distinct, Outline Attached -Granulation Amt Small (1-33%) -Granulation Quality Pale Orrin -Slough/Fibrin Yes -Necrosis Amt Small (1-33%) -Necrotic Tissue Type Adherent Slough -Structure Exposed None/Limited to Skin Breakdown -Texture (Crystal-wound Skin Appearance) Assessed Scarring -Moisture (Crystal-wound Skin Appearance Assessed ) Dry/Scaly -Color (Crystal-wound Skin Appearance) No Abnormality Assessed -Temperature (Crystal-wound Skin No Abnormality Appearance) (Pt Warm) -Tenderness on Palpation (Crystal-wound Yes Skin Appearance) -Ulcer Cleansing Wound Cleanser -Foul Odor after Cleansing No -Anesthetic Used 5% Lidocaine Gel 2 Left medial thigh -Combined with other wound No -Current Size (cm) - Length 11.0 -Current Size (cm) - Width 1.5 -Current Size (cm) - Depth 0.2 -Total Square Cm 16.50 -Photo Taken No -Epithelialization Small 1-33% -Tunneling No -Undermining/Tunneling No -Circular Undermining No -Classification - Thickness Full Thickness without Exposed Support Structure -Exudate Amt Medium (34-66%) -Exudate Type Serosanguineous -Wound Margin Distinct, Outline Attached -Granulation Amt Medium (34-66%) -Granulation Quality Red -Slough/Fibrin Yes -Necrosis Amt Medium (34-66%) -Necrotic Tissue Type Adherent Slough -Structure Exposed None/Limited to Skin Breakdown -Texture (Crystal-wound Skin Appearance) Assessed Scarring -Moisture (Crystal-wound Skin Appearance Assessed ) Weeping -Color (Crystal-wound Skin Appearance) No Abnormality Assessed -Temperature (Crystal-wound Skin No Abnormality Appearance) (Pt Warm) -Ulcer Cleansing Wound Cleanser -Foul Odor after Cleansing No -Anesthetic Used 5% Lidocaine Gel 1 Left Knee -Combined with other wound No -Current Size (cm) - Length 10.5 -Current Size (cm) - Width 3.4 -Current Size (cm) - Depth 0.2 -Total Square Cm 35.70 -Photo Taken No -Epithelialization Small 1-33% -Tunneling No -Undermining/Tunneling No -Circular Undermining No -Classification - Thickness Full Thickness without Exposed Support Structure -Exudate Amt Medium (34-66%) -Exudate Type Serosanguineous -Wound Margin Distinct, Outline Attached -Granulation Amt Large (67-100%) -Granulation Quality Red -Necrosis Amt Small (1-33%) -Necrotic Tissue Type Adherent Slough -Structure Exposed None/Limited to Skin Breakdown -Texture (Crystal-wound Skin Appearance) Assessed Scarring -Moisture (Crystal-wound Skin Appearance Assessed ) Weeping -Color (Crystal-wound Skin Appearance) No Abnormality Assessed -Temperature (Crystal-wound Skin No Abnormality Appearance) (Pt Warm) -Tenderness on Palpation (Crystal-wound Yes Skin Appearance) -Ulcer Cleansing Wound Cleanser -Foul Odor after Cleansing No -Anesthetic Used 5% Lidocaine Gel [Edema Assessment] -Lower Limb Edema Present No WC - Nurse 2 - General Ulcer CM Notes Start: 05/21/18 10:11 Freq: Status: Active Protocol: Activity Type Activity Date Activity User E-Sign Co-Sign Detail Recorded Client Recorded Date Recorded By Document 06/11/18 11:18 AURORA [id number] 06/11/18 11:20 AUR[facility]A 06/11/18 11:18 Wound Center Nurse 2 [Procedure/Treatment] 5 left lateral lower leg -Time 11:18 -Correct Patient Yes -Correct Side, Site, Position Yes -Correct Procedure Yes -Procedure Performed Yes -Type of Procedure Debridement -Clinical Debridement Subcutaneous -Post Debridement Size (cm) - Length 13.5 -Post Debridement Size (cm) - Width 1.4 -Post Debridement Size (cm) - Depth 0.3 -Total Square Cm 18.90 -Wound/Ulcer Outcome Not Healed -Ulcer Cleansing Rinsed/ Irrigated with Saline -Foul Odor after Cleansing No -Bioengineered Tissue No -Bleeding Controlled with Pressure -Treatment Response Procedure Tolerated Well 4 Left medial lower leg -Time 11:18 -Correct Patient Yes -Correct Side, Site, Position Yes -Correct Procedure Yes -Procedure Performed Yes -Type of Procedure Debridement -Clinical Debridement Subcutaneous -Post Debridement Size (cm) - Length 13.5 -Post Debridement Size (cm) - Width 2.1 -Post Debridement Size (cm) - Depth 0.5 -Total Square Cm 28.35 -Wound/Ulcer Outcome Not Healed -Ulcer Cleansing Rinsed/ Irrigated with Saline -Foul Odor after Cleansing No -Bioengineered Tissue No -Bleeding Controlled with Pressure -Treatment Response Procedure Tolerated Well 3 Left lateral thigh -Time 11:18 -Correct Patient Yes -Correct Side, Site, Position Yes -Correct Procedure Yes -Procedure Performed Yes -Type of Procedure Debridement -Clinical Debridement Subcutaneous -Post Debridement Size (cm) - Length 14.0 -Post Debridement Size (cm) - Width 0.4 -Post Debridement Size (cm) - Depth 0.1 -Total Square Cm 5.60 -Wound/Ulcer Outcome Not Healed -Ulcer Cleansing Rinsed/ Irrigated with Saline -Foul Odor after Cleansing No -Bioengineered Tissue No -Bleeding Controlled with Pressure -Treatment Response Procedure Tolerated Well 2 Left medial thigh -Time 11:19 -Correct Patient Yes -Correct Side, Site, Position Yes -Correct Procedure Yes -Procedure Performed Yes -Type of Procedure Debridement -Clinical Debridement Subcutaneous -Post Debridement Size (cm) - Length 11.0 -Post Debridement Size (cm) - Width 1.6 -Post Debridement Size (cm) - Depth 0.2 -Total Square Cm 17.60 -Wound/Ulcer Outcome Not Healed -Ulcer Cleansing Rinsed/ Irrigated with Saline -Foul Odor after Cleansing No -Bioengineered Tissue No -Bleeding Controlled with Pressure -Treatment Response Procedure Tolerated Well 1 Left Knee -Time 11:19 -Correct Patient Yes -Correct Side, Site, Position Yes -Correct Procedure Yes -Procedure Performed Yes -Type of Procedure Debridement -Clinical Debridement Subcutaneous -Post Debridement Size (cm) - Length 10.5 -Post Debridement Size (cm) - Width 3.5 -Post Debridement Size (cm) - Depth 0.2 -Total Square Cm 36.75 -Wound/Ulcer Outcome Not Healed -Ulcer Cleansing Rinsed/ Irrigated with Saline -Foul Odor after Cleansing No -Bioengineered Tissue No -Bleeding Controlled with Pressure -Treatment Response Procedure Tolerated Well [See Physician Procedure note for Specifics] Pain Scale: 0-10 Numeric [Pain] -Is Patient Pain Free? Yes Debridement Note Post-Debridement Measurements/Treatment WC - Nurse 2 - General Ulcer CM Notes Start: 05/21/18 10:11 Freq: Status: Active Protocol: Activity Type Activity Date Activity User E-Sign Co-Sign Detail Recorded Client Recorded Date Recorded By Document 05/21/18 11:29 [id number] 05/21/18 11:48 Document 05/28/18 09:58 [id number] 05/28/18 10:05 Document 06/04/18 12:46 [id number] 06/04/18 12:47 Document 06/11/18 11:18 [id number] 06/11/18 11:20 05/21/18 05/28/18 06/04/18 11:29 09:58 12:46 Wound Center Nurse 2 5 left lateral lower leg -Time 11:38 10:03 12:46 -Correct Patient Yes Yes Yes -Correct Side, Site, Position Yes Yes Yes -Correct Procedure Yes Yes Yes -Procedure Performed Yes Yes Yes -Type of Procedure Debridement Debridement Debridement -Clinical Debridement Subcutaneous Subcutaneous Subcutaneous -Post Debridement Size (cm) - Length 16.4 15.6 14.8 -Post Debridement Size (cm) - Width 2.5 1.6 15.1 -Post Debridement Size (cm) - Depth 0.7 0.3 0.2 -Total Square Cm 41.00 24.96 223.48 -Wound/Ulcer Outcome Not Healed Not Healed Not Healed -Ulcer Cleansing Rinsed/ Rinsed/ Rinsed/ Irrigated with Irrigated with Irrigated with Saline Saline Saline -Foul Odor after Cleansing No No No -Bioengineered Tissue No No No -Bleeding Controlled with Pressure Pressure Pressure -Treatment Response Procedure Procedure Procedure Tolerated Well Tolerated Well Tolerated Well 4 Left medial lower leg -Time 11:38 10:03 12:46 -Correct Patient Yes Yes Yes -Correct Side, Site, Position Yes Yes Yes -Correct Procedure Yes Yes Yes -Procedure Performed Yes Yes Yes -Type of Procedure Debridement Debridement Debridement -Clinical Debridement Subcutaneous Subcutaneous Subcutaneous -Post Debridement Size (cm) - Length 14.3 14.8 13.8 -Post Debridement Size (cm) - Width 3.7 2.9 2.3 -Post Debridement Size (cm) - Depth 2.0 1.2 0.9 -Total Square Cm 52.91 42.92 31.74 -Wound/Ulcer Outcome Not Healed Not Healed Not Healed -Ulcer Cleansing Rinsed/ Rinsed/ Rinsed/ Irrigated with Irrigated with Irrigated with Saline Saline Saline -Foul Odor after Cleansing No No No -Bioengineered Tissue No No No -Bleeding Controlled with Pressure Pressure Pressure Silver Nitrate -Treatment Response Procedure Procedure Procedure Tolerated Well Tolerated Well Tolerated Well 3 Left lateral thigh -Time 11:29 10:04 12:46 -Correct Patient Yes Yes Yes -Correct Side, Site, Position Yes Yes Yes -Correct Procedure Yes Yes Yes -Procedure Performed Yes Yes Yes -Type of Procedure Debridement Debridement Debridement -Clinical Debridement Subcutaneous Subcutaneous Subcutaneous -Post Debridement Size (cm) - Length 14.7 14.8 13.0 -Post Debridement Size (cm) - Width 2.3 1.6 1.1 -Post Debridement Size (cm) - Depth 1.4 0.6 0.3 -Total Square Cm 33.81 23.68 14.30 -Wound/Ulcer Outcome Not Healed Not Healed Not Healed -Ulcer Cleansing Rinsed/ Rinsed/ Rinsed/ Irrigated with Irrigated with Irrigated with Saline Saline Saline -Foul Odor after Cleansing No No No -Bioengineered Tissue No No No -Bleeding Controlled with Pressure Pressure Pressure -Treatment Response Procedure Procedure Procedure Tolerated Well Tolerated Well Tolerated Well 2 Left medial thigh -Time 11:34 10:04 12:47 -Correct Patient Yes Yes Yes -Correct Side, Site, Position Yes Yes Yes -Correct Procedure Yes Yes Yes -Procedure Performed Yes Yes Yes -Type of Procedure Debridement Debridement Debridement -Clinical Debridement Subcutaneous Subcutaneous Subcutaneous -Post Debridement Size (cm) - Length 13.4 13 11.3 -Post Debridement Size (cm) - Width 3.5 2.3 2.1 -Post Debridement Size (cm) - Depth 1.5 1.0 0.8 -Total Square Cm 46.90 29.9 23.73 -Wound/Ulcer Outcome Not Healed Not Healed Not Healed -Ulcer Cleansing Rinsed/ Rinsed/ Rinsed/ Irrigated with Irrigated with Irrigated with Saline Saline Saline -Foul Odor after Cleansing No No No -Bioengineered Tissue No No No -Bleeding Controlled with Pressure Pressure Pressure -Treatment Response Procedure Procedure Procedure Tolerated Well Tolerated Well Tolerated Well 1 Left Knee -Time 11:31 10:04 12:47 -Correct Patient Yes Yes Yes -Correct Side, Site, Position Yes Yes Yes -Correct Procedure Yes Yes Yes -Procedure Performed Yes Yes Yes -Type of Procedure Debridement Debridement Debridement -Clinical Debridement Subcutaneous Subcutaneous Subcutaneous -Post Debridement Size (cm) - Length 4.0 4.1 11.2 -Post Debridement Size (cm) - Width 12.5 12.3 3.7 -Post Debridement Size (cm) - Depth 0.6 0.4 0.1 -Total Square Cm 50.00 50.43 41.44 -Wound/Ulcer Outcome Not Healed Not Healed Not Healed -Ulcer Cleansing Rinsed/ Rinsed/ Rinsed/ Irrigated with Irrigated with Irrigated with Saline Saline Saline -Foul Odor after Cleansing No No No -Bioengineered Tissue No No No -Bleeding Controlled with Pressure Pressure Pressure -Treatment Response Procedure Procedure Procedure Tolerated Well Tolerated Well Tolerated Well Pain Scale: 0-10 Numeric Is Patient Pain Free? Yes Yes Yes 06/11/18 11:18 Wound Center Nurse 2 5 left lateral lower leg -Time 11:18 -Correct Patient Yes -Correct Side, Site, Position Yes -Correct Procedure Yes -Procedure Performed Yes -Type of Procedure Debridement -Clinical Debridement Subcutaneous -Post Debridement Size (cm) - Length 13.5 -Post Debridement Size (cm) - Width 1.4 -Post Debridement Size (cm) - Depth 0.3 -Total Square Cm 18.90 -Wound/Ulcer Outcome Not Healed -Ulcer Cleansing Rinsed/ Irrigated with Saline -Foul Odor after Cleansing No -Bioengineered Tissue No -Bleeding Controlled with Pressure -Treatment Response Procedure Tolerated Well 4 Left medial lower leg -Time 11:18 -Correct Patient Yes -Correct Side, Site, Position Yes -Correct Procedure Yes -Procedure Performed Yes -Type of Procedure Debridement -Clinical Debridement Subcutaneous -Post Debridement Size (cm) - Length 13.5 -Post Debridement Size (cm) - Width 2.1 -Post Debridement Size (cm) - Depth 0.5 -Total Square Cm 28.35 -Wound/Ulcer Outcome Not Healed -Ulcer Cleansing Rinsed/ Irrigated with Saline -Foul Odor after Cleansing No -Bioengineered Tissue No -Bleeding Controlled with Pressure -Treatment Response Procedure Tolerated Well 3 Left lateral thigh -Time 11:18 -Correct Patient Yes -Correct Side, Site, Position Yes -Correct Procedure Yes -Procedure Performed Yes -Type of Procedure Debridement -Clinical Debridement Subcutaneous -Post Debridement Size (cm) - Length 14.0 -Post Debridement Size (cm) - Width 0.4 -Post Debridement Size (cm) - Depth 0.1 -Total Square Cm 5.60 -Wound/Ulcer Outcome Not Healed -Ulcer Cleansing Rinsed/ Irrigated with Saline -Foul Odor after Cleansing No -Bioengineered Tissue No -Bleeding Controlled with Pressure -Treatment Response Procedure Tolerated Well 2 Left medial thigh -Time 11:19 -Correct Patient Yes -Correct Side, Site, Position Yes -Correct Procedure Yes -Procedure Performed Yes -Type of Procedure Debridement -Clinical Debridement Subcutaneous -Post Debridement Size (cm) - Length 11.0 -Post Debridement Size (cm) - Width 1.6 -Post Debridement Size (cm) - Depth 0.2 -Total Square Cm 17.60 -Wound/Ulcer Outcome Not Healed -Ulcer Cleansing Rinsed/ Irrigated with Saline -Foul Odor after Cleansing No -Bioengineered Tissue No -Bleeding Controlled with Pressure -Treatment Response Procedure Tolerated Well 1 Left Knee -Time 11:19 -Correct Patient Yes -Correct Side, Site, Position Yes -Correct Procedure Yes -Procedure Performed Yes -Type of Procedure Debridement -Clinical Debridement Subcutaneous -Post Debridement Size (cm) - Length 10.5 -Post Debridement Size (cm) - Width 3.5 -Post Debridement Size (cm) - Depth 0.2 -Total Square Cm 36.75 -Wound/Ulcer Outcome Not Healed -Ulcer Cleansing Rinsed/ Irrigated with Saline -Foul Odor after Cleansing No -Bioengineered Tissue No -Bleeding Controlled with Pressure -Treatment Response Procedure Tolerated Well Pain Scale: 0-10 Numeric Is Patient Pain Free? Yes Wound debrided: #1 Left knee. Laterality: Left Wound Grade/Stage: 3. Type of Debridement: Excisional debridement Anesthesia Used: 4% Lidocaine Solution Depth: Down to and including healthy tissue, in the subcutaneous layer Percentage of wound debrided: 100 Instrument Used: 3mm curette Tissue Removed: subcutaneous tissue. Severity: Fat Layer Exposed Amount of bleeding with debridement: Mild Bleeding Controlled with: Pressure Patient tolerated procedure well - Additional Wound Wound debrided: #2 Left medial thigh. Laterality: Left Wound Grade/Stage: 3. Type of Debridement: Excisional debridement Anesthesia Used: 4% Lidocaine Solution Depth: Down to and including healthy tissue, in the subcutaneous layer Percentage of wound debrided: 100 Instrument Used: 3mm curette Tissue Removed: subcutaneous tissue. Severity: Fat Layer Exposed Amount of bleeding with debridement: Mild Bleeding Controlled with: Pressure Patient tolerated procedure: Patient tolerated procedure well - Additional Wound Wound debrided: #3 Left lateral thigh. Laterality: Left Wound Grade/Stage: 3. Type of Debridement: Excisional debridement Anesthesia Used: 4% Lidocaine Solution Depth: Down to and including healthy tissue, in the subcutaneous layer Percentage of wound debrided: 100 Instrument Used: 3mm curette Tissue Removed: subcutaneous tissue. Severity: Fat Layer Exposed Amount of bleeding with debridement: Mild Bleeding Controlled with: Pressure Patient tolerated procedure: Patient tolerated procedure well - Additional Wound Wound debrided: #4 Left medial leg. Laterality: Left Wound Grade/Stage: 3. Type of Debridement: Excisional debridement Anesthesia Used: 4% Lidocaine Solution Depth: Down to and including healthy tissue, in the subcutaneous layer Percentage of wound debrided: 100 Instrument Used: 3mm curette Tissue Removed: subcutaneous tissue. Severity: Fat Layer Exposed Amount of bleeding with debridement: Mild Bleeding Controlled with: Pressure Patient tolerated procedure: Patient tolerated procedure well - Additional Wound Wound debrided: #5 Left lateral leg. Laterality: Left Wound Grade/Stage: 3. Type of Debridement: Excisional debridement Anesthesia Used: 4% Lidocaine Solution Depth: Down to and including healthy tissue, in the subcutaneous layer Percentage of wound debrided: 100 Instrument Used: 3mm curette Tissue Removed: subcutaneous tissue. Severity: Fat Layer Exposed Amount of bleeding with debridement: Mild Bleeding Controlled with: Pressure Patient tolerated procedure: Patient tolerated procedure well Assessment/Plan Assessment: 1. Necrotizing infected MRSA ulcer left knee. 2. Open surgical wounds left medial and lateral thigh and left medial and lateral leg. 3. MRSA. 4. s/p surgical preparation left knee and left thigh and left leg with incision and drainage and excisional debridement necrotizing infected MRSA ulcer (275.5 cm2) and multiple left leg and left thigh fasciotomies. Plan: Will hold the VAC with a VAC holiday. Will start Silver dressing changes daily. The wounds continue to show improvement as they are more superficial. His operative culture showed MRSA. He was placed on Vancomycin and then Zyvox and has finished them. He was started on Doxycycline. His Prealbumin was 15.3 on 05/06/18. Encourage nutritional supplementation with protein to help the healing process. Discussed with the patient that the wounds show good granulation tissue and consideration for further operative debridement and secondary wound closure and skin grafting can be done. He has expressed interest in pursuing further operative intervention for wound closure at this time. It is tentatively scheduled for 06/26/18. Followup 2 weeks if the surgery is delayed since it would be the day before the surgery or followup after the surgery. He states he was feeling depressed because he is not working which is causing stress and a sense of helplessness. He was started on Zoloft and states he feels less depressed. Patient was informed of the risks and complications of the procedure including alternatives to surgery. These were discussed with him personally. He voices understanding and wishes to proceed.
== END 2018-06-15 23:59 ==
LOC: WC 10:15
PROVIDERS: Family Provider Family Medicine; PCP Family Medicine; Visit Provider Surgery
DX: L97.822 Non-pressure chronic ulcer of other part of left lower leg with fat layer exposed (principal); L97.122 Non-pressure chronic ulcer of left thigh with fat layer exposed; Z86.14 Personal history of Methicillin resistant Staphylococcus aureus infection
CPT/HCPCS: 11042; 11045; 97606; 99213; G0463

== ENCOUNTER 2018-06-27 15:30 | Observation (INO) | payer OTHER, SELFPAY ==
[2018-06-04 09:44] VITALS: BMI 31.8
[2018-06-25 09:36] VITALS: BMI 31.8
--- NOTE | 2018-06-25 23:58 | HP.PCM_ITS ---
History and Physical Date of Admission: 06/26/18 History of Present Illness: The patient is a 33 year old M who developed a necrotizing MRSA infection left knee with proximal and distal spread that necessitated emergent surgery on 05/04/18 where he underwent surgical preparation left knee and left thigh and le ft leg with incision and drainage and excisional debridement necrotizing infected MRSA ulcer (275.5 cm2) and multiple left leg and left thigh fasciotomies. Postoperatively he was treated with the VAC and antibiotics for the MRSA. Improvement in the ulcers were seen. The left lateral thigh ulcer has healed. He presents today for further operative debridement and wound closure with skin grafting and complex secondary wound closure. PAST MEDICAL HISTORY Nonhealing MRSA ulcer left knee. Nonhealing ulcers left lateral thigh, left medial thigh, left lateral leg, and l eft medial leg. PAST SURGICAL HISTORY Surgical preparation left knee and left thigh and left leg with incision and drainage and excisional debridement necrotizing infected MRSA ulcer (275.5 cm2) and multiple left leg and left thigh fasciotomies- 05/04/18. MEDICATIONS Tylenol. Probiotic. Doxycycline. Senokot. Zoloft. Shaggy. ALLERGIES Cleocin. Vancomycin. SOCIAL HISTORY Psychiatric History: No pertinent psych hx Lives: Spouse/ Significant Other Smoking Status: Never smoker Tobacco Use: Chew Alcohol: Occasional Drugs: None FAMILY HISTORY Maternal - No medical history that he is aware of. Paternal - No medical history that he is aware of. REVIEW OF SYSTEMS Constitutional: Denies: Anorexia, Chills, Fever, Malaise, Weakness. Eyes: Denies: Blurred vision, Double vision. HEENT: Denies: Head Aches, Sinus Congestion, Sinus Drainage. Cardiovascular: Denies: Chest Pain, Palpitations. Respiratory: Denies: Cough, Shortness of breath at rest, Sputum production. Gastrointestinal: Denies: Abdominal Pain, Nausea, Vomiting. Genitourinary: Denies: Dysuria. Musculoskeletal: Reports: Leg Pain. Denies: Arm Pain. Skin: Denies: Dryness, Jaundice. Neurological: Denies: Numbness, Tingling, Focal weakness. Psychiatric: Denies: Anxiety, Depression. Hematologic/ Lymphatic: Denies: Easy Bruising, Easy Bleeding, Hx of blood clot. PHYSICAL EXAMINATION General: Alert, Oriented. Patient is shivering. Is fearful. HEENT: PERRL. EOMI. Oral: Moist Mucosa. Neck: soft and nontender. No cervical adenopathy. Lungs: Clear to auscultation. Cardiovascular: Regular rate, Regular Rhythm. Abdomen: Soft, Non-Distended. Extremities: Full range of motion. Dorsalis pedis pulses are palpable. No inguinal adenopathy. No sensory deficits. Skin: - - Healing ulcers on his left knee, left lateral thigh, left medial thigh, left lateral leg, and left medial leg. The left lateral thigh ulcer has healed. The left knee ulcer measures 1.6 x 6.7 x 0.1 cm. The left medial thigh ulcer measures 4 x 0.3 x 0.1 cm. The left medial leg ulcer measures 9 x 1.1 x 0.1 cm. The left lateral leg ulcer measures 4 x 0.3 x 0.1 cm. Good granulation tissue is seen. Musculoskeletal: No Muscle Wasting, Tenderness Neurological: CN II - XII grossly intact, Sensory exam intact to light touch and pain, Coordination normal Psych/Mental Status: Normal Affect, Appropriate ASSESSMENT 1. Nonhealing MRSA ulcer left knee. 2. Ulcer left lateral thigh, healed. 3. Nonhealing ulcer left medial thigh. 4. Nonhealing ulcer left lateral leg. 5. Nonhealing ulcer left medial leg. 6. MRSA. PLAN Recommend further operative debridement and skin grafting and complex secondary wound closure. Will send tissue to Pathology for analysis to rule out carcinoma and to Microbiology for culture. A positive culture may necessitate antibiotic modification. Surgery will be done under general anesthesia with possibly a surgical observation overnight stay in the hospital. Patient was informed of the risks and complications of the procedure including alternatives to surgery. These were discussed with the patient personally. Patient voices understanding and wishes to proceed. Encourage nutritional supplementation with protein to help the healing process.
[2018-06-26] VITALS (10 sets, daily range): BP systolic 137–155; BP diastolic 81–99; PULSE 69–95; RESP 16; TEMP 36.4–36.7; O2SAT 92–99; BMI 32.6; BMI 32.5
--- NOTE | 2018-06-26 | UL_PTH ---
PATIENT: NILSON PINA LOC: [facility] U#:[id number] AGE/SX: 33/M ROOM: AR321 RE06/27/[address]: Dr. Dipak Torrez MD : 1985 BED: 1 DIS: 06/28/2018 SPEC #: [id number] RECD: 06/26/18 14:59 STATUS: REJI REQ #: [id number] MARISA: 06/26/18 00:[address]: Dipak Torrez DEPT: SURGICAL PATHOLOGY RECD BY: Shorty Llanes ENTERED: 06/26/18 14:59 SP TYPE: ULCER OTHR DR: Dr. Jian Syed MD Tissues: ULCER Procedures: Surgery Specimen Level III HEADER OPERATION: Excision nonhealing MRSA ulcer left medial thigh PRE-OP DIAGNOSIS: Nonhealing MRSA ulcer left knee; nonhealing ulcer left medial thigh; nonhealing ulcer left lateral leg; nonhealing ulcer left medial leg TISSUE SUBMITTED: Nonhealing MRSA ulcer left lower extremity MICROSCOPIC DIAGNOSIS Nonhealing MRSA ulcer, left lower extremity: Pieces of skin with underlying soft tissue and skeletal muscle tissue with focal ulceration, acute and chronic inflammation, granulation tissue reaction and dermal fibrosis consistent with scar. POWER:maddie 06/27/18 MICROSCOPIC DESCRIPTION Slides are reviewed. GROSS DESCRIPTION Received in fixative is one container labeled with the patient's name and designated nonhealing MRSA ulcer left lower extremity. The specimen consists of two pieces of berrios-white skin with underlying tissue measuring 8 x 2.5 cm and up to 2 cm in thickness and 8 x 1.2 cm and up to 1 cm in thickness. No mass lesion is identified. Field Auditor sections are submitted in two cassettes. / POWER:maddie 06/26/18 TC:2 CPT: 60937
[2018-06-26] MEDS: Linezolid 600 MG 600 MG/300 ML BAG 200 MG IV ×2 (09:15→22:42)
[2018-06-26] MEDS: Mupirocin Ointment 22gm Tube 1 APPLIC (13:40)
--- NOTE | 2018-06-26 13:57 | OP.PN_ITS ---
Immediate Post-Op Note Date of Procedure: 06/26/18 Primary Surgeon/Physician: Dipak Torrez motors and generators inspector: Kelsey Harmon. Pre-Operative Diagnosis: 1. Nonhealing MRSA ulcer left knee. 2. Nonhealing ulcer left medial thigh. 3. Nonhealing ulcer left lateral leg. 4. Nonhealing ulcer left medial leg. 5. MRSA. Post-Operative Diagnosis: Same. Surgery/Procedure Performed:: 1. Surgical preparation left medial thigh with excisional debridement nonhealing ulcer with complex secondary wound closure. 2. Surgical preparation left lateral leg with excisional debridement nonhealing ulcer with complex secondary wound closure. 3. Surgical preparation left knee with excisional debridement nonhealing MRSA ulcer with STSG reconstruction from the left lateral abdominal wall (11 cm2) and placement of KATHE NPWT device. 4. Surgical preparation left medial leg with excisional debridement nonhealing ulcer with STSG reconstruction from the left lateral abdominal wall (15 cm2) and placement of KATHE NPWT device. Description of Surgical Findings:: The patient is a 33 year old M who developed a necrotizing MRSA infection left knee with proximal and distal spread that necessitated emergent surgery on 05/04/18 where he underwent surgical preparation left knee and left thigh and left leg with incision and drainage and excisional debridement necrotizing infected MRSA ulcer (275.5 cm2) and multiple left leg and left thigh fasciotomies. Postoperatively he was treated with the VAC and antibiotics for the MRSA. Improvement in the ulcers were seen. The left lateral thigh ulcer has healed. He presents today for further operative debridement and wound closure. Today the patient underwent surgical preparation left medial thigh with excisional debridement nonhealing ulcer with complex secondary wound closure and surgical preparation left lateral leg with excisional debridement nonhealing ulcer with complex secondary wound closure and surgical preparation left knee with excisional debridement nonhealing MRSA ulcer with STSG reconstruction from the left lateral abdominal wall (11 cm2) and placement of KATHE NPWT device and surgical preparation left medial leg with excisional debridement nonhealing ulcer with STSG reconstruction from the left lateral abdominal wall (15 cm2) and placement of KATHE NPWT device. Size of skin graft left knee - 7 x 1.6 cm. Size of skin graft left medial leg - 10 x 1.5 cm. I used Mehnaz absorbable hemostat, (I used 2 vials). Reference Number - [id number]. Lot Number - [id number]. Expiration - March 13, 2023. Estimated Blood Loss: 50 ml. Specimen's removed: 1. Nonhealing MRSA ulcers left lower extremity to Pathology and Microbiology. 2. MRSA Wound DNA by PCR. Drains: None. Type of Anesthesia:: General - Admit VTE Documentation VTE Present on Admission: No VTE Mechan Device Prophylaxis: SCD's VTE Pharm Prophylaxis ordered?: Yes
[2018-06-26 15:46] LABS: M R Staph aureus DNA By PCR Negative (Negative); Probe Check PASS; Specimen Processing Control PASS; Staph aureus DNA By PCR NEGATIVE (Negative)
[2018-06-26] MEDS: Lactated Ringers 1,000 ML 60 ML IV (16:21)
[2018-06-26] MEDS: HYDROmorphone 1 MG/ML Syringe IV (16:24)
[2018-06-26] MEDS: oxyCODONE 5 MG Tablet 10 MG PO ×2 (17:17→22:41)
--- NOTE | 2018-06-26 21:19 | PCM.OPRPT ---
Report of Operation Date of Procedure: 06/26/18 Pre-Operative Diagnosis: 1. Nonhealing MRSA ulcer left knee. 2. Nonhealing ulcer left medial thigh. 3. Nonhealing ulcer left lateral leg. 4. Nonhealing ulcer left medial leg. 5. MRSA. Post-Operative Diagnosis: Same. Surgery/Procedure Performed:: 1. Surgical preparation left medial thigh with excisional debridement nonhealing ulcer with complex secondary wound closure. 2. Surgical preparation left lateral leg with excisional debridement nonhealing ulcer with complex secondary wound closure. 3. Surgical preparation left knee with excisional debridement nonhealing MRSA ulcer with STSG reconstruction from the left lateral abdominal wall (11 cm2) and placement of KATHE NPWT. 4. Surgical preparation left medial leg with excisional debridement nonhealing ulcer with STSG reconstruction from the left lateral abdominal wall (15 cm2) and placement of KATHE NPWT. Description of Surgical Findings:: The patient is a 33 year old M who developed a necrotizing MRSA infection left knee with proximal and distal spread that necessitated emergent surgery on 05/04/18 where he underwent surgical preparation left knee and left thigh and left leg with incision and drainage and excisional debridement necrotizing infected MRSA ulcer (275.5 cm2) and multiple left leg and left thigh fasciotomies. Postoperatively he was treated with the VAC and antibiotics for the MRSA. Improvement in the ulcers were seen. The left lateral thigh ulcer has healed. He presents today for further operative debridement and wound closure. Patient was informed of the risks and complications of the procedure including alternatives to surgery. These were discussed with the patient personally. Patient voices understanding and wishes to proceed. Size of skin graft left knee - 7 x 1.6 cm. Size of skin graft left medial leg - 10 x 1.5 cm. I used Mehnaz absorbable hemostat, (I used 2 vials). Reference Number - [id number]. Lot Number - [id number]. Expiration - March 13, 2023. detonator maker: Kelsey Harmon. Type of Anesthesia:: General Specimen's removed: 1. Nonhealing MRSA ulcers left lower extremity to Pathology and Microbiology. 2. MRSA Wound DNA by PCR. Drains: None. Estimated Blood Loss (mL): 50 ml. Description of Procedure: Patient was taken to OR in supine position and was placed under general anesthesia. The left lower extremity and left lateral abdominal wall area were prepped and draped in the usual fashion. SCD's were placed for DVT prophylaxis. Perioperative antibiotics were given intravenously. Using xylocaine with epinephrine, the multiple ulcers left lower extremity and the donor area left lateral abdominal wall area were infiltrated. After waiting 5 minutes for the anesthetic to take effect, I proceeded with excision of the nonhealing ulcer left medial thigh. Dissection was carried down to the underlying muscle and fascia. The skin flaps were undermined a little to aid in wound closure. Hemostasis obtained with electrocautery. The wound was irrigated with saline. Will place all the tissue together for one Pathology report. Will also send one culture. Prior to wound closure I sprayed Mehnaz absorbable hemostat into the wound to minimize seroma formation. I then closed the left medial thigh ulcer in a complex layered fashion with 2-0 Vicryl figure of eight interrupted sutures for the underlying muscular fascia. 2-0 Vicryl figure of eight interrupted sutures were also used for closure of the underlying Jhon's fascia. The deep dermis and subcutaneous tissue was approximated with 3-0 Monocryl interrupted sutures. The skin was approximated with 3-0 V lock unidirectional barbed running subcuticular suture. This was followed by Histoacryl skin tissue adhesive. The length of the complex closure was 12 cm. I next excised the nonhealing ulcer left lateral leg. Dissection was carried down to the underlying muscle and fascia. The skin flaps were undermined a little to aid in wound closure. Hemostasis obtained with electrocautery. The wound was irrigated with saline. Prior to wound closure I sprayed Mehnaz absorbable hemostat into the wound to minimize seroma formation. I then closed the left medial thigh ulcer in a complex layered fashion with 2-0 Vicryl figure of eight interrupted sutures for the underlying muscular fascia. 2-0 Vicryl figure of eight interrupted sutures were also used for closure of the underlying Jhon's fascia. The deep dermis and subcutaneous tissue was approximated with 3-0 Monocryl interrupted sutures. The skin was approximated with 3-0 V lock unidirectional barbed running subcuticular suture. This was followed by Histoacryl skin tissue adhesive. The length of the complex closure was 11 cm. I then went to the left lateral abdominal wall to obtain the skin graft for the reconstruction. Elliptical incisions were made down into the subcutaneous tissue. The subcutaneous tissue was removed from the undersurface of the dermis and some of the deeper dermis was removed thus fashioning a thick split thickness skin graft. The skin grafts were meshed with a 15 blade to allow drainage and to minimize seroma formation. The skin graft was then placed in saline. I closed the donor incision after first excising additional subcutaneous tissue to aid in wound closure. Hemostasis was obtained with electrocautery. Prior to wound closure I sprayed Mehnaz absorbable hemostat into the wound to minimize seroma formation. I then closed the donor incision in a layered fashion with 2-0 Vicryl figure of eight interrupted sutures for the underlying Jhon's fascia. The deep dermis and subcutaneous tissue was approximated with 3-0 Monocryl interrupted sutures. The skin was approximated with 3-0 V lock unidirectional barbed running subcuticular suture. This was followed by Histoacryl skin tissue adhesive. Dry Kerlix gauze dressing was applied. I then proceeded with excisional debridement of the nonhealing MRSA ulcer left knee and the nonhealing ulcer left medial leg. After excisional debridement was performed, I sent some of the combined tissue to Pathology for analysis to rule out carcinoma and to Microbiology for culture. MRSA Wound DNA by PCR was done as well. A positive culture may necessitate antibiotic modification. With his history of MRSA, he will be treated perioperatively with Zyvox. The debrided wounds were irrigated with saline. Hemostasis was obtained with electrocautery. The STSG's were then placed on both the left knee and left medial leg ulcers. The skin grafts were secured to the skin edges with 3-0 Chromic simple interrupted sutures. 3-0 Chromic interrupted sutures were also used for central quilting stabilization. The size of the skin graft left knee was 7 x 1.6 cm or 11 cm2. The size of the skin graft left medial leg was 10 x 1.5 cm or 15 cm2. I used KATHE NPWT devices to provide compression to the healing skin grafts. I used separate devices for each skin graft. Dry Kerlix gauze were used to wrap around the wound closures left lower extremity. This was followed by compression MARIE wraps. Patient tolerated the procedure well and was sent to PACU in satisfactory condition. Patient will be sent upstairs for continued postop care. Will discharge him when he is tolerating po analgesia. Grafts/Implants Used: None. - Complications None. - Admit VTE Documentation VTE Present on Admission: No VTE Mechan Device Prophylaxis: SCD's VTE Pharm Prophylaxis ordered?: Yes Code Visit Surgery Charges CPT - 06914 ICD-10 - L97.922, M79.89, A49.02, S71.102A 76186 L97.922, M79.89, A49.02, S71.102A 57118 L97.922, M79.89, A49.02, S81.802A 50454-68 L97.922, M79.89, A49.02, S81.802A 43043 L97.922, L02.416, M79.89, A49.02, S81.002A 76453-21 L97.922, L02.416, M79.89, A49.02, S81.002A 81790 L97.922, M79.89, A49.02, S81.802A 65193-10 L97.922, M79.89, A49.02, S81.802A
[2018-06-26] MEDS: Docusate Sodium 100 MG Capsule PO (22:41)
[2018-06-26] MEDS: diazePAM 5 MG Tablet PO (22:42)
[2018-06-27 03:52] VITALS: BP 125/68; PULSE 63; RESP 14; TEMP 36.4; O2SAT 94
[2018-06-27] MEDS: Enoxaparin 40 MG/0.4 ML Syringe SC (05:57)
[2018-06-27 06:11] LABS: Hematocrit 42.2 % (40-54); Hemoglobin 14.1 g/dl (13.0-16.5); Mean Corp Hgb Conc 33.4 g/gl (32-36); Mean Corpuscular Hgb 29.2 pg (27.0-32.0); Mean Corpuscular Volume 87.4 fL (80-94); Mean Platelet Vol. 10.7 fl (6.2-12.0); Platelet Count 187 K/mm3 (150-450); RBC Distribution Width CV 11.8 % (11.6-14.6); RBC Distribution Width SD 37.4 fl (35.1-43.9); Red Blood Count 4.83 M/mm3 (4.6-6.2); White Blood Count 11.4 K/mm3 (4.4-11.0)
[2018-06-27 06:13] LABS: Scan Indicated on CBC? Y/N NO
[2018-06-27 06:39] LABS: Anion Gap 9 (5-15); BUN 20 mg/dL (7-18); BUN/Creat Ratio 21.4 RATIO (10-20); Calcium,Total 8.2 mg/dL (8.5-10.1); Chloride 105 mmol/L (98-107); Creatinine, Serum 0.93 mg/dL (0.70-1.30); EST Glomerular Filtration Rate 99 mL/min (>60); Est Glom Filt Rate - Afr Amer 120 mL/min (>60); Glucose 134 mg/dL (74-106); Potassium 3.6 mmol/L (3.5-5.1); Prealbumin 26.4 mg/dL (20.0-40.0); Sodium Level 141 mmol/L (136-145)
[2018-06-27] MEDS: oxyCODONE 5 MG Tablet 10 MG PO ×4 (08:26→22:24)
[2018-06-27] MEDS: Docusate Sodium 100 MG Capsule PO ×2 (08:28→21:25)
[2018-06-27 08:36] VITALS: BP 125/67; PULSE 62; RESP 16; TEMP 36.6; O2SAT 99
[2018-06-27] MEDS: Linezolid 600 MG 600 MG/300 ML BAG 200 MG IV ×2 (09:55→21:26)
[2018-06-27] MEDS: HYDROmorphone 1 MG/ML Syringe IV (11:23)
[2018-06-27 11:26] VITALS: BP 145/71; PULSE 82; RESP 16; TEMP 36.7; O2SAT 100
--- NOTE | 2018-06-27 13:19 | OP.PCM_ITS ---
Report of Operation Date of Procedure: 06/26/18 Pre-Operative Diagnosis: 1. Nonhealing MRSA ulcer left knee. 2. Nonhealing ulcer left medial thigh. 3. Nonhealing ulcer left lateral leg. 4. Nonhealing ulcer left medial leg. 5. MRSA. Post-Operative Diagnosis: Same. Surgery/Procedure Performed:: 1. Surgical preparation left medial thigh with excisional debridement nonhealing ulcer with complex secondary wound closure. 2. Surgical preparation left lateral leg with excisional debridement nonhealing ulcer with complex secondary wound closure. 3. Surgical preparation left knee with excisional debridement nonhealing MRSA ulcer with STSG reconstruction from the left lateral abdominal wall (11 cm2) and placement of KATHE NPWT. 4. Surgical preparation left medial leg with excisional debridement nonhealing ulcer with STSG reconstruction from the left lateral abdominal wall (15 cm2) and placement of KATHE NPWT. Description of Surgical Findings:: The patient is a 33 year old M who developed a necrotizing MRSA infection left knee with proximal and distal spread that necessitated emergent surgery on 05/04/18 where he underwent surgical preparation left knee and left thigh and left leg with incision and drainage and excisional debridement necrotizing infected MRSA ulcer (275.5 cm2) and multiple left leg and left thigh fasciotomies. Postoperatively he was treated with the VAC and antibiotics for the MRSA. Improvement in the ulcers were seen. The left lateral thigh ulcer has healed. He presents today for further operative debridement and wound closure. Patient was informed of the risks and complications of the procedure including alternatives to surgery. These were discussed with the patient personally. Patient voices understanding and wishes to proceed. Size of skin graft left knee - 7 x 1.6 cm. Size of skin graft left medial leg - 10 x 1.5 cm. I used Mehnaz absorbable hemostat, (I used 2 vials). Reference Number - [id number]. Lot Number - [id number]. Expiration - March 13, 2023. direct support worker: Kelsey Harmon. Type of Anesthesia:: General Specimen's removed: 1. Nonhealing MRSA ulcers left lower extremity to Pathology and Microbiology. 2. MRSA Wound DNA by PCR. Drains: None. Estimated Blood Loss (mL): 50 ml. Description of Procedure: Patient was taken to OR in supine position and was placed under general anesthesia. The left lower extremity and left lateral abdominal wall area were prepped and draped in the usual fashion. SCD's were placed for DVT prophylaxis. Perioperative antibiotics were given intravenously. Using xylocaine with epinephrine, the multiple ulcers left lower extremity and the donor area left lateral abdominal wall area were infiltrated. After waiting 5 minutes for the anesthetic to take effect, I proceeded with excision of the nonhealing ulcer left medial thigh. Dissection was carried down to the underlying muscle and fascia. The skin flaps were undermined a little to aid in wound closure. Hemostasis obtained with electrocautery. The wound was irrigated with saline. Will place all the tissue together for one Pathology report. Will also send one culture. Prior to wound closure I sprayed Mehnaz absorbable hemostat into the wound to minimize seroma formation. I then closed the left medial thigh ulcer in a complex layered fashion with 2-0 Vicryl figure of eight interrupted sutures for the underlying muscular fascia. 2-0 Vicryl figure of eight interrupted sutures were also used for closure of the underlying Jhon's fascia. The deep dermis and subcutaneous tissue was approximated with 3-0 Monocryl interrupted sutures. The skin was approximated with 3-0 V lock unidirectional barbed running subcuticular suture. This was followed by Histoacryl skin tissue adhesive. The length of the complex closure was 12 cm. I next excised the nonhealing ulcer left lateral leg. Dissection was carried down to the underlying muscle and fascia. The skin flaps were undermined a little to aid in wound closure. Hemostasis obtained with electrocautery. The wound was irrigated with saline. Prior to wound closure I sprayed Mehnaz absorbable hemostat into the wound to minimize seroma formation. I then closed the left medial thigh ulcer in a complex layered fashion with 2-0 Vicryl figure of eight interrupted sutures for the underlying muscular fascia. 2-0 Vicryl figure of eight interrupted sutures were also used for closure of the underlying Jhon's fascia. The deep dermis and subcutaneous tissue was approximated with 3-0 Monocryl interrupted sutures. The skin was approximated with 3-0 V lock unidirectional barbed running subcuticular suture. This was followed by Histoacryl skin tissue adhesive. The length of the complex closure was 11 cm. I then went to the left lateral abdominal wall to obtain the skin graft for the reconstruction. Elliptical incisions were made down into the subcutaneous tissue. The subcutaneous tissue was removed from the undersurface of the dermis and some of the deeper dermis was removed thus fashioning a thick split thickness skin graft. The skin grafts were meshed with a 15 blade to allow drainage and to minimize seroma formation. The skin graft was then placed in saline. I closed the donor incision after first excising additional subcutaneous tissue to aid in wound closure. Hemostasis was obtained with electrocautery. Prior to wound closure I sprayed Mehnaz absorbable hemostat into the wound to minimize seroma formation. I then closed the donor incision in a layered fashion with 2-0 Vicryl figure of eight interrupted sutures for the underlying Jhon's fascia. The deep dermis and subcutaneous tissue was approximated with 3-0 Monocryl interrupted sutures. The skin was approximated with 3-0 V lock unidirectional barbed running subcuticular suture. This was followed by Histoacryl skin tissue adhesive. Dry Kerlix gauze dressing was applied. I then proceeded with excisional debridement of the nonhealing MRSA ulcer left knee and the nonhealing ulcer left medial leg. After excisional debridement was performed, I sent some of the combined tissue to Pathology for analysis to rule out carcinoma and to Microbiology for culture. MRSA Wound DNA by PCR was done as well. A positive culture may necessitate antibiotic modification. With his history of MRSA, he will be treated perioperatively with Zyvox. The debrided wounds were irrigated with saline. Hemostasis was obtained with electrocautery. The STSG's were then placed on both the left knee and left medial leg ulcers. The skin grafts were secured to the skin edges with 3-0 Chromic simple interrupted sutures. 3-0 Chromic interrupted sutures were also used for central quilting stabilization. The size of the skin graft left knee was 7 x 1.6 cm or 11 cm2. The size of the skin graft left medial leg was 10 x 1.5 cm or 15 cm2. I used KATHE NPWT devices to provide compression to the healing skin grafts. I used separate devices for each skin graft. Dry Kerlix gauze were used to wrap around the wound closures left lower extremity. This was followed by compression MARIE wraps. Patient tolerated the procedure well and was sent to PACU in satisfactory condition. Patient will be sent upstairs for continued postop care. Will discharge him when he is tolerating po analgesia. Grafts/Implants Used: None. - Complications None. - Admit VTE Documentation VTE Present on Admission: No VTE Mechan Device Prophylaxis: SCD's VTE Pharm Prophylaxis ordered?: Yes Code Visit Surgery Charges CPT - 72790 ICD-10 - L97.922, M79.89, A49.02, S71.102A 81482 L97.922, M79.89, A49.02, S71.102A 65797 L97.922, M79.89, A49.02, S81.802A 59024-06 L97.922, M79.89, A49.02, S81.802A 51728 L97.922, L02.416, M79.89, A49.02, S81.002A 82782-89 L97.922, L02.416, M79.89, A49.02, S81.002A 02403 L97.922, M79.89, A49.02, S81.802A 54698-78 L97.922, M79.89, A49.02, S81.802A
[2018-06-27 14:30] VITALS: BP 137/72; PULSE 61; RESP 16; TEMP 36.6; O2SAT 95
[2018-06-27] MEDS: diazePAM 5 MG Tablet PO ×2 (16:04→22:24)
--- NOTE | 2018-06-27 19:44 | PCM.PN.SRG ---
Subjective: Postop #1 Patient complains of incisional pain. Still needed IV analgesia. - Physical Exam General: Alert, Oriented x3 HEENT: PERRLA, EOMI Oral: Moist Mucosa Neck: Supple Abdomen: Soft, Non-Distended Skin: Incision - left lateral abdominal wall incision is dry and intact., - - left leg MARIE wrap dressing is dry. KATHE NPWT devices are functional. Neurological: Cranial nerves II-XII grossly intact Psych/Mental Status: Normal Affect, Appropriate Vital Signs Temp Pulse Resp BP Pulse Ox 97.9 F 61 16 137/72 H 95 06/27/18 14:30 06/27/18 14:30 06/27/18 14:30 06/27/18 14:30 06/27/18 14:30 Oxygen Flow Rate (L/min) 2 Oxygen Delivery Method Room Air Weight: 240 lb 11.916 oz Body Mass Index (BMI) 32.5 Intake and Output for Last 24 Hours 06/25/18 06/26/18 06/27/18 23:59 23:59 23:59 Intake Total 7 / 7 3298 / 3298 Output Total 2200 / 2200 Balance 2097 / 209 1098 / 1098 Microbiology Past 72 Hours 06/26/18 14:14 Gram Stain - Final Tissue - Leg, Left Wound Culture - Preliminary No growth-Final to follow Laboratory Tests Past 24 Hrs 06/27/18 06/27/18 05:54 05:54 WBC 11.4 H RBC 4.83 Hgb 14.1 Hct 42.2 MCV 87.4 MCH 29.2 MCHC 33.4 RDW 11.8 RDW Differential 37.4 Plt Count 187 MPV 10.7 Sodium 141 Potassium 3.6 Chloride 105 Carbon Dioxide 27.0 Anion Gap 9 BUN 20 H Creatinine 0.93 Estim Creat Clear Calc 124.00 Est GFR (MDRD) Af Amer 120 Est GFR (MDRD) Non-Af 99 BUN/Creatinine Ratio 21.4 H Glucose 134 H Calcium 8.2 L Prealbumin 26.4 Medical Necessity - Tobacco Use Smoking Status: Never smoker Assessment/Plan All Active Problems Open wound of left lower leg (Acute) Open wound of left knee (Acute) Open wound of left thigh (Acute) Abscess of left knee (Acute) MRSA (methicillin resistant Staphylococcus aureus) infection (Acute) Necrotizing soft tissue infection (Acute) Left leg cellulitis (Acute) Sepsis (Acute) 1. Nonhealing MRSA ulcer left knee. 2. Nonhealing ulcer left medial thigh. 3. Nonhealing ulcer left lateral leg. 4. Nonhealing ulcer left medial leg. 5. MRSA. 6. s/p surgical preparation left medial thigh with excisional debridement nonhealing ulcer with complex secondary wound closure and surgical preparation left lateral leg with excisional debridement nonhealing ulcer with complex secondary wound closure and surgical preparation left knee with excisional debridement nonhealing MRSA ulcer with STSG reconstruction from the left lateral abdominal wall (11 cm2) and placement of KATHE NPWT device and surgical preparation left medial leg with excisional debridement nonhealing ulcer with STSG reconstruction from the left lateral abdominal wall (15 cm2) and placement of KATHE NPWT device. Patient has persistent incisional pain. He still needs IV analgesia. Will keep one more day and wean to po analgesia in preparation for discharge. Continue Zyvox for his history of MRSA. Prealbumin was 26.4. Encourage nutritional supplementation with protein to help the healing process. KATHE NPWT devices functional. Ambulate with assist. Keep left leg elevated when sitting. At discharge, followup [facility] next week.
[2018-06-27 21:22] VITALS: BP 164/85; PULSE 83; RESP 14; TEMP 36.8; O2SAT 100
[2018-06-27] MEDS: Acetaminophen 325 MG Tablet 650 MG PO (21:25)
[2018-06-28 03:35] VITALS: BP 127/76; PULSE 65; RESP 16; TEMP 36.7; O2SAT 94
[2018-06-28] MEDS: Enoxaparin 40 MG/0.4 ML Syringe SC (05:44)
[2018-06-28] MEDS: Acetaminophen 325 MG Tablet 650 MG PO (07:32)
[2018-06-28] MEDS: oxyCODONE 5 MG Tablet 10 MG PO ×3 (07:32→16:24)
[2018-06-28] MEDS: Docusate Sodium 100 MG Capsule PO (07:33)
[2018-06-28 07:47] VITALS: BP 131/91; PULSE 77; RESP 16; TEMP 36.6; O2SAT 97
[2018-06-28] MEDS: 0.9% NaCl Peripheral Flush Adult/Peds IV (09:28)
[2018-06-28] MEDS: Linezolid 600 MG 600 MG/300 ML BAG 200 MG IV (09:28)
[2018-06-28] MEDS: diazePAM 5 MG Tablet PO ×2 (09:34→15:25)
--- NOTE | 2018-06-28 12:30 | PN.SURG_ITS ---
Subjective: Postop #2 Patient is resting comfortably. He is tolerating po analgesia. - Physical Exam General: Alert, Oriented x3 HEENT: PERRLA, EOMI Oral: Moist Mucosa Neck: Supple Abdomen: Soft, Non-Distended Skin: Incision - left lateral abdominal wall incision dry and intact., - - left leg MARIE wrap dressing is dry. KATHE NPWT devices are functional. Neurological: Cranial nerves II-XII grossly intact Psych/Mental Status: Normal Affect, Appropriate Vital Signs Temp Pulse Resp BP Pulse Ox 97.8 F 77 16 131/91 H 97 06/28/18 07:47 06/28/18 07:47 06/28/18 07:47 06/28/18 07:47 06/28/18 07:47 Oxygen Flow Rate (L/min) 2 Oxygen Delivery Method Room Air Weight: 240 lb 11.916 oz Body Mass Index (BMI) 32.5 Intake and Output for Last 24 Hours 06/26/18 06/27/18 06/28/18 23:59 23:59 23:59 Intake Total 2096 / 2096 3298 / 3298 995 / 995 Output Total 2200 / 2200 Balance 2096 / 2096 1098 / 1098 995 / 995 Microbiology Past 72 Hours 06/26/18 14:14 Gram Stain - Final Tissue - Leg, Left Wound Culture - Preliminary No growth-Final to follow Anaerobic Culture - Preliminary No growth in 48 hours. Medical Necessity - Tobacco Use Smoking Status: Never smoker Assessment/Plan All Active Problems Open wound of left lower leg (Acute) Open wound of left knee (Acute) Open wound of left thigh (Acute) Abscess of left knee (Acute) MRSA (methicillin resistant Staphylococcus aureus) infection (Acute) Necrotizing soft tissue infection (Acute) Left leg cellulitis (Acute) Sepsis (Acute) 1. Nonhealing MRSA ulcer left knee. 2. Nonhealing ulcer left medial thigh. 3. Nonhealing ulcer left lateral leg. 4. Nonhealing ulcer left medial leg. 5. MRSA. 6. s/p surgical preparation left medial thigh with excisional debridement nonhealing ulcer with complex secondary wound closure and surgical preparation left lateral leg with excisional debridement nonhealing ulcer with complex secondary wound closure and surgical preparation left knee with excisional debridement nonhealing MRSA ulcer with STSG reconstruction from the left lateral abdominal wall (11 cm2) and placement of KATHE NPWT device and surgical preparati on left medial leg with excisional debridement nonhealing ulcer with STSG reconstruction from the left lateral abdominal wall (15 cm2) and placement of KATHE NPWT device. Patient is tolerating po analgesia. He is anxious to go home. He will be discharged on Doxycycline for his history of MRSA. Operative cultures are negative thus far. Prealbumin was 26.4. Encourage nutritional supplementation with protein to help the healing process. KATHE NPWT devices functional. Ambulate with assist. Keep left leg elevated when sitting. Discharge home today. Wrote script for Doxycycline for 14 days and 2 refills. Wrote scripts for Percocet for pain (60 tabs) and for Valium for spasm (50 tabs). Wrote script for Phenergan for nausea (30 tabs) and a refill. Followup [facility] Monday07/02/18. Patient may ambulate at home. Elevate left leg when sitting. Minimize standing.
--- NOTE | 2018-06-28 12:39 | DCINST_ITS ---
You will use the following diet at home:: No restrictions, Other - encourage nutritional supplementation with protein to help the healing process. Discharge Activity: May Not Drive, May Shower - wear plastic bag ove left leg when showering., - - may ambulate. May use a walker. Minimize standing. Elevate left leg when sitting. Return to work on:: 07/23/18 - tentative. May shower in (days): 0 - wear plastic bag over left leg when showering. Weight Bearing Status: Weight bearing as tolerated Keep extremity elevated above heart level: Left Leg Call your doctor if your incision/area has: Continuous Slow Oozing, Sudden Increased Bleeding, Increased Pain/ Swelling, Increased Redness, Foul Smelling Discharge, - - if the KATHE device malfunctions. Call your doctor if you observe: Fever of 101 or Higher, Coldness, Increased Pain, Shortness of breath, Chest pain, Calf discomfort, Uncontrolled pain Suture Line Care: - - dry dressings to left lateral abdominal wall incision daily. maintain operative dressing left leg. Change Dressing in (Days):: 4 - will change left leg dressing in wound center on 07/02/18. Cleanse incision/area with: - - wear plastic bag over left leg when showering. Allergies/Adverse Reactions: Allergies clindamycin Allergy (Verified 06/20/18 12:09) Hives vancomycin Allergy (Verified 06/20/18 12:09) Hives Medications to take at Discharge Acetaminophen [Tylenol Tablet] 650 mg PO Q6H PRN PRN #0 tablet 05/11/18 Nutritional Supplement [Shaggy - ORANGE FLAVOR] 1 packet PO BIDCM #60 packet 05/16/18 Senna/Docusate Sodium [Senokot-S] 1 tablet PO BID PRN #60 tablet 05/16/18 doxycycline hyclate 100 mg capsule 100 mg PO BID #60 cap 05/30/18 Bacillus Coagulans [Probiotic] 1 each PO BID 06/20/18 Sertraline HCl [Zoloft] 50 mg PO DAILY 06/20/18 Diazepam [Valium] 4 mg PO 4X/DAY PRN PRN #50 tab 06/28/18 Docusate Sodium [Colace] 100 mg PO BID capsule 06/28/18 Doxycycline [Vibramycin] 100 mg PO BID #28 cap 06/28/18 Oxycodone HCl/Acetaminophen [Percocet 5/325] 1 - 2 tab PO 4X/DAY PRN PRN 7 Days #60 tab 06/28/18 proMETHazine tablet [Phenergan tablet] 25 mg PO 4X/DAY PRN PRN #30 tab 06/28/18 The following prescriptions were given: Diazepam [Valium] 4 mg PO 4X/DAY PRN PRN #50 tab PRN Reason: Spasms Oxycodone HCl/Acetaminophen [Percocet 5/325] 1 - 2 tab PO 4X/DAY PRN PRN 7 Days #60 tab PRN Reason: Pain proMETHazine tablet [Phenergan tablet] 25 mg PO 4X/DAY PRN PRN #30 tab PRN Reason: NAUSEA/VOMITING Doxycycline [Vibramycin] 100 mg PO BID #28 cap Primary Care Physician: Jian Syed MD [Primary Care Provider] - Test Results: Test results from this visit will be discussed in further detail at your follow- up appointment, if applicable. Please Follow Up With: Dipak Torrez MD When: monday07/02/18 at [facility]. Proposed Discharge Date: 06/28/18
[2018-06-28 15:29] VITALS: BP 151/93; PULSE 98; RESP 16; TEMP 36.4; O2SAT 95
--- OUTSIDE RECORDS SUMMARY | 2018-08-12 06:38 | XMS RPT_ITS ---
:1985 Author Organization OHIP Support Name Relationship Address Phone VICKI PINA Unavailable [id number] + [place] [address] [facility] Unavailable [address] + [place] [address] MIKAL PINALL Unavailable [address] + [place] [address] [place] Unavailable [address] + [place] [address] MIKAL PINALL Unavailable [address] + [place] [address] [facility] Unavailable [address] + [place] [address] YOVANI VICKI Unavailable [address] + [place] [address] [facility] Unavailable [address] + [place] [address] YOVANI VICKI Unavailable [address] + [place] [address] [facility] Unavailable [address] + [place] [address] LEMJAIR VICKI Unavailable [address] + [place] [address] [facility] Unavailable [address] + [place] [address] YOVANI VICKI Unavailable [address] + [place] [address] [facility] Unavailable [address] + [place] [address] YOVANI VICKI Unavailable [address] + [place] [address] [facility] Unavailable [address] + [place] [address] LEMON, VICKI Unavailable [address] + [place] [address] [facility] Unavailable [address] + [place] [address] LEMON, VICKI Unavailable [address] + [place] [address] [facility] Unavailable [address] + [place] [address] LEMON, VICKI Unavailable [address] + [place] [address] [facility] Unavailable [address] + [place] [address] LEMON VICKI Unavailable [address] + [place] [address] [facility] Unavailable [address] + [place] [address] LEMON, VICKI Unavailable [address] + [place] [address] [facility] Unavailable [address] + [place] [address] LEMON, VICKI Unavailable [address] + [place] [address] [facility] Unavailable [address] + [place] [address] LEMON, VICKI Unavailable [address] + [place] [address] [facility] Unavailable [address] + [place] [address] LEMON, VICKI Unavailable [address] + [place] [address] [facility] Unavailable [address] + [place] [address] LEMON, VICKI Unavailable [address] + [place] [address] [facility] Unavailable [address] + [place] [address] LEMON, VICKI Unavailable [address] + [place] [address] [facility] Unavailable [address] + [place] [address] LEMON, VICKI Unavailable [address] + [place] [address] [facility] Unavailable [address] + [place] [address] LEMON, VICKI Unavailable [address] + [place] [address] [facility] Unavailable [address] + [place] [address] LEMON, VICKI Unavailable [address] + [place] [address] [facility] Unavailable [address] + [place] [address] LEMON, VICKI Unavailable [address] + [place] [address] [facility] Unavailable [address] + [place] [address] LEMON, VICKI Unavailable [address] + [place] [address] [facility] Unavailable [address] + [place] [address] LEMON, VICKI Unavailable [address] + [place] [address] [facility] Unavailable [address] + [place] [address] LEMON, VICKI Unavailable [address] + [place] [address] [facility] Unavailable [address] + [place] [address] LEMON, VICKI Unavailable [address] + [place] [address] [facility] Unavailable [address] + [place] [address] LEMON, VICKI Unavailable [address] + [place] [address] [facility] Unavailable [address] + [place] [address] LEMON, VICKI Unavailable [address] + [place] [address] [facility] Unavailable [address] + [place] [address] LEMON, VICKI Unavailable [address] + [place] [address] [facility] Unavailable [address] + [place] [address] LEMON, VICKI Unavailable [address] + [place] [address] [facility] Unavailable [address] + [place] [address] LEMON, VICKI Unavailable [address] + [place] [address] [facility] Unavailable [address] + [place] [address] LEMON, VICKI Unavailable [address] + [place] [address] [facility] Unavailable [address] + [place] [address] LEMON, VICKI Unavailable [address] + [place] [address] [facility] Unavailable [address] + [place] [address] LEMON, VICKI Unavailable [address] + [place] [address] [facility] Unavailable [address] + [place] [address] LEMON, VICKI Unavailable [address] + [place] [address] [facility] Unavailable [address] + [place] [address] LEMON, VICKI Unavailable [address] + [place] [address] [facility] Unavailable [address] + [place] [address] LEMJAIR VICKI Unavailable [address] + [place] [address] [facility] Unavailable [address] + [place] [address] YOVANI, VICKI Unavailable [address] + [place] [address] [facility] Unavailable [address] + [place] [address] Care Team Providers Name Role Phone Dipak Torrez Attending Unavailable Elderbrock, Jian Primary Care Unavailable Dipak Torrez Consulting Unavailable Elderbrock, Jian Attending Unavailable Elderbrock, Jian Referring Unavailable Elderbrock, Jian Primary Care Unavailable Diapk Torrez Attending Unavailable Elderbrock, Jian Primary Care Unavailable Dipak Torrez Attending Unavailable Dipak Torrez Referring Unavailable Elderbrock, Jian Primary Care Unavailable Dipak Torrez Admitting Unavailable Dipak Torrez Attending Unavailable Elderbrock, Jian Primary Care Unavailable Dipak Torrez Consulting Unavailable Dipak Torrez Attending Unavailable Elderbrock, Jian Primary Care Unavailable Lidia Chandra Consulting Unavailable Elderbrock, Jian Attending Unavailable Elderbrock, Jian Referring Unavailable Elderbrock, Jian Primary Care Unavailable Corazon Lidia E Attending Unavailable Elderbrock, Jian Primary Care Unavailable Corazon Lidia E Consulting Unavailable Elderbrock, Jian Primary Care Unavailable Dipak Torrez Attending Unavailable Jesus, Marvin Chi Admitting Unavailable Dipak Torrez Attending Unavailable Jesus, Marvin Chi Referring Unavailable Elderbrock, Jian Primary Care Unavailable Alec Royal Consulting Unavailable Jesus, Marvin Chi Consulting Unavailable Dipak Torrez Attending Unavailable Jenniferpperi, Kevin Referring Unavailable Jesus, Marvin Chi Admitting Unavailable Jesus, Marvin Chi Attending Unavailable Jesus, Marvin Chi Referring Unavailable Elderbrock, Jian Primary Care Unavailable Alec Royal Consulting Unavailable Helen, Kevin Admitting Unavailable Fortunato Lucio Attending Unavailable Elderbrock, Jian Primary Care Unavailable Alec Royal Consulting Unavailable Dipak Torrez Consulting Unavailable Fortunato Lucio Consulting Unavailable Helen, Kevin Admitting Unavailable Dipak Torrez Attending Unavailable Elderbrock, Jian Primary Care Unavailable Alec Royal Consulting Unavailable Dipak Torrez Consulting Unavailable [place], Jacquelin Consulting Unavailable Jopperi, Kevin Admitting Unavailable [place], Jacquelin Attending Unavailable Elderbrock, Jian Primary Care Unavailable Lele, Alec Consulting Unavailable Slaby, Dipak Consulting Unavailable [place], Jacquelin Consulting Unavailable Jopperi, Kevin Admitting Unavailable Slaby, Dipak Attending Unavailable Elderbrock, Jian Primary Care Unavailable Lele, Alec Consulting Unavailable Slaby, Dipak Consulting Unavailable [place], Jacquelin Consulting Unavailable Jopperi, Kevin Admitting Unavailable [place], Jacquelin Attending Unavailable Elderbrock, Jian Primary Care Unavailable Lele, Alec Consulting Unavailable Slaby, Dipak Consulting Unavailable [place], Jacquelin Consulting Unavailable Jopperi, Kevin Admitting Unavailable Tereletsky, Jian Attending Unavailable Elderbrock, Jian Primary Care Unavailable Lele, Alec Consulting Unavailable Slaby, Dipak Consulting Unavailable Tereletsky, Jian Consulting Unavailable Jopperi, Kevin Admitting Unavailable Tereletsky, Jian Attending Unavailable Elderbrock, Jian Primary Care Unavailable Lele, Alec Consulting Unavailable Slaby, Dipak Consulting Unavailable Tereletsky, Jian Consulting Unavailable Jopperi, Kevin Admitting Unavailable Slaby, Dipak Attending Unavailable Elderbrock, Jian Primary Care Unavailable Lele, Alec Consulting Unavailable Slaby, Dipak Consulting Unavailable Tereletsky, Jian Consulting Unavailable Slaby, Dipak Attending Unavailable Elderbrock, Jian Primary Care Unavailable Jopperi, Kevin Admitting Unavailable Slaby, Dipak Attending Unavailable Elderbrock, Jian Primary Care Unavailable Lele, Alec Consulting Unavailable Slaby, Dipak Consulting Unavailable Tereletsky, Jian Consulting Unavailable Jopperi, Kevin Admitting Unavailable Tereletsky, Jian Attending Unavailable Elderbrock, Jian Primary Care Unavailable Lele, Alec Consulting Unavailable Slaby, Dipak Consulting Unavailable Tereletsky, Jian Consulting Unavailable Jopperi, Kevin Admitting Unavailable Tereletsky, Jian Attending Unavailable Elderbrock, Jian Primary Care Unavailable Lele, Alec Consulting Unavailable Slaby, Dipak Consulting Unavailable Tereletsky, Jian Consulting Unavailable Jopperi, Kevin Admitting Unavailable Tereletsky, Jian Attending Unavailable Elderbrock, Jian Primary Care Unavailable Tereletsky, Jian Consulting Unavailable Jopperi, Kevin Attending Unavailable Elderbrock, Jian Primary Care Unavailable Fortunato Lucio Attending Unavailable Elderbrock, Jian Primary Care Unavailable Jopperi, Kevin Admitting Unavailable Lele, Alec Consulting Unavailable Slaby, Dipak Consulting Unavailable Fortunato Dia Attending Unavailable Elderbrock, Jian Primary Care Unavailable Slaby, Dipak Attending Unavailable Elderbrock, Jian Referring Unavailable Slaby, Dipak Admitting Unavailable Slaby, Dipak Attending Unavailable Elderbrock, Jian Primary Care Unavailable Slaby, Dipak Consulting Unavailable Elderbrock, Jian Referring Unavailable Slaby, Dipak Admitting Unavailable Slaby, Dipak Attending Unavailable Slaby, Dipak Referring Unavailable Elderbrock, Jian Primary Care Unavailable Slaby, Dipak Consulting Unavailable Slaby, Dipak Admitting Unavailable Slaby, Dipak Attending Unavailable Slaby, Dipak Referring Unavailable Elderbrock, Jian Primary Care Unavailable Slaby, Dipak Consulting Unavailable Slaby, Dipak Admitting Unavailable Slaby, Dipak Attending Unavailable Slaby, Dipak Referring Unavailable Elderbrock, Jian Primary Care Unavailable Slaby, Dipak Consulting Unavailable Jopperi, Kevin Admitting Unavailable Slaby, Dipak Attending Unavailable Elderbrock, Jian Primary Care Unavailable Lele, Alec Consulting Unavailable Slaby, Dipak Consulting Unavailable Steinberger, Fortunato Consulting Unavailable Jopperi, Kevin Admitting Unavailable Steinberger, Fortunato Attending Unavailable Elderbrock, Jian Primary Care Unavailable Lele, Alec Consulting Unavailable Slaby, Dipak Consulting Unavailable Steinberger, Fortunato Consulting Unavailable Jopperi, Kevin Admitting Unavailable Slaby, Dipak Attending Unavailable Elderbrock, Jian Primary Care Unavailable Lele, Alec Consulting Unavailable Slaby, Dipak Consulting Unavailable Tereletsky, Jian Consulting Unavailable Slaby, Dipak Attending Unavailable Elderbrock, Jian Primary Care Unavailable Slaby, Dipak Consulting Unavailable Jopperi, Kevin Admitting Unavailable Slaby, Dipak Attending Unavailable Elderbrock, Jian Primary Care Unavailable Lele, Alec Consulting Unavailable Slaby, Dipak Consulting Unavailable Steinberger, Fortunato Consulting Unavailable PROBLEMS PROBLEMS DATE TYPE CONDITION / CODE ATTENDING STATUS SOURCE 07/04/2018 Unknown G89.18 - Other acute Dipak Torrez Active [place] postprocedural pain [facility] / G89.18(ICD-10) Hospital Repository 06/16/2018 Unknown S81.802A - [facility], Active [place] Unspecified open J[facility] wound, left lower Hospital leg, initial Repository encounter / S81.802A(ICD-10) 05/21/2018 Unknown R53.81 - Other Jesus, Marvin Chi Active [place] [facility] malaise / Community R53.81(ICD-10) Hospital Repository 05/21/2018 Unknown M79.89 - Other Jesus, Marvin Chi Active [place] [facility] specified soft Community tissue disorders / Hospital M79.89(ICD-10) Repository 05/15/2018 Unknown L02.416 - Cutaneous Dipak Torrez Active [place] [facility] abscess of left Community lower limb / Hospital L02.416(ICD-10) Repository 05/15/2018 Unknown L03.116 - Cellulitis Dipak Torrez Active [facility] of left lower limb / Community L03.116(ICD-10) Hospital Repository 05/15/2018 Unknown M72.6 - Necrotizing Dipak Torrez Active [place] fasciitis / Community M72.6(ICD-10) Hospital Repository 05/15/2018 Unknown A49.02 - Methicillin Dipak Torrez Active [facility] resistant Community Staphylococcus Hospital aureus infection, Repository unspecified site / A49.02(ICD-10) PROCEDURES PROCEDURES No Procedure Records FoundRESULTS RESULTS PLASTIC SURGERY Observed: 07/17/2018 Status: F Source: [place] VISIT REPORT 9:47 PM REPOSITORY [facility] [address] [place] [address] OFFICE VISIT Date of Service: 07/13/18 MR#: [id number] Acct: [id number] Name: NILSON PINA Rep #: [id number] : 1985 Provider: Dipak Torrez MD Age/Sex: 33/M Location: [facility] Status: Signed Intake Vital Signs07/13/18 Body Mass Index (BMI) 32.5 07/13/18 Height 6 ft 07/13/18 Weight: 246 lb 2 oz 07/13/18 Body Mass Index (BMI) 33.3 07/13/18 Blood Pressure 127/85 H Intake Visit Reasons: postop surgery 06/26/18 Is patient in pain?: No Allergies clindamycin Allergy (Verified 07/13/18 08:20) Hives vancomycin Allergy (Verified 07/13/18 08:20) Hives Medications Acetaminophen [Tylenol Tablet] 650 mg PO Q6H PRN PRN #0 tab 05/11/18 [Rx Confirmed 06/26/18] Nutritional Supplement [Shaggy - ORANGE FLAVOR] 1 packet PO BIDCM #60 packet 05/16/18 [Rx Confirmed 06/26/18] Senna/Docusate Sodium [Senokot-S] 1 tab PO BID PRN #60 tab 05/16/18 [Rx Confirmed 06/26/18] doxycycline hyclate 100 mg capsule 100 mg PO BID #60 cap 05/30/18 [Rx Confirmed 06/26/18] Bacillus Coagulans [Probiotic] 1 ea PO BID 06/20/18 [History Confirmed 06/26/18] Sertraline HCl [Zoloft] 50 mg PO DAILY 06/20/18 [History Confirmed 06/26/18] Diazepam [Valium] 4 mg PO 4X/DAY PRN PRN #50 tab 06/28/18 [Rx] Docusate Sodium [Colace] 100 mg PO BID cap 06/28/18 [Rx] Doxycycline [Vibramycin] 100 mg PO BID #28 cap 06/28/18 [Rx] proMETHazine tablet [Phenergan tablet] 25 mg PO 4X/DAY PRN PRN #30 tab 06/28/18 [Rx] mupirocin 2 % topical ointment 1 applic TOPICAL BID 07/13/18 [History Confirmed 07/13/18] PFSH Medical History Anxiety and depression (Acute) Family History Father Diabetes Hypertension Mother Hypertension Social History Smoking Status: Never smoker HPI postop surgery 06/26/18: Details: Postop visit from his recent surgery on 06/26/18 where he underwent surgical preparation left medial thigh with excisional debridement nonhealing ulcer with complex secondary wound closure and surgical preparation left lateral leg with excisional debridement nonhealing ulcer with complex secondary wound closure and surgical preparation left knee with excisional debridement nonhealing MRSA ulcer with STSG reconstruction from the left lateral abdominal wall (11 cm2) and placement of KATHE NPWT and surgical preparation left medial leg with excisional debridement nonhealing ulcer with STSG reconstruction from the left lateral abdominal wall (15 cm2) and placement of KATHE NPWT. He was discharged from the hospital on 06/28/18. Comes in today with no complaints. He states he is doing ok walking up and down stairs. On exam, the skin grafts on his left knee and left medial leg are healing satisfactory. There is good adherence and 100% take and good vascular ingrowth. The left medial thigh incision is dry and intact and healing satisfactory. There is no evidence of hematoma. On the left lateral thigh, there is a small superficial opening on the superior aspect. Measures 5 mm. No evidence of infection. Probable suture related. Can either apply antibiotic ointment to the area daily or a Silver dressing daily. It should heal with local wound care. The rest of the incision is dry and intact with no evidence of infection or hematoma. Minimal swelling noted on the left lower extremity. Continue Bactroban ointment to the skin grafts daily followed by gauze and the MARIE wrap for compression. Continue elevating left leg when sitting. Continue Doxycycline for his previous MRSA culture. He is anxious to go back to work. Will have him start on 07/25/18 and limit him to just 4 hours per day and no ladders. Will reassess at his next appointment which [facility]. Assessment AND Plan Problems 1. Nonhealing ulcer of multiple sites of left lower extremity with fat layer exposed L97.922 2. MRSA (methicillin resistant Staphylococcus aureus) infection A49.02 3. Necrotizing soft tissue infection M79.89 4. Abscess of left knee L02.416 Coding Level of Care Code Global Post Op Diagnoses Nonhealing ulcer of multiple sites of left lower extremity with fat layer exposed L97.922 MRSA (methicillin resistant Staphylococcus aureus) infection A49.02 Necrotizing soft tissue infection M79.89 Abscess of left knee L02.416 07/17/182146 <Electronically signed by Dipak Torrez MD> Date Dipak Torrez MD Cosigner Signature: Date (if applicable) CC: OPERATIVE REPORT Observed: 07/02/2018 Status: F Source: [place] 5:08 PM REPOSITORY [facility] Medical Records Department [address] [place] [address] Operative Report 06/26/182118 MR#: [id number] Acct: [id number] Name: NILSON PINA Rep #: [id number] : 1985 33 From: Dipak Torrez MD PCP: Jian Syed MD Status: DIS MARA Y Location: [facility] IO910-2 Report of Operation Date of Procedure: 06/26/18 Pre-Operative Diagnosis: 1. Nonhealing MRSA ulcer left knee. 2. Nonhealing ulcer left medial thigh. 3. Nonhealing ulcer left lateral leg. 4. Nonhealing ulcer left medial leg. 5. MRSA. Post-Operative Diagnosis: Same. Surgery/Procedure Performed:: 1. Surgical preparation left medial thigh with excisional debridement nonhealing ulcer with complex secondary wound closure. 2. Surgical preparation left lateral leg with excisional debridement nonhealing ulcer with complex secondary wound closure. 3. Surgical preparation left knee with excisional debridement nonhealing MRSA ulcer with STSG reconstruction from the left lateral abdominal wall (11 cm2) and placement of KATHE NPWT. 4. Surgical preparation left medial leg with excisional debridement nonhealing ulcer with STSG reconstruction from the left lateral abdominal wall (15 cm2) and placement of KATHE NPWT. Description of Surgical Findings:: The patient is a 33 year old M who developed a necrotizing MRSA infection left knee with proximal and distal spread that necessitated emergent surgery on 05/04/18 where he underwent surgical preparation left knee and left thigh and left leg with incision and drainage and excisional debridement necrotizing infected MRSA ulcer (275.5 cm2) and multiple left leg and left thigh fasciotomies. Postoperatively he was treated with the VAC and antibiotics for the MRSA. Improvement in the ulcers were seen. The left lateral thigh ulcer has healed. He presents today for further operative debridement and wound closure. Patient was informed of the risks and complications of the procedure including alternatives to surgery. These were discussed with the patient personally. Patient voices understanding and wishes to proceed. Size of skin graft left knee - 7 x 1.6 cm. Size of skin graft left medial leg - 10 x 1.5 cm. I used Mehnaz absorbable hemostat, (I used 2 vials). Reference Number - [id number]. Lot Number - [id number]. Expiration - March 13, 2023. manager math: Kelsey Harmon. Type of Anesthesia:: General Specimen's removed: 1. Nonhealing MRSA ulcers left lower extremity to Pathology and Microbiology. 2. MRSA Wound DNA by PCR. Drains: None. Estimated Blood Loss (mL): 50 ml. Description of Procedure: Patient was taken to OR in supine position and was placed under general anesthesia. The left lower extremity and left lateral abdominal wall area were prepped and draped in the usual fashion. SCD's were placed for DVT prophylaxis. Perioperative antibiotics were given intravenously. Using xylocaine with epinephrine, the multiple ulcers left lower extremity and the donor area left lateral abdominal wall area were infiltrated. After waiting 5 minutes for the anesthetic to take effect, I proceeded with excision of the nonhealing ulcer left medial thigh. Dissection was carried down to the underlying muscle and fascia. The skin flaps were undermined a little to aid in wound closure. Hemostasis obtained with electrocautery. The wound was irrigated with saline. Will place all the tissue together for one Pathology report. Will also send one culture. Prior to wound closure I sprayed Mehnaz absorbable hemostat into the wound to minimize seroma formation. I then closed the left medial thigh ulcer in a complex layered fashion with 2-0 Vicryl figure of eight interrupted sutures for the underlying muscular fascia. 2-0 Vicryl figure of eight interrupted sutures were also used for closure of the underlying Jhon's fascia. The deep dermis and subcutaneous tissue was approximated with 3-0 Monocryl interrupted sutures. The skin was approximated with 3-0 V lock unidirectional barbed running subcuticular suture. This was followed by Histoacryl skin tissue adhesive. The length of the complex closure was 12 cm. I next excised the nonhealing ulcer left lateral leg. Dissection was carried down to the underlying muscle and fascia. The skin flaps were undermined a little to aid in wound closure. Hemostasis obtained with electrocautery. The wound was irrigated with saline. Prior to wound closure I sprayed Mehnaz absorbable hemostat into the wound to minimize seroma formation. I then closed the left medial thigh ulcer in a complex layered fashion with 2-0 Vicryl figure of eight interrupted sutures for the underlying muscular fascia. 2-0 Vicryl figure of eight interrupted sutures were also used for closure of the underlying Jhon's fascia. The deep dermis and subcutaneous tissue was approximated with 3-0 Monocryl interrupted sutures. The skin was approximated with 3-0 V lock unidirectional barbed running subcuticular suture. This was followed by Histoacryl skin tissue adhesive. The length of the complex closure was 11 cm. I then went to the left lateral abdominal wall to obtain the skin graft for the reconstruction. Elliptical incisions were made down into the subcutaneous tissue. The subcutaneous tissue was removed from the undersurface of the dermis and some of the deeper dermis was removed thus fashioning a thick split thickness skin graft. The skin grafts were meshed with a 15 blade to allow drainage and to minimize seroma formation. The skin graft was then placed in saline. I closed the donor incision after first excising additional subcutaneous tissue to aid in wound closure. Hemostasis was obtained with electrocautery. Prior to wound closure I sprayed Mehnaz absorbable hemostat into the wound to minimize seroma formation. I then closed the donor incision in a layered fashion with 2-0 Vicryl figure of eight interrupted sutures for the underlying Jhon's fascia. The deep dermis and subcutaneous tissue was approximated with 3-0 Monocryl interrupted sutures. The skin was approximated with 3-0 V lock unidirectional barbed running subcuticular suture. This was followed by Histoacryl skin tissue adhesive. Dry Kerlix gauze dressing was applied. I then proceeded with excisional debridement of the nonhealing MRSA ulcer left knee and the nonhealing ulcer left medial leg. After excisional debridement was performed, I sent some of the combined tissue to Pathology for analysis to rule out carcinoma and to Microbiology for culture. MRSA Wound DNA by PCR was done as well. A positive culture may necessitate antibiotic modification. With his history of MRSA, he will be treated perioperatively with Zyvox. The debrided wounds were irrigated with saline. Hemostasis was obtained with electrocautery. The STSG's were then placed on both the left knee and left medial leg ulcers. The skin grafts were secured to the skin edges with 3-0 Chromic simple interrupted sutures. 3-0 Chromic interrupted sutures were also used for central quilting stabilization. The size of the skin graft left knee was 7 x 1.6 cm or 11 cm2. The size of the skin graft left medial leg was 10 x 1.5 cm or 15 cm2. I used KATHE NPWT devices to provide compression to the healing skin grafts. I used separate devices for each skin graft. Dry Kerlix gauze were used to wrap around the wound closures left lower extremity. This was followed by compression MARIE wraps. Patient tolerated the procedure well and was sent to PACU in satisfactory condition. Patient will be sent upstairs for continued postop care. Will discharge him when he is tolerating po analgesia. Grafts/Implants Used: None. - Complications None. - Admit VTE Documentation VTE Present on Admission: No VTE Mechan Device Prophylaxis: SCD's VTE Pharm Prophylaxis ordered?: Yes Code Visit Surgery Charges CPT - 54611 ICD-10 - L97.922, M79.89, A49.02, S71.102A 88643 L97.922, M79.89, A49.02, S71.102A 34417 L97.922, M79.89, A49.02, S81.802A 19632-43 L97.922, M79.89, A49.02, S81.802A 52509 L97.922, L02.416, M79.89, A49.02, S81.002A 28756-51 L97.922, L02.416, M79.89, A49.02, S81.002A 61731 L97.922, M79.89, A49.02, S81.802A 24659-86 L97.922, M79.89, A49.02, S81.802A 07/02/18 1708 <Electronically signed by Dipak Torrez MD> Date Dipak Torrez MD CC: Dipak Torrez MD; Jian Syed MD; [facility] Signed DISCHARGE INSTRUCTION Observed: 06/28/2018 Status: F Source: [place] 12:40 PM REPOSITORY [facility] Medical Records Department [address] [place] [address] Instructions for Home/Discharge Instructions 06/28/18 1234 MR#: [id number] Acct: [id number] Name: NILSON PINA Rep #: [id number] : 1985 33 From: Dipak Torrez MD PCP: Jian Syed MD Status: ADM MARA You will use the following diet at home:: No restrictions, Other - encourage nutritional supplementation with protein to help the healing process. Discharge Activity: May Not Drive, May Shower - wear plastic bag ove left leg when showering., - - may ambulate. May use a walker. Minimize standing. Elevate left leg when sitting. Return to work on:: 07/23/18 - tentative. May shower in (days): 0 - wear plastic bag over left leg when showering. Weight Bearing Status: Weight bearing as tolerated Keep extremity elevated above heart level: Left Leg Call your doctor if your incision/area has: Continuous Slow Oozing, Sudden Increased Bleeding, Increased Pain/ Swelling, Increased Redness, Foul Smelling Discharge, - - if the KATHE device malfunctions. Call your doctor if you observe: Fever of 101 or Higher, Coldness, Increased Pain, Shortness of breath, Chest pain, Calf discomfort, Uncontrolled pain Suture Line Care: - - dry dressings to left lateral abdominal wall incision daily. maintain operative dressing left leg. Change Dressing in (Days):: 4 - will change left leg dressing in wound center on 07/02/18. Cleanse incision/area with: - - wear plastic bag over left leg when showering. Allergies/Adverse Reactions: Allergies clindamycin Allergy (Verified 06/20/18 12:09) Hives vancomycin Allergy (Verified 06/20/18 12:09) Hives Medications to take at Discharge Acetaminophen [Tylenol Tablet] 650 mg PO Q6H PRN PRN #0 tablet 05/11/18 Nutritional Supplement [Shaggy - ORANGE FLAVOR] 1 packet PO BIDCM #60 packet 05/16/18 Senna/Docusate Sodium [Senokot-S] 1 tablet PO BID PRN #60 tablet 05/16/18 doxycycline hyclate 100 mg capsule 100 mg PO BID #60 cap 05/30/18 Bacillus Coagulans [Probiotic] 1 each PO BID 06/20/18 Sertraline HCl [Zoloft] 50 mg PO DAILY 06/20/18 Diazepam [Valium] 4 mg PO 4X/DAY PRN PRN #50 tab 06/28/18 Docusate Sodium [Colace] 100 mg PO BID capsule 06/28/18 Doxycycline [Vibramycin] 100 mg PO BID #28 cap 06/28/18 Oxycodone HCl/Acetaminophen [Percocet 5/325] 1 - 2 tab PO 4X/DAY PRN PRN 7 Days #60 tab 06/28/18 proMETHazine tablet [Phenergan tablet] 25 mg PO 4X/DAY PRN PRN #30 tab 06/28/18 The following prescriptions were given: Diazepam [Valium] 4 mg PO 4X/DAY PRN PRN #50 tab PRN Reason: Spasms Oxycodone HCl/Acetaminophen [Percocet 5/325] 1 - 2 tab PO 4X/DAY PRN PRN 7 Days #60 tab PRN Reason: Pain proMETHazine tablet [Phenergan tablet] 25 mg PO 4X/DAY PRN PRN #30 tab PRN Reason: NAUSEA/VOMITING Doxycycline [Vibramycin] 100 mg PO BID #28 cap Primary Care Physician: Jian Syed MD [Primary Care Provider] - Test Results: Test results from this visit will be discussed in further detail at your follow-up appointment, if applicable. Please Follow Up With: Dipak Torrez MD When: monday07/02/18 at wound center. Proposed Discharge Date: 06/28/18 06/28/18 1239 <Electronically signed by Dipak Torrez MD> Date Dipak Torrez MD CC: Jian Syed MD; Wound Care Center HISTORY AND PHYSICAL Observed: 06/27/2018 Status: F Source: [place] EXAM 11:38 PM REPOSITORY [facility] Medical Records Department [address] [place] [id number] History and Physical 06/25/18 5148 MR#: [id number] Acct: [id number] Name: NILSON PINA Samla Rep #: [id number] : 1985 33 From: Dipak Torrez MD PCP: Jian Syed MD Status: ADM MARA Y Location: [place] [address] History and Physical Date of Admission: 06/26/18 History of Present Illness: The patient is a 33 year old M who developed a necrotizing MRSA infection left knee with proximal and distal spread that necessitated emergent surgery on 05/04/18 where he underwent surgical preparation left knee and left thigh and left leg with incision and drainage and excisional debridement necrotizing infected MRSA ulcer (275.5 cm2) and multiple left leg and left thigh fasciotomies. Postoperatively he was treated with the VAC and antibiotics for the MRSA. Improvement in the ulcers were seen. The left lateral thigh ulcer has healed. He presents today for further operative debridement and wound closure with skin grafting and complex secondary wound closure. PAST MEDICAL HISTORY Nonhealing MRSA ulcer left knee. Nonhealing ulcers left lateral thigh, left medial thigh, left lateral leg, and left medial leg. PAST SURGICAL HISTORY Surgical preparation left knee and left thigh and left leg with incision and drainage and excisional debridement necrotizing infected MRSA ulcer (275.5 cm2) and multiple left leg and left thigh fasciotomies- 05/04/18. MEDICATIONS Tylenol. Probiotic. Doxycycline. Senokot. Zoloft. Shaggy. ALLERGIES Cleocin. Vancomycin. SOCIAL HISTORY Psychiatric History: No pertinent psych hx Lives: Spouse/ Significant Other Smoking Status: Never smoker Tobacco Use: Chew Alcohol: Occasional Drugs: None FAMILY HISTORY Maternal - No medical history that he is aware of. Paternal - No medical history that he is aware of. REVIEW OF SYSTEMS Constitutional: Denies: Anorexia, Chills, Fever, Malaise, Weakness. Eyes: Denies: Blurred vision, Double vision. HEENT: Denies: Head Aches, Sinus Congestion, Sinus Drainage. Cardiovascular: Denies: Chest Pain, Palpitations. Respiratory: Denies: Cough, Shortness of breath at rest, Sputum production. Gastrointestinal: Denies: Abdominal Pain, Nausea, Vomiting. Genitourinary: Denies: Dysuria. Musculoskeletal: Reports: Leg Pain. Denies: Arm Pain. Skin: Denies: Dryness, Jaundice. Neurological: Denies: Numbness, Tingling, Focal weakness. Psychiatric: Denies: Anxiety, Depression. Hematologic/ Lymphatic: Denies: Easy Bruising, Easy Bleeding, Hx of blood clot. PHYSICAL EXAMINATION General: Alert, Oriented. Patient is shivering. Is fearful. HEENT: PERRL. EOMI. Oral: Moist Mucosa. Neck: soft and nontender. No cervical adenopathy. Lungs: Clear to auscultation. Cardiovascular: Regular rate, Regular Rhythm. Abdomen: Soft, Non-Distended. Extremities: Full range of motion. Dorsalis pedis pulses are palpable. No inguinal adenopathy. No sensory deficits. Skin: - - Healing ulcers on his left knee, left lateral thigh, left medial thigh, left lateral leg, and left medial leg. The left lateral thigh ulcer has healed. The left knee ulcer measures 1.6 x 6.7 x 0.1 cm. The left medial thigh ulcer measures 4 x 0.3 x 0.1 cm. The left medial leg ulcer measures 9 x 1.1 x 0.1 cm. The left lateral leg ulcer measures 4 x 0.3 x 0.1 cm. Good granulation tissue is seen. Musculoskeletal: No Muscle Wasting, Tenderness Neurological: CN II - XII grossly intact, Sensory exam intact to light touch and pain, Coordination normal Psych/Mental Status: Normal Affect, Appropriate ASSESSMENT 1. Nonhealing MRSA ulcer left knee. 2. Ulcer left lateral thigh, healed. 3. Nonhealing ulcer left medial thigh. 4. Nonhealing ulcer left lateral leg. 5. Nonhealing ulcer left medial leg. 6. MRSA. PLAN Recommend further operative debridement and skin grafting and complex secondary wound closure. Will send tissue to Pathology for analysis to rule out carcinoma and to Microbiology for culture. A positive culture may necessitate antibiotic modification. Surgery will be done under general anesthesia with possibly a surgical observation overnight stay in the hospital. Patient was informed of the risks and complications of the procedure including alternatives to surgery. These were discussed with the patient personally. Patient voices understanding and wishes to proceed. Encourage nutritional supplementation with protein to help the healing process. 06/27/18 2338 <Electronically signed by Dipak Torrez MD> Date Dipak Torrez MD Cosigner Signature: Date (if applicable) CC: Dipak Torrez MD; Jian Syed MD; Wound Care Center Signed CBC-COMPLETE BLOOD CNT Collected: 06/27/2018 Status: F Source: [place] NO DIFF 5:54 AM REPOSITORY TYPE CODE TESTS RESULT OUT OF RANGE REFERENCE UNITS LAB L100.1000 4.4-11.0 K/mm3 High WBC 11.4 LAB L100.1200 4.6-6.2 M/mm3 Normal RBC 4.83 LAB L100.1300 13.0-16.5 g/dl Normal HGB 14.1 LAB L100.1400 40-54 % Normal HCT 42.2 LAB L100.1500 80-94 fL Normal MCV 87.4 LAB L100.1600 27.0-32.0 pg Normal MCH 29.2 LAB L100.1700 32-36 g/gl Normal MCHC 33.4 LAB L100.1810 11.6-14.6 % Normal RDW CV 11.8 LAB L100.1820 35.1-43.9 fl Normal RDW SD 37.4 LAB L100.1900 150-450 K/mm3 Normal PLT 187 LAB L100.2000 6.2-12.0 fl Normal MPV 10.7 Performed By: #### L100.0500 #### [facility] [address] [place], [address] BASIC METABOLIC Collected: 06/27/2018 Status: F Source: [place] PROFILE (BMP) 5:54 AM REPOSITORY TYPE CODE TESTS RESULT OUT OF RANGE REFERENCE UNITS LAB L501.0100 74-106 mg/dL High GLU 134 Result Comment: Fasting Glucose result greater than or equal to 126 mg/dL suggests DIABETES MELLITUS per A.D.A. criteria. Please note revised GLUCOSE reference range effective 2017. LAB L501.1000 7-18 mg/dL High BUN 20 LAB L501.1100 0.70-1.30 mg/dL Normal CREAT,SERUM 0.93 Result Comment: The validity of the calculated GFR AND GFRAA in patients over 70 years has not been determined. Clinical correlation is essential. LAB L501.1110 >60 mL/min Normal EST GFR 99 Result Comment: Non- GFR Calc LAB L501.1115 >60 mL/min Normal EST GFR - AA 120 Result Comment: GFR Calc LAB L501.1255 ml/min Normal Estimated CRCL 124.00 LAB L501.1300 10-20 RATIO High BUN/CRE 21.4 LAB L501.2200 8.5-10 mg/dL Low .1 CA 8.2 LAB L501.5300 136-14 mmol/L 5 NA Normal 141 LAB L501.5600 3.5-5. mmol/L 1 K Normal 3.6 LAB L501.5900 98-107 mmol/L CL Normal 105 LAB L501.6100 21.0-3 mmol/L 2.0 CO2 Normal 27.0 LAB L501.6200 5-15 GAP Normal 9 Performed By: #### L500.2500, L506.0500 #### [facility] [address] [place], [address] PREALBUMIN Collected: 06/27/2018 Status: F Source: [place] 5:54 AM [facility] REPOSITORY TYPE CODE TESTS RESULT OUT OF RANGE REFERENCE UNITS LAB L506.0500 20.0-40.0 mg/dL Normal PREALBUMIN 26.4 Performed By: #### L500.2500, L506.0500 #### [facility] [address] [place] [place], [address] Observed: 06/26/2018 Status: F Source: [place] CULTURE, DEEP WOUND 2:14 PM REPOSITORY Order Date: 02/15/17 Comments: Nonhealing MRSA Ulcer, Left Lower Extremity Gram Stain Gram Stain 4+ Red Blood Cells No organisms seen Wound Culture No growth aerobically. Cult, Anaerobic No growth in 5 days. Performed By: #### M100.1500, M600.1900 #### [facility] [address] [place] [place], [address] Observed: 06/26/2018 Status: F Source: [place] CULTURE, FUNGUS W/ 2:14 PM [id number] REPOSITORY Comments: Nonhealing MRSA Ulcer, Left Lower Extremity Is this test to exclude patient from TB Isolation? N Cu,[id number] TESTING PERFORMED AT [facility]. ORIGINAL REPORT ON FILE IN LAB CONTAINS ADDITIONAL TEST SITE INFORMATION. CUF No yeast or mold isolated after [address]136 TESTING PERFORMED AT [facility]. ORIGINAL REPORT ON FILE IN LAB CONTAINS ADDITIONAL TEST SITE INFORMATION. Fungus Stain No yeast or mold observed. Performed By: #### M100.1500, M600.1900 #### [facility] [address] [place] [place], [address] MRSA WOUND DNA BY Collected: 06/26/2018 Status: F Source: [place] PCR 2:14 PM REPOSITORY Order Comment: Comments: Nonhealing MRSA Ulcer Left Lower Extremity TYPE CODE TESTS RESULT OUT OF RANGE REFERENCE UNITS LAB L8200.1100 Negative Normal MRSA Negative RESULT LAB L8200.1150 Negative Normal SA RESULT NEGATIVE Performed By: #### L8200.1075 #### [facility] [address], [address] ULCER Observed: 06/26/2018 Status: F Source: [place] 12:00 AM REPOSITORY Patient: NILSON PINA : 1985 (33/M) Acct Num: [id number] Phys: Dipak Torrez MD Unit Num: [id number] Loc: MS3 [id number] Specimen: [id number] Received: 06/26/18 1459 Spec Type: ULCER TISSUES 1 TISSUES: ULCER GROSS DESCRIPTION Received in fixative is one container labeled with the patient's name and designated nonhealing MRSA ulcer left lower extremity. The specimen consists of two pieces of berrios-white skin with underlying tissue measuring 8 x 2.5 cm and up to 2 cm in thickness and 8 x 1.2 cm and up to 1 cm in thickness. No mass lesion is identified. Behavioral Therapy Coordinator sections are submitted in two cassettes. / POWER:maddie 12/11/18 TC:2 CPT: 85335 HEADER OPERATION: Excision nonhealing MRSA ulcer left medial thigh PRE-OP DIAGNOSIS: Nonhealing MRSA ulcer left knee; nonhealing ulcer left medial thigh; nonhealing ulcer left lateral leg; nonhealing ulcer left medial leg TISSUE SUBMITTED: Nonhealing MRSA ulcer left lower extremity MICROSCOPIC DESCRIPTION Slides are reviewed. MICROSCOPIC DIAGNOSIS Nonhealing MRSA ulcer, left lower extremity: Pieces of skin with underlying soft tissue and skeletal muscle tissue with focal ulceration, acute and chronic inflammation, granulation tissue reaction and dermal fibrosis consistent with scar. SJ:maddie 06/27/18 Signed Brian Soliman 06/27/18 <signature on file> Performed By: #### PUL #### [facility] [address] [facility] [place], [place], [address] URINALYSIS, ROUTINE Collected: 05/26/2018 Status: F Source: [place] (DIPSTICK) 1:00 PM REPOSITORY Order Comment: How was Urine Obtained? CLEAN CATCH TYPE CODE TESTS RESULT OUT OF RANGE REFERENCE UNITS LAB L400.3000 Yellow COLOR Normal Yellow LAB L400.3050 Clear Normal CLARITY Clear LAB L400.3200 Normal mg/dl Normal GLUCOSE, UR Normal LAB L400.3300 Negative mg/dL Normal BILIRUBIN URINE Negative LAB L400.3400 Negative mg/dl Normal KETONE UR Negative LAB L400.3465 1.002-1.030 Normal SP.GR. DIPSTX 1.010 LAB L400.3550 5.0 - 8.0 pH UR Normal 6.5 LAB L400.3600 Negative mg/dl PROT Normal DIPSTX Negative LAB L400.3700 Normal mg/dl Normal UROBILI Normal LAB L400.3750 Negative Normal NITRITE UR Negative LAB L400.3780 Negative /ul Normal OCCULT BLOOD-UR Negative LAB L400.3800 Negative /ul LEUK Normal ESTERASE Negative Performed By: #### L400.2010 #### [facility] [address] [facility] [place], [place], [address] Observed: 05/26/2018 Status: F Source: [place] CULTURE, URINE 1:00 PM REPOSITORY Urine Culture Culture exhibits no growth. Performed By: #### M100.0650 #### [facility] [address] [place], [address] WOUND CTR HISTORY Observed: 05/24/2018 Status: F Source: [place] AND PHYSICAL 11:30 AM REPOSITORY [facility] [address] [place] [address] Wound Ctr History AND Physical 05/21/18 1232 MR#: [id number] Acct: [id number] Name: NILSON PINA Rep #: [id number] : 1985 33 From: Lidia CATALANC PCP: Kunal ALCARAZ,Jian Status: REG RCR Y Location: WC (1) Open wound of left lower leg Status: Acute Code(s): S81.802A - Unspecified open wound, left lower leg, initial encounter Comment: left medial leg and left lateral leg (2) Open wound of left knee Status: Acute Code(s): S81.002A - Unspecified open wound, left knee, initial encounter (3) Open wound of left thigh Status: Acute Code(s): S71.102A - Unspecified open wound, left thigh, initial encounter Comment: left medial thigh and left lateral thigh (4) MRSA (methicillin resistant Staphylococcus aureus) infection Status: Acute Code(s): A49.02 - Methicillin resistant Staphylococcus aureus infection, unspecified site (5) Abscess of left knee Status: Acute Code(s): L02.416 - Cutaneous abscess of left lower limb (6) Necrotizing soft tissue infection Status: Acute Code(s): M79.89 - Other specified soft tissue disorders (7) Left leg cellulitis Status: Acute Code(s): L03.116 - Cellulitis of left lower limb History of Present Illness Date of Service: 05/21/18 Chief Complaint: Multiple open wounds on left leg after surgery 05/04/18 for necrotizing infection. History of Wound: 04/29/18 He popped a pimple on his left knee. Presented to Ed 04/30/17 and diagnosed with cellulits. Admitted 05/02/18 for worsening symptoms and started on Unasynand Vancomycin. Wound culture showed MRSA. Symptoms worsened while on IV antibiotics, taken to the OR 05/04/18 for 1. Surgical preparation left knee and left thigh and left leg with incision and drainage and excisional debridement necrotizing infected MRSA ulcer (274.4 cm2). 2. Multiple left leg and left thigh fasciotomies. He was discharged 05/18/18 from TCU. ID discontinued his antibiotics before discharged to home. Past Medical History Surgical History: no surgical history Allergies/Adverse Reactions: Allergies clindamycin Allergy (Verified 05/21/18 10:53) Hives vancomycin Allergy (Verified 05/21/18 10:53) Hives Home Medications: Ambulatory Orders Medication Instructions Recorded - Family History Maternal - - No medical history that he is aware of. Paternal - - Medical history that he is aware of Smoking Status: Never smoker Review of Systems Constitutional: Denies: Anorexia, Chills, Fever HEENT: Denies: Difficulty Hearing, Difficulty Swallowing, Sinus Congestion Cardiovascular: Denies: Chest Pain, Palpitations Respiratory: Denies: Cough, Shortness of Breath Gastrointestinal: Denies: Diarrhea, Nausea, Vomiting Musculoskeletal: Denies: Joint Pain, Joint stiffness, Joint swelling Skin: Reports: Wounds - Multiple left leg wounds. Neurological: Denies: Balance problems, Blurred vision, Change in Speech, Incoordination Psychiatric: Denies: Anxiety Endocrine: Denies: Heat/ Cold Intolerance - Physical Exam Vital Signs Temp Pulse Resp BP 98.2 F 91 18 130/69 H 05/21/18 10:11 05/21/18 10:11 05/21/18 10:11 05/21/18 10:11 General: Alert, Oriented x3, Cooperative HEENT: Atraumatic, PERRLA Oral: Moist Mucosa Lungs: Normal air movement Cardiovascular: Regular rate Extremities: No clubbing, No Calf Tenderness, Edema - +1 edema left lower leg., Peripheral Pulses Normal Skin: Ulcer/ Wound - Left lateral and medial thigh, left knee and left medial and lateral lower leg. Wound Measurements and Assessment WC - Nurse 1 - General Ulcer Measurement Start: 05/21/18 10:11 Freq: Status: Active Protocol: Activity Type Activity Date Activity User E-Sign Co-Sign Detail Recorded Client Recorded Date Recorded By Document 05/21/18 10:11 ANATOLY [id number] 05/21/18 10:51 DL Wound Center Nurse 1 [Ulcer Assessment] 5 left lateral lower leg WC - Nurse 2 - General Ulcer CM Notes Start: 05/21/18 10:11 Freq: Status: Active Protocol: Activity Type Activity Date Activity User E-Sign Co-Sign Detail Recorded Client Recorded Date Recorded By Document 05/21/18 11:29 AURORA [id number] 05/21/18 11:48 Wound Center Nurse 2 [Procedure/Treatment] 5 left lateral lower leg -Time 11:38 -Correct Patient Yes -Correct Side, Site, Position Yes -Correct Procedure Yes Musculoskeletal: No Tenderness to Palpation of Joints or Extremities Neurological: Neuro grossly intact Psych/Mental Status: Normal Affect, Appropriate Debridement Note Post-Debridement Measurements/Treatment WC - Nurse 2 - General Ulcer CM Notes Start: 05/21/18 10:11 Freq: Status: Active Protocol: Activity Type Activity Date Activity User E-Sign Co-Sign Detail Recorded Client Recorded Date Recorded By Document 05/21/18 11:29 [id number] 05/21/18 11:48 Wound debrided: Left lateral thigh Laterality: Left Type of Debridement: Excisional debridement Anesthesia Used: 4% Lidocaine Solution Depth: Down to and including healthy tissue, in the subcutaneous layer Percentage of wound debrided: 100 Instrument Used: 3mm curette Tissue Removed: Subcutaneous tissue and slough Severity: Fat Layer Exposed Amount of bleeding with debridement: Mild Bleeding Controlled with: Pressure, Compression and gauze Patient did not tolerate procedure well - Additional Wound Wound debrided: Left knee Laterality: Left Type of Debridement: Excisional debridement Anesthesia Used: 4% Lidocaine Solution Depth: Down to and including healthy tissue, in the subcutaneous layer Percentage of wound debrided: 100 Instrument Used: 3mm curette Tissue Removed: Large amount of subcutaneous tissue, slough and bioderm Severity: Fat Layer Exposed Amount of bleeding with debridement: Moderate Bleeding Controlled with: Compression and gauze Patient tolerated procedure: Patient did not tolerate procedure well - Additional Wound Wound debrided: Left lateral lower leg Laterality: Left Type of Debridement: Excisional debridement Anesthesia Used: 4% Lidocaine Solution Depth: Down to and including healthy tissue, in the subcutaneous layer Percentage of wound debrided: 100 Instrument Used: 3mm curette Tissue Removed: Subcutaneous tissue and slough Severity: Fat Layer Exposed Amount of bleeding with debridement: Mild Bleeding Controlled with: Pressure, Compression and gauze Patient tolerated procedure: Patient did not tolerate procedure well - Additional Wound Wound debrided: Left medial thigh Laterality: Left Type of Debridement: Excisional debridement Anesthesia Used: 4% Lidocaine Solution Depth: Down to and including healthy tissue, in the subcutaneous layer Percentage of wound debrided: 100 Instrument Used: 3mm curette Tissue Removed: Subcutaneous tissue and slough Severity: Fat Layer Exposed Amount of bleeding with debridement: Moderate Bleeding Controlled with: Pressure, Compression and gauze, Silver Nitrate Patient tolerated procedure: Patient did not tolerate procedure well - Additional Wound Wound debrided: Left medial lower leg Laterality: Left Type of Debridement: Excisional debridement Anesthesia Used: 4% Lidocaine Solution Depth: Down to and including healthy tissue, in the subcutaneous layer Percentage of wound debrided: 100 Instrument Used: 3mm curette Tissue Removed: Subcutaneous tissue and slough Severity: Fat Layer Exposed Amount of bleeding with debridement: Mild Bleeding Controlled with: Pressure Patient tolerated procedure: Patient did not tolerate procedure well Assessment/Plan Assessment: 1. Open wound of left lower leg (Acute). 2. Left medial leg and left lateral leg. 3. Open wound of left knee (Acute). 4. Open wound of left thigh (Acute). 5. Left medial thigh and left lateral thigh. 6. MRSA (methicillin resistant Staphylococcus aureus) infection (Acute) Plan: The patient was seen and examinied at the wound center today and a plan of care was established. A subcutaneous debridement was performed today. The patient did not tolerate debridement well. He was having a lot of pain during this time. Once the debridement was complete, he was doing fine. He has finished his antibiotics and they were discontinued by ID. Will continue the wound VAC to all open areas. Encouraged increased protein. He has been taking Shaggy along with eating increased protein. Also encouraged to start taking Ibuprofen with food every 6 hours to help with pain and inflammation. Will follow up in one week with Dr. Torrez. Code Visit 24118 05/24/18 4200 <Electronically signed by Lidia LUGO> Date Lidia LUGO CC: Signed DISCHARGE SUMMARY Observed: 05/16/2018 Status: F Source: [place] 8:01 PM REPOSITORY [facility] Medical Records Department [address] [place] [address] Discharge Summary 05/16/181957 MR#: [id number] Acct: [id number] Name: NILSON PINA Rep #: [id number] : 1985 33 From: Marvin Lee MD PCP: Jian Syed MD Status: ADM IN Y Location: [place] [address] Discharge Date and Diagnosis Date of Admission: 05/11/18 Date of Discharge: 05/18/18 Hospital Course and Treatment Imaging Results: 05/11/18 16:34 Diet: Regular Diet Consultations 05/11/18 Consult: Onc/Wound/lead data entry operator Routine Comment: Operations: None, - - Status post incision and drainage: Patient Name: NILSON PINA RMedical Record Number: [id number] Date of : [birth year]Patient Status: Inpatient Attending Provider: Fortunato LucioAccount Number: [id number] Date: 05/04/18 23:13Initialization Date: 05/05/18 12:33 Report of Operation Date of Procedure: 05/04/18 Pre- Operative Diagnosis: 1. Infected MRSA ulcer left knee. 2. Worsening cellulitis extending proximally onto thigh and distally onto leg. 3. MRSA. 4. Possible necrotizing infection. Post-Operative Diagnosis: 1. Necrotizing infected MRSA ulcer left knee. 2. Worsening cellulitis extending proximally onto thigh and distally onto leg. 3. MRSA. Surgery/Procedure Performed:: 1. Surgical preparation left knee and left thigh and left leg with incision and drainage and excisional debridement necrotizing infected MRSA ulcer (275.5 cm2). 2. Multiple left leg and left thigh fasciotomies. Description of Surgical Findings:: The patient is a 33 year old M who was recently admitted to the hospital on 05/02/18 because of increasing pain and redness and swelling in his left lower extremity. On Monday. 04/29/18, patient noted a pimple on his left kneecap that would irritate him when he would wear pants. Patient's tried to squeeze it and did get some slight purulence out. Went to work and noted that he had some swelling in his right knee. Presented to the emergency room on 04/30/17 and diagnosed with cellulitis. Patient was discharged on clindamycin. Patient continued to have worsening symptoms and went to the ED on 05/02/18 and was admitted. He received Unasyn and was started on Vancomycin. Upon admission his Temp was 102.2. It is still low grade at 99.6. His WBC on admission was 16.7 and has only improved slightly to 15.6 despite being on Vancomycin. CT was done on 05/03/18 which showed Superficial soft tissue swelling with fluid accumulations along the fatty and superficial muscular fascial planes from the mid thigh to the mid lower leg, as noted. No defined rim-enhancing collection to indicate an abscess. No acute osseous abnormality to suggest osteomyelitis. Initial culture from the infected ulcer showed MRSA. Despite the Vancomycin, the cellulitis has spread. Because of his worsening symptomatology, I was asked to evaluate this patient for surgical options for treatment. There was concern about a necrotizing process and urgent surgical debridement was recommended CHASITY. Patient was informed of the risks and complications of the procedure including alternatives to surgery. These were discussed with the patient personally. Patient voices understanding and wishes to proceed. Patient understands that there will be several open wounds after the surgery. He voices understanding and wishes to proceed. He understands that if surgery is not done, he is at increased risk for worsening infection, amputation, or . Size of defect left knee - 12.5 x 3 x 1 cm. Size of defect left medial thigh - 14 x 5 x 4 cm. Size of defect left medial leg - 15 x 4 x 2.5 cm. Size of defect left lateral thigh - 15 x 4 x 3 cm. Size of defect left lateral leg - 16 x 3 x 1 cm. manager math: None Type of Anesthesia:: General Specimen's removed: Left knee and lower extremity necrotizing MRSA ulcer to Pathology and Microbiology. Drains: None. Estimated Blood Loss (mL): 150 ml. Description of Procedure: Patient was taken to OR in supine position and was placed under general anesthesia. The left lower extremity was prepped and draped in the usual fashion. SCD's were placed on the right leg for DVT prophylaxis . Perioperative antibiotics were given intravenously. A lagos catheter was then placed. I probed the MRSA ulcer left knee and there was a large cavity which extended laterally. Copious amounts of thick discolored looking pus was expressed with some odor. I proceeded with an aggressive incision and drainage to open up the undermined areas. The initial circular incision around the knee ulcer extended as a horizontal ellipse to encompass the extension of the pus laterally. There was a lot of necrotizing subcutaneous tissue. No exposed bone was seen. Due to the rapidity of the worsening of the cellulitis and the lack of CT findings, I was concerned about a necrotizing process and made several longitudinal incisions both proximally on the thigh and distally on the leg. The incisions were made on both the medial and lateral aspects. The subcutaneous tissue was necrotic and brownish grayish looking. Some bubbles were noted in the subcutaneous tissue. I extended the incisions down to the muscle and fascia. The fascia was inflamed and looked viable. Fasciotomies were placed and the underlying muscles were initially dusky but became pink and viable with releasing some tension and irrigation with saline and allowing air into the wounds. So I made 4 separate longitudinal incisions (medial thigh, lateral thigh, medial leg, and lateral leg). Fasciotomies were made in all the incisions. The firmness of the skin softened up fairly quickly after these incisions were made. A lot of edema was seen in the wounds and extra gauze bandages and suction was needed to keep the wounds relatively dry. Tissue that was removed tonight was sent to Pathology for analysis to rule out carcinoma and to Microbiology for culture. A positive culture may necessitate antibiotic modification. He has MRSA thus far. After irrigation of the wounds in a pulsatile fashion, I obtained hemostasis with electrocautery. The size of the defects created with the multiple incisions were - 12.5 x 3 x 1 cm for the left knee with extension laterally, 14 x 5 x 4 cm for the left medial thigh, 15 x 4 x 2.5 cm for the left medial leg, 15 x 4 x 3 cm for the left lateral thigh, and 16 x 3 x 1 cm for the left lateral leg for a combined 275.5 cm2. The wounds were then dressed with Mepitel nonadherent dressing followed by Kerlix gauze with Betadine followed by dry Kerlix gauze followed by 6 inch marie wraps for compression. Patient tolerated the procedure well and was sent to PACU in stable condition. Patient will be sent upstairs for continued postop care. With multiple wounds, will begin wound care with Silver dressing changes daily. Will reassess clinically over the next several days to see if additional operative intervention is necessary depending on how the wounds look during the healing process and how well the patient is doing clinically. Grafts/Implants Used: None. - Complications None. - Admit VTE Documentation VTE Present on Admission: No VTE Mechan Device Prophylaxis: SCD's VTE Pharm Prophylaxis ordered?: Yes Additional CC's: [facility] Procedures: None Summary of Care Provided: The patient is a 33 year old Male with below past medical history hospitalized for sepsis, secondary to MRSA cellulitis left knee, requiring incision, drainage, fasciotomies, left knee, thigh, leg x 5, admitted to TCU with debility, here for rehabilitation, strengthening, prior to discharge home with spouse. Discharge home with spouse, and Home Health Services. - Physical Exam Vital Signs Temp Pulse Resp BP Pulse Ox 97.9 F 87 16 131/76 H 98 05/16/18 15:37 05/16/18 15:37 05/16/18 15:37 05/16/18 15:37 05/16/18 15:37 Oxygen Delivery Method Room Air Weight: 108.097 kg Body Mass Index (BMI) 32.4 Intake and Output for Last 24 Hours Intake Total 1480 / 1480 1620 / 1620 1080 / 1080 Output Total 1000 / 1000 1900 / 1900 Balance 480 / 480 -280 / -280 1080 / 1080 Discharge Diet: No Restrictions Discharge Activity: Return to Normal Activity, May Shower, Use Walker May resume sexual activity in: No Restrictions Weight Bearing Status: Weight bearing as tolerated Call your doctor if you observe: Fever of 101 or Higher, Inability to urinate, Inability to have a bowel movement, Shortness of breath, Chest pain, Uncontrolled pain Home Medications: Medications to take at Discharge Acetaminophen [Tylenol Tablet] 650 mg PO Q6H PRN PRN #0 tablet 05/11/18 DiphenhydrAMINE [Benadryl] 25 mg PO TID PRN PRN capsule 05/11/18 Lactobacillus Acidophilus [Acidophilus] 1 tablet PO TID 05/11/18 Diazepam [Valium] 10 mg PO DAILY PRN 30 Days #30 tab 05/16/18 Famotidine [Pepcid] 20 mg PO BID #60 tablet 05/16/18 Gabapentin [Neurontin] 300 mg PO BIDCM #60 capsule 05/16/18 Hydrocortisone 2.5% Crm [Hytone] 1 applic TOPICAL BID #1 tube 05/16/18 Nutritional Supplement [Shaggy - ORANGE FLAVOR] 1 packet PO BIDCM #60 packet 05/16/18 Ondansetron [Zofran Odt] 8 mg PO Q6H PRN PRN #60 tablet 05/16/18 Oxycodone [Oxyir] 10 mg PO Q4H PRN PRN 7 Days #84 tab 05/16/18 Polyethylene Glycol 3350 [Miralax] 17 gm PO DAILY #30 packet 05/16/18 Senna/Docusate Sodium [Senokot-S] 1 tablet PO BID PRN #60 tablet 05/16/18 fentaNYL patch [Duragesic patch] 25 mcg TRANSDERM. Q3D 14 Days #5 patch 05/16/18 Following Prescrptions Were Given to Patient: Oxycodone [Oxyir] 10 mg PO Q4H PRN PRN 7 Days #84 tab PRN Reason: Severe Pain (6-10/10) Ondansetron [Zofran Odt] 8 mg PO Q6H PRN PRN #60 tablet PRN Reason: NAUSEA/VOMITING Diazepam [Valium] 10 mg PO DAILY PRN 30 Days #30 tab PRN Reason: Anxiety fentaNYL patch [Duragesic patch] 25 mcg TRANSDERM. Q3D 14 Days #5 patch Polyethylene Glycol 3350 [Miralax] 17 gm PO DAILY #30 packet Famotidine [Pepcid] 20 mg PO BID #60 tablet Gabapentin [Neurontin] 300 mg PO BIDCM #60 capsule Hydrocortisone 2.5% Crm [Hytone] 1 applic TOPICAL BID #1 tube Nutritional Supplement [Shaggy - ORANGE FLAVOR] 1 packet PO BIDCM #60 packet Senna/Docusate Sodium [Senokot-S] 1 tablet PO BID PRN #60 tablet PRN Reason: Constipation Primary Care Physician: Jian Syed MD [Primary Care Provider] - Please follow up with your Primary Care Physician in: 1 week. Please Follow Up With: [facility] When: 3 days. Disposition: Home with Home Health Minutes spent on discharge:: 35 Patient Condition:: Good Medical Necessity - Tobacco Use Smoking Status: Never smoker Tobacco Use: Chew Meaningful Use Info Meaningful Use Diagnoses (Choose all that apply): None applicable 05/16/182000 <Electronically signed by Marvin Lee MD> Date Marvin Lee MD Cosigner Signature (if applicable): Date CC: Jian Syed MD; Marvin Lee MD Signed HOME HEALTH PROGRESS Observed: 05/16/2018 Status: F Source: [place] NOTE 8:01 PM REPOSITORY [facility] Medical Records Department [address] [place] [address] Home Health Progress Note [id number] Encounter Encounter Date: 05/16/181999 MR#: [id number] Acct: [id number] Name: NILSON PINA Rep #: [id number] : 1985 33 From: Marvin Lee MD PCP: Jian Syed MD Status: ADM IN Location: [place] [address] Home Health Note - Plan Overview of reason of hospitalization: The patient is a 33 year old Male with below past medical history hospitalized for sepsis, secondary to MRSA cellulitis left knee, requiring incision, drainage, fasciotomies, left knee, thigh, leg x 5, admitted to TCU with debility, here for rehabilitation, strengthening, prior to discharge home with spouse. Discharge home with spouse, and Home Health Services. Problems: Complete List of Medical Problems Open wound of left lower leg (Acute) Open wound of left knee (Acute) Open wound of left thigh (Acute) Abscess of left knee (Acute) MRSA (methicillin resistant Staphylococcus aureus) infection (Acute) Necrotizing soft tissue infection (Acute) Left leg cellulitis (Acute) Sepsis (Acute) - Requirements and Reasons Disciplines Needed/Ordered: Jail Reason for Disciplines: Disease Specific Monitoring/education, Wound Care Related To: Limited/Poor Endurance, Intractable Pain Patient is unable to leave the home: Without Aid of Supportive Devices (crutches, cane, wheelchair, walker), Without the assistance of another person 05/16/182000 <Electronically signed by Marvin Lee MD> Date Marvin Lee MD [facility] Signature (if indicated): Date CC: Signed DISCHARGE INSTRUCTION Observed: 05/16/2018 Status: F Source: [place] 7:58 PM REPOSITORY [facility] Medical Records Department [address] [place] [address] Instructions for Home/Discharge Instructions 05/16/18 195 MR#: [id number] Acct: [id number] Name: NILSON PINA Rep #: [id number] : 1985 33 From: Marvin Lee MD PCP: Kunal ALCARAZ,Jian Status: ADM IN You will use the following diet at home:: No restrictions, Regular Your food should be the consistency of: Regular Your liquids should be the consistency of: Regular/Thin Discharge Activity: Return to Normal Activity, May Shower, Use Walker May resume sexual activity in: No Restrictions Weight Bearing Status: Weight bearing as tolerated Call your doctor if you observe: Fever of 101 or Higher, Inability to urinate, Inability to have a bowel movement, Shortness of breath, Chest pain, Uncontrolled pain Allergies/Adverse Reactions: Allergies clindamycin Allergy (Verified 05/11/18 15:02) Hives vancomycin Allergy (Verified 05/11/18 15:02) Hives Medications to take at Discharge Acetaminophen [Tylenol Tablet] 650 mg PO Q6H PRN PRN #0 tablet 05/11/18 DiphenhydrAMINE [Benadryl] 25 mg PO TID PRN PRN capsule 05/11/18 Lactobacillus Acidophilus [Acidophilus] 1 tablet PO TID 05/11/18 Diazepam [Valium] 10 mg PO DAILY PRN 30 Days #30 tab 05/16/18 Famotidine [Pepcid] 20 mg PO BID #60 tablet 05/16/18 Gabapentin [Neurontin] 300 mg PO BIDCM #60 capsule 05/16/18 Hydrocortisone 2.5% Crm [Hytone] 1 applic TOPICAL BID #1 tube 05/16/18 Nutritional Supplement [Shaggy - ORANGE FLAVOR] 1 packet PO BIDCM #60 packet 05/16/18 Ondansetron [Zofran Odt] 8 mg PO Q6H PRN PRN #60 tablet 05/16/18 Oxycodone [Oxyir] 10 mg PO Q4H PRN PRN 7 Days #84 tab 05/16/18 Polyethylene Glycol 3350 [Miralax] 17 gm PO DAILY #30 packet 05/16/18 Senna/Docusate Sodium [Senokot-S] 1 tablet PO BID PRN #60 tablet 05/16/18 fentaNYL patch [Duragesic patch] 25 mcg TRANSDERM. Q3D 14 Days #5 patch 05/16/18 The following prescriptions were given: Oxycodone [Oxyir] 10 mg PO Q4H PRN PRN 7 Days #84 tab PRN Reason: Severe Pain (6-10/10) Ondansetron [Zofran Odt] 8 mg PO Q6H PRN PRN #60 tablet PRN Reason: NAUSEA/VOMITING Diazepam [Valium] 10 mg PO DAILY PRN 30 Days #30 tab PRN Reason: Anxiety fentaNYL patch [Duragesic patch] 25 mcg TRANSDERM. Q3D 14 Days #5 patch Polyethylene Glycol 3350 [Miralax] 17 gm PO DAILY #30 packet Famotidine [Pepcid] 20 mg PO BID #60 tablet Gabapentin [Neurontin] 300 mg PO BIDCM #60 capsule Hydrocortisone 2.5% Crm [Hytone] 1 applic TOPICAL BID #1 tube Nutritional Supplement [Shaggy - ORANGE FLAVOR] 1 packet PO BIDCM #60 packet Senna/Docusate Sodium [Senokot-S] 1 tablet PO BID PRN #60 tablet PRN Reason: Constipation Primary Care Physician: Jian Syed MD [Primary Care Provider] - Please follow up with your Primary Care Physician in: 1 week. Test Results: Test results from this visit will be discussed in further detail at your follow-up appointment, if applicable. Proposed Discharge Date: 05/18/18 05/16/181957 <Electronically signed by Marvin Lee MD> Date Marvin Lee MD CC: Jian Syed MD; Alec Royal MD CBC W/DIFF, AUTOMATED Collected: 05/12/2018 Status: F Source: [place] 6:12 AM REPOSITORY TYPE CODE TESTS RESULT OUT OF RANGE REFERENCE UNITS LAB L100.1000 4.4-11.0 K/mm3 High WBC 13.6 LAB L100.1200 4.6-6.2 M/mm3 Low RBC 4.43 LAB L100.1300 13.0-16.5 g/dl Low HGB 12.8 LAB L100.1400 40-54 % Normal HCT 40.7 LAB L100.1500 80-94 fL Normal MCV 91.9 LAB L100.1600 27.0-32.0 pg Normal MCH 28.9 LAB L100.1700 32-36 g/gl Low MCHC 31.4 LAB L100.1810 11.6-14.6 % Normal RDW CV 12.3 LAB L100.1820 35.1-43.9 fl Normal RDW SD 41.5 LAB L100.1900 150-450 K/mm3 Normal PLT 301 LAB L100.2000 6.2-12.0 fl Normal MPV 10.2 LAB L100.2100 47-70 % Normal NEUT% 51.3 LAB L100.2200 19-41 % Normal LY% 35.0 LAB L100.2300 0-10 % Normal MONO% 8.0 LAB L100.2400 0-5 % Normal EO% 3.7 LAB L100.2500 0-1 % Normal BASO% 0.3 LAB L100.2550 0.0-0.9 % High IM GRAN % 1.700 Result Comment: IG% - Immature Granulocytes (promyelocytes, myelocytes and metamyelocytes) > 1% indicates that a LEFT SHIFT is Present. LAB L100.2620 2.0-7.7 X10 3/uL Normal Absolute Neut 7.0 LAB L100.2720 0.83-4.51 X10 3/ul High Absolute Lymph 4.76 Performed By: #### L100.0100 #### [facility] [address] [place], [place], [id number] BASIC METABOLIC Collected: 05/12/2018 Status: F Source: [place] PROFILE (BMP) 6:12 AM REPOSITORY TYPE CODE TESTS RESULT OUT OF RANGE REFERENCE UNITS LAB L501.0100 74-106 mg/dL Normal GLU 102 Result Comment: Fasting Glucose result from 100 to 125 mg/dL suggests IMPAIRED HOMEOSTASIS per A.D.A. criteria. Please note revised GLUCOSE reference range effective 2017. LAB L501.1000 7-18 mg/dL High BUN 28 LAB L501.1100 0.70-1.30 mg/dL Normal CREAT,SERUM 1.01 Result Comment: The validity of the calculated GFR AND GFRAA in patients over 70 years has not been determined. Clinical correlation is essential. LAB L501.1110 >60 mL/min Normal EST GFR 90 Result Comment: Non- GFR Calc LAB L501.1115 >60 mL/min Normal EST GFR - AA 109 Result Comment: GFR Calc LAB L501.1255 ml/min Normal Estimated CRCL 114.18 LAB L501.1300 10-20 RATIO High BUN/CRE 27.7 LAB L501.2200 8.5-10 mg/dL Low .1 CA 8.0 LAB L501.5300 136-14 mmol/L 5 NA Normal 139 LAB L501.5600 3.5-5. mmol/L 1 K Normal 3.9 LAB L501.5900 98-107 mmol/L CL Normal 105 LAB L501.6100 21.0-3 mmol/L 2.0 CO2 Normal 28.0 LAB L501.6200 5-15 GAP Normal 6 Performed By: #### L500.2500 #### [facility] [address] [place], [address] HISTORY AND PHYSICAL Observed: 05/11/2018 Status: F Source: [place] EXAM 4:37 PM REPOSITORY [facility] Medical Records Department [address] [place] [address] History and Physical 05/11/18 1614 MR#: [id number] Acct: [id number] Name: NILSON PINA Rep #: [id number] : 1985 33 From: Marvin Lee MD PCP: Jian Syed MD Status: ADM IN Y Location: [address] Problem List (1) Open wound of left lower leg Status: Acute Comment: left medial leg and left lateral leg (2) Open wound of left knee Status: Acute (3) Open wound of left thigh Status: Acute Comment: left medial thigh and left lateral thigh (4) Abscess of left knee Status: Acute (5) MRSA (methicillin resistant Staphylococcus aureus) infection Status: Acute (6) Left leg cellulitis Status: Acute (7) Sepsis Status: Acute History of Present Illness Date of Admission: 05/11/18 Chief Complaint: Here for rehabilitation, strengthening, prior to discharge home with spouse. The patient is a 33 year old Male with below past medical history presented to [facility] Emergency Department 05/02/2018 with left knee swelling, redness. Going on for 5 days, started as pimple left knee, spouse tried to express it. Start on Clindamycin without improvement. Wound culture sent. Unasyn, Vancomycin IV given. 05/02/2018 Admit to Hospital. Vancomycin IV. Failed Clindamycin. 05/03/2018 CT of left knee showed cellulitis with fluid collections. 05/04/2018 Dr. Royal noted left knee worsening on IV Vancomycin. Recommend incision and drainage. 05/04/2018 Dr. Torrez noted MRSA, recommend incision and drainage. 05/04/2018 Dr. Torrez performed incision and drainage, left knee left thigh, left leg. Left thigh, left leg fasciotomies, wound vac applied. Developed drug rash from Vancomycin, Clindamycin. Treated with Solu-Medrol. Elevated WBC from Solu-Medrol, Hydrocortisone cream PRN. IV Zyvox for MRSA, transitioned to oral Zyvox. Gabapentin for neuropathic pain. 05/09/2018 Doppler ultrasound left lower extremity NEGATIVE for DVT. 05/11/2018 Admit to TCU with debility, here for rehabilitation, strengthening, wound care, prior to discharge home with spouse. Past Medical History Allergies clindamycin Allergy (Verified 05/11/18 15:02) Hives vancomycin Allergy (Verified 05/11/18 15:02) Hives Home Medications: Ambulatory Orders Medication Instructions Recorded Acetaminophen [Tylenol Tablet] 650 mg PO Q6H PRN PRN #0 tablet 05/11/18 Surgical History: no surgical history Psychiatric History: No pertinent psych hx Lives: Spouse/ Significant Other Smoking Status: Never smoker Tobacco Use: Chew Alcohol: Occasional Drugs: None - *Family History Maternal History Items: - - No medical history that he is aware of. Paternal History Items: - - Medical history that he is aware of Review of Systems Constitutional: Denies: Chills, Fever, Weight Change HEENT: Denies: Head Aches, Sinus Congestion, Sinus Drainage Cardiovascular: Denies: Chest Pain, Palpitations Respiratory: Denies: Cough, Shortness of breath at rest, Sputum production Gastrointestinal: Denies: Abdominal Pain, Nausea, Vomiting Genitourinary: Denies: Dysuria Musculoskeletal: Denies: Joint Pain, Joint Tenderness Skin: Denies: Rash, Wounds Neurological: Denies: Numbness, Tingling, Focal weakness Psychiatric: Denies: Anxiety, Depression, Homicidal Ideations, Suicidal Ideations Hematologic/ Lymphatic: Denies: Easy Bruising, Easy Bleeding VTE Information - Inpt Only VTE Present on Admission: No VTE Mechan Device Prophylaxis: Knee High SERG Hose VTE Pharm Prophylaxis ordered?: Yes - Physical Exam General: Alert, Oriented x3, Cooperative HEENT: Atraumatic, PERRLA, EOMI, Normocephalic Neck: Supple, No JVD, Negative Carotid Bruits Lungs: Clear to auscultation, Normal air movement Cardiovascular: Regular rate, No murmurs Abdomen: Bowel Sounds Present, Soft, Non Tender Extremities: No edema, Capillary Refill Less than 3 Seconds, Edema - 1+ pitting edema left lower extremity., - - Wound vac on left patella, left medial thigh, left lateral thigh, left medial leg, left medial thigh. Skin: No rashes, No breakdown Musculoskeletal: No Tenderness to Palpation of Joints or Extremities Neurological: Cranial nerves II-XII grossly intact Psych/Mental Status: Normal Affect, Appropriate Assessment/Plan All Active Problems Open wound of left lower leg (Acute) Open wound of left knee (Acute) Open wound of left thigh (Acute) Abscess of left knee (Acute) MRSA (methicillin resistant Staphylococcus aureus) infection (Acute) Necrotizing soft tissue infection (Acute) Left leg cellulitis (Acute) Sepsis (Acute) 33 year old male with below past medical history hospitalized for sepsis, secondary to MRSA cellulitis left knee, requiring incision, drainage, fasciotomies, left knee, thigh, leg x 5, admitted to TCU with debility, here for rehabilitation, strengthening, prior to discharge home with spouse. * Debility - PT/OT. * Pain - Tylenol 650MG Q6H PRN mild pain, Oxycodone 10MG Q4H PRN moderate pain. * Bowel - Miralax 17GM daily, Senna/colace 1 tablet BID PRN, Dulcolax 10MG po daily PRN. * Pneumonia vaccination - not recommended. * DVT prophylaxis - Lovenox 40MG sc daily. * Pruritus - Benadryl 25MG TID PRN, Hydrocortisone 2.5% cream BID. * Nutrition - Ensure Clear 120ML 4x/day, Shaggy 1 packet BID. * GERD - Famotidine 20MG twice daily. * Neuropathic pain - Gabapentin 300MG twice daily. * GI prophylaxis - Lactobacillus 1 tablet twice daily. * MRSA cellulitis - status post incision/drainage/fasciotomy, Linezolid 600MG PO BID, stop date per Dr. Royal. 05/11/18 1637 <Electronically signed by Marvin Lee MD> Date Marvin eLe MD Cosigner Signature: Date (if applicable) CC: Jian Syed MD; Marvin Lee MD Signed OPERATIVE REPORT Observed: 05/11/2018 Status: F Source: [place] 1:15 PM REPOSITORY [facility] Medical Records Department [address] [place] [id number] Operative Report 05/04/18 2313 MR#: [id number] Acct: [id number] Name: NILSON PINA Rep #: [id number] : 1985 33 From: Dipak Torrez MD PCP: Jian Syed MD Status: ADM IN Location: [facility] [id number] Report of Operation Date of Procedure: 05/04/18 Pre-Operative Diagnosis: 1. Infected MRSA ulcer left knee. 2. Worsening cellulitis extending proximally onto thigh and distally onto leg. 3. MRSA. 4. Possible necrotizing infection. Post-Operative Diagnosis: 1. Necrotizing infected MRSA ulcer left knee. 2. Worsening cellulitis extending proximally onto thigh and distally onto leg. 3. MRSA. Surgery/Procedure Performed:: 1. Surgical preparation left knee and left thigh and left leg with incision and drainage and excisional debridement necrotizing infected MRSA ulcer (275.5 cm2). 2. Multiple left leg and left thigh fasciotomies. Description of Surgical Findings:: The patient is a 33 year old M who was recently admitted to the hospital on 05/02/18 because of increasing pain and redness and swelling in his left lower extremity. On Monday. 04/29/18, patient noted a pimple on his left kneecap that would irritate him when he would wear pants. Patient's tried to squeeze it and did get some slight purulence out. Went to work and noted that he had some swelling in his right knee. Presented to the emergency room on 04/30/17 and diagnosed with cellulitis. Patient was discharged on clindamycin. Patient continued to have worsening symptoms and went to the ED on 05/02/18 and was admitted. He received Unasyn and was started on Vancomycin. Upon admission his Temp was 102.2. It is still low grade at 99.6. His WBC on admission was 16.7 and has only improved slightly to 15.6 despite being on Vancomycin. CT was done on 05/03/18 which showed Superficial soft tissue swelling with fluid accumulations along the fatty and superficial muscular fascial planes from the mid thigh to the mid lower leg, as noted. No defined rim-enhancing collection to indicate an abscess. No acute osseous abnormality to suggest osteomyelitis. Initial culture from the infected ulcer showed MRSA. Despite the Vancomycin, the cellulitis has spread. Because of his worsening symptomatology, I was asked to evaluate this patient for surgical options for treatment. There was concern about a necrotizing process and urgent surgical debridement was recommended CHASITY. Patient was informed of the risks and complications of the procedure including alternatives to surgery. These were discussed with the patient personally. Patient voices understanding and wishes to proceed. Patient understands that there will be several open wounds after the surgery. He voices understanding and wishes to proceed. He understands that if surgery is not done, he is at increased risk for worsening infection, amputation, or . Size of defect left knee - 12.5 x 3 x 1 cm. Size of defect left medial thigh - 14 x 5 x 4 cm. Size of defect left medial leg - 15 x 4 x 2.5 cm. Size of defect left lateral thigh - 15 x 4 x 3 cm. Size of defect left lateral leg - 16 x 3 x 1 cm. manager math: None Type of Anesthesia:: General Specimen's removed: Left knee and lower extremity necrotizing MRSA ulcer to Pathology and Microbiology. Drains: None. Estimated Blood Loss (mL): 150 ml. Description of Procedure: Patient was taken to OR in supine position and was placed under general anesthesia. The left lower extremity was prepped and draped in the usual fashion. SCD's were placed on the right leg for DVT prophylaxis . Perioperative antibiotics were given intravenously. A lagos catheter was then placed. I probed the MRSA ulcer left knee and there was a large cavity which extended laterally. Copious amounts of thick discolored looking pus was expressed with some odor. I proceeded with an aggressive incision and drainage to open up the undermined areas. The initial circular incision around the knee ulcer extended as a horizontal ellipse to encompass the extension of the pus laterally. There was a lot of necrotizing subcutaneous tissue. No exposed bone was seen. Due to the rapidity of the worsening of the cellulitis and the lack of CT findings, I was concerned about a necrotizing process and made several longitudinal incisions both proximally on the thigh and distally on the leg. The incisions were made on both the medial and lateral aspects. The subcutaneous tissue was necrotic and brownish grayish looking. Some bubbles were noted in the subcutaneous tissue. I extended the incisions down to the muscle and fascia. The fascia was inflamed and looked viable. Fasciotomies were placed and the underlying muscles were initially dusky but became pink and viable with releasing some tension and irrigation with saline and allowing air into the wounds. So I made 4 separate longitudinal incisions (medial thigh, lateral thigh, medial leg, and lateral leg). Fasciotomies were made in all the incisions. The firmness of the skin softened up fairly quickly after these incisions were made. A lot of edema was seen in the wounds and extra gauze bandages and suction was needed to keep the wounds relatively dry. Tissue that was removed tonight was sent to Pathology for analysis to rule out carcinoma and to Microbiology for culture. A positive culture may necessitate antibiotic modification. He has MRSA thus far. After irrigation of the wounds in a pulsatile fashion, I obtained hemostasis with electrocautery. The size of the defects created with the multiple incisions were - 12.5 x 3 x 1 cm for the left knee with extension laterally, 14 x 5 x 4 cm for the left medial thigh, 15 x 4 x 2.5 cm for the left medial leg, 15 x 4 x 3 cm for the left lateral thigh, and 16 x 3 x 1 cm for the left lateral leg for a combined 275.5 cm2. The wounds were then dressed with Mepitel nonadherent dressing followed by Kerlix gauze with Betadine followed by dry Kerlix gauze followed by 6 inch marie wraps for compression. Patient tolerated the procedure well and was sent to PACU in stable condition. Patient will be sent upstairs for continued postop care. With multiple wounds, will begin wound care with Silver dressing changes daily. Will reassess clinically over the next several days to see if additional operative intervention is necessary depending on how the wounds look during the healing process and how well the patient is doing clinically. Grafts/Implants Used: None. - Complications None. - Admit VTE Documentation VTE Present on Admission: No VTE Mechan Device Prophylaxis: SCD's VTE Pharm Prophylaxis ordered?: Yes Code Visit Surgery Charges CPT - 36079 ICD-10 - L02.416, A49.02, M79.89, L03.116, S81.002A, S71.102A, S81.802A 32803 L02.416, A49.02, M79.89, L03.116, S81.002A, S71.102A, S81.802A 57612 L02.416, A49.02, M79.89, L03.116, S81.002A 31330 L02.416, A49.02, M79.89, L03.116, S71.102A 93584 L02.416, A49.02, M79.89, L03.166, S81.802A 05/11/18 1315 <Electronically signed by Dipak Torrez MD> Date Dipak Torrez MD CC: Kevin Cervantes DO; Dipak Torrez MD; Jian Syed MD; Jian Manriquez DO; Alec Royal MD; [facility] Signed DISCHARGE SUMMARY Observed: 05/11/2018 Status: F Source: [facility] 11:58 AM REPOSITORY [facility] Medical Records Department [address] [place] [address] Discharge Summary 05/11/18 1149 MR#: [id number] Acct: [id number] Name: NILSON PINA Rep #: [id number] : 1985 33 From: Fortunato Lucio MD PCP: Jian Syed MD Status: ADM IN Y Location: [place] [address] Discharge Date and Diagnosis - Problem List Patient Problems: Active and Suspected Problems Left leg cellulitis (Acute) Sepsis (Acute) Date of Admission: 05/02/18 - Primary Discharge Diagnosis Active and Suspected Problems Left leg cellulitis (Acute) Sepsis (Acute) Hospital Course and Treatment Consultations 05/03/18 10:34 Consult: Onc/Wound/lead data entry operator Routine Comment: Reason for Consult:: left knee Operations: - - Status post incision and drainage: Patient Name: NILSON PINA RMedical Record Number: [id number] Date of : [birth year]Patient Status: Inpatient Attending Provider: Fortunato LucioAccount Number: [id number] Date: 05/04/18 23:13Initialization Date: 05/05/18 12:33 Report of Operation Date of Procedure: 05/04/18 Pre- Operative Diagnosis: 1. Infected MRSA ulcer left knee. 2. Worsening cellulitis extending proximally onto thigh and distally onto leg. 3. MRSA. 4. Possible necrotizing infection. Post-Operative Diagnosis: 1. Necrotizing infected MRSA ulcer left knee. 2. Worsening cellulitis extending proximally onto thigh and distally onto leg. 3. MRSA. Surgery/Procedure Performed:: 1. Surgical preparation left knee and left thigh and left leg with incision and drainage and excisional debridement necrotizing infected MRSA ulcer (275.5 cm2). 2. Multiple left leg and left thigh fasciotomies. Description of Surgical Findings:: The patient is a 33 year old M who was recently admitted to the hospital on 05/02/18 because of increasing pain and redness and swelling in his left lower extremity. On Monday. 04/29/18, patient noted a pimple on his left kneecap that would irritate him when he would wear pants. Patient's tried to squeeze it and did get some slight purulence out. Went to work and noted that he had some swelling in his right knee. Presented to the emergency room on 04/30/17 and diagnosed with cellulitis. Patient was discharged on clindamycin. Patient continued to have worsening symptoms and went to the ED on 05/02/18 and was admitted. He received Unasyn and was started on Vancomycin. Upon admission his Temp was 102.2. It is still low grade at 99.6. His WBC on admission was 16.7 and has only improved slightly to 15.6 despite being on Vancomycin. CT was done on 05/03/18 which showed Superficial soft tissue swelling with fluid accumulations along the fatty and superficial muscular fascial planes from the mid thigh to the mid lower leg, as noted. No defined rim-enhancing collection to indicate an abscess. No acute osseous abnormality to suggest osteomyelitis. Initial culture from the infected ulcer showed MRSA. Despite the Vancomycin, the cellulitis has spread. Because of his worsening symptomatology, I was asked to evaluate this patient for surgical options for treatment. There was concern about a necrotizing process and urgent surgical debridement was recommended CHASITY. Patient was informed of the risks and complications of the procedure including alternatives to surgery. These were discussed with the patient personally. Patient voices understanding and wishes to proceed. Patient understands that there will be several open wounds after the surgery. He voices understanding and wishes to proceed. He understands that if surgery is not done, he is at increased risk for worsening infection, amputation, or . Size of defect left knee - 12.5 x 3 x 1 cm. Size of defect left medial thigh - 14 x 5 x 4 cm. Size of defect left medial leg - 15 x 4 x 2.5 cm. Size of defect left lateral thigh - 15 x 4 x 3 cm. Size of defect left lateral leg - 16 x 3 x 1 cm. manager math: None Type of Anesthesia:: General Specimen's removed: Left knee and lower extremity necrotizing MRSA ulcer to Pathology and Microbiology. Drains: None. Estimated Blood Loss (mL): 150 ml. Description of Procedure: Patient was taken to OR in supine position and was placed under general anesthesia. The left lower extremity was prepped and draped in the usual fashion. SCD's were placed on the right leg for DVT prophylaxis . Perioperative antibiotics were given intravenously. A lagos catheter was then placed. I probed the MRSA ulcer left knee and there was a large cavity which extended laterally. Copious amounts of thick discolored looking pus was expressed with some odor. I proceeded with an aggressive incision and drainage to open up the undermined areas. The initial circular incision around the knee ulcer extended as a horizontal ellipse to encompass the extension of the pus laterally. There was a lot of necrotizing subcutaneous tissue. No exposed bone was seen. Due to the rapidity of the worsening of the cellulitis and the lack of CT findings, I was concerned about a necrotizing process and made several longitudinal incisions both proximally on the thigh and distally on the leg. The incisions were made on both the medial and lateral aspects. The subcutaneous tissue was necrotic and brownish grayish looking. Some bubbles were noted in the subcutaneous tissue. I extended the incisions down to the muscle and fascia. The fascia was inflamed and looked viable. Fasciotomies were placed and the underlying muscles were initially dusky but became pink and viable with releasing some tension and irrigation with saline and allowing air into the wounds. So I made 4 separate longitudinal incisions (medial thigh, lateral thigh, medial leg, and lateral leg). Fasciotomies were made in all the incisions. The firmness of the skin softened up fairly quickly after these incisions were made. A lot of edema was seen in the wounds and extra gauze bandages and suction was needed to keep the wounds relatively dry. Tissue that was removed tonight was sent to Pathology for analysis to rule out carcinoma and to Microbiology for culture. A positive culture may necessitate antibiotic modification. He has MRSA thus far. After irrigation of the wounds in a pulsatile fashion, I obtained hemostasis with electrocautery. The size of the defects created with the multiple incisions were - 12.5 x 3 x 1 cm for the left knee with extension laterally, 14 x 5 x 4 cm for the left medial thigh, 15 x 4 x 2.5 cm for the left medial leg, 15 x 4 x 3 cm for the left lateral thigh, and 16 x 3 x 1 cm for the left lateral leg for a combined 275.5 cm2. The wounds were then dressed with Mepitel nonadherent dressing followed by Kerlix gauze with Betadine followed by dry Kerlix gauze followed by 6 inch marie wraps for compression. Patient tolerated the procedure well and was sent to PACU in stable condition. Patient will be sent upstairs for continued postop care. With multiple wounds, will begin wound care with Silver dressing changes daily. Will reassess clinically over the next several days to see if additional operative intervention is necessary depending on how the wounds look during the healing process and how well the patient is doing clinically. Grafts/Implants Used: None. - Complications None. - Admit VTE Documentation VTE Present on Admission: No VTE Mechan Device Prophylaxis: SCD's VTE Pharm Prophylaxis ordered?: Yes Additional CC's: Kevin [facility] Procedures: Wound vac placement Summary of Care Provided: Patient is a 33-year-old male with a history of MRSA who was admitted for left knee cellulitis with necrotizing fasciitis, status post I AND D and excisional debridement of necrotizing infected MRSA ulcer with left thigh fasciotomy on 05/04/18. 1. Sepsis, secondary to left knee cellulitis, resolved Resolved, will continue Zyvox, patient had a drug rash secondary to vancomycin and Clinda presumably, rash has improved remarkably, however had a increased leukocytosis due to Solu-Medrol. Patient could be switched to p.o. Zyvox if ID prefers, however will defer to their clinical judgment and continue IV Zyvox until opinion. Patient to go to TCU and continue wound VAC as patient is much more ambulatory and able to put weight on left leg. Surgery and ID have been consulted 2. Left leg cellulitis with necrotizing fasciitis, MRSA Status post I AND D with left thigh fasciotomy on 05/04/18. Was previously on vancomycin and Cleocin. Given suspicion for drug rash, he has been changed to Zyvox. Patient will go to TCU as per surgery 3. Diffuse maculopapular rash Possibly related to drug rash? Is improved remarkably, as had leukocytosis and due to increasing Solu-Medrol. As needed topical hydrocortisone. 3. Normocytic anemia Resolved. Likely related to minimal blood loss anemia. Continue to monitor. 4. DVT prophylaxis On lovenox. Code status full Disposition patient will go to TCU when bed available Medications reviewed with the patient. Risks, benefits, alternatives, side effects, potential complications and dangers of medications discussed. Patient wishes to utilize these agents despite risk. A signed medical consent/advisement form regarding narcotic medications and a side medication agreement are located in the patient's chart. Chart is dictated with specialty sales consultant software. Errors may occur in dictation that may change providers meaning. This note was generated with iWelcome dictation software. It may contain incorrect words, spelling, and punctuation that were not noted in checking the note before signing. Patient Problems: Active and Suspected Problems Left leg cellulitis (Acute) Sepsis (Acute) - Physical Exam General: Alert, Oriented x3, Cooperative HEENT: Atraumatic, PERRLA, EOMI, Normocephalic Oral: Moist Mucosa, No Gingival or Mucosal Lesions/ Ulcerations Neck: Supple, No JVD, Trachea Midline Lungs: Clear to auscultation, No rhonchi, No wheeze, No rales Cardiovascular: Regular rate, Normal S1, Normal S2 Abdomen: Bowel Sounds Present, Soft, Non Tender, Non-Distended Extremities: No clubbing, No cyanosis, Edema, Tenderness, - - Positive wound VAC Skin: Rash Present - Improved maculopapular rash noted Musculoskeletal: No Tenderness to Palpation of Joints or Extremities Lymphatic: No Cervical, Supraclavicular, or Inguinal Adenopathy Neurological: Cranial nerves II-XII grossly intact, Neuro grossly intact Psych/Mental Status: Normal Affect, Appropriate, Alert and oriented to time, place, person, mood and affect Vital Signs Temp Pulse Resp BP Pulse Ox 98.3 F 80 16 130/78 H 94 05/11/18 07:48 05/11/18 08:06 05/11/18 07:48 05/11/18 07:48 05/11/18 07:48 Oxygen Flow Rate (L/min) 2 Oxygen Delivery Method Room Air Weight: 108.3 kg Body Mass Index (BMI) 32.3 Intake and Output for Last 24 Hours Intake Total 3380 / 3380 3685 / 3685 85.7 / 85.7 Output Total 3650 / 3650 4100 / 4100 Balance -270 / -270 -415 / -415 85.7 / 85.7 Microbiology Past 72 Hours 05/04/18 22:00 Gram Stain - Final Tissue - Other Wound Culture - Final Laboratory Tests Past 24 Hrs WBC 21.6 H Discharge Diet: No Restrictions Discharge Activity: Return to Normal Activity - As able to Call your doctor if your incision/area has: Continuous Slow Oozing, Sudden Increased Bleeding, Increased Pain/ Swelling, Increased Redness, Foul Smelling Discharge Call your doctor if you observe: Fever of 101 or Higher, Shortness of breath, Dizziness, Fainting spells, Chest pain, Increased palpitations (irregular heartbeat), Uncontrolled pain Cleanse incision/area with: - - As per surgery Home Medications: Medications to take at Discharge Acetaminophen [Tylenol Tablet] 650 mg PO Q6H PRN PRN #0 tablet 05/11/18 DiphenhydrAMINE [Benadryl] 25 mg PO TID PRN PRN capsule 05/11/18 Docusate Sodium [Colace] 100 mg PO BID capsule 05/11/18 Enoxaparin [Lovenox] 40 mg SC DAILY@1000 syringe 05/11/18 Ensure Clear 120 ml PO 4X/DAY liquid 05/11/18 Famotidine [Pepcid] 20 mg PO BID tablet 05/11/18 Gabapentin [Neurontin] 300 mg PO BIDCM capsule 05/11/18 Hydrocortisone 2.5% Crm [Hytone] 1 applic TOPICAL BID tube 05/11/18 Lactobacillus Acidophilus [Acidophilus] 1 tablet PO TID tablet 05/11/18 Linezolid 600 MG [Zyvox 600mg IVPB] 600 mg IV Q12 bag 05/11/18 Magnesium Hydroxide [Milk Of Magnesia] 30 ml PO DAILY PRN PRN udc 05/11/18 Nutritional Supplement [Shaggy - ORANGE FLAVOR] 1 packet PO BIDCM packet 05/11/18 Oxycodone [Oxyir] 10 mg PO Q4H PRN PRN 7 Days #30 tablet 05/11/18 Primary Care Physician: Jian Syed MD [Primary Care Provider] - Please follow up with your Primary Care Physician in: 1-2 week Disposition: Jail facility Patient Condition:: Good Medical Necessity - Tobacco Use Smoking Status: Never smoker Tobacco Use: Chew Meaningful Use Info Meaningful Use Diagnoses (Choose all that apply): None applicable Code Visit Inpatient E AND M: 39697 Disch Hosp 05/11/18 1158 <Electronically signed by Fortunato Lucio MD> Date Fortunato Lucio MD Cosigner Signature (if applicable): Date CC: Jian Syed MD; Fortunato Lucio MD Signed TRANSFER TO [facility] Observed: 05/11/2018 Status: F Source: [facility] 11:38 AM REPOSITORY [facility] Medical Records Department [address] [place] [address] Transfer to Extended Care MR#: [id number] Acct: [id number] Name: NILSNO PINA Rep #: [id number] : 1985 33 From: Fortunato Lucio MD PCP: Jian Syed MD Status: ADM IN NILSON PINA (Patient) (Health Ins. Claim No.) (Day of Discharge to Facility) Certification of patient admission REQUIRED AT TIME OF ADMISSION. I CERTIFY THAT POST-HOSPITAL ECF SERVICES ARE REQUIRED TO BE GIVEN ON AN IN-PATIENT BASIS BECAUSE OF THE ABOVE NAMED PATIENT'S NEED FOR [facility] CARE ON A CONTINUING BASIS FOR THE CONDITION(S) FOR WHICH HE/SHE WAS RECEIVING IN-PATIENT HOSPITAL SERVICES PRIOR TO HIS/HER TRANSFER TO THE F. 05/11/18 1138 <Electronically signed by Fortunato Lucio MD> Date Fortunato Lucio MD - Diet 05/11/18 11:22 Diet: Regular Diet Is pt able to select menu?: Yes - Routine Orders/Code Status Enema Type: Fleetz Enema Frequency: Daily PRN Suppository Type: Dulcolax 10mg Suppository Frequency: Daily PRN Routine Lab Work: CBC Code Status: Full Code - Wound(s) LEFT KNEE Wound Type: Open Surgical Wound Dressing Change: applied KCI wound VAC left lateral thigh Wound Type: Open Surgical Wound Dressing Change: applied KCI wound VAC left lateral lower leg Wound Type: Open Surgical Wound Dressing Change: applied KCI wound VAC left medial lower leg Wound Type: Open Surgical Wound Dressing Change: applied KCI wound VAC left medial thigh Wound Type: Open Surgical Wound Dressing Change: applied KCI wound VAC - Therapies Weight Bearing: Weight bearing as tolerated Physical Therapy: Eval and Treat Occupational Therapy: Eval and Treat - Allergies/Procedures Done in Hospital Allergies/Adverse Reactions: Allergies No Known Allergies Allergy (Verified 04/30/18 20:31) Procedures: Wound Vac placement, - - Patient Name: NILSON PINA edical Record Number: [id number] Date of : [birth year]Patient Status: Inpatient Attending Provider: Fortunato LucioAccount Number: [id number] Date: 05/04/18 23:13Initialization Date: 05/05/18 12:33 Report of Operation Date of Procedure: 05/04/18 Pre- Operative Diagnosis: 1. Infected MRSA ulcer left knee. 2. Worsening cellulitis extending proximally onto thigh and distally onto leg. 3. MRSA. 4. Possible necrotizing infection. Post-Operative Diagnosis: 1. Necrotizing infected MRSA ulcer left knee. 2. Worsening cellulitis extending proximally onto thigh and distally onto leg. 3. MRSA. Surgery/Procedure Performed:: 1. Surgical preparation left knee and left thigh and left leg with incision and drainage and excisional debridement necrotizing infected MRSA ulcer (275.5 cm2). 2. Multiple left leg and left thigh fasciotomies. Description of Surgical Findings:: The patient is a 33 year old M who was recently admitted to the hospital on 05/02/18 because of increasing pain and redness and swelling in his left lower extremity. On Monday. 04/29/18, patient noted a pimple on his left kneecap that would irritate him when he would wear pants. Patient's tried to squeeze it and did get some slight purulence out. Went to work and noted that he had some swelling in his right knee. Presented to the emergency room on 04/30/17 and diagnosed with cellulitis. Patient was discharged on clindamycin. Patient continued to have worsening symptoms and went to the ED on 05/02/18 and was admitted. He received Unasyn and was started on Vancomycin. Upon admission his Temp was 102.2. It is still low grade at 99.6. His WBC on admission was 16.7 and has only improved slightly to 15.6 despite being on Vancomycin. CT was done on 05/03/18 which showed Superficial soft tissue swelling with fluid accumulations along the fatty and superficial muscular fascial planes from the mid thigh to the mid lower leg, as noted. No defined rim-enhancing collection to indicate an abscess. No acute osseous abnormality to suggest osteomyelitis. Initial culture from the infected ulcer showed MRSA. Despite the Vancomycin, the cellulitis has spread. Because of his worsening symptomatology, I was asked to evaluate this patient for surgical options for treatment. There was concern about a necrotizing process and urgent surgical debridement was recommended CHASITY. Patient was informed of the risks and complications of the procedure including alternatives to surgery. These were discussed with the patient personally. Patient voices understanding and wishes to proceed. Patient understands that there will be several open wounds after the surgery. He voices understanding and wishes to proceed. He understands that if surgery is not done, he is at increased risk for worsening infection, amputation, or . Size of defect left knee - 12.5 x 3 x 1 cm. Size of defect left medial thigh - 14 x 5 x 4 cm. Size of defect left medial leg - 15 x 4 x 2.5 cm. Size of defect left lateral thigh - 15 x 4 x 3 cm. Size of defect left lateral leg - 16 x 3 x 1 cm. manager math: None Type of Anesthesia:: General Specimen's removed: Left knee and lower extremity necrotizing MRSA ulcer to Pathology and Microbiology. Drains: None. Estimated Blood Loss (mL): 150 ml. Description of Procedure: Patient was taken to OR in supine position and was placed under general anesthesia. The left lower extremity was prepped and draped in the usual fashion. SCD's were placed on the right leg for DVT prophylaxis . Perioperative antibiotics were given intravenously. A lagos catheter was then placed. I probed the MRSA ulcer left knee and there was a large cavity which extended laterally. Copious amounts of thick discolored looking pus was expressed with some odor. I proceeded with an aggressive incision and drainage to open up the undermined areas. The initial circular incision around the knee ulcer extended as a horizontal ellipse to encompass the extension of the pus laterally. There was a lot of necrotizing subcutaneous tissue. No exposed bone was seen. Due to the rapidity of the worsening of the cellulitis and the lack of CT findings, I was concerned about a necrotizing process and made several longitudinal incisions both proximally on the thigh and distally on the leg. The incisions were made on both the medial and lateral aspects. The subcutaneous tissue was necrotic and brownish grayish looking. Some bubbles were noted in the subcutaneous tissue. I extended the incisions down to the muscle and fascia. The fascia was inflamed and looked viable. Fasciotomies were placed and the underlying muscles were initially dusky but became pink and viable with releasing some tension and irrigation with saline and allowing air into the wounds. So I made 4 separate longitudinal incisions (medial thigh, lateral thigh, medial leg, and lateral leg). Fasciotomies were made in all the incisions. The firmness of the skin softened up fairly quickly after these incisions were made. A lot of edema was seen in the wounds and extra gauze bandages and suction was needed to keep the wounds relatively dry. Tissue that was removed tonight was sent to Pathology for analysis to rule out carcinoma and to Microbiology for culture. A positive culture may necessitate antibiotic modification. He has MRSA thus far. After irrigation of the wounds in a pulsatile fashion, I obtained hemostasis with electrocautery. The size of the defects created with the multiple incisions were - 12.5 x 3 x 1 cm for the left knee with extension laterally, 14 x 5 x 4 cm for the left medial thigh, 15 x 4 x 2.5 cm for the left medial leg, 15 x 4 x 3 cm for the left lateral thigh, and 16 x 3 x 1 cm for the left lateral leg for a combined 275.5 cm2. The wounds were then dressed with Mepitel nonadherent dressing followed by Kerlix gauze with Betadine followed by dry Kerlix gauze followed by 6 inch marie wraps for compression. Patient tolerated the procedure well and was sent to PACU in stable condition. Patient will be sent upstairs for continued postop care. With multiple wounds, will begin wound care with Silver dressing changes daily. Will reassess clinically over the next several days to see if additional operative intervention is necessary depending on how the wounds look during the healing process and how well the patient is doing clinically. Grafts/Implants Used: None. - Complications None. - Admit VTE Documentation VTE Present on Admission: No VTE Mechan Device Prophylaxis: SCD's VTE Pharm Prophylaxis ordered?: Yes Additional CC's: [facility] - Type of Care/Length of Stay Estimated LOS: Convalescent Care Less Than 30 days Type of Care Needed: Skilled Rehab Potential: Good Prognosis: Good - Additional Orders/Day of Discharge H AND P will serve as current which was dated: 05/02/18 Day of Discharge: 05/11/18 - Dietary and Speech Recommendations Dietitian Recommendations/Changes: Will order ONS medpass to help w/ skin healing - Follow Up Care Primary Care Physician: Jian Syed MD [Primary Care Provider] - Please follow up with your Primary Care Physician in: 1-2 week Code Visit Inpatient E AND M: [id number] Disch Hosp 05/11/18 1138 <Electronically signed by Fortunato Lucio MD> Date Fortunato Lucio MD CC: Dipak Torrez MD; Jian Syed MD; Alec Royal MD Signed CBC W/DIFF, AUTOMATED Collected: 05/11/2018 Status: F Source: GEMMA 6:10 AM REPOSITORY TYPE CODE TESTS RESULT OUT OF RANGE REFERENCE UNITS LAB L100.1000 4.4-11.0 K/mm3 High WBC 21.6 LAB L100.1200 4.6-6.2 M/mm3 Low RBC 4.28 LAB L100.1300 13.0-16.5 g/dl Low HGB 12.5 LAB L100.1400 40-54 % Low HCT 38.6 LAB L100.1500 80-94 fL Normal MCV 90.2 LAB L100.1600 27.0-32.0 pg Normal MCH 29.2 LAB L100.1700 32-36 g/gl Normal MCHC 32.4 LAB L100.1810 11.6-14.6 % Normal RDW CV 12.0 LAB L100.1820 35.1-43.9 fl Normal RDW SD 38.6 LAB L100.1900 150-450 K/mm3 Normal PLT 337 LAB L100.2000 6.2-12.0 fl Normal MPV 10.1 LAB L100.2100 47-70 % High NEUT% 74.2 LAB L100.2200 19-41 % Low LY% 17.4 LAB L100.2300 0-10 % Normal MONO% 5.6 LAB L100.2400 0-5 % Normal EO% 1.8 LAB L100.2500 0-1 % Normal BASO% 0.1 LAB L100.2550 0.0-0.9 % Normal IM GRAN % 0.900 Result Comment: IG% - Immature Granulocytes (promyelocytes, myelocytes and metamyelocytes) > 1% indicates that a LEFT SHIFT is Present. LAB L100.2620 2.0-7.7 X10 3/uL High Absolute Neut 16.0 LAB L100.2720 0.83-4.51 X10 3/ul Normal Absolute Lymph 3.75 Performed By: #### L100.0100 #### [facility] [address] [place], [address] BASIC METABOLIC Collected: 05/11/2018 Status: F Source: [place] PROFILE (BMP) 6:10 AM REPOSITORY TYPE CODE TESTS RESULT OUT OF RANGE REFERENCE UNITS LAB L501.0100 74-106 mg/dL Normal GLU 99 Result Comment: Please note revised GLUCOSE reference range effective 2017. LAB L501.1000 7-18 mg/dL High BUN 25 LAB L501.1100 0.70-1.30 mg/dL Normal CREAT,SERUM 0.99 Result Comment: The validity of the calculated GFR AND GFRAA in patients over 70 years has not been determined. Clinical correlation is essential. LAB L501.1110 >60 mL/min Normal EST GFR 93 Result Comment: Non- GFR Calc LAB L501.1115 >60 mL/min Normal EST GFR - AA 112 Result Comment: GFR Calc LAB L501.1255 ml/min Normal Estimated CRCL 116.49 LAB L501.1300 10-20 RATIO High BUN/CRE 25.3 LAB L501.2200 8.5-10 mg/dL Low .1 CA 8.2 LAB L501.5300 136-14 mmol/L 5 NA Normal 141 LAB L501.5600 3.5-5. mmol/L 1 K Normal 4.5 LAB L501.5900 98-107 mmol/L CL Normal 106 LAB L501.6100 21.0-3 mmol/L 2.0 CO2 Normal 29.0 LAB L501.6200 5-15 GAP Normal 6 Performed By: #### L500.2500, L501.2300, L501.5200 #### [facility] [address] [place], [address] PHOSPHORUS Collected: 05/11/2018 Status: F Source: GEMMA 6:10 AM REPOSITORY TYPE CODE TESTS RESULT OUT OF RANGE REFERENCE UNITS LAB L501.2300 2.5-4.9 mg/dL Normal PHOS 3.1 Performed By: #### L500.2500, L501.2300, L501.5200 #### [facility] [address] [place], [address] MAGNESIUM Collected: 05/11/2018 Status: F Source: GEMMA 6:10 AM REPOSITORY TYPE CODE TESTS RESULT OUT OF RANGE REFERENCE UNITS LAB L501.5200 1.6-2.6 mg/dL Normal MG 2.0 Performed By: #### L500.2500, L501.2300, L501.5200 #### [facility] [address] [place], [address] VENOUS DUPLEX LOWER Observed: 05/10/2018 Status: F Source: GEMMA EXTREMITY 9:38 AM REPOSITORY [facility] Cardiovascular Services [address] [place] [address] Venous Duplex US, Unilateral 05/09/18 1105 MR#: [id number] Acct: [id number] Name: NILSON PINA Salma Rep #: [id number] : 1985 33 From: Kevin Mcknight MD Attending Dr: Fortunato Lucio MD Status: ADM IN Ordering Dr: Jacquelin Hernandez MD Date: 05/09/18 Location: [facility] Sex: M C Admitted: 05/02/18 [id number] TAG_START Cardiovascular Services Venous Doppler [address] [place], [place] [address] Ordering Physician: Jacquelin Mosquera TAG_ENDED TAG_START Name: DAYANARA PINADAVIE Marsh Study Date: 05/09/2018 11:05 AM Patient Location: [facility]3 : 1985 Gender: Male Age: 33 yrs TAG_ENDED Reason For Study: LEG SWELLING Procedure LEFT Exam performed in department. GSV is normal. A preliminary report was called and/or faxed CFV is compressible, spontaneous, phasic, to Dr. Hernandez. competent, and demonstrates normal augmentation. FV is compressible, spontaneous, phasic, competent and demonstrates normal augmentation. POP V is compressible, spontaneous, phasic, competent and demonstrates normal augmentation. PTV is compressible. LT PerV is compressible. T/P trunk and prox calf were not obtained due to wound vac location. <> Interpretation Summary Deep veins of the left lower extremity are patent and compressible segmentally. There is no evidence of left lower extremity deep vein thrombosis. Valvular competence appears intact within the proximal deep venous system on the left . The left greater saphenous vein appears patent and compressible segmentally. The left tibio-peroneal trunk and proximal deep calf veins were not visualized due to the presence of a Wound VAC. TAG_START TAG_ENDED Ordering Physician: Jacquelin Mosquera Referring Physician: MD Jian Syed Performed By: Matthew [facility], Brittni and Student 05/10/18936 Date Kevin Mcknight MD CC: Jacquelin Hernandez MD; Jian Syed MD; Fortunato Lucio MD Date Dictated: 05/09/18 1105 Date Transcribed: 05/10/18936 Delinquent Notice Machine Operator: Signed CBC W/DIFF, AUTOMATED Collected: 05/10/2018 Status: C Source: GEMMA 5:48 AM REPOSITORY TYPE CODE TESTS RESULT OUT OF RANGE REFERENCE UNITS LAB L100.1000 4.4-11.0 K/mm3 High WBC 18.0 LAB L100.1200 4.6-6.2 M/mm3 Normal RBC 4.69 LAB L100.1300 13.0-16.5 g/dl Normal HGB 13.9 LAB L100.1400 40-54 % Normal HCT 41.4 LAB L100.1500 80-94 fL Normal MCV 88.3 LAB L100.1600 27.0-32.0 pg Normal MCH 29.6 LAB L100.1700 32-36 g/gl Normal MCHC 33.6 LAB L100.1810 11.6-14.6 % Low RDW CV 11.3 LAB L100.1820 35.1-43.9 fl Normal RDW SD 36.0 LAB L100.1900 150-450 K/mm3 Normal PLT 361 LAB L100.2000 6.2-12.0 fl Normal MPV 10.1 LAB L100.2100 47-70 % High NEUT% 89.8 LAB L100.2200 19-41 % Low LY% 6.6 LAB L100.2300 0-10 % Normal MONO% 1.2 LAB L100.2400 0-5 % Normal EO% 0.1 LAB L100.2500 0-1 % Normal BASO% 0.1 LAB L100.2550 0.0-0.9 % High IM GRAN % 2.200 Result Comment: IG% - Immature Granulocytes (promyelocytes, myelocytes and metamyelocytes) > 1% indicates that a LEFT SHIFT is Present. LAB L100.2620 2.0-7.7 X10 3/uL High Absolute Neut 16.2 LAB L100.2720 0.83-4.51 X10 3/ul Normal Absolute Lymph 1.19 LAB L100.9900 Normal PATH REV Reviewed Result Comment: Neutrophilic leukocytosis with left shift. Clinical correlation necessary. Brian Soliman M.D. 05/10/18 AMENDED REPORT 05/10/18 1331 PATH REV previously reported as: November matheus Performed By: #### L100.0100 #### [facility] [address] [place], [address] BASIC METABOLIC Collected: 05/10/2018 Status: F Source: GEMMA PROFILE (BMP) 5:48 AM REPOSITORY TYPE CODE TESTS RESULT OUT OF RANGE REFERENCE UNITS LAB L501.0100 74-106 mg/dL High GLU 140 Result Comment: Fasting Glucose result greater than or equal to 126 mg/dL suggests DIABETES MELLITUS per A.D.A. criteria. Please note revised GLUCOSE reference range effective 2017. LAB L501.1000 7-18 mg/dL High BUN 22 LAB L501.1100 0.70-1.30 mg/dL Normal CREAT,SERUM 0.92 Result Comment: The validity of the calculated GFR AND GFRAA in patients over 70 years has not been determined. Clinical correlation is essential. LAB L501.1110 >60 mL/min Normal EST GFR 101 Result Comment: Non- GFR Calc LAB L501.1115 >60 mL/min Normal EST GFR - AA 123 Result Comment: GFR Calc LAB L501.1255 ml/min Normal Estimated CRCL 125.35 LAB L501.1300 10-20 RATIO High BUN/CRE 24.0 LAB L501.2200 8.5-10 mg/dL .1 CA Normal 8.5 LAB L501.5300 136-14 mmol/L 5 NA Normal 140 LAB L501.5600 3.5-5. mmol/L 1 K Normal 4.9 LAB L501.5900 98-107 mmol/L CL Normal 103 LAB L501.6100 21.0-3 mmol/L 2.0 CO2 Normal 27.0 LAB L501.6200 5-15 GAP Normal 10 Performed By: #### L500.2500 #### [facility] [address] [place], [address] VANCOMYCIN, TROUGH Collected: 05/09/2018 Status: F Source: [place] LEVEL 3:30 PM REPOSITORY Order Comment: Comments: PLEASE DRAW 30MIN PRIOR TO DOSE ON 05/09 @1600 Time Medication is to be Given? 1600 TYPE CODE TESTS RESULT OUT OF REFERENCE UNITS RANGE LAB L501.8820 5.0-15.0 ug/mL High VANCO, TROUGH 19.3 Result Comment: VANCOMYCIN STANDARED DRUG THERAPY TROUGH LEVEL: 5.0 - 15.0 mg/L VANCOMYCIN HIGH INTENSITY THERAPY TROUGH LEVEL: 15.0 - 20.0 mg/L High Intensity therapy recommended for serious life threatening infections include: - Meningitis -Endocarditis -Pneumonia (Ventilator/Healtcare Associated) -Sepsis PLEASE CONTACT PHARMACY SERVICES (#[id number]) FOR INTERPRETATION OF RESULTS. Performed By: #### L501.8820 #### [facility] [address] [place], [place], [id number] CBC-COMPLETE BLOOD CNT Collected: 05/09/2018 Status: F Source: GEMMA NO DIFF 5:40 AM REPOSITORY TYPE CODE TESTS RESULT OUT OF RANGE REFERENCE UNITS LAB L100.1000 4.4-11.0 K/mm3 High WBC 13.1 LAB L100.1200 4.6-6.2 M/mm3 Low RBC 4.49 LAB L100.1300 13.0-16.5 g/dl Normal HGB 13.3 LAB L100.1400 40-54 % Normal HCT 40.9 LAB L100.1500 80-94 fL Normal MCV 91.1 LAB L100.1600 27.0-32.0 pg Normal MCH 29.6 LAB L100.1700 32-36 g/gl Normal MCHC 32.5 LAB L100.1810 11.6-14.6 % Normal RDW CV 12.0 LAB L100.1820 35.1-43.9 fl Normal RDW SD 39.1 LAB L100.1900 150-450 K/mm3 Normal PLT 290 LAB L100.2000 6.2-12.0 fl Normal MPV 9.8 Performed By: #### L100.0500, L500.2500 #### [facility] [address] [place], [place], [id number] BASIC METABOLIC Collected: 05/09/2018 Status: F Source: GEMMA PROFILE (BMP) 5:40 AM REPOSITORY TYPE CODE TESTS RESULT OUT OF RANGE REFERENCE UNITS LAB L501.0100 74-106 mg/dL Normal GLU 97 Result Comment: Please note revised GLUCOSE reference range effective 2017. LAB L501.1000 7-18 mg/dL Normal BUN 17 LAB L501.1100 0.70-1.30 mg/dL Normal CREAT,SERUM 0.96 Result Comment: The validity of the calculated GFR AND GFRAA in patients over 70 years has not been determined. Clinical correlation is essential. LAB L501.1110 >60 mL/min Normal EST GFR 96 Result Comment: Non- GFR Calc LAB L501.1115 >60 mL/min Normal EST GFR - AA 116 Result Comment: GFR Calc LAB L501.1255 ml/min Normal Estimated CRCL 120.13 LAB L501.1300 10-20 RATIO BUN/CRE Normal 17.7 LAB L501.2200 8.5-10 mg/dL .1 CA Normal 8.5 LAB L501.5300 136-14 mmol/L 5 NA Normal 139 LAB L501.5600 3.5-5. mmol/L 1 K Normal 4.3 LAB L501.5900 98-107 mmol/L CL Normal 102 LAB L501.6100 21.0-3 mmol/L 2.0 CO2 Normal 30.0 LAB L501.6200 5-15 GAP Normal 7 Performed By: #### L100.0500, L500.2500 #### [facility] [address] [place], [address] BASIC METABOLIC Collected: 05/07/2018 Status: F Source: [place] PROFILE (BMP) 6:28 AM REPOSITORY TYPE CODE TESTS RESULT OUT OF RANGE REFERENCE UNITS LAB L501.0100 74-106 mg/dL Normal GLU 99 Result Comment: Please note revised GLUCOSE reference range effective 2017. LAB L501.1000 7-18 mg/dL Normal BUN 18 LAB L501.1100 0.70-1.30 mg/dL Normal CREAT,SERUM 0.92 Result Comment: The validity of the calculated GFR AND GFRAA in patients over 70 years has not been determined. Clinical correlation is essential. LAB L501.1110 >60 mL/min Normal EST GFR 101 Result Comment: Non- GFR Calc LAB L501.1115 >60 mL/min Normal EST GFR - AA 122 Result Comment: GFR Calc LAB L501.1255 ml/min Normal Estimated CRCL 125.35 LAB L501.1300 10-20 RATIO BUN/CRE Normal 19.6 LAB L501.2200 8.5-10 mg/dL Low .1 CA 8.1 LAB L501.5300 136-14 mmol/L 5 NA Normal 142 LAB L501.5600 3.5-5. mmol/L 1 K Normal 3.8 LAB L501.5900 98-107 mmol/L CL Normal 105 LAB L501.6100 21.0-3 mmol/L 2.0 CO2 Normal 28.0 LAB L501.6200 5-15 GAP Normal 9 Performed By: #### L500.2500, L100.0500 #### [facility] [address] [place], [place], [address] CBC-COMPLETE BLOOD CNT Collected: 05/07/2018 Status: F Source: [place] NO DIFF 6:28 AM REPOSITORY TYPE CODE TESTS RESULT OUT OF RANGE REFERENCE UNITS LAB L100.1000 4.4-11.0 K/mm3 High WBC 11.1 LAB L100.1200 4.6-6.2 M/mm3 Low RBC 4.06 LAB L100.1300 13.0-16.5 g/dl Low HGB 12.2 LAB L100.1400 40-54 % Low HCT 37.3 LAB L100.1500 80-94 fL Normal MCV 91.9 LAB L100.1600 27.0-32.0 pg Normal MCH 30.0 LAB L100.1700 32-36 g/gl Normal MCHC 32.7 LAB L100.1810 11.6-14.6 % Normal RDW CV 11.7 LAB L100.1820 35.1-43.9 fl Normal RDW SD 38.4 LAB L100.1900 150-450 K/mm3 Normal PLT 245 LAB L100.2000 6.2-12.0 fl Normal MPV 10.6 Performed By: #### L500.2500, L100.0500 #### [facility] [address] [place], [address] LESION (CHOOSE SITE) Observed: 05/07/2018 Status: F Source: [place] 12:00 AM REPOSITORY Patient: NILSON PINA : 1985 (33/M) Acct Num: [id number] Phys: Jacquelin Hernandez MD Unit Num: [id number] Loc: MS3 AS771-8 Specimen: [id number] Received: 05/07/18 8036 Spec Type: Lesion TISSUES 1 TISSUES: Knee, NOS GROSS DESCRIPTION Received in fixative is one container labeled with the patient's name and designated left knee MRSA infection. The specimen consists of multiple pieces of skin with underlying tissue. A piece of tissue consists of a round piece of skin which measures 3.5 x 3 cm and up to 1.4 cm in thickness. Additional pieces measure in aggregate 5 x 3 x 0.5 cm. A focal area of ulceration is noted. Behavioral Therapy Coordinator sections are submitted in two cassettes. / POWER:maddie 05/07/18 TC:2 CPT: 97545, 11527 x2 HEADER OPERATION: Left knee and lower extremity with incision and drainage PRE-OP DIAGNOSIS: Left leg cellulitis TISSUE SUBMITTED: Left knee MRSA infection MICROSCOPIC DESCRIPTION Slides are reviewed. MICROSCOPIC DIAGNOSIS Left knee MRSA infection: Skin with underlying tissue with acute and chronic inflammation and abscess formation. Special stains for acid fast bacilli and fungi are negative for organisms; matched controls are appropriate. POWER:maddie 05/08/18 Signed Brian Soliman 05/08/18 <signature on file> Performed By: #### PLES #### [facility] [address] [place], [address] CBC-COMPLETE BLOOD CNT Collected: 05/06/2018 Status: F Source: [place] NO DIFF 7:45 PM REPOSITORY TYPE CODE TESTS RESULT OUT OF RANGE REFERENCE UNITS LAB L100.1000 4.4-11.0 K/mm3 High WBC 14.1 LAB L100.1200 4.6-6.2 M/mm3 Low RBC 4.28 LAB L100.1300 13.0-16.5 g/dl Low HGB 12.5 LAB L100.1400 40-54 % Low HCT 38.4 LAB L100.1500 80-94 fL Normal MCV 89.7 LAB L100.1600 27.0-32.0 pg Normal MCH 29.2 LAB L100.1700 32-36 g/gl Normal MCHC 32.6 LAB L100.1810 11.6-14.6 % Normal RDW CV 11.8 LAB L100.1820 35.1-43.9 fl Normal RDW SD 38.4 LAB L100.1900 150-450 K/mm3 Normal PLT 239 LAB L100.2000 6.2-12.0 fl Normal MPV 10.2 Performed By: #### L100.0500 #### [facility] [address] [place], [place], [id number] BASIC METABOLIC Collected: 05/06/2018 Status: F Source: [place] PROFILE (BMP) 7:45 PM REPOSITORY TYPE CODE TESTS RESULT OUT OF RANGE REFERENCE UNITS LAB L501.0100 74-106 mg/dL High GLU 146 Result Comment: Fasting Glucose result greater than or equal to 126 mg/dL suggests DIABETES MELLITUS per A.D.A. criteria. Please note revised GLUCOSE reference range effective 2017. LAB L501.1000 7-18 mg/dL High BUN 20 LAB L501.1100 0.70-1.30 mg/dL Normal CREAT,SERUM 1.13 Result Comment: The validity of the calculated GFR AND GFRAA in patients over 70 years has not been determined. Clinical correlation is essential. LAB L501.1110 >60 mL/min Normal EST GFR 79 Result Comment: Non- GFR Calc LAB L501.1115 >60 mL/min Normal EST GFR - AA 96 Result Comment: GFR Calc LAB L501.1255 ml/min Normal Estimated CRCL 102.06 LAB L501.1300 10-20 RATIO BUN/CRE Normal 17.7 LAB L501.2200 8.5-10 mg/dL Low .1 CA 8.1 LAB L501.5300 136-14 mmol/L 5 NA Normal 143 LAB L501.5600 3.5-5. mmol/L 1 K Normal 3.7 LAB L501.5900 98-107 mmol/L CL Normal 105 LAB L501.6100 21.0-3 mmol/L 2.0 CO2 Normal 30.0 LAB L501.6200 5-15 GAP Normal 8 Performed By: #### L500.2500, L506.0500 #### [facility] [address] [place], [place], [id number] PREALBUMIN Collected: 05/06/2018 Status: F Source: [place] 7:45 PM REPOSITORY TYPE CODE TESTS RESULT OUT OF REFERENCE UNITS RANGE LAB L506.0500 20.0-40.0 mg/dL Low PREALBUMIN 15.3 Performed By: #### L500.2500, L506.0500 #### [facility] [address] [place], [place], [address] CBC-COMPLETE BLOOD CNT Collected: 05/06/2018 Status: F Source: [place]EM[place] NO DIFF 6:31 AM REPOSITORY TYPE CODE TESTS RESULT OUT OF RANGE REFERENCE UNITS LAB L100.1000 4.4-11.0 K/mm3 High WBC 17.2 LAB L100.1200 4.6-6.2 M/mm3 Low RBC 4.15 LAB L100.1300 13.0-16.5 g/dl Low HGB 12.3 LAB L100.1400 40-54 % Low HCT 37.4 LAB L100.1500 80-94 fL Normal MCV 90.1 LAB L100.1600 27.0-32.0 pg Normal MCH 29.6 LAB L100.1700 32-36 g/gl Normal MCHC 32.9 LAB L100.1810 11.6-14.6 % Low RDW CV 11.4 LAB L100.1820 35.1-43.9 fl Normal RDW SD 36.7 LAB L100.1900 150-450 K/mm3 Normal PLT 251 LAB L100.2000 6.2-12.0 fl Normal MPV 10.7 Performed By: #### L100.0500 #### [facility] [address] [place], [place], [address] BASIC METABOLIC Collected: 05/06/2018 Status: F Source: GEMMA PROFILE (BMP) 6:31 AM REPOSITORY TYPE CODE TESTS RESULT OUT OF RANGE REFERENCE UNITS LAB L501.0100 74-106 mg/dL High GLU 150 Result Comment: Fasting Glucose result greater than or equal to 126 mg/dL suggests DIABETES MELLITUS per A.D.A. criteria. Please note revised GLUCOSE reference range effective 2017. LAB L501.1000 7-18 mg/dL Normal BUN 18 LAB L501.1100 0.70-1.30 mg/dL Normal CREAT,SERUM 1.00 Result Comment: The validity of the calculated GFR AND GFRAA in patients over 70 years has not been determined. Clinical correlation is essential. LAB L501.1110 >60 mL/min Normal EST GFR 92 Result Comment: Non- GFR Calc LAB L501.1115 >60 mL/min Normal EST GFR - AA 111 Result Comment: GFR Calc LAB L501.1255 ml/min Normal Estimated CRCL 115.32 LAB L501.1300 10-20 RATIO BUN/CRE Normal 18.1 LAB L501.2200 8.5-10 mg/dL Low .1 CA 8.2 LAB L501.5300 136-14 mmol/L 5 NA Normal 138 LAB L501.5600 3.5-5. mmol/L 1 K Normal 4.2 LAB L501.5900 98-107 mmol/L CL Normal 104 LAB L501.6100 21.0-3 mmol/L 2.0 CO2 Normal 30.0 LAB L501.6200 5-15 Low GAP 4 Performed By: #### L500.2500 #### [facility] [address] [place], [address] VANCOMYCIN, TROUGH Collected: 05/05/2018 Status: F Source: [place] LEVEL 3:30 PM REPOSITORY Order Comment: Time Medication is to be Given? 1600 TYPE CODE TESTS RESULT OUT OF REFERENCE UNITS RANGE LAB L501.8820 5.0-15.0 ug/mL High VANCO, TROUGH 15.6 Result Comment: VANCOMYCIN STANDARED DRUG THERAPY TROUGH LEVEL: 5.0 - 15.0 mg/L VANCOMYCIN HIGH INTENSITY THERAPY TROUGH LEVEL: 15.0 - 20.0 mg/L High Intensity therapy recommended for serious life threatening infections include: - Meningitis -Endocarditis -Pneumonia (Ventilator/Healtcare Associated) -Sepsis PLEASE CONTACT PHARMACY SERVICES (#[id number]) FOR INTERPRETATION OF RESULTS. Performed By: #### L501.8820 #### [facility] [address] [place], [address] CONSULTATION Observed: 05/05/2018 Status: F Source: [place] 2:00 PM REPOSITORY [facility] Medical Records Department [address] [place] [address] [place] [address] Consultation 05/04/18 1852 MR#: [id number] Acct: [id number] Name: NILSON PINA Rep #: [id number] : 1985 33 From: Dipak Torrez MD PCP: Kunal ALCARAZ,Jian Status: ADM IN Y Location: MS3 [id number] Reason for Consult Date of Consultation: 05/04/18 Reason for Consultation: Infected MRSA ulcer left knee with worsening cellulitis. REFERRING PHYSICIAN: Dr. Manriquez. HEALTH TECHNICIAN HEARING: Dr. Torrez. History of Present Illness: The patient is a 33 year old M who was recently admitted to the hospital on 05/02/18 because of increasing pain and redness and swelling in his left lower extremity. On Monday. 04/29/18, patient noted a pimple on his left kneecap that would irritate him when he would wear pants. Patient's tried to squeeze it and did get some slight purulence out. Went to work and noted that he had some swelling in his right knee. Presented to the emergency room on 04/30/17 and diagnosed with cellulitis. Patient was discharged on clindamycin. Patient continued to have worsening symptoms and went to the ED on 05/02/18 and was admitted. He received Unasyn and was started on Vancomycin. Upon admission his Temp was 102.2. It is still low grade at 99.6. His WBC on admission was 16.7 and has only improved slightly to 15.6 despite being on Vancomycin. CT was done on 05/03/18 which showed Superficial soft tissue swelling with fluid accumulations along the fatty and superficial muscular fascial planes from the mid thigh to the mid lower leg, as noted. No defined rim-enhancing collection to indicate an abscess. No acute osseous abnormality to suggest osteomyelitis. Initial culture from the infected ulcer showed MRSA. Despite the Vancomycin, the cellulitis has spread. Because of his worsening symptomatology, I was asked to evaluate this patient for surgical options for treatment. Past Medical History Allergies No Known Allergies Allergy (Verified 04/30/18 20:31) Current Medications Acetaminophen (Tylenol) 650 mg PO Q6H PRN Enoxaparin Sodium (Lovenox) 40 mg SC DAILY@1000 RHODA Vancomycin IV Pharmacy to Dose (1 ea/ Sodium Chloride) 500 mls @ 250 mls/hr IV X1 PRN; Protocol Vancomycin HCl 1,250 mg/ (Sodium Chloride) 275 mls @ 167 mls/hr IV Q8H RHODA Magnesium Hydroxide (Milk Of Magnesia) 30 ml PO DAILY PRN Ondansetron HCl (Zofran) 4 mg IV Q8H PRN Oxycodone HCl (Oxyir) 5 - 10 mg PO Q4H PRN Home Medications: Ambulatory Orders Medication Instructions Recorded Clindamycin [Cleocin] 300 mg PO 4X/DAY #80 cap 04/30/18 Psychiatric History: No pertinent psych hx Lives: Spouse/ Significant Other Smoking Status: Never smoker Tobacco Use: Chew Alcohol: Occasional Drugs: None - *Family History Maternal History Items: - - No medical history that he is aware of. Paternal History Items: - - Medical history that he is aware of Review of Systems Comment: Constitutional: Denies: Anorexia, Chills, Fever, Malaise, Weakness. Eyes: Denies: Blurred vision, Double vision. HEENT: Denies: Head Aches, Sinus Congestion, Sinus Drainage. Cardiovascular: Denies: Chest Pain, Palpitations. Respiratory: Denies: Cough, Shortness of breath at rest, Sputum production. Gastrointestinal: Denies: Abdominal Pain, Nausea, Vomiting. Genitourinary: Denies: Dysuria. Musculoskeletal: Reports: Leg Pain. Denies: Arm Pain. Skin: Denies: Dryness, Jaundice. Neurological: Denies: Numbness, Tingling, Focal weakness. Psychiatric: Denies: Anxiety, Depression. Hematologic/ Lymphatic: Denies: Easy Bruising, Easy Bleeding, Hx of blood clot. Patient Problems: Active and Suspected Problems Abscess of left knee (Acute) MRSA (methicillin resistant Staphylococcus aureus) infection (Acute) Necrotizing soft tissue infection (Acute) Left leg cellulitis (Acute) Sepsis (Acute) - Physical Exam General: Alert, Oriented. Patient is shivering. Is fearful. HEENT: PERRL. EOMI. Oral: Moist Mucosa. Neck: soft and nontender. No cervical adenopathy. Lungs: Clear to auscultation. Cardiovascular: Regular rate, Regular Rhythm. Abdomen: Soft, Non-Distended. Extremities: Left leg is more swollen than the right leg. Dorsalis pedis pulses are palpable. No inguinal adenopathy. No sensory deficits. Skin: - - Left anterior knee with a draining ulcer with purulent drainage. Increased palpable tenderness extending laterally with discoloration. Indurated. Fluctuant. Has extensive cellulitis (blotchy) extending proximally 2/3 up the thigh and distally 2/3 down the leg. Increased tenderness to palpation in these areas as well. Musculoskeletal: No Muscle Wasting, Tenderness Neurological: CN II - XII grossly intact, Sensory exam intact to light touch and pain, Coordination normal Psych/Mental Status: Normal Affect, Appropriate Vital Signs Temp Pulse Resp BP Pulse Ox 99.3 F H 94 16 144/73 H 94 05/04/18 15:00 05/04/18 15:00 05/04/18 15:00 05/04/18 15:00 05/04/18 15:00 Oxygen Flow Rate (L/min) 2 Oxygen Delivery Method Room Air Weight: 238 lb 12.17 oz Body Mass Index (BMI) 32.3 Intake and Output for Last 24 Hours Intake Total 2292 / 2292 2546 / 2546 2940 / 2940 Output Total 825 / 825 2650 / 2650 Balance 2292 / 2292 1721 / 1721 290 / 290 Microbiology Past 72 Hours 05/02/18 06:06 Gram Stain - Final Wound - Knee Wound Culture - Final Laboratory Tests Past 24 Hrs WBC 15.6 H RBC 4.49 L Hgb 13.4 Hct 40.9 MCV 91.1 MCH 29.8 Assessment/Plan All Active Problems Abscess of left knee (Acute) MRSA (methicillin resistant Staphylococcus aureus) infection (Acute) Necrotizing soft tissue infection (Acute) Left leg cellulitis (Acute) Sepsis (Acute) 1. Infected MRSA ulcer left knee. 2. Worsening cellulitis extending proximally onto thigh and distally onto leg. 3. MRSA. 4. Possible necrotizing infection. Continue Vancomycin. He has a MRSA infection that has spread both proximally and distally along with increasing pain and swelling. He has worsening symptomatology despite being on Vancomycin. He still has low grade temps and his WBC has improved very little. CT reviewed. There is no defined abscess but there is soft tissue swelling along fatty and superficial muscular fascial planes extending both proximally onto the thigh and distally onto the leg. Clinically there is concern about a necrotizing process. Recommend operative intervention today CHASITY. He needs the infection around the knee opened up and drained. He will also need aggressive I AND D along the thigh and leg to look for a necrotizing process involving the muscle and fascia. With concern for a necrotizing process, will add Zosyn to cover the Anaerobes. At the time of surgery, will send tissue to Pathology for analysis and to Microbiology for culture. A positive culture may necessitate antibiotic modification. Will leave the wounds open and proceed with daily dressing changes after surgery. It may be difficult to apply the VAC because of the anticipated multiple incisions made during surgery. After discharge, can followup at the Wound Center. Depending on the healing process, we may proceed with delayed complex secondary wound closure and/or skin grafting. Postop I anticipate increased metabolic demands from the wounds and from the infection. Will check a Prealbumin and encourage nutritional supplementation with protein to help the healing process. Patient was informed of the risks and complications of the procedure including alternatives to surgery. These were discussed with the patient personally. Patient voices understanding and wishes to proceed. Patient understands that there will be several open wounds after the surgery. He voices understanding and wishes to proceed. He understands that if surgery is not done, he is at increased risk for worsening infection, amputation, or . Code Visit Inpatient E AND M: 96878 Subs Hosp L3 - Modifier 57 ICD-10 - M79.89, L02.416, A49.02, L03.116 05/05/18 1400 <Electronically signed by Dipak Torrez MD> Date Dipak Torrez MD Cosigner Signature (if applicable): Date CC: Kevin Cervantes DO; Dipak Torrez MD; Jian Syed MD; Jian Manriquez DO; Alec Royal MD; [facility] Signed CBC-COMPLETE BLOOD CNT Collected: 05/05/2018 Status: F Source: [place] NO DIFF 11:30 AM REPOSITORY TYPE CODE TESTS RESULT OUT OF RANGE REFERENCE UNITS LAB L100.1000 4.4-11.0 K/mm3 High WBC 14.8 LAB L100.1200 4.6-6.2 M/mm3 Normal RBC 4.64 LAB L100.1300 13.0-16.5 g/dl Normal HGB 13.5 LAB L100.1400 40-54 % Normal HCT 41.2 LAB L100.1500 80-94 fL Normal MCV 88.8 LAB L100.1600 27.0-32.0 pg Normal MCH 29.1 LAB L100.1700 32-36 g/gl Normal MCHC 32.8 LAB L100.1810 11.6-14.6 % Normal RDW CV 11.7 LAB L100.1820 35.1-43.9 fl Normal RDW SD 37.8 LAB L100.1900 150-450 K/mm3 Normal PLT 258 LAB L100.2000 6.2-12.0 fl Normal MPV 10.4 Performed By: #### L100.0500, L500.2500, L506.0500 #### [facility] [address] [place], [place], [address] BASIC METABOLIC Collected: 05/05/2018 Status: F Source: [place] PROFILE (BMP) 11:30 AM REPOSITORY TYPE CODE TESTS RESULT OUT OF RANGE REFERENCE UNITS LAB L501.0100 74-106 mg/dL High GLU 222 Result Comment: Glucose result greater than or equal to 200 mg/dL suggests DIABETES MELLITUS per A.D.A. criteria. Please note revised GLUCOSE reference range effective 2017. LAB L501.1000 7-18 mg/dL Normal BUN 13 LAB L501.1100 0.70-1.30 mg/dL Normal CREAT,SERUM 1.12 Result Comment: The validity of the calculated GFR AND GFRAA in patients over 70 years has not been determined. Clinical correlation is essential. LAB L501.1110 >60 mL/min Normal EST GFR 80 Result Comment: Non- GFR Calc LAB L501.1115 >60 mL/min Normal EST GFR - AA 97 Result Comment: GFR Calc LAB L501.1255 ml/min Normal Estimated CRCL 102.97 LAB L501.1300 10-20 RATIO BUN/CRE Normal 11.6 LAB L501.2200 8.5-10 mg/dL Low .1 CA 8.4 LAB L501.5300 136-14 mmol/L 5 NA Normal 139 LAB L501.5600 3.5-5. mmol/L 1 K Normal 4.0 LAB L501.5900 98-107 mmol/L CL Normal 104 LAB L501.6100 21.0-3 mmol/L 2.0 CO2 Normal 26.0 LAB L501.6200 5-15 GAP Normal 9 Performed By: #### L100.0500, L500.2500, L506.0500 #### [facility] [address] [place], [address] PREALBUMIN Collected: 05/05/2018 Status: F Source: [place] 11:30 AM REPOSITORY TYPE CODE TESTS RESULT OUT OF REFERENCE UNITS RANGE LAB L506.0500 20.0-40.0 mg/dL Low PREALBUMIN 9.9 Performed By: #### L100.0500, L500.2500, L506.0500 #### [facility] [address] [place], [address] Observed: 05/04/2018 Status: F Source: [place] CULTURE, DEEP WOUND 10:00 PM REPOSITORY Order Date: 02/15/17 Copy of report sent to Infection Control Printer [id number] 05/06/18 0953 RUDY. Comments: 1. LEFT KNEE MRSA INFECTION Gram Stain Gram Stain 1+ White Blood Cells 1+ Gram positive cocci Wound Culture ORGANISM 1: Meth. resistant Staph. aureus Amount Growth 2+ Meth. resistant Staph. aureus: REACTION Benzylpenicillin NF >=0.5 R Cefoxitin *NF + Clindamycin $$ >=8 R Inducable Clindamycin Resistan - Erythromycin $ >=8 R Gentamicin $ <=0.5 S Levofloxacin $ 0.25 S Linezolid $$$$ 2 S Oxacillin NF >=4 R Tigecycline $$$$ <=0.12 S Rifampin $$ <=0.5 S Tetracycline NF <=1 S Trimethoprim/Sulfametho $ <=10 S Vancomycin $ 1 S (NF) indicates non-formulary drug at [facility]. Approval by Infectious Disease Specialist required before non-formulary drugs may be ordered and/or dispensed. * CLSI guidelines does not recommend testing of cephalosporins. This interpretation is deduced from Beta-lactam/penicillin results. Cult, Anaerobic No anaerobic bacteria isolated. Performed By: #### M100.1500 #### [facility] [address] [place], [address] Observed: 05/04/2018 Status: F Source: [place] LEZAMA, CARI W/ 10:00 PM [id number] REPOSITORY Comments: 1. LEFT KNEE MRSA INFECTION Is this test to exclude patient from TB Isolation? Eren Warren,[id number] TESTING PERFORMED AT [facility]. ORIGINAL REPORT ON FILE IN LAB CONTAINS ADDITIONAL TEST SITE INFORMATION. CUF No yeast or mold isolated after [address] TESTING PERFORMED AT [facility]. ORIGINAL REPORT ON FILE IN LAB CONTAINS ADDITIONAL TEST SITE INFORMATION. Fungus Stain No yeast or mold observed. Performed By: #### M600.1900 #### [facility] [address] [place], [place] [address] [place], [address] CONSULTATION Observed: 05/04/2018 Status: F Source: [place] 3:46 PM REPOSITORY [facility] Medical Records Department [address] [place] [address] [place] [address] Consultation 05/04/18 1539 MR#: [id number] Acct: [id number] Name: NILSON PINA Rep #: [id number] : 1985 33 From: Alec Royal MD PCP: Jian Syed MD Status: ADM IN [place] [facility] [place] Problem List (1) Left leg cellulitis Status: Acute Reason for Consult: cellulitis Consulted by: Dr. Manriquez History of Present Illness: The patient is a 33 year old M with no past h/o MRSA who presented 05/02 with 2 days of progressive L knee pain, swelling, and redness that started as a small pimple. His tried to pop it with her fingers, but minimal fluid obtained. Redness spread up and down leg. Pain was severe. Had fever, chills, nausea. Came to ED, started on vanc, also given unasyn x1. Redness has continued to worsen, and still with purulence able to be expressed per wound care nurse. Full ROS performed and neg except as noted above. - Medical History Surgical History: reviewed Allergies/Adverse Reactions: Allergies No Known Allergies Allergy (Verified 04/30/18 20:31) Home Medications: Ambulatory Orders Medication Instructions Recorded Clindamycin [Cleocin] 300 mg PO 4X/DAY #80 cap 04/30/18 - Social History SMOKING STATUS:: Never smoker Vital Signs Temp Pulse Resp BP Pulse Ox 99.3 F H 94 16 144/73 H 94 05/04/18 15:00 05/04/18 15:00 05/04/18 15:00 05/04/18 15:00 05/04/18 15:00 Oxygen Flow Rate (L/min) 2 Oxygen Delivery Method Room Air Weight: 108.3 kg Body Mass Index (BMI) 32.3 Microbiology Past 72 Hours 05/02/18 06:06 Gram Stain - Final Wound - Knee Wound Culture - Final Laboratory Tests Past 24 Hrs WBC 15.6 H RBC 4.49 L - Other Studies Radiology: [] reviewed Other Studies: [] Route of nutrition/ use of supplements: [] Nutritional Intake: [] IV Site: [] [place] Catheter: [] - Physical Exam General: Alert, Oriented x3, Cooperative, No apparent distress HEENT: Atraumatic, PERRLA, EOMI Neck: Supple, No Nodes Lungs: Clear to auscultation, Normal air movement Cardiovascular: Regular rate, Regular Rhythm Abdomen: Soft, Non Tender, Non-Distended Extremities: Edema Skin: Ulcer/ Wound - L patella with surrounding redness, tenderness IV Site: Peripheral, without redness Neurological: Cranial nerves II-XII grossly intact - Assessment/Plan Antibiotics: [] Assessment/Plan: [] Active and Suspected Problems Left leg cellulitis (Acute) Sepsis (Acute) sepsis due to L patellar MRSA abscess and cellulitis - worsening despite IV vanc with ongoing purulent drainage. Recommend surgical I AND D for source control. Continue vanc. Bcx neg. Will follow, thank you. D/w nursing and primary team. 05/04/18 1546 <Electronically signed by Alec Royal MD> Date Alec Royal MD Cosigner Signature (if applicable): Date CC: Dipak Torrez MD; Jian Syed MD; Alec Royal MD Signed VANCOMYCIN, TROUGH Collected: 05/04/2018 Status: F Source: [place] LEVEL 3:40 PM REPOSITORY Order Comment: Comments: PLEASE DRAW 30MIN PRIOR TO DOSE ON 05/04 @1600 Time Medication is to be Given? 1600 TYPE CODE TESTS RESULT OUT OF REFERENCE UNITS RANGE LAB L501.8820 5.0-15.0 ug/mL High VANCO, TROUGH 15.4 Result Comment: VANCOMYCIN STANDARED DRUG THERAPY TROUGH LEVEL: 5.0 - 15.0 mg/L VANCOMYCIN HIGH INTENSITY THERAPY TROUGH LEVEL: 15.0 - 20.0 mg/L High Intensity therapy recommended for serious life threatening infections include: - Meningitis -Endocarditis -Pneumonia (Ventilator/Healtcare Associated) -Sepsis PLEASE CONTACT PHARMACY SERVICES (#[id number]) FOR INTERPRETATION OF RESULTS. Performed By: #### L501.8820 #### [facility] [address] [place], [place], [address] CBC W/DIFF, AUTOMATED Collected: 05/04/2018 Status: F Source: [place] 5:20 AM REPOSITORY TYPE CODE TESTS RESULT OUT OF RANGE REFERENCE UNITS LAB L100.1000 4.4-11.0 K/mm3 High WBC 15.6 LAB L100.1200 4.6-6.2 M/mm3 Low RBC 4.49 LAB L100.1300 13.0-16.5 g/dl Normal HGB 13.4 LAB L100.1400 40-54 % Normal HCT 40.9 LAB L100.1500 80-94 fL Normal MCV 91.1 LAB L100.1600 27.0-32.0 pg Normal MCH 29.8 LAB L100.1700 32-36 g/gl Normal MCHC 32.8 LAB L100.1810 11.6-14.6 % Normal RDW CV 11.9 LAB L100.1820 35.1-43.9 fl Normal RDW SD 39.3 LAB L100.1900 150-450 K/mm3 Normal PLT 201 LAB L100.2000 6.2-12.0 fl Normal MPV 10.6 LAB L100.2100 47-70 % High NEUT% 70.7 LAB L100.2200 19-41 % Low LY% 16.4 LAB L100.2300 0-10 % High MONO% 10.7 LAB L100.2400 0-5 % Normal EO% 1.7 LAB L100.2500 0-1 % Normal BASO% 0.2 LAB L100.2550 0.0-0.9 % Normal IM GRAN % 0.300 Result Comment: IG% - Immature Granulocytes (promyelocytes, myelocytes and metamyelocytes) > 1% indicates that a LEFT SHIFT is Present. LAB L100.2620 2.0-7.7 X10 3/uL High Absolute Neut 11.1 LAB L100.2720 0.83-4.51 X10 3/ul Normal Absolute Lymph 2.56 LAB L100.4500 Normal SMEAR COMMENT SCANNED Result Comment: AUTO DIFF OK Performed By: #### L100.0100 #### [facility] [address] [place], [address] EXTREMITY LOWER WITH Observed: 05/03/2018 Status: F Source: [place] CONTRAST 10:34 AM REPOSITORY [facility] Imaging Services [address] [place] [address] Extremity Lower WITH Contrast MR#: [id number] Acct: [id number] Name: NILSON PINA Salma Rep #: [id number] : 1985 M 33 From: Joseph Queen MD PCP: Jian Syed MD Status: ADM IN Study: Extremity Lower WITH Contrast Date of Exam: 05/03/18 Exam# [id number] Ordering Dr: Jian Manriquez DO STUDY: CT LEFT KNEE WITH CONTRAST REASON FOR EXAM: Male, 33 years old. Redness, swelling, and drainage left knee x 4 days. RADIATION DOSAGE (If Supplied By Facility): CTDIvol = ( ) mGy, DLP = ( ) mGycm TECHNIQUE: Transaxial CT imaging of the knee was performed post contrast administration. The examination was performed with intravenous administration of 100 ml of Isovue-300 contrast material. # of Images: 518 Individualized dose optimization techniques were used for this CT. COMPARISON: None. FINDINGS: Normal medial femoral condyle and medial tibial plateau. There is preservation of the articular joint space of the medial knee compartment. Normal lateral femoral condyle and lateral tibial plateau. There is preservation of the articular joint space of the lateral knee compartment. Normal proximal tibiofibular articulation. There is minimal retropatellar fluid, but no significant joint effusion. There is medial superficial soft tissue edema in the lower thigh, extending anteriorly and posteriorly at the level of the knee, and becoming more circumferential in the calf. More defined, elongated lentiform shaped fluid accumulations noted within the tissue planes of the subcutaneous fat and superficial fascial margins of the vessel bundles at these levels. There is no demonstrated abnormal enhancement or sign of a defined abscess. 2 mm calcification incidentally noted in the superficial anterior suprapatellar fatty tissues. The quadriceps tendon is grossly normal. The patellar tendon is grossly normal. Normal Hoffa's fat pad. CT/Extremity Lower WITH Contrast IMPRESSION: Superficial soft tissue swelling with fluid accumulations along the fatty and superficial muscular fascial planes from the mid thigh to the mid lower leg, as noted. No defined rim-enhancing collection to indicate an abscess. No acute osseous abnormality to suggest osteomyelitis. Electronically Signed: Aaron Queen MD at 12:19 EDT , Service support , CC: Jian Syed MD; Jian Manriquez DO Delinquent Notice Machine Operator: Signed BASIC METABOLIC Collected: 05/03/2018 Status: F Source: [place] PROFILE (BMP) 7:20 AM REPOSITORY TYPE CODE TESTS RESULT OUT OF RANGE REFERENCE UNITS LAB L501.0100 74-106 mg/dL Normal GLU 102 Result Comment: Fasting Glucose result from 100 to 125 mg/dL suggests IMPAIRED HOMEOSTASIS per A.D.A. criteria. Please note revised GLUCOSE reference range effective 2017. LAB L501.1000 7-18 mg/dL Normal BUN 11 LAB L501.1100 0.70-1.30 mg/dL Normal CREAT,SERUM 1.06 Result Comment: The validity of the calculated GFR AND GFRAA in patients over 70 years has not been determined. Clinical correlation is essential. LAB L501.1110 >60 mL/min Normal EST GFR 86 Result Comment: Non- GFR Calc LAB L501.1115 >60 mL/min Normal EST GFR - AA 103 Result Comment: GFR Calc LAB L501.1255 ml/min Normal Estimated CRCL 108.79 LAB L501.1300 10-20 RATIO BUN/CRE Normal 10.4 LAB L501.2200 8.5-10 mg/dL .1 CA Normal 8.5 LAB L501.5300 136-14 mmol/L 5 NA Normal 139 LAB L501.5600 3.5-5. mmol/L 1 K Normal 4.3 LAB L501.5900 98-107 mmol/L CL Normal 105 LAB L501.6100 21.0-3 mmol/L 2.0 CO2 Normal 29.0 LAB L501.6200 5-15 GAP Normal 5 Performed By: #### L500.2500 #### [facility] [address] [place], [place], [address] VANCOMYCIN, TROUGH Collected: 05/03/2018 Status: F Source: [place] LEVEL 7:20 AM REPOSITORY Order Comment: Comments: draw trough level at 0730, dose due at 0800 Time Medication is to be Given? 0800 TYPE CODE TESTS RESULT OUT OF RANGE REFERENCE UNITS LAB L501.8820 5.0-15.0 ug/mL Normal VANCO, TROUGH 13.6 Result Comment: VANCOMYCIN STANDARED DRUG THERAPY TROUGH LEVEL: 5.0 - 15.0 mg/L VANCOMYCIN HIGH INTENSITY THERAPY TROUGH LEVEL: 15.0 - 20.0 mg/L High Intensity therapy recommended for serious life threatening infections include: - Meningitis -Endocarditis -Pneumonia (Ventilator/Healtcare Associated) -Sepsis PLEASE CONTACT PHARMACY SERVICES (#[id number]) FOR INTERPRETATION OF RESULTS. Performed By: #### L501.8820 #### [facility] [address], [address] CBC W/DIFF, AUTOMATED Collected: 05/03/2018 Status: C Source: [place] 7:20 AM REPOSITORY TYPE CODE TESTS RESULT OUT OF RANGE REFERENCE UNITS LAB L100.1000 4.4-11.0 K/mm3 High WBC 16.2 LAB L100.1200 4.6-6.2 M/mm3 Normal RBC 4.70 LAB L100.1300 13.0-16.5 g/dl Normal HGB 13.8 LAB L100.1400 40-54 % Normal HCT 42.7 LAB L100.1500 80-94 fL Normal MCV 90.9 LAB L100.1600 27.0-32.0 pg Normal MCH 29.4 LAB L100.1700 32-36 g/gl Normal MCHC 32.3 LAB L100.1810 11.6-14.6 % Normal RDW CV 12.2 LAB L100.1820 35.1-43.9 fl Normal RDW SD 40.5 LAB L100.1900 150-450 K/mm3 Normal PLT 164 LAB L100.2000 6.2-12.0 fl Normal MPV 10.9 LAB L100.2100 47-70 % High NEUT% 78.2 LAB L100.2200 19-41 % Low LY% 11.1 LAB L100.2300 0-10 % Normal MONO% 9.4 LAB L100.2400 0-5 % Normal EO% 1.1 LAB L100.2500 0-1 % Normal BASO% 0.1 LAB L100.2550 0.0-0.9 % Normal IM GRAN % 0.100 Result Comment: IG% - Immature Granulocytes (promyelocytes, myelocytes and metamyelocytes) > 1% indicates that a LEFT SHIFT is Present. LAB L100.2620 2.0-7.7 X10 3/uL High Absolute Neut 12.7 LAB L100.2720 0.83-4.51 X10 3/ul Normal Absolute Lymph 1.81 LAB L100.9900 Normal PATH REV Reviewed Result Comment: Neutrophilic leukocytosis. Clinical correlation necessary. Brian Soliman M.D. 05/07/18 AMENDED REPORT 05/07/18 1148 PATH REV previously reported as: November Performed By: #### L100.0100 #### [facility] [address] [place], [address] LACTIC ACID Collected: 05/02/2018 Status: F Source: [place] 9:38 PM REPOSITORY Order Comment: Yes/No query for Sepsis Lactate Rule Y TYPE CODE TESTS RESULT OUT OF RANGE REFERENCE UNITS LAB L503.6005 0.4-2.0 mmol/L Normal LACTIC ACID 1.0 Performed By: #### L503.6005 #### [facility] [address] [place], [address] Observed: 05/02/2018 Status: F Source: [place] CULTURE, BLOOD (WB) 9:38 PM REPOSITORY Has pt arrived? Y BC No growth in 5 days. Performed By: #### M200.1000 #### [facility] [address] [place], [address] BEDSIDE GLUCOSE Collected: 05/02/2018 Status: F Source: [place] 3:58 PM REPOSITORY TYPE CODE TESTS RESULT OUT OF REFERENCE UNITS RANGE LAB L501.080 70-110 mg/dL High BEDSIDE GLU 114 Result Comment: MANAGEMENT OF PATIENT CARE PER NURSING PROTOCOL Performed By: #### L501.080 #### [facility] Point of Care [address] [place] [address] MRSA WOUND DNA BY Collected: 05/02/2018 Status: F Source: [place] PCR 10:30 AM REPOSITORY Order Comment: RESULTS CALLED TO CALEB 05/02/18 Geetha Stanton. REPORT READ BACK BY ASELF. Comments: left knee Specimen Source? left knee TYPE CODE TESTS RESULT OUT OF REFERENCE UNITS RANGE LAB L8200.1100 Negative High MRSA POSITIVE RESULT LAB L8200.1150 Negative High SA RESULT POSITIVE Performed By: #### L8200.1075 #### [facility] [address] [place], [address] HISTORY AND PHYSICAL Observed: 05/02/2018 Status: F Source: [place] EXAM 7:31 AM REPOSITORY [facility] Medical Records Department [address] [place] [address] History and Physical 05/02/18 0722 MR#: [id number] Acct: [id number] Name: NILSON PINA Rep #: [id number] : 1985 33 From: Kevin Cervantes DO PCP: Kunal ALCARAZ,Jian Status: REG ER Y Location: ED Problem List (1) Left leg cellulitis Status: Acute (2) Sepsis Status: Acute History of Present Illness Date of Admission: 05/02/18 Chief Complaint: left leg redness. The patient is a 33 year old M who presents with left lower extremity redness. Approximately Monday patient noted a pimple on his left kneecap that would irritate him when he would wear pants. Patient squeeze and did get some slight purulence out. Went to work and noted that he had some swelling in his right knee. Presented to the emergency room and diagnosed with cellulitis. Patient was discharged and since with clindamycin. Patient took clindamycin yesterday and this morning noted that he is left leg was much more swollen and painful and red. Presented to the emergency room and diagnosed with a left lower extremity cellulitis and I received Unasyn as well as for vancomycin. Patient has never had cellulitis before. [] Past Medical History Allergies No Known Allergies Allergy (Verified 04/30/18 20:31) Home Medications: Ambulatory Orders Medication Instructions Recorded Clindamycin [Cleocin] 300 mg PO 4X/DAY #80 cap 04/30/18 Psychiatric History: No pertinent psych hx Lives: Spouse/ Significant Other Smoking Status: Never smoker Tobacco Use: Chew Alcohol: Occasional Drugs: None - *Family History Maternal History Items: - - No medical history that he is aware of. Paternal History Items: - - Medical history that he is aware of Review of Systems Constitutional: Denies: Anorexia, Chills, Fever, Malaise, Weakness Eyes: Denies: Blurred vision, Double vision HEENT: Denies: Head Aches, Sinus Congestion, Sinus Drainage Cardiovascular: Denies: Chest Pain, Palpitations Respiratory: Denies: Cough, Shortness of breath at rest, Sputum production Gastrointestinal: Denies: Abdominal Pain, Nausea, Vomiting Genitourinary: Denies: Dysuria Musculoskeletal: Reports: Leg Pain. Denies: Arm Pain Skin: Denies: Dryness, Jaundice Neurological: Denies: Numbness, Tingling, Focal weakness Psychiatric: Denies: Anxiety, Depression Hematologic/ Lymphatic: Denies: Easy Bruising, Easy Bleeding, Hx of blood clot Comment: All review of systems are negative except as mentioned in the history of present illness and the other review of systems. VTE Information - Inpt Only VTE Present on Admission: No VTE Pharm Prophylaxis ordered?: Yes Patient Problems: Active and Suspected Problems Left leg cellulitis (Acute) Sepsis (Acute) - Physical Exam General: Alert, No apparent distress HEENT: Atraumatic, Normocephalic Oral: Moist Mucosa, No Gingival or Mucosal Lesions/ Ulcerations Neck: No Nodes, Thyroid Normal Size and Texture Lungs: Clear to auscultation, Normal air movement, No rhonchi, No wheeze Cardiovascular: Regular rate, Regular Rhythm, Normal S1, Normal S2, No murmurs Abdomen: Bowel Sounds Present, Soft, Non Tender, Non-Distended, No Hepato-splenomegaly Extremities: No edema, No Calf Tenderness, - - No joint effusion Skin: - - Left anterior knee with some mild induration and numbness. No fluctuance appreciated. Does have splotchy areas of erythema extending proximally up his thigh from his knee but also distally down his anterior calf. Is some tenderness to palpation. Musculoskeletal: No Muscle Wasting, Tenderness Neurological: Neuro grossly intact, Sensory exam intact to light touch and pain, Coordination normal Psych/Mental Status: Normal Affect, Appropriate Vital Signs Temp Pulse Resp BP Pulse Ox 36.9 C 98 18 149/85 H 97 05/02/18 05:52 05/02/18 05:52 05/02/18 06:12 05/02/18 05:52 05/02/18 05:52 Oxygen Delivery Method Room Air Weight: 96.9 kg Body Mass Index (BMI) 29.0 Laboratory Tests Past 24 Hrs WBC 16.7 H RBC 4.88 Hgb 14.5 Hct 43.0 MCV 88.1 MCH 29.7 MCHC 33.7 Assessment/Plan All Active Problems Left leg cellulitis (Acute) Sepsis (Acute) 1. Sepsis * Present on admission * Secondary to left lower extremity cellulitis * Supportive management 2. Left lower extremity cellulitis * Secondary to is a pimple or squeezing the pimple that he had on his knee * Continue with vancomycin * Culture was done and will await results. * Would like to see great improvement of the patient's cellulitis prior to him being discharged. Patient does demonstrate good improvements on the is possible that he could be discharged then but would prefer something along the lines of Bactrim or doxycycline. * Failed outpatient clindamycin 3. DVT prophylaxis: Moderate risk given the left lower extremity cellulitis. Patient will be on Lovenox. Code Visit Inpatient E AND M: [id number] Init Hosp L3 05/02/18 0731 <Electronically signed by Kevin Cervantes DO> Date Kevin Cervantes DO Cosigner Signature: Date (if applicable) CC: Kevin Cervantes DO; Jian Syed MD Signed CBC W/DIFF, AUTOMATED Collected: 05/02/2018 Status: F Source: [place] 6:30 AM REPOSITORY TYPE CODE TESTS RESULT OUT OF RANGE REFERENCE UNITS LAB L100.1000 4.4-11.0 K/mm3 High WBC 16.7 LAB L100.1200 4.6-6.2 M/mm3 Normal RBC 4.88 LAB L100.1300 13.0-16.5 g/dl Normal HGB 14.5 LAB L100.1400 40-54 % Normal HCT 43.0 LAB L100.1500 80-94 fL Normal MCV 88.1 LAB L100.1600 27.0-32.0 pg Normal MCH 29.7 LAB L100.1700 32-36 g/gl Normal MCHC 33.7 LAB L100.1810 11.6-14.6 % Normal RDW CV 11.9 LAB L100.1820 35.1-43.9 fl Normal RDW SD 37.8 LAB L100.1900 150-450 K/mm3 Normal PLT 173 LAB L100.2000 6.2-12.0 fl Normal MPV 11.5 LAB L100.2100 47-70 % High NEUT% 83.8 LAB L100.2200 19-41 % Low LY% 6.2 LAB L100.2300 0-10 % Normal MONO% 8.8 LAB L100.2400 0-5 % Normal EO% 0.8 LAB L100.2500 0-1 % Normal BASO% 0.1 LAB L100.2550 0.0-0.9 % Normal IM GRAN % 0.300 Result Comment: IG% - Immature Granulocytes (promyelocytes, myelocytes and metamyelocytes) > 1% indicates that a LEFT SHIFT is Present. LAB L100.2620 2.0-7.7 X10 3/uL High Absolute Neut 14.0 LAB L100.2720 0.83-4.51 X10 3/ul Normal Absolute Lymph 1.03 Performed By: #### L100.0100 #### [facility] [address] [place], [address] BASIC METABOLIC Collected: 05/02/2018 Status: F Source: [place] PROFILE ([facility]) 6:30 AM REPOSITORY TYPE CODE TESTS RESULT OUT OF RANGE REFERENCE UNITS LAB L501.0100 74-106 mg/dL High GLU 125 Result Comment: Fasting Glucose result from 100 to 125 mg/dL suggests IMPAIRED HOMEOSTASIS per A.D.A. criteria. Please note revised GLUCOSE reference range effective 2017. LAB L501.1000 7-18 mg/dL Normal BUN 13 LAB L501.1100 0.70-1.30 mg/dL Normal CREAT,SERUM 1.04 Result Comment: The validity of the calculated GFR AND GFRAA in patients over 70 years has not been determined. Clinical correlation is essential. LAB L501.1110 >60 mL/min Normal EST GFR 87 Result Comment: Non- GFR Calc LAB L501.1115 >60 mL/min Normal EST GFR - AA 106 Result Comment: GFR Calc LAB L501.1255 ml/min Normal Estimated CRCL 110.89 LAB L501.1300 10-20 RATIO BUN/CRE Normal 12.5 LAB L501.2200 8.5-10 mg/dL Low .1 CA 8.1 LAB L501.5300 136-14 mmol/L 5 NA Normal 138 LAB L501.5600 3.5-5. mmol/L 1 K Normal 3.6 LAB L501.5900 98-107 mmol/L CL Normal 106 LAB L501.6100 21.0-3 mmol/L 2.0 CO2 Normal 26.0 LAB L501.6200 5-15 GAP Normal 6 Performed By: #### L500.2500 #### [facility] [address] [place], [address] EMERGENCY DEPARTMENT Observed: 05/02/2018 Status: F Source: [place] SUMMARY 6:28 AM REPOSITORY [facility] Medical Records Department [address] [facility] [place] [address] Emergency Department Summary 05/02/18 0625 MR#: [id number] Acct: [id number] Name: NILSON PINA Rep #: [id number] : 1985 33 From: Jose Ferris DO PCP: Jian Syed MD Status: REG ER - ER Visit Summary Date of Service: 05/02/18 Chief Complaint: [Redness and swelling to the left knee] History of Present Illness: The patient is a 33 M [presents the emergency department complaint of redness and swelling the left knee that started initially about 5 days ago. Patient started with what he thought was a pimple on his left knee and he and the try to squeeze it and pop it. Patient continued to have increased redness and swelling and was seen in the emergency department 2 days ago and was started on clindamycin. Patient continues to have increased redness and swelling and pain and presents back to the emergency department. Patient denies any fever or chills. He has no medical history otherwise.] Physical Examination: [HEENT-PERRLA, EOMI. Cranial nerves II through XII grossly intact. TMs clear. Mucous membranes moist. No adenopathy. Cardiovascular-regular rate and rhythm without murmur or ectopy Lungs-clear to auscultation, chest wall stable without crepitus or subcu emphysema Abdomen-normoactive bowel sounds, soft, nontender, no rebound or rigidity, no peritoneal signs. Extremities-intact 4, normal range of motion, normal pulses, atraumatic]. Left knee-patient has induration over the area of the patella with a small vesicular lesion measuring about a centimeter in diameter oozing some yellowish discharge. Discussed surrounding erythema and involving the area of the knee down onto the lao and now extending toward the thigh. Area is warm to the touch. Patient neurovascular intact distally. He has no significant joint pain with range of motion. Test Results: [CBC with differential and chemistries ordered. Wound culture ordered from the fluid anterior to the patella. There is no significant abscess noted for incision and drainage.] Emergency Department Course and Treatment: [Patient was started on Unasyn and vancomycin. I do not feel patient has a septic joint.] Treatment Plan: [Admit for IV antibiotics] Disposition: [Admit] Impression: [Cellulitis left lower extremity with failed outpatient therapy] This note was generated with iWelcome dictation software. It may contain incorrect words, spelling, and punctuation that were not noted in review of the chart prior to signing ED Disposition - Plan for ED Patient: Chief Complaint: Cellulitis Referrals: Jian Syed MD [Primary Care Provider] - What to do if you have Problems For any increased pain, shortness of breath, bleeding, nausea or vomiting, chest pain, or any unexpected problems, contact your Primary Care Provider. Call [facility] ([phone]) or report to the closest Emergency Room. Call 911 if necessary. 05/02/18 0628 <Electronically signed by Jose Ferris DO> Date Jose Ferris DO Cosigner Signature (If Indicated): Date CC: Jian Syed MD Observed: 05/02/2018 Status: F Source: [place] CULTURE, WOUND 6:06 AM REPOSITORY Gram Stain Gram Stain 1+ White Blood Cells 3+ Gram positive cocci Wound Culture ORGANISM 1: Meth. resistant Staph. aureus Amount Growth 3+ Meth. resistant Staph. aureus: REACTION Benzylpenicillin NF >=0.5 R Cefoxitin *NF + Clindamycin $$ >=8 R Inducable Clindamycin Resistan - Erythromycin $ >=8 R Gentamicin $ <=0.5 S Levofloxacin $ 0.25 S Linezolid $$$$ 1 S Oxacillin NF >=4 R Tigecycline $$$$ <=0.12 S Rifampin $$ <=0.5 S Tetracycline NF <=1 S Trimethoprim/Sulfametho $ <=10 S Vancomycin $ 1 S (NF) indicates non-formulary drug at [facility]. Approval by Infectious Disease Specialist required before non-formulary drugs may be ordered and/or dispensed. * CLSI guidelines does not recommend testing of cephalosporins. This interpretation is deduced from Beta-lactam/penicillin results. Performed By: #### M100.1400 #### [facility] [address] [place], [address] EMERGENCY DEPARTMENT Observed: 04/30/2018 Status: F Source: [place] SUMMARY 9:48 PM REPOSITORY [facility] Medical Records Department [address] [facility] [place] [address] Emergency Department Summary 04/30/18 2142 MR#: [id number] Acct: [id number] Name: NILSON PINA Rep #: [id number] : 1985 33 From: Fortunato Dia MD PCP: NOT, DEFINED Status: PRE ER - ER Visit Summary Date of Service: 04/30/18 Chief Complaint: Knee pain History of Present Illness: Patient presents with left knee pain. Apparently there was a lesion which the broke up and expectorated pus from yesterday. Now there is worsening redness around it. There is no joint pain no pain with ambulation. There is no fever chills or noted lymphangitic streaking. Physical Examination: Otherwise unremarkable exam. He has no abdominal pain. He has a small lesion anterior knee. There is no bursitis in the prepatellar region. There is slight cellulitis. No induration or fluctuance present. The knee has full range of motion without any pain or signs of effusion. Emergency Department Course and Treatment: Patient has cellulitis there are no signs or symptoms of septic arthritis there are no signs or symptoms of prepatellar bursitis. There are no signs or symptoms of an abscess that needs drained. Patient will be started on antibiotics she was warned about all the above symptoms and if he worsens he needs to return. Discharge stable condition Impression: [Left knee cellulitis] This note was generated with iWelcome dictation software. It may contain incorrect words, spelling, and punctuation that were not noted in review of the chart prior to signing ED Disposition - Plan for ED Patient: Disposition: Home or Assisted Living Chief Complaint: Lower Extremity Injury Instructions: Cellulitis - Causes,Symptoms,Treating Prescriptions: Clindamycin [Cleocin] 300 mg PO 4X/DAY #80 cap Referrals: NOT,DEFINED [Primary Care Provider] - 3-5 Days What to do if you have Problems For any increased pain, shortness of breath, bleeding, nausea or vomiting, chest pain, or any unexpected problems, contact your Primary Care Provider. Call [facility] ([phone]) or report to the closest Emergency Room. Call 911 if necessary. 04/30/182147 <Electronically signed by Fortunato Dia MD> Date Fortunato Dia MD Cosigner Signature (If Indicated): Date CC: DEFINED NOT PROGRESS Observed: 04/30/2018 Status: COMPLETED Source: [place] 8:42 PM [facility] REPOSITORY HNO ID: [id number] Author: Corwin Mcclure Service: (none) Author Type: Nurse Practitioner Type: Progress Notes Filed: 04/30/2018 8:46 PM Note Text: Subjective HPI Her today for infection on knee with severe pain. Is unable to stand d/t pain at times. Pain shoots from ankle to groin. Redness/swelling spreading. Popped lesion/small amount of puss came out then symptoms worsened greatly. ROS Objective Physical Exam Skin: ASSESSMENT/PLAN: 1. Skin infection - ICD9: 686.9, ICD10: L08.9 -concerns raised with severity of symptoms I recommend ER evaluation/treatment -patient to drive pov to ER Corwin Mcclure APRN.CNP CNOV Observed: 04/30/2018 Status: COMPLETED Source: [place] 8:15 PM [facility] REPOSITORY Office Visit (WSTR) NILSON PINA ([id number]) 1985 M Date Time Provider Department 04/30/18 8:15 PM CORWIN MCCLURE (ANTHONY) [facility] During your visit today, we recorded the following information about you: Corwin Mcclure APRN.CNP 04/30/2018 8:46 PM Signed Subjective HPI Her today for infection on knee with severe pain. Is unable to stand d/t pain at times. Pain shoots from ankle to groin. Redness/swelling spreading. Popped lesion/small amount of puss came out then symptoms worsened greatly. ROS Objective Physical Exam Skin: ASSESSMENT/PLAN: 1. Skin infection - ICD9: 686.9, ICD10: L08.9 -concerns raised with severity of symptoms I recommend ER evaluation/treatment -patient to drive pov to ER Corwin Mcclure APRN.CNP Referring Provider: SELF [200] Allergies As of Date: 04/30/2018 (No Known Allergies) Date Reviewed: 12/14/2016 Reviewed by: Kortney Gonzalez LPN - Fully Assessed Primary Visit Diagnosis:Skin infection [L08.9] Prescriptions as of 04/30/2018 Sig: DAILY MULTI ORAL Take 1 tablet by mouth once d* IBUPROFEN 200 MG TABLET Take 200 mg by mouth every 6 * Problem List As Of Date 04/30/2018 Noted Resolved Fertility testing [Z31.41] INVALID FOR*03/10/2011 Encounter Status:Closed by CORWIN MCCLURE CNP on 04/30/18 ALLERGIES ALLERGIES DATE TYPE / CODE NAME / CODE REACTION SEVERITY SOURCE 07/13/2018 Drug clindamycin/F006 Hives Unknown [facility] Allergy/416 154591(RXNORM) Hospital 383302(SNOM Repository ED CT) 07/13/2018 Drug vancomycin/F0060 Hives Unknown [facility] Allergy/416 70365(RXNORM) Hospital 228085(SNOM Repository ED CT) 04/30/2018 Drug No Known Unknown [facility] Allergy/416 Allergies/I77396 Hospital 371945(SNOM 0388(RXNORM) Repository ED CT) Drug NO KNOWN [facility] Class/31230 ALLERGIES [place] 1003(SNOMED Repository CT) ENCOUNTERS ENCOUNTERS ADMIT/DISCHARGE ACCOUNT ADMITTING ENCOUNTER LOCATION SOURCE NUMBER CLASS 08/06/2018 [id number] Ambulatory [facility] Hospital ing: Repository 07/13/2018/07/13/20 [id number] Ambulatory BMSBuilding:B [place] [address] [facility] Repository 07/02/2018 [id number] Ambulatory BMSBuilding:B [place] MS.[facility] Repository 07/02/2018/07/16/20 [id number] Ambulatory [address] Hospital ing: Repository 06/27/2018/06/28/20 [id number] Dipak Torrez [address] Hospital ing:HU1Skjr: Repository IY103Viv: 1 06/27/2018 [id number] Dipak Torrez Ambulatory BMSBuilding:B [place] MS.CF.[facility] Repository 06/27/2018 [id number] Dipak Torrez Ambulatory BMSBuilding:B [place] MS.[facility] Repository 06/27/2018 [id number] Dipak Torrez Ambulatory BMSBuilding:B [place] MS.CF.[facility] Repository 06/27/2018 [id number] Dipak Torrez Ambulatory BMSBuilding:[place] MS.CF.[facility] Repository 06/26/[id number] [facility] ing:LAB Repository 06/11/2018 [id number] Ambulatory BMSBuilding:Mandeep Menendez MS.CF.[facility] Repository 06/11/2018/06/15/20 [id number] Ambulatory [address] ing: Repository 06/04/2018 [id number] Ambulatory BMSBuilding:Mandeep Menendez MS.CF.[facility] Repository 05/28/2018 [id number] Ambulatory BMSBuilding:Mandeep Menendez MS.CF.[facility] Repository 05/26/2018/06/15/20 [id number] Ambulatory [address] Hospital ing:LAB Repository 05/21/2018 [id number] Ambulatory BMSBuilding:Mandeep Menendez MS.CF.[facility] Repository 05/11/2018 [id number] Jesus, Marvin Chi Ambulatory BMSBuilding:Mandeep Menendez MS.CF.[facility] Repository 05/11/2018/05/18/20 [id number] Jesus, Marvin Chi Inpatient [address] ing:TCURoom: Repository QZP93Ual: 1 05/02/2018 [id number] Ambulatory BMSBuilding:[facility] Repository 05/02/2018 [id number] Helen, Kevin Ambulatory BMSBuilding:Mandeep Menendez MS.[facility] Repository 05/02/2018 [id number] Helen Kevin Ambulatory BMSBuilding:Mandeep Menendez MS.CF.[facility] Repository 05/02/2018 [id number] Helen, Kevin Ambulatory BMSBuilding:Mandeep Menendez MS.[facility] Repository 05/02/2018 [id number] Helen, Kevin Ambulatory [facility]MS[facility] 05/02/2018 [id number] Helen, Kevin Ambulatory BMSBuilding:Mandeep Menendez MS.[facility] Repository 05/02/2018 [id number] Helen Kevin Ambulatory BMSBuilding:Mandeep Menendez MS.[facility] Repository 05/02/2018 [id number] Helen, Kevin Ambulatory BMSBuilding:B [place] MS.[facility] Repository 05/02/2018 [id number] Helen, Kevin Ambulatory BMSBuilding:[place] MS.CF.[facility] Repository 05/02/2018 [id number] Surindereri, Kevin Ambulatory BMSBuilding:B [place] MS.CF.[facility] Repository 05/02/2018 [id number] Helen, Kevin Ambulatory BMSBuilding:B [place] MS.[facility] Repository 05/02/2018 [id number] Surindereri, Kevin Ambulatory BMSBuilding:B [place] MS.[facility] Repository 05/02/2018 [id number] Helen, Kevin Ambulatory BMSBuilding:[place] MS.[facility] Repository 05/02/2018/05/11/20 [id number] Helen Kevin Inpatient [address] ing:AH4Wott: Repository [id number]: 1 05/02/2018 [id number] Helen, Kevin Ambulatory BMSBuilding:B [place] MS.CF.[facility] Repository 05/02/2018 [id number] Helen, Kevin Ambulatory BMSBuilding:B [place] MS.[facility] Repository 05/02/2018 [id number] Helen, Kevin Ambulatory BMSBuilding:[place] MS.CF.[facility] Repository 05/02/2018 [id number] Helen, Kevin Ambulatory BMSBuilding:B [place] MS.CF[facility] Repository 05/02/2018 [id number] Ambulatory BMSBuilding:[place] MS.[facility] Repository 04/30/2018/04/30/20 [id number] Emergency [address] ing:ED Repository 04/30/2018/05/01/20 [id number] Ambulatory [address] Repository PAYERS PAYERS ENCOUNTER GUARANTOR PAYER SUBSCRIBER SOURCE 08/06/2018 NILSON [place] Primary NOT GIVENDAWSON Menendez [id number] Insurance:SELF PAY [place], [place] Number: Effective Repository [id number]: (330) Date:2018-07-17 [phone] (HP) 07/13/2018 NILSON R Primary NILSON R [place] [id number] Insurance:CORESOURCEP LEMONDOB: [facility]: [id number] [place] [id number] Repository [address]Sec: (330) Date:1445-44-18[phone] (HP) [address] [id number]: 07/13/2018 Secondary NOT GIVENUNK [place] Insurance:SELF PAY [facility] Number: Effective Repository Date:2018-07-13 07/02/2018 NILSON R Primary NILSON R [place] [id number] Insurance:CORESOURCEP LEMONDOB: [facility] [place]: [id number] [id number] Repository [address]Fqq: (330) Date:0393-51-93[phone] (HP) [address] [id number]: 07/02/2018 Secondary NOT GIVENUNK [place] Insurance:SELF PAY [facility] Number: Effective Repository Date:2018-07-02 07/02/2018 NILSON R Primary NILSON R [place] [id number] Insurance:CORESOURCEP LEMONDOB: [facility] Number: [id number] [id number] Repository [address]Dpv: (330) Date:7432-69-74[phone] (HP) [address] [place] [id number]: 07/02/2018 Secondary NOT GIVENUNK [place] Insurance:SELF PAY [facility] Number: Effective Repository Date:2018-06-16 06/27/2018 NILSON R Primary NILSON R [place] [id number] Insurance:CORESOURCEP LEMONDOB: [facility] Number: [id number] [id number] Repository [address]Obr: (330) Date:5516-54-81[phone] (HP) [address] [id number]: 06/27/2018 Secondary NOT GIVENUNK [place] Insurance:SELF PAY [facility] [place] [facility] Number: Effective Repository Date:2018-06-11 06/27/2018 NILSON R Primary NIL[place] R [place] [id number] Insurance:CORESOURCEP LEMONDOB: [facility] [place] [facility] Number: [id number], [place] [id number] Repository 56810Xfo: (330) Date:3880-00-94XF [phone] (HP) [address]MT. [place] HELMS [id number]: 06/27/2018 Secondary NOT GIVENUNK [place] Insurance:SELF PAY [facility] Number: Effective Repository Date:2018-06-26 06/27/2018 NILSON R Primary NILSON R [place] [id number] Insurance:CORESOURCEP LEMONDOB: [facility] [place] [facility] Number: [id number], [place] [id number] Repository 18820Gks: (330) Date:9859-05-43GF [phone] (HP) 2310MT. [place] HEL[place] [id number]: 06/27/2018 Secondary NOT GIVENUNK [place] Insurance:SELF PAY [facility] Number: Effective Repository Date:2018-06-27 06/27/2018 NILSON R Primary NIL[place] R [place] [id number] Insurance:CORESOURCEP LEMONDOB: [facility] [place] [facility] Number: [id number], [place] [id number] Repository 07129Xfx: (330) Date:9267-07-19EP [phone] (HP) 2310MT. [place] HEL[place] [id number]: 06/27/2018 Secondary NOT GIVENUNK [place] Insurance:SELF PAY [facility] Number: Effective Repository Date:2018-06-27 06/27/2018 NILSON R Primary [place] R [place] [id number] Insurance:CORESOURCEP LEMONDOB: [facility] Number: [id number], [place] [id number] Repository 50729Gpb: (330) Date:6491-45-42PX [phone] (HP) 2310MT. [place] HEL[place] [id number]: 06/27/2018 Secondary NOT GIVENUNK [place] Insurance:SELF PAY [facility] Number: Effective Repository Date:2018-06-25 06/26/2018 NILSON R Primary [place] R [place] [id number] Insurance:CORESOURCEP LEMONDOB: [facility] Number: [id number], [place] [id number] Repository 34252Hzy: (330) Date:1087-25-10ED [phone] (HP) 2310MT. [place] [id number]: 06/26/2018 Secondary NOT GIVENUNK [place] Insurance:SELF PAY [facility] Number: Effective Repository Date:2018-06-16 06/11/2018 NILSON R Primary NIL[place] R [place] [id number] Insurance:CORESOURCEP LEMONDOB: [facility] Number: [id number], [place] [id number] Repository 86110Rzf: (330) Date:0351-26-11XU [phone] (HP) 2310MT. [place] HEL[place] [id number]: 06/11/2018 Secondary NOT GIVENUNK [place] Insurance:SELF PAY [facility] Number: Effective Repository Date:2018-06-11 06/11/2018 NILSON R Primary NIL[place] R [place] [id number] Insurance:CORESOURCEP LEMONDOB: [facility] Number: [id number], [place] [id number] Repository 34558Dbn: (330) Date:1157-65-84VM [address] [phone] (HP) 2310MT. [place] HEL[place] [id number]: 06/11/2018 Secondary NOT [place]IVENUN[place] Insurance:SELF PAY [facility] Number: Effective Repository Date:2018-05-21 06/04/2018 NILSON R Primary [place] [id number] Insurance:CORESOURCEP LEMONDOB: [facility] Number: [id number], [place] [id number] Repository 20367Qgn: (330) Date:4054-72-07EC [phone] (HP) [address]MT. [place] [id number]: 06/04/2018 Secondary NOT GIVENUNK [place] Insurance:SELF PAY [facility] Number: Effective Repository Date:2018-06-04 05/28/2018 NILSON R Primary [place] [id number] Insurance:CORESOURCEP LEMONDOB: [facility] Number: [id number], [place] [id number] Repository 09014Xxa: (330) Date:1281-12-58UE [phone] (HP) 2310MT. [place] HEL[place] [id number]: 05/28/2018 Secondary NOT GIVENUNK [place] Insurance:SELF PAY [facility] Number: Effective Repository Date:2018-05-28 05/26/2018 NILSON R Primary [place] R [place] [id number] Insurance:CORESOURCEP LEMONDOB: [facility] Number: [id number], [place] [id number] Repository 76892Bio: (330) Date:3386-99-57EJ [phone] (HP) 2310MT. [place] HEL[place] [id number]: 05/26/2018 Secondary NOT GIVENUNK [place] Insurance:SELF PAY [facility] Number: Effective Repository Date:2018-05-26 05/21/2018 NILSON R Primary NIL[place] R [place] [id number] Insurance:CORESOURCEP LEMONDOB: [facility] Number: [id number], [place] [id number] Repository 67191Vib: (330) Date:6894-62-10RJ [phone] (HP) 2310MT. [place] HELMS [id number]: 05/21/2018 Secondary NOT GIVENUNK [place] Insurance:SELF PAY [facility] Number: Effective Repository Date:2018-05-21 05/11/2018 NILSON R Primary NIL[place] R [place] [id number] Insurance:CORESOURCEP LEMONDOB: [facility] Number: [id number], [place] [id number] Repository 84707Jsd: (330) Date:6906-95-32WV [phone] (HP) 2310MT. [place] [id number]: 05/11/2018 Secondary NOT GIVENUNK [place] Insurance:SELF PAY [facility] Number: Effective Repository Date:2018-05-11 05/11/2018 NILSON R Primary NIL[place] R [place] [id number] Insurance:CORESOURCEP LEMONDOB: [facility] Number: [id number], [place] [id number] Repository 47861Esn: (330) Date:6358-89-22AR [phone] (HP) 2310MT. [place] [id number]: 05/11/2018 Secondary NOT GIVENUNK [place] Insurance:SELF PAY [facility] Number: Effective Repository Date:2018-05-11 05/02/2018 NILSON R Primary NIL[place] R [place] [id number] Insurance:CORESOURCEP LEMONDOB: [facility] Number: [id number], [place] [id number] Repository 69854Cuk: 330) Date:9406-77-21DN [phone] (HP) 2310MT. [place] [id number]: 05/02/2018 Secondary NOT [place]IVENUNK [place] Insurance:SELF PAY [facility] Number: Effective Repository Date:2018-05-02 05/02/2018 NILSON R Primary NIL[place] R [place] [id number] Insurance:CORESOURCEP LEMONDOB: [facility] Number: [id number], [place] [id number] Repository 90988Xdj: (330) Date:6299-70-86LB [phone] (HP) 2310MT. [place] [id number]: 05/02/2018 Secondary NOT GIVENUNK [place] Insurance:SELF PAY [facility] [place] [facility] Number: Effective Repository Date:2018-05-02 05/02/2018 NILSON R Primary [place] R [place] [id number] Insurance:CORESOURCEP LEMONDOB: [facility] Number: [id number], [place] [id number] Repository 26716Ghh: (330) Date:0430-43-89NQ [phone] (HP) 2310MT. [place] HELMS [id number]: 05/02/2018 Secondary NOT GIVENUNK [place] Insurance:SELF PAY [facility] Number: Effective Repository Date:2018-05-02 05/02/2018 NILSON R Primary [place] [id number] Insurance:CORESOURCEP LEMONDOB: [facility] [place] [facility] Number: [id number], [place] [id number] Repository 28586Bui: (330) Date:7329-86-75ES [phone] (HP) 2310MT. [place] [id number]: 05/02/2018 Secondary NOT GIVENUNK [place] Insurance:SELF PAY [facility] Number: Effective Repository Date:2018-05-02 05/02/2018 NILSON R Primary NIL[place] R [place] [id number] Insurance:CORESOURCEP LEMONDOB: [facility] [place] [facility] Number: [id number], [place] [id number] Repository 22902Zqr: (330) Date:3824-57-67FT [phone] (HP) 2310MT. [place] [id number]: 05/02/2018 Secondary NOT [place]IV[place] Insurance:SELF PAY [facility] Number: Effective Repository Date:2018-05-02 05/02/2018 NILSON R Primary [place] R [place] [id number] Insurance:CORESOURCEP LEMONDOB: [facility] Number: [id number], [place] [id number] Repository 43961Pzx: (330) Date:8916-48-46JS [phone] (HP) 2310MT. [place] 30552LB: 05/02/2018 Secondary NOT [place]IVENUN[place] Insurance:SELF PAY [facility] Number: Effective Repository Date:2018-05-02 05/02/2018 NILSON R Primary [place] [id number] Insurance:CORESOURCEP LEMONDOB: [facility] Number: [id number], [place] [id number] Repository 97397Roq: (330) Date:7524-31-68PA [address] [phone] (HP) 2310MT. [place] 30470NH: 05/02/2018 Secondary NOT GIVENUNK [place] Insurance:SELF PAY [facility] Number: Effective Repository Date:2018-05-02 05/02/2018 NILSON R Primary N[place] R [place] [id number] Insurance:CORESOURCEP LEMONDOB: [facility] Number: [id number], [place] [id number] Repository 75687Qxb: (330) Date:4193-29-71MK [address] [phone] (HP) 2310MT. [place] [id number]: 05/02/2018 Secondary NOT [place]IVEN[place] Insurance:SELF PAY [facility] Number: Effective Repository Date:2018-05-02 05/02/2018 NILSON R Primary [place] R [place] [id number] Insurance:CORESOURCEP LEMONDOB: [facility] Number: [id number], [place] [id number] Repository 12781Oyn: (330) Date:9801-48-40DS [phone] (HP) 2310MT. [place] [id number]: 05/02/2018 Secondary NOT [place]IVEN[place] Insurance:SELF PAY [facility] Number: Effective Repository Date:2018-05-02 05/02/2018 NILSON R Primary [place] [id number] Insurance:CORESOURCEP LEMONDOB: [facility] Number: [id number], [place] [id number] Repository 66222Bel: (330) Date:3452-25-96LR [address] [phone] (HP) 2310MT. [place] [id number]: 05/02/2018 Secondary NOT GIVEN[place]K [place] Insurance:SELF PAY [facility] Number: Effective Repository Date:2018-05-02 05/02/2018 NILSON R Primary [place] R [place] [id number] Insurance:CORESOURCEP LEMONDOB: [facility] Number: [id number], [place] [id number] Repository 16837Gwa: (808) Date:4768-56-16EW [phone] (HP) 2310MT. [place] [id number]: 05/02/2018 Secondary NOT GIVEN[place]K [place] Insurance:SELF PAY [facility] Number: Effective Repository Date:2018-05-02 05/02/2018 NILSON R Primary N[place] R [place] [id number] Insurance:CORESOURCEP LEMONDOB: [facility] Number: [id number], [place] [id number] Repository 17058Zgg: 330) Date:9764-34-06PZ [address] [phone] (HP) 2310MT. [place] 09249WU: 05/02/2018 Secondary NOT GIV[place]K [place] Insurance:SELF PAY [facility] Number: Effective Repository Date:2018-05-02 05/02/2018 NILSON R Primary [place] [id number] Insurance:CORESOURCEP LEMONDOB: [facility] Number: [id number], [place] [id number] Repository 21750Mjh: (330) Date:6874-27-31IS [address] [phone] (HP) 2310MT. [place] [id number]: 05/02/2018 Secondary NOT [place]IV[place] Insurance:SELF PAY [facility] [place] [facility] Number: Effective Repository Date:2018-05-02 05/02/2018 NILSON R Primary [place] R [place] [id number] Insurance:CORESOURCEP LEMONDOB: [facility] [place] [facility] Number: [id number], [place] [id number] Repository 90183Lry: (330) Date:4722-31-60BM [address] [phone] (HP) 2310MT. [place] [id number]: 05/02/2018 Secondary NOT [place]IV[place] Insurance:SELF PAY [facility] Number: Effective Repository Date:2018-05-02 05/02/2018 NILSON R Primary [place] R [place] [id number] Insurance:CORESOURCEP L[place]ONDOB: [facility] [place] Number: [id number], [place] [id number] Repository 42285Jga: (330) Date:1897-69-00BF [phone] (HP) 2310MT. [place] [id number]: 05/02/2018 Secondary NOT GIV[place]UNK [place] Insurance:SELF PAY [facility] Number: Effective Repository Date:2018-05-02 05/02/2018 NILSON R Primary [place] [id number] Insurance:CORESOURCEP LEMONDOB: [facility] [place] [facility] Number: [id number], [place] [id number] Repository 14169Jcm: (330) Date:3803-01-80KW [address] [phone] (HP) 2310MT. [place]MS [id number]: 05/02/2018 Secondary NOT [place]IV[place] Insurance:SELF PAY [facility] Number: Effective Repository Date:2018-05-02 05/02/2018 NILSON R Primary [place] [id number] Insurance:CORESOURCEP LEMONDOB: [facility] [place] [facility] Number: [id number], [place] [id number] Repository 28532Eqr: (330) Date:7285-42-15OB [phone] (HP) 2310MT. [place] [id number]: 05/02/2018 Secondary NOT GIVENUNK [place] Insurance:SELF PAY [facility] Number: Effective Repository Date:2018-05-02 05/02/2018 NILSON R Primary [place] [id number] Insurance:CORESOURCEP LEMONDOB: [facility] Number: [id number] [facility] [id number] Repository 63052Vra: (330) Date:9339-54-29RR [address] [phone] (HP) 2310MT. [place] [id number]: 05/02/2018 Secondary NOT GIVENUNK [place] Insurance:SELF PAY [facility] Number: Effective Repository Date:2018-05-02 05/02/2018 NILSON R Primary [place] [id number] Insurance:CORESOURCEP LEMONDOB: [facility] Number: [id number], [place] [id number] Repository 70134Dxl: (330) Date:0739-20-70LT [address] [phone] (HP) 2310MT. [place] [id number]: 05/02/2018 Secondary NOT [place]IV[place] Insurance:SELF PAY [facility] Number: Effective Repository Date:2018-05-02 04/30/2018 NILSON R Primary [place] [id number] Insurance:CORESOURCEP LEMONDOB: [facility] Number: [id number], [place] [id number] Repository 98865Rhm: (330) Date:4544-43-89PJ [address] [phone] (HP) 2310MT. [place] HELMS [id number]: 04/30/2018 Secondary NOT [place]IVENUNK [place] Insurance:SELF PAY [facility] [place] Number: Effective Repository Date:2018-04-30
== END 2018-06-28 17:52 | disposition home or self-care (01) ==
LOC: SDC 15:39 → MS3 15:39
PROVIDERS: Admitting Provider Surgery; Family Provider Family Medicine; PCP Family Medicine; Referring Provider Surgery; Visit Provider Surgery
PROC: (CPT 13160; principal; 2018-06-26 09:45)
DX: L97.125 Non-pressure chronic ulcer of left thigh with muscle involvement without evidence of necrosis (principal); L97.822 Non-pressure chronic ulcer of other part of left lower leg with fat layer exposed; L97.525 Non-pressure chronic ulcer of other part of left foot with muscle involvement without evidence of necrosis; B95.62 Methicillin resistant Staphylococcus aureus infection as the cause of diseases classified elsewhere; Z79.899 Other long term (current) drug therapy; F17.220 Nicotine dependence, chewing tobacco, uncomplicated
CPT/HCPCS: 13160 ×2; 15002; 15100; 36415; 80048; 84134; 85027; 87070; 87075; 87102; 87205; 87206; 87640; 88304; 96365; 96366; 96372; 96375; 96376; 99218; J2020; J7120; A4216; G0378; G0379; J2405

== ENCOUNTER 2018-07-02 09:30 | Outpatient (RCR) | payer OTHER, SELFPAY ==
[2018-06-16 01:53] VITALS: BP 135/73; PULSE 67; RESP 16; TEMP 37.6
[2018-06-25 09:36] VITALS: BP 125/73; PULSE 82; RESP 18; TEMP 36.8; BMI 31.8
--- NOTE | 2018-06-25 23:32 | PN.PCM_ITS ---
Type of Wound Date of Service: 06/25/18 Chief Complaint: Nonhealing MRSA ulcer left knee and multiple open wounds left thigh and left leg after surgery 05/04/18 for necrotizing infection. History of Wound: Surgery 05/04/18 - 1. Surgical preparation left knee and left thigh and left leg with incision and drainage and excisional debridement necrotizing infected MRSA ulcer (275.5 cm2). 2. Multiple left leg and left thigh fasciotomies. Wound care - Silver and a VAC holiday. Operative culture - MRSA. He was treated with Vancomycin and then Zyvox and has finished them. He was started on Doxycycline. Prealbumin from 05/06/[address] left leg from 05/03/18 showed superficial soft tissue swelling with fluid accumulations along the fatty and superficial muscular fascial planes from the mid thigh to the mid lower leg, as noted. No defined rim-enhancing collection to indicate an abscess. No acute osseous abnormality to suggest osteomyelitis. Today he denies fever. His appetite is good. He is scheduled for surgery tomorrow for wound closure. Progress of Wound: Improved and left lateral thigh wound has healed. - Physical Exam Vital Signs Temp Pulse Resp BP 98.2 F 82 18 125/73 H 06/25/18 09:36 06/25/18 09:36 06/25/18 09:36 06/25/18 09:36 Wound Measurements and Assessment WC - Nurse 1 - General Ulcer Measurement Start: 06/25/18 09:36 Freq: Status: Active Protocol: Activity Type Activity Date Activity User E-Sign Co-Sign Detail Recorded Client Recorded Date Recorded By Document 06/25/18 09:36 DL [id number] 06/25/18 09:49 DL 06/25/18 09:36 Wound Center Nurse 1 [Ulcer Assessment] 5 left lateral lower leg -Current Size (cm) - Length 4 -Current Size (cm) - Width 0.2 -Current Size (cm) - Depth 0.1 -Total Square Cm 0.8 -Photo Taken No -Exudate Amt None Present (0 %) -Wound Margin Distinct, Outline Attached -Granulation Amt Large (67-100%) -Granulation Quality [place] -Necrosis Amt Small (1-33%) -Necrotic Tissue Type Adherent Slough -Structure Exposed N/A -Texture (Crystal-wound Skin Appearance) Scarring -Moisture (Crystal-wound Skin Appearance Dry/Scaly ) -Color (Crystal-wound Skin Appearance) No Abnormality -Temperature (Crystal-wound Skin No Abnormality Appearance) (Pt Warm) -Tenderness on Palpation (Crystal-wound No Skin Appearance) -Ulcer Cleansing Wound Cleanser -Foul Odor after Cleansing No -Anesthetic Used 4% Lidocaine Solution 4 Left medial lower leg -Current Size (cm) - Length 9 -Current Size (cm) - Width 1 -Current Size (cm) - Depth 0.1 -Total Square Cm 9 -Photo Taken No -Exudate Amt Small (1-33%) -Exudate Type Serosanguineous -Wound Margin Distinct, Outline Attached -Granulation Amt Large (67-100%) -Granulation Quality Red -Necrosis Amt Small (1-33%) -Necrotic Tissue Type Adherent Slough -Structure Exposed N/A -Texture (Crystal-wound Skin Appearance) Scarring -Moisture (Crystal-wound Skin Appearance Dry/Scaly ) -Color (Crystal-wound Skin Appearance) No Abnormality -Temperature (Crystal-wound Skin No Abnormality Appearance) (Pt Warm) -Tenderness on Palpation (Crystal-wound No Skin Appearance) -Ulcer Cleansing Wound Cleanser -Foul Odor after Cleansing No -Anesthetic Used 4% Lidocaine Solution 3 Left lateral thigh -Current Size (cm) - Length 0.1 -Current Size (cm) - Width 0.1 -Current Size (cm) - Depth 0.1 -Total Square Cm 0.01 -Photo Taken No -Exudate Amt None Present (0 %) -Wound Margin Flat & Intact -Granulation Amt Large (67-100%) -Granulation Quality [place] -Necrosis Amt None Present (0 %) -Structure Exposed N/A -Texture (Crystal-wound Skin Appearance) Scarring -Moisture (Crystal-wound Skin Appearance Dry/Scaly ) -Color (Crystal-wound Skin Appearance) No Abnormality -Temperature (Crystal-wound Skin No Abnormality Appearance) (Pt Warm) -Tenderness on Palpation (Crystal-wound No Skin Appearance) -Ulcer Cleansing Wound Cleanser -Foul Odor after Cleansing No 2 Left medial thigh -Current Size (cm) - Length 4 -Current Size (cm) - Width 0.2 -Current Size (cm) - Depth 0.1 -Total Square Cm 0.8 -Photo Taken No -Exudate Amt Small (1-33%) -Exudate Type Serosanguineous -Wound Margin Distinct, Outline Attached -Granulation Amt Large (67-100%) -Granulation Quality Red -Necrosis Amt Small (1-33%) -Necrotic Tissue Type Adherent Slough -Structure Exposed N/A -Texture (Crystal-wound Skin Appearance) Scarring -Moisture (Crystal-wound Skin Appearance Dry/Scaly ) -Color (Crystal-wound Skin Appearance) No Abnormality -Temperature (Crystal-wound Skin No Abnormality Appearance) (Pt Warm) -Tenderness on Palpation (Crystal-wound No Skin Appearance) -Ulcer Cleansing Wound Cleanser -Foul Odor after Cleansing No -Anesthetic Used 4% Lidocaine Solution 1 Left Knee -Current Size (cm) - Length 1.6 -Current Size (cm) - Width 6.6 -Current Size (cm) - Depth 0.1 -Total Square Cm 10.56 -Photo Taken No -Exudate Amt Small (1-33%) -Exudate Type Serosanguineous -Wound Margin Distinct, Outline Attached -Granulation Amt Large (67-100%) -Granulation Quality Red -Necrosis Amt None Present (0 %) -Structure Exposed N/A -Texture (Crystal-wound Skin Appearance) Scarring -Moisture (Crystal-wound Skin Appearance No Abnormality ) -Color (Crystal-wound Skin Appearance) No Abnormality -Temperature (Crystal-wound Skin No Abnormality Appearance) (Pt Warm) -Tenderness on Palpation (Crystal-wound No Skin Appearance) -Ulcer Cleansing Wound Cleanser -Foul Odor after Cleansing No -Anesthetic Used 4% Lidocaine Solution [Edema Assessment] -Left Calf (cm) 38.5 -Left Ankle (cm) 23 WC - Nurse 2 - General Ulcer CM Notes Start: 06/25/18 09:36 Freq: Status: Active Protocol: Activity Type Activity Date Activity User E-Sign Co-Sign Detail Recorded Client Recorded Date Recorded By Document 06/25/18 10:04 AURORA [id number] 06/25/18 10:06 AURORA 06/25/18 10:04 Wound Center Nurse 2 [Procedure/Treatment] 5 left lateral lower leg -Time 10:04 -Correct Patient Yes -Correct Side, Site, Position Yes -Correct Procedure Yes -Procedure Performed Yes -Type of Procedure Debridement -Clinical Debridement Subcutaneous -Post Debridement Size (cm) - Length 4 -Post Debridement Size (cm) - Width 0.3 -Post Debridement Size (cm) - Depth 0.1 -Total Square Cm 1.2 -Wound/Ulcer Outcome Not Healed -Ulcer Cleansing Rinsed/ Irrigated with Saline -Foul Odor after Cleansing No -Bioengineered Tissue No -Bleeding Controlled with Pressure -Offloading No -Treatment Response Procedure Tolerated Well 4 Left medial lower leg -Time 10:04 -Correct Patient Yes -Correct Side, Site, Position Yes -Correct Procedure Yes -Procedure Performed Yes -Type of Procedure Debridement -Clinical Debridement Subcutaneous -Post Debridement Size (cm) - Length 9 -Post Debridement Size (cm) - Width 1.1 -Post Debridement Size (cm) - Depth 0.1 -Total Square Cm 9.9 -Ulcer Cleansing Rinsed/ Irrigated with Saline -Foul Odor after Cleansing No -Bioengineered Tissue No -Bleeding Controlled with Pressure -Offloading No -Treatment Response Procedure Tolerated Well 3 Left lateral thigh -Correct Patient No -Correct Side, Site, Position No -Correct Procedure No -Procedure Performed No -Post Debridement Size (cm) - Length 0 -Post Debridement Size (cm) - Width 0 -Post Debridement Size (cm) - Depth 0 -Total Square Cm 0 -Wound/Ulcer Outcome Healed- Epithelialized 2 Left medial thigh -Time 10:05 -Correct Patient Yes -Correct Side, Site, Position Yes -Correct Procedure Yes -Procedure Performed Yes -Type of Procedure Debridement -Clinical Debridement Subcutaneous -Post Debridement Size (cm) - Length 4 -Post Debridement Size (cm) - Width 0.3 -Post Debridement Size (cm) - Depth 0.1 -Total Square Cm 1.2 -Wound/Ulcer Outcome Not Healed -Ulcer Cleansing Rinsed/ Irrigated with Saline -Foul Odor after Cleansing No -Bioengineered Tissue No -Bleeding Controlled with Pressure -Offloading No -Treatment Response Procedure Tolerated Well 1 Left Knee -Time 10:05 -Correct Patient Yes -Correct Side, Site, Position Yes -Correct Procedure Yes -Procedure Performed Yes -Type of Procedure Debridement -Clinical Debridement Subcutaneous -Post Debridement Size (cm) - Length 1.6 -Post Debridement Size (cm) - Width 6.7 -Post Debridement Size (cm) - Depth 0.1 -Total Square Cm 10.72 -Wound/Ulcer Outcome Not Healed -Ulcer Cleansing Rinsed/ Irrigated with Saline -Foul Odor after Cleansing No -Bioengineered Tissue No -Bleeding Controlled with Pressure -Offloading No -Treatment Response Procedure Tolerated Well [See Physician Procedure note for Specifics] Pain Scale: 0-10 Numeric [Pain] -Is Patient Pain Free? Yes Debridement Note Post-Debridement Measurements/Treatment WC - Nurse 2 - General Ulcer CM Notes Start: 06/25/18 09:36 Freq: Status: Active Protocol: Activity Type Activity Date Activity User E-Sign Co-Sign Detail Recorded Client Recorded Date Recorded By Document 06/25/18 10:04 [id number] 06/25/18 10:06 AURORA 06/25/18 10:04 Wound Center Nurse 2 5 left lateral lower leg -Time 10:04 -Correct Patient Yes -Correct Side, Site, Position Yes -Correct Procedure Yes -Procedure Performed Yes -Type of Procedure Debridement -Clinical Debridement Subcutaneous -Post Debridement Size (cm) - Length 4 -Post Debridement Size (cm) - Width 0.3 -Post Debridement Size (cm) - Depth 0.1 -Total Square Cm 1.2 -Wound/Ulcer Outcome Not Healed -Ulcer Cleansing Rinsed/ Irrigated with Saline -Foul Odor after Cleansing No -Bioengineered Tissue No -Bleeding Controlled with Pressure -Offloading No -Treatment Response Procedure Tolerated Well 4 Left medial lower leg -Time 10:04 -Correct Patient Yes -Correct Side, Site, Position Yes -Correct Procedure Yes -Procedure Performed Yes -Type of Procedure Debridement -Clinical Debridement Subcutaneous -Post Debridement Size (cm) - Length 9 -Post Debridement Size (cm) - Width 1.1 -Post Debridement Size (cm) - Depth 0.1 -Total Square Cm 9.9 -Ulcer Cleansing Rinsed/ Irrigated with Saline -Foul Odor after Cleansing No -Bioengineered Tissue No -Bleeding Controlled with Pressure -Offloading No -Treatment Response Procedure Tolerated Well 3 Left lateral thigh -Correct Patient No -Correct Side, Site, Position No -Correct Procedure No -Procedure Performed No -Post Debridement Size (cm) - Length 0 -Post Debridement Size (cm) - Width 0 -Post Debridement Size (cm) - Depth 0 -Total Square Cm 0 -Wound/Ulcer Outcome Healed- Epithelialized 2 Left medial thigh -Time 10:05 -Correct Patient Yes -Correct Side, Site, Position Yes -Correct Procedure Yes -Procedure Performed Yes -Type of Procedure Debridement -Clinical Debridement Subcutaneous -Post Debridement Size (cm) - Length 4 -Post Debridement Size (cm) - Width 0.3 -Post Debridement Size (cm) - Depth 0.1 -Total Square Cm 1.2 -Wound/Ulcer Outcome Not Healed -Ulcer Cleansing Rinsed/ Irrigated with Saline -Foul Odor after Cleansing No -Bioengineered Tissue No -Bleeding Controlled with Pressure -Offloading No -Treatment Response Procedure Tolerated Well 1 Left Knee -Time 10:05 -Correct Patient Yes -Correct Side, Site, Position Yes -Correct Procedure Yes -Procedure Performed Yes -Type of Procedure Debridement -Clinical Debridement Subcutaneous -Post Debridement Size (cm) - Length 1.6 -Post Debridement Size (cm) - Width 6.7 -Post Debridement Size (cm) - Depth 0.1 -Total Square Cm 10.72 -Wound/Ulcer Outcome Not Healed -Ulcer Cleansing Rinsed/ Irrigated with Saline -Foul Odor after Cleansing No -Bioengineered Tissue No -Bleeding Controlled with Pressure -Offloading No -Treatment Response Procedure Tolerated Well Pain Scale: 0-10 Numeric Is Patient Pain Free? Yes Wound debrided: #1 Left knee. Laterality: Left Wound Grade/Stage: 3. Type of Debridement: Excisional debridement Anesthesia Used: 4% Lidocaine Solution Depth: Down to and including healthy tissue, in the subcutaneous layer Percentage of wound debrided: 100 Instrument Used: 3mm curette Tissue Removed: subcutaneous tissue. Severity: Fat Layer Exposed Amount of bleeding with debridement: Mild Bleeding Controlled with: Pressure Patient tolerated procedure well - Additional Wound Wound debrided: #2 Left medial thigh. Laterality: Left Wound Grade/Stage: 3. Type of Debridement: Excisional debridement Anesthesia Used: 4% Lidocaine Solution Depth: Down to and including healthy tissue, in the subcutaneous layer Percentage of wound debrided: 100 Instrument Used: 3mm curette Tissue Removed: subcutaneous tissue. Severity: Fat Layer Exposed Amount of bleeding with debridement: Mild Bleeding Controlled with: Pressure Patient tolerated procedure: Patient tolerated procedure well - Additional Wound Wound debrided: #3 Left lateral thigh. Laterality: Left Wound Grade/Stage: 3. Patient tolerated procedure: - - no debridement was done today as the wound has healed. - Additional Wound Wound debrided: #4 Left medial leg. Laterality: Left Wound Grade/Stage: 3. Type of Debridement: Excisional debridement Anesthesia Used: 4% Lidocaine Solution Depth: Down to and including healthy tissue, in the subcutaneous layer Percentage of wound debrided: 100 Instrument Used: 3mm curette Tissue Removed: subcutaneous tissue. Severity: Fat Layer Exposed Amount of bleeding with debridement: Mild Bleeding Controlled with: Pressure Patient tolerated procedure: Patient tolerated procedure well - Additional Wound Wound debrided: #5 Left lateral leg. Laterality: Left Wound Grade/Stage: 3. Type of Debridement: Excisional debridement Anesthesia Used: 4% Lidocaine Solution Depth: Down to and including healthy tissue, in the subcutaneous layer Percentage of wound debrided: 100 Instrument Used: 3mm curette Tissue Removed: subcutaneous tissue. Severity: Fat Layer Exposed Amount of bleeding with debridement: Mild Bleeding Controlled with: Pressure Patient tolerated procedure: Patient tolerated procedure well Assessment/Plan Assessment: 1. Necrotizing infected MRSA ulcer left knee. 2. Open surgical wounds left medial and thigh and left medial and lateral leg. 3. Surgical wound left lateral thigh, healed. 4. MRSA. 5. s/p surgical preparation left knee and left thigh and left leg with incision and drainage and excisional debridement necrotizing infected MRSA ulcer (275.5 cm2) and multiple left leg and left thigh fasciotomies. Plan: Will stop the VAC. Continue Silver dressing changes daily. The wounds continue to show improvement as they are more superficial. His operative culture showed MRSA. He was placed on Vancomycin and then Zyvox and has finished them. He was started on Doxycycline. His Prealbumin was 15.3 on 05/06/18. Encourage nutritional supplementation with protein to help the healing process. The patient is scheduled for surgery tomorrow for futher operative debridement and secondary wound closure and skin grafting. Patient was informed of the risks and complications of the procedure including alternatives to surgery. These were discussed with him personally. He voices understanding and wishes to proceed. Since starting Zoloft, the patient states he feels less depressed. Followup one week.
--- NOTE | 2018-07-02 19:11 | PCM.WC.PN ---
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 History of Wound: Surgery 06/26/18 - 1. Surgical preparation left medial thigh with excisional debridement nonhealing ulcer with complex secondary wound closure. 2. Surgical preparation left lateral leg with excisional debridement nonhealing ulcer with complex secondary wound closure. 3. Surgical preparation left knee with excisional debridement nonhealing MRSA ulcer with STSG reconstruction from the left lateral abdominal wall (11 cm2) and placement of KATHE NPWT device. 4. Surgical preparation left medial leg with excisional debridement nonhealing ulcer with STSG reconstruction from the left lateral abdominal wall (15 cm2) and placement of KATHE NPWT device. Wound care - KATHE NPWT and compression pal wrap. Operative culture - negative. He was treated with Zyvox perioperatively and Doxycycline at discharge. Prealbumin from 06/27/18 was 26.4. Encourage nutritional supplementation with protein to help the healing process. Today he denies any fever. His appetite is good. Progress of Wound: Recent surgery for closure on 06/26/18. - Physical Exam Vital Signs Temp Pulse Resp BP 98.2 F 82 18 125/73 H 06/25/18 09:36 06/25/18 09:36 06/25/18 09:36 06/25/18 09:36 Wound Measurements and Assessment WC - Nurse 2 - General Ulcer CM Notes Start: 06/25/18 09:36 Freq: Status: Active Protocol: Activity Type Activity Date Activity User E-Sign Co-Sign Detail Recorded Client Recorded Date Recorded By Document 07/02/18 10:31 A[facility] [id number] 07/02/18 10:33 AUR[facility]A 07/02/18 10:31 Wound Center Nurse 2 [Procedure/Treatment] 5 left lateral lower leg -Correct Patient No -Correct Side, Site, Position No -Correct Procedure No -Procedure Performed No -Post Debridement Size (cm) - Length 0.1 -Post Debridement Size (cm) - Width 0.1 -Post Debridement Size (cm) - Depth 0.1 -Total Square Cm 0.01 -Ulcer Cleansing Rinsed/ Irrigated with Saline -Foul Odor after Cleansing No -Bioengineered Tissue No -Bleeding Controlled with Pressure -Offloading No -Treatment Response Procedure Tolerated Well 4 Left medial lower leg -Correct Patient No -Correct Side, Site, Position No -Correct Procedure No -Procedure Performed No -Post Debridement Size (cm) - Length 0.1 -Post Debridement Size (cm) - Width 0.1 -Post Debridement Size (cm) - Depth 0.1 -Total Square Cm 0.01 -Ulcer Cleansing Rinsed/ Irrigated with Saline -Foul Odor after Cleansing No -Bioengineered Tissue No -Bleeding Controlled with Pressure -Offloading No -Treatment Response Procedure Tolerated Well 2 Left medial thigh -Correct Patient No -Correct Side, Site, Position No -Correct Procedure No -Procedure Performed No -Post Debridement Size (cm) - Length 0.1 -Post Debridement Size (cm) - Width 0.1 -Post Debridement Size (cm) - Depth 0.1 -Total Square Cm 0.01 -Ulcer Cleansing Rinsed/ Irrigated with Saline -Bioengineered Tissue No -Bleeding Controlled with Pressure -Offloading No 1 Left Knee -Correct Patient No -Correct Side, Site, Position No -Correct Procedure No -Procedure Performed No -Post Debridement Size (cm) - Length 0.1 -Post Debridement Size (cm) - Width 0.1 -Post Debridement Size (cm) - Depth 0.1 -Total Square Cm 0.01 -Ulcer Cleansing Rinsed/ Irrigated with Saline -Foul Odor after Cleansing No -Bioengineered Tissue No -Bleeding Controlled with Pressure -Offloading No -Treatment Response Procedure Tolerated Well [See Physician Procedure note for Specifics] Pain Scale: 0-10 Numeric [Pain] -Is Patient Pain Free? Yes Debridement Note Post-Debridement Measurements/Treatment WC - Nurse 2 - General Ulcer CM Notes Start: 06/25/18 09:36 Freq: Status: Active Protocol: Activity Type Activity Date Activity User E-Sign Co-Sign Detail Recorded Client Recorded Date Recorded By Document 06/25/18 10:04 [facility] [id number] 06/25/18 10:06 Document 07/02/18 10:31 [id number] 07/02/18 10:33 06/25/18 07/02/18 10:04 10:31 Wound Center Nurse 2 5 left lateral lower leg -Time 10:04 -Correct Patient Yes No -Correct Side, Site, Position Yes No -Correct Procedure Yes No -Procedure Performed Yes No -Type of Procedure Debridement -Clinical Debridement Subcutaneous -Post Debridement Size (cm) - Length 4 0.1 -Post Debridement Size (cm) - Width 0.3 0.1 -Post Debridement Size (cm) - Depth 0.1 0.1 -Total Square Cm 1.2 0.01 -Wound/Ulcer Outcome Not Healed -Ulcer Cleansing Rinsed/ Rinsed/ Irrigated with Irrigated with Saline Saline -Foul Odor after Cleansing No No -Bioengineered Tissue No No -Bleeding Controlled with Pressure Pressure -Offloading No No -Treatment Response Procedure Procedure Tolerated Well Tolerated Well 4 Left medial lower leg -Time 10:04 -Correct Patient Yes No -Correct Side, Site, Position Yes No -Correct Procedure Yes No -Procedure Performed Yes No -Type of Procedure Debridement -Clinical Debridement Subcutaneous -Post Debridement Size (cm) - Length 9 0.1 -Post Debridement Size (cm) - Width 1.1 0.1 -Post Debridement Size (cm) - Depth 0.1 0.1 -Total Square Cm 9.9 0.01 -Ulcer Cleansing Rinsed/ Rinsed/ Irrigated with Irrigated with Saline Saline -Foul Odor after Cleansing No No -Bioengineered Tissue No No -Bleeding Controlled with Pressure Pressure -Offloading No No -Treatment Response Procedure Procedure Tolerated Well Tolerated Well 3 Left lateral thigh -Correct Patient No -Correct Side, Site, Position No -Correct Procedure No -Procedure Performed No -Post Debridement Size (cm) - Length 0 -Post Debridement Size (cm) - Width 0 -Post Debridement Size (cm) - Depth 0 -Total Square Cm 0 -Wound/Ulcer Outcome Healed- Epithelialized 2 Left medial thigh -Time 10:05 -Correct Patient Yes No -Correct Side, Site, Position Yes No -Correct Procedure Yes No -Procedure Performed Yes No -Type of Procedure Debridement -Clinical Debridement Subcutaneous -Post Debridement Size (cm) - Length 4 0.1 -Post Debridement Size (cm) - Width 0.3 0.1 -Post Debridement Size (cm) - Depth 0.1 0.1 -Total Square Cm 1.2 0.01 -Wound/Ulcer Outcome Not Healed -Ulcer Cleansing Rinsed/ Rinsed/ Irrigated with Irrigated with Saline Saline -Foul Odor after Cleansing No -Bioengineered Tissue No No -Bleeding Controlled with Pressure Pressure -Offloading No No -Treatment Response Procedure Tolerated Well 1 Left Knee -Time 10:05 -Correct Patient Yes No -Correct Side, Site, Position Yes No -Correct Procedure Yes No -Procedure Performed Yes No -Type of Procedure Debridement -Clinical Debridement Subcutaneous -Post Debridement Size (cm) - Length 1.6 0.1 -Post Debridement Size (cm) - Width 6.7 0.1 -Post Debridement Size (cm) - Depth 0.1 0.1 -Total Square Cm 10.72 0.01 -Wound/Ulcer Outcome Not Healed -Ulcer Cleansing Rinsed/ Rinsed/ Irrigated with Irrigated with Saline Saline -Foul Odor after Cleansing No No -Bioengineered Tissue No No -Bleeding Controlled with Pressure Pressure -Offloading No No -Treatment Response Procedure Procedure Tolerated Well Tolerated Well Pain Scale: 0-10 Numeric Is Patient Pain Free? Yes Yes Wound debrided: #1 Left knee. Laterality: Left Wound Grade/Stage: 3. No debridement was completed today - The KATHE NPWT device was removed from his skin graft surgery on 06/26/18. The skin graft shows good adherence and 100% take and good vascular ingrowth. - Additional Wound Wound debrided: #2 Left medial thigh. Laterality: Left Wound Grade/Stage: 3. Patient tolerated procedure: - - No debridement was done today as the wound was surgically closed on 06/26/18. - Additional Wound Wound debrided: #4 Left medial leg. Laterality: Left Wound Grade/Stage: 3. Patient tolerated procedure: - - The KATHE NPWT device was removed from his skin graft surgery on 06/26/18. The skin graft shows good adherence and 100% take and good vascular ingrowth. - Additional Wound Wound debrided: #5 Left lateral leg. Laterality: Left Wound Grade/Stage: 3. Patient tolerated procedure: - - No debridement was done today as the wound was surgically closed on 06/26/18. Assessment/Plan Assessment: 1. Nonhealing MRSA ulcer left knee, recently skin grafted. 2. Nonhealing ulcer left medial thigh, recently surgically closed. 3. Nonhealing ulcer left lateral leg, recently surgically closed. 4. Nonhealing ulcer left medial leg, recently skin grafted. 5. MRSA. 6. s/p surgical preparation left medial thigh with excisional debridement nonhealing ulcer with complex secondary wound closure and surgical preparation left lateral leg with excisional debridement nonhealing ulcer with complex secondary wound closure and surgical preparation left knee with excisional debridement nonhealing MRSA ulcer with STSG reconstruction from the left lateral abdominal wall (11 cm2) and placement of KATHE NPWT device and surgical preparation left medial leg with excisional debridement nonhealing ulcer with STSG reconstruction from the left lateral abdominal wall (15 cm2) and placement of KATHE NPWT device. Plan: The KATHE NPWT devices were removed today. The skin grafts show good adherence and 100% take and good vascular ingrowth. The incisions left medial thigh and left lateral leg are dry and intact and healing. Mild swelling present. Apply Bactroban ointment to the skin grafts daily followed by gauze and the compression pal wrap. His operative cultures were negative. Continue Doxycycline for his previous MRSA culture. His Prealbumin from 06/27/18 was 26.4. Encourage nutritional supplementation with protein to help the healing process. Keep left leg elevated when sitting. Renewed his Percocet for pain (30 tabs), to be dispensed on 07/06/18. Followup 07/13/18 in my office.
== END 2018-07-16 23:59 ==
LOC: WC 09:30
PROVIDERS: Family Provider Family Medicine; PCP Family Medicine; Visit Provider Surgery
DX: S81.802A Unspecified open wound, left lower leg, initial encounter (principal); M72.6 Necrotizing fasciitis; L97.822 Non-pressure chronic ulcer of other part of left lower leg with fat layer exposed; L97.122 Non-pressure chronic ulcer of left thigh with fat layer exposed; Z86.14 Personal history of Methicillin resistant Staphylococcus aureus infection
CPT/HCPCS: 11042; 11045; 99214; G0463

== ENCOUNTER 2018-08-06 08:28 | Outpatient (RCR) | payer SELFPAY ==
[2018-07-17 01:16] VITALS: BP 125/73; PULSE 82; RESP 18; TEMP 36.8; BMI 31.8
[2018-08-06 08:30] VITALS: BP 136/88; PULSE 82; RESP 16; TEMP 37; BMI 31.8
--- NOTE | 2018-08-06 21:37 | PCM.WC.PN ---
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 History of Wound: Surgery 06/26/18 - 1. Surgical preparation left medial thigh with excisional debridement nonhealing ulcer with complex secondary wound closure. 2. Surgical preparation left lateral leg with excisional debridement nonhealing ulcer with complex secondary wound closure. 3. Surgical preparation left knee with excisional debridement nonhealing MRSA ulcer with STSG reconstruction from the left lateral abdominal wall (11 cm2) and placement of KATHE NPWT device. 4. Surgical preparation left medial leg with excisional debridement nonhealing ulcer with STSG reconstruction from the left lateral abdominal wall (15 cm2) and placement of KATHE NPWT device. Wound care - Bactroban followed by compression marie wrap. May alternative with Silver dressings. Operative culture - negative. He was treated with Zyvox perioperatively and Doxycycline at discharge and has finished them. Prealbumin from 06/27/18 was 26.4. Encourage nutritional supplementation with protein to help the healing process. Today he denies any fever. His appetite is good. He returned to work on 07/25/18 with limitations of 4 hours per day and no ladders. He is doing ok at work. Progress of Wound: Improved. - Physical Exam Vital Signs Temp Pulse Resp BP 98.6 F 82 16 136/88 H 08/06/18 08:30 08/06/18 08:30 08/06/18 08:30 08/06/18 08:30 Wound Measurements and Assessment WC - Nurse 1 - General Ulcer Measurement Start: 08/06/18 08:30 Freq: Status: Active Protocol: Activity Type Activity Date Activity User E-Sign Co-Sign Detail Recorded Client Recorded Date Recorded By Document 08/06/18 08:30 [id number] 08/06/18 08:43 08/06/18 08:30 Wound Center Nurse 1 [Ulcer Assessment] 5 left lateral lower leg -Combined with other wound No -Current Size (cm) - Length 0.1 -Current Size (cm) - Width 0.1 -Current Size (cm) - Depth 0.1 -Total Square Cm 0.01 -Date of Last Picture (Recall this 08/06/18 field) -Photo Taken Yes -Epithelialization Large 67-100% -Tunneling No -Undermining/Tunneling No -Circular Undermining No -Exudate Amt Small -Exudate Type Serosanguineous -Wound Margin Distinct, Outline Attached -Granulation Amt Large (67-100%) -Granulation Quality [place] -Slough/Fibrin Yes -Necrosis Amt Small (1-33%) -Necrotic Tissue Type Adherent Slough -Structure Exposed None/Limited to Skin Breakdown -Texture (Crystal-wound Skin Appearance) Scarring -Moisture (Crystal-wound Skin Appearance No Abnormality ) Assessed -Color (Crystal-wound Skin Appearance) No Abnormality Assessed -Temperature (Crystal-wound Skin No Abnormality Appearance) (Pt Warm) -Tenderness on Palpation (Crystal-wound No Skin Appearance) -Ulcer Cleansing Not Cleansed -Foul Odor after Cleansing No -Anesthetic Used 4% Lidocaine Solution 4 Left medial lower leg -Combined with other wound No -Current Size (cm) - Length 3 -Current Size (cm) - Width 0.4 -Current Size (cm) - Depth 0.3 -Total Square Cm 1.2 -Date of Last Picture (Recall this 08/06/18 field) -Photo Taken Yes -Epithelialization Medium 34-66% -Tunneling No -Undermining/Tunneling No -Circular Undermining No -Exudate Amt Small -Exudate Type Serosanguineous -Wound Margin Distinct, Outline Attached -Granulation Amt Large (67-100%) -Granulation Quality [place] -Slough/Fibrin Yes -Necrosis Amt Medium (34-66%) -Necrotic Tissue Type Adherent Slough -Structure Exposed None/Limited to Skin Breakdown -Texture (Crystal-wound Skin Appearance) Scarring -Moisture (Crystal-wound Skin Appearance No Abnormality ) Assessed -Color (Crystal-wound Skin Appearance) No Abnormality Assessed -Temperature (Crystal-wound Skin No Abnormality Appearance) (Pt Warm) -Tenderness on Palpation (Crystal-wound No Skin Appearance) -Ulcer Cleansing Rinsed/ Irrigated with Saline -Foul Odor after Cleansing No -Anesthetic Used 4% Lidocaine Solution 2 Left medial thigh -Combined with other wound No -Current Size (cm) - Length 0.1 -Current Size (cm) - Width 0.1 -Current Size (cm) - Depth 0.1 -Total Square Cm 0.01 -Date of Last Picture (Recall this 08/06/18 field) -Photo Taken Yes -Epithelialization Large 67-100% 1 Left Knee -Combined with other wound No -Current Size (cm) - Length 0.1 -Current Size (cm) - Width 0.1 -Current Size (cm) - Depth 0.1 -Total Square Cm 0.01 -Date of Last Picture (Recall this 08/06/18 field) -Photo Taken Yes -Epithelialization Large 67-100% -Tunneling No -Undermining/Tunneling No -Circular Undermining No -Structure Exposed None/Limited to Skin Breakdown -Texture (Crystal-wound Skin Appearance) Scarring -Moisture (Crystal-wound Skin Appearance No Abnormality ) Assessed -Color (Crystal-wound Skin Appearance) No Abnormality Assessed -Temperature (Crystal-wound Skin No Abnormality Appearance) (Pt Warm) -Tenderness on Palpation (Crystal-wound No Skin Appearance) -Ulcer Cleansing Not Cleansed -Foul Odor after Cleansing No -Anesthetic Used 4% Lidocaine Solution [Edema Assessment] -Lower Limb Edema Present NA WC - Nurse 2 - General Ulcer CM Notes Start: 08/06/18 08:30 Freq: Status: Active Protocol: Activity Type Activity Date Activity User E-Sign Co-Sign Detail Recorded Client Recorded Date Recorded By Document 08/06/18 09:10 [id number] 08/06/18 09:12 A[facility]A 08/06/18 09:10 Wound Center Nurse 2 [Procedure/Treatment] 5 left lateral lower leg -Time 09:10 -Correct Patient Yes -Correct Side, Site, Position Yes -Correct Procedure Yes -Procedure Performed Yes -Type of Procedure Debridement -Clinical Debridement Subcutaneous -Post Debridement Size (cm) - Length 0.1 -Post Debridement Size (cm) - Width 0.1 -Post Debridement Size (cm) - Depth 0.1 -Total Square Cm 0.01 -Wound/Ulcer Outcome Not Healed -Ulcer Cleansing Rinsed/ Irrigated with Saline -Foul Odor after Cleansing No -Bioengineered Tissue No -Bleeding Controlled with Pressure -Offloading No -Treatment Response Procedure Tolerated Well 4 Left medial lower leg -Time 09:11 -Correct Patient Yes -Correct Side, Site, Position Yes -Correct Procedure Yes -Procedure Performed Yes -Type of Procedure Debridement -Clinical Debridement Subcutaneous -Post Debridement Size (cm) - Length 3 -Post Debridement Size (cm) - Width 0.5 -Post Debridement Size (cm) - Depth 0.1 -Total Square Cm 1.5 -Wound/Ulcer Outcome Not Healed -Ulcer Cleansing Rinsed/ Irrigated with Saline -Foul Odor after Cleansing No -Bioengineered Tissue No -Bleeding Controlled with Pressure -Offloading No -Treatment Response Procedure Tolerated Well 1 Left Knee -Correct Patient No -Correct Side, Site, Position No -Correct Procedure No -Procedure Performed No -Post Debridement Size (cm) - Length 0 -Post Debridement Size (cm) - Width 0 -Post Debridement Size (cm) - Depth 0 -Total Square Cm 0 -Wound/Ulcer Outcome Healed- Epithelialized [See Physician Procedure note for Specifics] Pain Scale: 0-10 Numeric [Pain] -Is Patient Pain Free? Yes Debridement Note Post-Debridement Measurements/Treatment WC - Nurse 2 - General Ulcer CM Notes Start: 08/06/18 08:30 Freq: Status: Active Protocol: Activity Type Activity Date Activity User E-Sign Co-Sign Detail Recorded Client Recorded Date Recorded By Document 08/06/18 09:10 AUR[facility]A [id number] 08/06/18 09:12 [facility] 08/06/18 09:10 Wound Center Nurse 2 5 left lateral lower leg -Time 09:10 -Correct Patient Yes -Correct Side, Site, Position Yes -Correct Procedure Yes -Procedure Performed Yes -Type of Procedure Debridement -Clinical Debridement Subcutaneous -Post Debridement Size (cm) - Length 0.1 -Post Debridement Size (cm) - Width 0.1 -Post Debridement Size (cm) - Depth 0.1 -Total Square Cm 0.01 -Wound/Ulcer Outcome Not Healed -Ulcer Cleansing Rinsed/ Irrigated with Saline -Foul Odor after Cleansing No -Bioengineered Tissue No -Bleeding Controlled with Pressure -Offloading No -Treatment Response Procedure Tolerated Well 4 Left medial lower leg -Time 09:11 -Correct Patient Yes -Correct Side, Site, Position Yes -Correct Procedure Yes -Procedure Performed Yes -Type of Procedure Debridement -Clinical Debridement Subcutaneous -Post Debridement Size (cm) - Length 3 -Post Debridement Size (cm) - Width 0.5 -Post Debridement Size (cm) - Depth 0.1 -Total Square Cm 1.5 -Wound/Ulcer Outcome Not Healed -Ulcer Cleansing Rinsed/ Irrigated with Saline -Foul Odor after Cleansing No -Bioengineered Tissue No -Bleeding Controlled with Pressure -Offloading No -Treatment Response Procedure Tolerated Well 1 Left Knee -Correct Patient No -Correct Side, Site, Position No -Correct Procedure No -Procedure Performed No -Post Debridement Size (cm) - Length 0 -Post Debridement Size (cm) - Width 0 -Post Debridement Size (cm) - Depth 0 -Total Square Cm 0 -Wound/Ulcer Outcome Healed- Epithelialized Pain Scale: 0-10 Numeric Is Patient Pain Free? Yes Wound debrided: #1 Left knee. Laterality: Left Wound Grade/Stage: 3. No debridement was completed today - The ulcer is healed after skin grafting on 06/26/18. - Additional Wound Wound debrided: #4 Left medial leg. Laterality: Left Wound Grade/Stage: 3. Type of Debridement: Excisional debridement Anesthesia Used: 4% Lidocaine Solution Depth: Down to and including healthy tissue, in the subcutaneous layer Percentage of wound debrided: - - 2%. The skin graft shows 98% take. Instrument Used: 3mm curette Tissue Removed: subcutaneous tissue. Severity: Fat Layer Exposed Amount of bleeding with debridement: Mild Bleeding Controlled with: Pressure Patient tolerated procedure: Patient tolerated procedure well - Additional Wound Wound debrided: #5 Left lateral leg. Laterality: Left Wound Grade/Stage: 3. Type of Debridement: Excisional debridement Anesthesia Used: 4% Lidocaine Solution Depth: Down to and including healthy tissue, in the subcutaneous layer Percentage of wound debrided: - - 5%. The superior portion of the incision shows some superficial separation. The lower 95% of the incision is healed. Instrument Used: 3mm curette Tissue Removed: subcutaneous tissue. Severity: Fat Layer Exposed Amount of bleeding with debridement: Mild Bleeding Controlled with: Pressure Patient tolerated procedure: Patient tolerated procedure well Assessment/Plan Assessment: 1. Nonhealing MRSA ulcer left knee, healed after skin grafting. 2. Nonhealing ulcer left medial thigh, healed after surgical closure. 3. Nonhealing ulcer left lateral leg, recently surgically closed. 4. Nonhealing ulcer left medial leg, recently skin grafted, about 98% healed. 5. MRSA. 6. s/p surgical preparation left medial thigh with excisional debridement nonhealing ulcer with complex secondary wound closure and surgical preparation left lateral leg with excisional debridement nonhealing ulcer with complex secondary wound closure and surgical preparation left knee with excisional debridement nonhealing MRSA ulcer with STSG reconstruction from the left lateral abdominal wall (11 cm2) and placement of KATHE NPWT device and surgical preparation left medial leg with excisional debridement nonhealing ulcer with STSG reconstruction from the left lateral abdominal wall (15 cm2) and placement of KATHE NPWT device. Plan: Apply Bactroban ointment to the small areas on the skin graft left medial leg, the superficial separation left lateral leg incision, and the healed skin graft left knee daily. Continue compression MARIE wrap especially while working. May alternate with Silver dressings as well. The incision left medial thigh remains healed. His operative cultures were negative. He continued Doxycycline for his previous MRSA culture and has finished them. His Prealbumin from 06/27/18 was 26.4. Encourage nutritional supplementation with protein to help the healing process. Keep left leg elevated when sitting. Will increase his work load to 8 hours per day but maintain the restriction of no climbing ladders. Followup 3 weeks.
--- OUTSIDE RECORDS SUMMARY | 2018-10-08 15:44 | XMS RPT_ITS ---
:1985 Author Organization OHIP Support Name Relationship Address Phone VICKI PINA Unavailable [address] + [place] [address] [facility] Unavailable [address] + [place] [address] MIKAL PINALL Unavailable [address] + [place] [address] [facility] Unavailable [address] + [place] [address] MIKAL PINALL Unavailable [address] + [place] [address] [facility] Unavailable [address] + [place] [address] YOVANI VICKI Unavailable [address] + [place] [address] [facility] Unavailable [address] + [place] [address] YOVANI VICKI Unavailable [address] + [place] [address] [facility] Unavailable [address] + [place] [address] YOVANI VICKI Unavailable [address] + [place] [address] [facility] Unavailable [address] + [place] [address] YOVANI VICKI Unavailable [address] + [place] [address] [facility] Unavailable [address] + [place] [address] YOVANI VICKI Unavailable [address] + [place] [address] [facility] Unavailable [address] + [place] [address] LEMON, VICKI Unavailable [address] + [place] [address] [facility] Unavailable [address] + [place] [address] LEMON, VICKI Unavailable [address] + [place] [address] [facility] Unavailable [address] + [place] [address] LEMON, VICKI Unavailable [address] + [place] [address] [facility] Unavailable [address] + [place] [address] LEMON VICKI Unavailable [address] + [place] [address] [facility] Unavailable [address] + [place] [address] LEMON, VICKI Unavailable [address] + [place] [address] [facility] Unavailable [address] + [place] [address] LEMON, VICKI Unavailable [address] + [place] [address] [facility] Unavailable [address] + [place] [address] LEMON, VICKI Unavailable [address] + [place] [address] [facility] Unavailable [address] + [place] [address] LEMON, VICKI Unavailable [address] + [place] [address] [facility] Unavailable [address] + [place] [address] LEMON, VICKI Unavailable [address] + [place] [address] [facility] Unavailable [address] + [place] [address] LEMON, VICKI Unavailable [address] + [place] [address] [facility] Unavailable [address] + [place] [address] LEMON, VICKI Unavailable [address] + [place] [address] [facility] Unavailable [address] + [place] [address] LEMON, VICKI Unavailable [address] + [place] [address] [facility] Unavailable [address] + [place] [address] LEMON, VICKI Unavailable [address] + [place] [address] [facility] Unavailable [address] + [place] [address] LEMON, VICKI Unavailable [address] + [place] [address] [facility] Unavailable [address] + [place] [address] LEMON, VICKI Unavailable [address] + [place] [address] [facility] Unavailable [address] + [place] [address] LEMON, VICKI Unavailable [address] + [place] [address] [facility] Unavailable [address] + [place] [address] LEMON, VICKI Unavailable [address] + [place] [address] [facility] Unavailable [address] + [place] [address] LEMON, VICKI Unavailable [address] + [place] [address] [facility] Unavailable [address] + [place] [address] LEMON, VICKI Unavailable [address] + [place] [address] [facility] Unavailable [address] + [place] [address] LEMON, VICKI Unavailable [address] + [place] [address] [facility] Unavailable [address] + [place] [address] LEMON, VICKI Unavailable [address] + [place] [address] [facility] Unavailable [address] + [place] [address] LEMON, VICKI Unavailable [address] + [place] [address] [facility] Unavailable [address] + [place] [address] LEMON, VICKI Unavailable [address] + [place] [address] [facility] Unavailable [address] + [place] [address] LEMON, VICKI Unavailable [address] + [place] [address] [facility] Unavailable [address] + [place] [address] LEMON, VICKI Unavailable [address] + [place] [address] [facility] Unavailable [address] + [place] [address] LEMON, VICKI Unavailable [address] + [place] [address] [facility] Unavailable [address] + [place] [address] LEMON, VICKI Unavailable [address] + [place] [address] [facility] Unavailable [address] + [place] [address] LEMON, VICKI Unavailable [address] + [place] [address] [facility] Unavailable [address] + [place] [address] LEMON, VICKI Unavailable [address] + [place] [address] [facility] Unavailable [address] + [place] [address] LEMON, VICKI Unavailable [address] + [place] [address] [facility] Unavailable [address] + [place] [address] LEMON, VICKI Unavailable [address] + [place] [address] [facility] Unavailable [address] + [place] [address] Care Team Providers Name Role Phone Dipak Torrez Admitting Unavailable Dipak Torrez Attending Unavailable Dipak Torrez Referring Unavailable Elderbrock, Jian Primary Care Unavailable Dipak Torrez Consulting Unavailable Dipak Torrez Admitting Unavailable Dipak Torrez Attending Unavailable Dipak Torrez Referring Unavailable Elderbrock, Jian Primary Care Unavailable SlabDipak morley Consulting Unavailable Dipak Torrez Admitting Unavailable Shan, Dipak Attending Unavailable Dipak Torrez Referring Unavailable Elderbrock, Jian Primary Care Unavailable Dipak Torrez Consulting Unavailable Dipak Torrez Admitting Unavailable Dipak Torrez Attending Unavailable Elderbrock, Jian Primary Care Unavailable SlabDipak morley Consulting Unavailable Elderbrock, Jian Referring Unavailable SlabDipak morley Attending Unavailable Elderbrock, Jian Primary Care Unavailable Dipak Torrez Consulting Unavailable Dipak Torrez Attending Unavailable Elderbrock, Jian Referring Unavailable Fortunato Dia Attending Unavailable Elderbrock, Jian Primary Care Unavailable Elderbrock, Jian Primary Care Unavailable Jopperi, Kevin Admitting Unavailable Alec Royal Consulting Unavailable Fortunato Lucio Attending Unavailable SlabyDipak Consulting Unavailable Jopperi, Kevin Attending Unavailable Elderbrock, Jian Primary Care Unavailable Jopperi, Kevin Admitting Unavailable TereletskyJian Attending Unavailable Elderbrock, Jian Primary Care Unavailable Tereletsky, Jian Consulting Unavailable Jopperi, Kevin Admitting Unavailable Tereletsky, Jian Attending Unavailable Elderbrock, Jian Primary Care Unavailable Alec Royal Consulting Unavailable Dipak Torrez Consulting Unavailable Antolinky, Jian Consulting Unavailable Jopperi, Kevin Admitting Unavailable Tereletsky, Jian Attending Unavailable Elderbro, [place] Primary Care Unavailable Lele, Alec Consulting Unavailable Slaby, Dipak Consulting Unavailable Tereletsky, Jian Consulting Unavailable Slaby, Dipak Attending Unavailable Elderbro, [place] Primary Care Unavailable Slaby, Dipak Attending Unavailable Elderbro, [place] Primary Care Unavailable Slaby, Dipak Consulting Unavailable Jopperi, Kevin Admitting Unavailable Slaby, Dipak Attending Unavailable Elderwinchester, Jian Primary Care Unavailable Lele, Alec Consulting Unavailable Slaby, Dipak Consulting Unavailable Tereletsky, Jian Consulting Unavailable Jopperi, Kevin Admitting Unavailable Slaby, Dipak Attending Unavailable Elderwinchester, [place] Primary Care Unavailable Lele, Alec Consulting Unavailable Slaby, Dipak Consulting Unavailable Tereletsky, Jian Consulting Unavailable Jopperi, Kevin Admitting Unavailable Slaby, Dipak Attending Unavailable Elderwinchester, [place] Primary Care Unavailable Lele, Alec Consulting Unavailable Slaby, Dipak Consulting Unavailable Tereletsky, Jian Consulting Unavailable Jopperi, Kevin Admitting Unavailable Tereletsky, Jian Attending Unavailable Elderwinchester, [place] Primary Care Unavailable Lele, Alec Consulting Unavailable Slaby, Dipak Consulting Unavailable Tereletsky, Jian Consulting Unavailable Jopperi, Kevin Admitting Unavailable Tereletsky, Jian Attending Unavailable Elderwinchester, [place] Primary Care Unavailable Lele, Alec Consulting Unavailable Slaby, Dipak Consulting Unavailable Tereletsky, Jian Consulting Unavailable Jopperi, Kevin Admitting Unavailable Qagan Tayagungin, Jacquelin Attending Unavailable [facility], [place] Primary Care Unavailable Lele, Alec Consulting Unavailable Slaby, Dipak Consulting Unavailable Qagan Tayagungin, Jacquelin Consulting Unavailable Jopperi, Kevin Admitting Unavailable Slaby, Dipak Attending Unavailable Elderwinchester, [place] Primary Care Unavailable Lele, Alec Consulting Unavailable Slaby, Dipak Consulting Unavailable Qagan Tayagungin, Jacquelin Consulting Unavailable Jopperi, Kevin Admitting Unavailable Qagan Tayagungin, Jacquelin Attending Unavailable Elderwinchester, Jian Primary Care Unavailable Lele, Alec Consulting Unavailable Slaby, Dipak Consulting Unavailable Qagan Tayagungin, Jacquelin Consulting Unavailable Jopperi, Kevin Admitting Unavailable Slaby, Dipak Attending Unavailable Elderwinchester, [place] Primary Care Unavailable Lele, Alec Consulting Unavailable Slaby, Dipak Consulting Unavailable Qagan Tayag[place]in, Jacquelin Consulting Unavailable Jopperi, Kevin Admitting Unavailable Fortunato Lucio Attending Unavailable [place]ster, [place] Primary Care Unavailable Lele, Alec Consulting Unavailable [...] Dipak Consulting Unavailable Steinberger, Fortunato Consulting Unavailable Jesus, Marvin Chi Admitting Unavailable Jesus, Marvin Chi Attending Unavailable Jesus, Marvin Chi Referring Unavailable Elderbrock, Jian Primary Care Unavailable Lele, Alec Consulting Unavailable Slaby, Dipak Attending Unavailable Jopperi, Kevin Referring Unavailable Jesus, Marvin Chi Admitting Unavailable Slaby, Dipak Attending Unavailable Jesus, Marvin Chi Referring Unavailable Elderbrock, Jian Primary Care Unavailable Lele, Alec Consulting Unavailable Jesus, Marvin Chi Consulting Unavailable Elderbrock, Jian Primary Care Unavailable SlabDipak morley Attending Unavailable Corazon, Lidia E Attending Unavailable Elderbrock, Jian Primary Care Unavailable Corazon, Lidia E Consulting Unavailable Elderbrock, Jian Attending Unavailable Elderbrock, Jian Referring Unavailable Elderbrock, Jian Primary Care Unavailable Slaby, Dipak Attending Unavailable Elderbrock, Jian Primary Care Unavailable Corazon, Lidia E Consulting Unavailable Slabpeyman, Dipak Attending Unavailable Elderbrock, Jian Primary Care Unavailable Slabpeyman, Dipak Consulting Unavailable Slabpeyman, Dipak Attending Unavailable Slabpeyman, Dipak Referring Unavailable Elderbrock, Jian Primary Care Unavailable SlabDipak morley Admitting Unavailable SlabDipak morley Attending Unavailable Elderbrock, Jian Primary Care Unavailable Elderbrock, Jian Attending Unavailable Elderbrock, Jian Referring Unavailable Elderbrock, Jian Primary Care Unavailable Slaby, Dipak Attending Unavailable Elderbrock, Jian Primary Care Unavailable SlabDipak morley Consulting Unavailable PROBLEMS PROBLEMS DATE TYPE CONDITION / CODE ATTENDING STATUS SOURCE 07/04/2018 Unknown G89.18 - Other acute Dipak Torrez Active [facility] / G89.18(ICD-10) Hospital Repository 06/16/2018 Unknown S81.802A - Kunal Active [place] Unspecified open [facility] wound, left lower Hospital leg, initial Repository encounter / S81.802A(ICD-10) 05/21/2018 Unknown M79.89 - Other Jesus, Marvin Chi Active [facility] specified soft Community tissue disorders / Hospital M79.89(ICD-10) Repository 05/21/2018 Unknown R53.81 - Other Jesus, Marvin Chi Active [place] malaise / Community R53.81(ICD-10) Hospital Repository 05/15/2018 Unknown L02.416 - Cutaneous SlabyDipak Active [facility] abscess of left Community lower limb / Hospital L02.416(ICD-10) Repository 05/15/2018 Unknown L03.116 - Cellulitis Slaby, Dipak Active [facility] of left lower limb / Community L03.116(ICD-10) Hospital Repository 05/15/2018 Unknown M72.6 - Necrotizing Slaby, Dipak Active [facility] fasciitis / Community M72.6(ICD-10) Hospital Repository 05/15/2018 Unknown A49.02 - Methicillin SlabyDipak Active [facility] resistant [facility] St[facility] aureus infection, Repository unspecified site / A49.02(ICD-10) PROCEDURES PROCEDURES No Procedure Records FoundRESULTS RESULTS PLASTIC SURGERY Observed: 07/17/2018 Status: F Source: [place] VISIT REPORT 9:47 PM [facility] REPOSITORY [facility] [address] [place] [address] OFFICE VISIT Date of Service: 07/13/18 MR#: [id number] Acct: [id number] Name: NILSON PINA [place] Rep #: [id number] : 1985 Provider: Dipak Torrez MD Age/Sex: 33/M Location: [facility] Status: Signed Intake Vital Signs07/13/18 [...] infection M79.89 Abscess of left knee L02.416 07/17/187 <Electronically signed by Dipak Torrez MD> Date Dipak Torrez MD Cosigner Signature: Date (if applicable) CC: OPERATIVE REPORT Observed: 07/02/2018 Status: F Source: [place] 5:08 PM [facility] REPOSITORY [facility] Medical Records Department [address] [place] [address] Operative Report 06/26/182118 MR#: [id number] Acct: [id number] Name: NILSON PINA Rep #: [id number] : 1985 33 From: Dipak Torrez MD PCP: Kunal ALCARAZ,Jian Status: DIS MARA Y Location: [place] [address] Report of Operation Date of Procedure: 06/26/18 [...] (I used 2 vials). Reference Number - [id number]. Lot Number - [id number]. Expiration - March 13, 2023. dock manager: Kelsey Harmon. Type of Anesthesia:: General Specimen's [...] Yes Code Visit Surgery Charges CPT - 12694 ICD-10 - L97.922, M79.89, A49.02, S71.102A 91821 L97.922, M79.89, A49.02, S71.102A 26913 L97.922, M79.89, A49.02, S81.802A 14474-61 L97.922, M79.89, A49.02, S81.802A 88576 L97.922, L02.416, M79.89, A49.02, S81.002A 37671-71 L97.922, L02.416, M79.89, A49.02, S81.002A 39858 L97.922, M79.89, A49.02, S81.802A 61815-36 L97.922, M79.89, A49.02, S81.802A 07/02/18 1708 <Electronically signed by Dipak Torrez MD> Date Dipak Torrez MD CC: Dipak Torrez MD; Jian Syed MD; [facility] Signed DISCHARGE INSTRUCTION Observed: 06/28/2018 Status: F Source: [place] 12:40 PM [facility] REPOSITORY [facility] Medical Records Department [address] [place] [address] Instructions for Home/Discharge Instructions 06/28/18 1234 MR#: [id number] Acct: [id number] Name: NILSON PINA Rep #: [id number] : 1985 33 From: Dipak Torrez MD PCP: Kunal ALCARAZ,Jian Status: ADM MARA You will use the [...] AND PHYSICAL Observed: 06/27/2018 Status: F Source: [place] EXAM 11:38 PM [facility] REPOSITORY [facility] Medical Records Department [address] [place] [address] History and Physical 06/25/18 2358 MR#: [id number] Acct: [id number] Name: NILSON PINA Rep #: [id number] : 1985 33 From: Dipak Torrez MD PCP: Jian Syed MD Status: ADM MARA Y Location: [place] [address] History and Physical Date of Admission: 06/26/18 [...] protein to help the healing process. 06/27/18 1645 <Electronically signed by Dipak Torrez MD> Date Dipak Torrez MD Cosigner Signature: Date (if applicable) CC: Dipak Torrez MD; Jian Syed MD; [facility] Signed CBC-COMPLETE BLOOD CNT Collected: 06/27/2018 Status: F Source: [place] NO DIFF 5:54 AM [facility] REPOSITORY TYPE CODE TESTS RESULT OUT [...] MPV 10.7 Performed By: #### L100.0500 #### [facility] [place], [address] BASIC METABOLIC Collected: 06/27/2018 Status: F Source: [place] PROFILE (BMP) 5:54 AM [facility] REPOSITORY TYPE CODE TESTS RESULT OUT [...] 9 Performed By: #### L500.2500, L506.0500 #### [facility] [address] [place], [address] PREALBUMIN Collected: 06/27/2018 Status: F Source: [place] 5:54 AM [facility] REPOSITORY TYPE CODE TESTS RESULT OUT OF RANGE REFERENCE UNITS LAB L506.0500 20.0-40.0 mg/dL Normal PREALBUMIN 26.4 Performed By: #### L500.2500, L506.0500 #### [facility] [address] [place], [address] Observed: 06/26/2018 Status: F Source: [place] CULTURE, DEEP WOUND 2:14 PM [facility] REPOSITORY Order Date: 02/15/17 Comments: Nonhealing MRSA Ulcer, Left Lower Extremity Gram Stain Gram Stain 4+ Red Blood Cells No organisms seen Wound Culture No growth aerobically. Cult, Anaerobic No growth in 5 days. Performed By: #### M100.1500, M600.1900 #### [facility] [address] [place], [address] Observed: 06/26/2018 Status: F Source: [place] CULTURE, FUNGUS W/ 2:14 PM [facility] [id number] REPOSITORY Comments: Nonhealing MRSA Ulcer, Left Lower Extremity Is this test to exclude patient from TB Isolation? Eren Warren,[id number] TESTING PERFORMED AT [facility]. ORIGINAL REPORT ON FILE IN LAB CONTAINS ADDITIONAL TEST SITE INFORMATION. CUF No yeast or mold isolated after [address] TESTING PERFORMED AT [facility]. ORIGINAL REPORT ON FILE IN LAB CONTAINS ADDITIONAL TEST SITE INFORMATION. Fungus Stain No yeast or mold observed. Performed By: #### M100.1500, M600.1900 #### [facility] [address] [place], [address] MRSA WOUND DNA BY Collected: 06/26/2018 Status: F Source: [place] PCR 2:14 PM [facility] REPOSITORY Order Comment: Comments: Nonhealing MRSA Ulcer Left Lower Extremity TYPE CODE TESTS RESULT OUT OF RANGE REFERENCE UNITS LAB L8200.1100 Negative Normal MRSA Negative RESULT LAB L8200.1150 Negative Normal SA RESULT NEGATIVE Performed By: #### L8200.1075 #### [facility] [address] [place], [address] ULCER Observed: 06/26/2018 Status: F Source: [place] 12:00 AM [facility] REPOSITORY Patient: NILSON PINA : 1985 (33/M) Acct Num: [id number] Phys: Dipak Torrez MD Unit Num: [id number] Loc: [facility] IB089-3 Specimen: [id number] Received: 06/26/181458 Spec Type: ULCER TISSUES 1 TISSUES: ULCER [...] in thickness. No mass lesion is identified. Signal Operator sections are submitted in two cassettes. / Angeline 06/26/18 TC:2 CPT: 33301 HEADER OPERATION: Excision nonhealing MRSA ulcer left [...] reaction and dermal fibrosis consistent with scar. Angeline 06/27/18 Signed Brian Soliman 06/27/18 <signature on file> Performed By: #### PUL #### [facility] [address] [place], [place], [address] URINALYSIS, ROUTINE Collected: 05/26/2018 Status: F Source: [place] (DIPSTICK) 1:00 PM [facility] REPOSITORY Order Comment: How was Urine Obtained? [...] ESTERASE Negative Performed By: #### L400.2010 #### [facility] [address] [place], [address] Observed: 05/26/2018 Status: F Source: [place] CULTURE, URINE 1:00 PM [facility] REPOSITORY Urine Culture Culture exhibits no growth. Performed By: #### M100.0650 #### [facility] [address] [place] [place], [address] WOUND CTR HISTORY Observed: 05/24/2018 Status: F Source: [place] AND PHYSICAL 11:30 AM [facility] REPOSITORY [facility] [place] [address] Wound Ctr History AND Physical 05/21/18 1232 MR#: [id number] Acct: [id number] Name: NILSON PINA Rep #: [id number] : 1985 33 From: Lidia Chandra FINANCIAL PROFESSIONAL-C PCP: Kunal ALCARAZ,Jian Status: REG RCR Y [...] Recorded Date Recorded By Document 05/21/18 10:11 DL [id number] 05/21/18 10:51 DL Wound Center Nurse 1 [Ulcer Assessment] 5 left lateral lower leg WC - Nurse 2 - General Ulcer CM Notes Start: 05/21/18 10:11 Freq: Status: Active Protocol: Activity Type Activity Date Activity User E-Sign Co-Sign Detail Recorded Client Recorded Date Recorded By Document 05/21/18 11:29 JF [id number] 05/21/18 11:48 JF Wound Center Nurse 2 [Procedure/Treatment] 5 left [...] Recorded Date Recorded By Document 05/21/18 11:29 JF [id number] 05/21/18 11:48 JF Wound debrided: Left lateral thigh Laterality: Left [...] one week with Dr. Torrez. Code Visit 48593 05/24/18 1130 <Electronically signed by Lidia LUGO> Date Lidia LUGO CC: Signed DISCHARGE SUMMARY Observed: 05/16/2018 Status: F Source: [place] 8:01 PM [facility] REPOSITORY [facility] Medical Records Department [address] [place] [address] Discharge Summary 05/16/18 1958 MR#: [id number] Acct: [id number] Name: NILSON PINA Rep #: [id number] : 1985 33 From: Marvin Lee MD PCP: Kunal ALCARAZ,Jian Status: ADM IN Location: [place] [address] Discharge Date and Diagnosis Date of Admission: 05/11/18 Date of Discharge: 05/18/18 Hospital Course and Treatment Imaging Results: 05/11/18 16:34 Diet: Regular Diet Consultations 05/11/18 Consult: Onc/Wound/extrusion line operator Routine Comment: Operations: None, - - Status post incision and drainage: Patient Name: NILSON PINA RMedical Record Number: [id number] Date of : [birth year]Patient Status: Inpatient Attending Provider: Fortunato LucioAccolori Number: [id number] Date: 05/04/18 23:13Initialization Date: 05/05/18 12:33 Report [...] - 16 x 3 x 1 cm. dock manager: None Type of Anesthesia:: General Specimen's removed: [...] VTE Pharm Prophylaxis ordered?: Yes Additional CC's: Kvein Manriquez [facility] Procedures: None Summary of [...] Days #84 tab PRN Reason: Severe Pain (6-04/25) Ondansetron [Zofran Odt] 8 mg PO Q6H [...] in: 1 week. Please Follow Up With: [facility] When: 3 days. Disposition: [...] HEALTH PROGRESS Observed: 05/16/2018 Status: F Source: [place] NOTE 8:01 PM [facility] REPOSITORY [facility] Medical Records Department [address] [place] [address] Home Health Progress Note [id number] Encounter Encounter Date: 05/16/181999 MR#: [id number] Acct: [id number] Name: NILSON PINA Rep #: [id number] : 1985 33 From: Marvin Lee MD PCP: Jian Syed MD Status: ADM IN Location: [place] [address] Home Health Note - Plan Overview of [...] (Acute) - Requirements and Reasons Disciplines Needed/Ordered: Longterm Reason for Disciplines: Disease Specific Monitoring/education, Wound Care Related To: Limited/Poor Endurance, Intractable Pain Patient is unable to leave the home: Without Aid of Supportive Devices (crutches, cane, wheelchair, walker), Without the assistance of another person 05/16/182000 <Electronically signed by Marvin Lee MD> Date Marvin Lee MD Cosigner Signature (if indicated): Date CC: Signed DISCHARGE INSTRUCTION Observed: 05/16/2018 Status: F Source: [place] 7:58 PM [facility] REPOSITORY [facility] Medical Records Department [address] [place] [address] Instructions for Home/Discharge Instructions 05/16/181955 MR#: [id number] Acct: [id number] Name: NILSON PINA Rep #: [id number] : 1985 33 From: Marvin Lee MD PCP: Kunal ALCARAZ,Ijan Status: ADM IN You will use the [...] Days #84 tab PRN Reason: Severe Pain (6-04/25) Ondansetron [Zofran Odt] 8 mg PO Q6H [...] 05/12/2018 Status: F Source: [place] 6:12 AM [facility] REPOSITORY TYPE CODE TESTS RESULT OUT [...] Lymph 4.76 Performed By: #### L100.0100 #### [facility] [address] [place], [address] BASIC METABOLIC Collected: 05/12/2018 Status: F Source: [place] PROFILE (BMP) 6:12 AM [facility] REPOSITORY TYPE CODE TESTS RESULT OUT [...] Normal 6 Performed By: #### L500.2500 #### [facility] [address] [place], [address] HISTORY AND PHYSICAL Observed: 05/11/2018 Status: F Source: [place] EXAM 4:37 PM [facility] REPOSITORY [facility] Medical Records Department [address] [place] [address] History and Physical 05/11/18 1614 MR#: [id number] Acct: [id number] Name: NILSON PINA Rep #: [id number] : 1985 33 From: Marvin Lee MD PCP: Jian Syed MD Status: ADM IN Y Location: [facility] [place] [address] Problem List (1) Open wound of left [...] with below past medical history presented to [facility] Emergency Department 05/02/2018 with left knee swelling, [...] BID, stop date per Dr. Royal. 05/11/18 6387 <Electronically signed by Marvin Lee MD> Date Marvin Lee MD Cosign Signature: Date (if applicable) CC: Jian Syed MD; Marvin Lee MD Signed OPERATIVE REPORT Observed: 05/11/2018 Status: F Source: [place] 1:15 PM [facility] REPOSITORY [facility] Medical Records Department [address] [place] [address] Operative Report 05/04/18 2313 MR#: [id number] Acct: [id number] Name: NILSON PINA Rep #: [id number] : 1985 33 From: Dipak Torrez MD PCP: Elderbrock MD,Jian Status: ADM IN Y Location: MS3 [id number] Report of Operation Date of Procedure: 05/04/18 [...] - 16 x 3 x 1 cm. dock manager: None Type of Anesthesia:: General Specimen's removed: [...] Yes Code Visit Surgery Charges CPT - 41383 ICD-10 - L02.416, A49.02, M79.89, L03.116, S81.002A, S71.102A, S81.802A 77917 L02.416, A49.02, M79.89, L03.116, S81.002A, S71.102A, S81.802A 32679 L02.416, A49.02, M79.89, L03.116, S81.002A 61731 L02.416, A49.02, M79.89, L03.116, S71.102A 92914 L02.416, A49.02, M79.89, L03.166, S81.802A 05/11/18 1315 <Electronically signed by Dipak Torrez MD> Date Dipak Torrez MD CC: Kevin Cervantes DO; Dipak Torrez MD; Jian Syed MD; Jian Manriquez DO; Alec Royal MD; [facility] Signed DISCHARGE SUMMARY Observed: 05/11/2018 Status: F Source: [place] 11:58 AM [facility] REPOSITORY [facility] Medical Records Department [address] [place] [address] Discharge Summary 05/11/18 1149 MR#: [id number] Acct: [id number] Name: NILSON PINA Rep #: [id number] : 1985 33 From: Fortunato Lucio MD PCP: Jian Syed MD Status: ADM IN Location: [place] [address] Discharge Date and Diagnosis - Problem List Patient Problems: Active and Suspected Problems Left leg cellulitis (Acute) Sepsis (Acute) Date of Admission: 05/02/18 - Primary Discharge Diagnosis Active and Suspected Problems Left leg cellulitis (Acute) Sepsis (Acute) Hospital Course and Treatment Consultations 05/03/18 10:34 Consult: Onc/Wound/extrusion line operator Routine Comment: Reason for Consult:: left knee Operations: - - Status post incision and drainage: Patient Name: NILSON PINA RMedical Record Number: [id number] Date of : [birth year]Patient Status: Inpatient Attending Provider: Jony Lucio Number: [id number] Date: 05/04/18 23:13Initialization Date: 05/05/18 12:33 Report [...] - 16 x 3 x 1 cm. dock manager: None Type of Anesthesia:: General Specimen's removed: [...] ordered?: Yes Additional CC's: Kevin [facility] Procedures: Wound vac placement [...] the patient's chart. Chart is dictated with manager engine software. Errors may occur in dictation that may change providers meaning. This note was generated with MotherKnows dictation software. It may contain incorrect words, [...] Primary Care Physician in: 1-2 week Disposition: Longterm facility Patient Condition:: Good Medical Necessity - Tobacco Use Smoking Status: Never smoker Tobacco Use: Chew Meaningful Use Info Meaningful Use Diagnoses (Choose all that apply): None applicable Code Visit Inpatient E AND M: 16702 Disch Hosp 05/11/18 1158 <Electronically signed by Fortunato Lucio MD> Date Fortunato Lucio MD Cosigner Signature (if applicable): Date CC: Jian Syed MD; Fortunato Lucio MD Signed TRANSFER TO [facility] Observed: 05/11/2018 Status: F Source: [facility] 11:38 AM [facility] REPOSITORY [facility] Medical Records Department [address] [place] [address] Transfer to [facility] MR#: [id number] Acct: [id number] Name: NILSON PINA Rep #: [id number] : 1985 33 From: Fortunato Lucio MD PCP: Jian Syed MD Status: ADM IN NILSON PINA (Patient) (Health Ins. Claim No.) (Day of Discharge to Facility) Certification of patient admission REQUIRED AT TIME OF ADMISSION. I CERTIFY THAT POST-HOSPITAL F SERVICES ARE REQUIRED TO BE GIVEN ON AN IN-PATIENT BASIS BECAUSE OF THE ABOVE NAMED PATIENT'S NEED FOR PENITENTIARY CARE ON A CONTINUING BASIS FOR THE [...] placement, - - Patient Name: NILSON PINA RMedical Record Number: [id number] Date of : [birth year]Patient Status: Inpatient Attending Provider: Jony Lucio Number: [id number] Date: 05/04/18 23:13Initialization Date: 05/05/18 12:33 Report [...] - 16 x 3 x 1 cm. dock manager: None Type of Anesthesia:: General Specimen's removed: [...] Pharm Prophylaxis ordered?: Yes Additional CC's: Kevin Royal [facility] - Type of Care/Length [...] week Code Visit Inpatient E AND M: 69599 Disch Hosp 05/11/18 1138 <Electronically signed by Fortunato Lucio MD> Date Fortunato Lucio MD CC: Dipak Torrez MD; Jian Syed MD; Alec Royal MD Signed CBC W/DIFF, AUTOMATED Collected: 05/11/2018 Status: F Source: [place] 6:10 AM [facility] REPOSITORY TYPE CODE TESTS RESULT OUT [...] Lymph 3.75 Performed By: #### L100.0100 #### [facility] Laboratory [address] [place], [address] BASIC METABOLIC Collected: 05/11/2018 Status: F Source: [place] PROFILE (BMP) 6:10 AM [facility] REPOSITORY TYPE CODE TESTS RESULT OUT [...] Performed By: #### L500.2500, L501.2300, L501.5200 #### [facility] Laboratory [address] [place], [address] PHOSPHORUS Collected: 05/11/2018 Status: F Source: [place] 6:10 AM [facility] REPOSITORY TYPE CODE TESTS RESULT OUT OF RANGE REFERENCE UNITS LAB L501.2300 2.5-4.9 mg/dL Normal PHOS 3.1 Performed By: #### L500.2500, L501.2300, L501.5200 #### [facility] Laboratory [address] [place], [address] MAGNESIUM Collected: 05/11/2018 Status: F Source: [place] 6:10 AM [facility] REPOSITORY TYPE CODE TESTS RESULT OUT OF RANGE REFERENCE UNITS LAB L501.5200 1.6-2.6 mg/dL Normal MG 2.0 Performed By: #### L500.2500, L501.2300, L501.5200 #### [facility] Laboratory [address] [place], [address] VENOUS DUPLEX LOWER Observed: 05/10/2018 Status: F Source: [place] EXTREMITY 9:38 AM [facility] REPOSITORY [facility] Cardiovascular Services [address] [place] [address] Venous Duplex US, Unilateral 05/09/18 1105 MR#: [id number] Acct: [id number] Name: NILSON PINA Rep #: [id number] : 1985 33 From: Kevin Mcknight MD Attending Dr: Fortunato Lucio MD Status: ADM IN Ordering Dr: Jacquelin Hernandez MD Date: 05/09/18 Location: MS3 Sex: M C Admitted: 05/02/18 [id number] 396851.001 VL [id number] TAG_START Cardiovascular Services Venous Doppler [address] [place] [address] Ordering Physician: Jacquelin Mosquera TAG_ENDED TAG_START Name: NILSON PINA Study Date: 05/09/2018 11:05 AM Patient Location: [...] MD Jian Syed Performed By: Matthew [facility]MA[facility]AN [facility], Brittni and Student 05/10/18 0937 Date Kevin Mcknight MD CC: Jacquelin Hernandez MD; Jian Syed MD; Fortunato Lucio MD Date Dictated: 05/09/18 1105 Date Transcribed: 05/10/18 0937 Project Development Coordinator: Signed CBC W/DIFF, AUTOMATED Collected: 05/10/2018 Status: C Source: [place] 5:48 AM [facility] REPOSITORY TYPE CODE TESTS RESULT OUT [...] 1331 PATH REV previously reported as: November Performed By: #### L100.0100 #### [facility] Laboratory [address] [place], [address] BASIC METABOLIC Collected: 05/10/2018 Status: F Source: [place] PROFILE (BMP) 5:48 AM [facility] REPOSITORY TYPE CODE TESTS RESULT OUT [...] Normal 10 Performed By: #### L500.2500 #### [facility] Laboratory [address] [place], [address] VANCOMYCIN, TROUGH Collected: 05/09/2018 Status: F Source: [place] LEVEL 3:30 PM [facility] REPOSITORY Order Comment: Comments: PLEASE DRAW 30MIN [...] (Ventilator/Healtcare Associated) -Sepsis PLEASE CONTACT PHARMACY SERVICES (#[id number]) FOR INTERPRETATION OF RESULTS. Performed By: #### L501.8820 #### [facility] Laboratory [address] [facility] [place], [place], [address] CBC-COMPLETE BLOOD CNT Collected: 05/09/2018 Status: F Source: [place] NO DIFF 5:40 AM [facility] REPOSITORY TYPE CODE TESTS RESULT OUT [...] 9.8 Performed By: #### L100.0500, L500.2500 #### [facility] [address] [facility] [place], [place], [address] BASIC METABOLIC Collected: 05/09/2018 Status: F Source: [place] PROFILE (BMP) 5:40 AM [facility] REPOSITORY TYPE CODE TESTS RESULT OUT [...] 7 Performed By: #### L100.0500, L500.2500 #### [facility] Laboratory [address] [place], [place], [address] BASIC METABOLIC Collected: 05/07/2018 Status: F Source: [place] PROFILE (BMP) 6:28 AM [facility] REPOSITORY TYPE CODE TESTS RESULT OUT [...] 9 Performed By: #### L500.2500, L100.0500 #### [facility] Laboratory [address] [place], [place], [address] CBC-COMPLETE BLOOD CNT Collected: 05/07/2018 Status: F Source: [place] NO DIFF 6:28 AM [facility] REPOSITORY TYPE CODE TESTS RESULT OUT [...] 10.6 Performed By: #### L500.2500, L100.0500 #### [facility] [address] [facility] [place], [place], [address] LESION (CHOOSE SITE) Observed: 05/07/2018 Status: F Source: [place] 12:00 AM [facility] REPOSITORY Patient: NILSON PINA [place] : 1985 (33/M) Acct Num: [id number] Phys: Jacquelin Hernandez MD Unit Num: [id number] Loc: MS3 [id number] Specimen: [id number] Received: 05/07/18 - 1343 Spec Type: Lesion TISSUES 1 TISSUES: Knee, [...] A focal area of ulceration is noted. Signal Operator sections are submitted in two cassettes. / POWER:maddie 05/07/18 TC:2 CPT: 56177, 01692 x2 HEADER OPERATION: Left knee and lower extremity with incision and drainage PRE-OP DIAGNOSIS: Left leg cellulitis TISSUE SUBMITTED: Left knee MRSA infection MICROSCOPIC DESCRIPTION Slides are reviewed. MICROSCOPIC DIAGNOSIS Left knee MRSA infection: Skin with underlying tissue with acute and chronic inflammation and abscess formation. Special stains for acid fast bacilli and fungi are negative for organisms; matched controls are appropriate. SJ:maddie 05/08/18 Signed Brian Soliman 05/08/18 <signature on file> Performed By: #### PLES #### [facility] Laboratory [address] [place] [address]. [place], [address] CBC-COMPLETE BLOOD CNT Collected: 05/06/2018 Status: F Source: [place] NO DIFF 7:45 PM [facility] REPOSITORY TYPE CODE TESTS RESULT OUT [...] MPV 10.2 Performed By: #### L100.0500 #### [facility] Laboratory [address] [facility] [place], [address] BASIC METABOLIC Collected: 05/06/2018 Status: F Source: [place] PROFILE (BMP) 7:45 PM [facility] REPOSITORY TYPE CODE TESTS RESULT OUT [...] 8 Performed By: #### L500.2500, L506.0500 #### [facility] Laboratory [address] [facility], [address] PREALBUMIN Collected: 05/06/2018 Status: F Source: [place] 7:45 PM [facility] REPOSITORY TYPE CODE TESTS RESULT OUT OF REFERENCE UNITS RANGE LAB L506.0500 20.0-40.0 mg/dL Low PREALBUMIN 15.3 Performed By: #### L500.2500, L506.0500 #### [facility] Laboratory [address] [place], [address] CBC-COMPLETE BLOOD CNT Collected: 05/06/2018 Status: F Source: [place] NO DIFF 6:31 AM [facility] REPOSITORY TYPE CODE TESTS RESULT OUT [...] MPV 10.7 Performed By: #### L100.0500 #### [facility] Laboratory [address] [place], [address] BASIC METABOLIC Collected: 05/06/2018 Status: F Source: [place] PROFILE (BMP) 6:31 AM [facility] REPOSITORY TYPE CODE TESTS RESULT OUT [...] GAP 4 Performed By: #### L500.2500 #### [facility] Laboratory [address] [place], [place], [address] VANCOMYCIN, TROUGH Collected: 05/05/2018 Status: F Source: [place] LEVEL 3:30 PM [facility] REPOSITORY Order Comment: Time Medication is to [...] (Ventilator/Healtcare Associated) -Sepsis PLEASE CONTACT PHARMACY SERVICES (#[id number]) FOR INTERPRETATION OF RESULTS. Performed By: #### L501.8820 #### [facility] Laboratory [address] [place], [address] CONSULTATION Observed: 05/05/2018 Status: F Source: [place] 2:00 PM [facility] REPOSITORY [facility] Medical Records Department [address] [place] [address] Consultation 05/04/18 1852 MR#: [id number] Acct: [id number] Name: NILSON PINA Rep #: [id number] : 1985 33 From: Dipak Torrez MD PCP: Kunal ALCARAZJian Status: ADM IN Y Location: [place] 118356-1 Reason for Consult Date of Consultation: 05/04/18 Reason for Consultation: Infected MRSA ulcer left knee with worsening cellulitis. REFERRING PHYSICIAN: Dr. Manriquez. PROGRAM MANUFACTURING LEADER: Dr. Torrez. History of Present Illness: The [...] . Code Visit Inpatient E AND M: 41064 Subs Hosp L3 - Modifier 57 ICD-10 - M79.89, L02.416, A49.02, L03.116 05/05/18 1400 <Electronically signed by Dipak Torrez MD> Date Dipak Torrez MD Cosigner Signature (if applicable): Date CC: Kevin Cervantes DO; Dipak Torrez MD; Jian Syed MD; Jian Manriquez DO; Alec Royal MD; [facility] Signed CBC-COMPLETE BLOOD CNT Collected: 05/05/2018 Status: F Source: [place] NO DIFF 11:30 AM [facility] REPOSITORY TYPE CODE TESTS RESULT OUT [...] Performed By: #### L100.0500, L500.2500, L506.0500 #### [facility] [address] [place], [address] BASIC METABOLIC Collected: 05/05/2018 Status: F Source: [place] PROFILE (BMP) 11:30 AM [facility] REPOSITORY TYPE CODE TESTS RESULT OUT [...] Performed By: #### L100.0500, L500.2500, L506.0500 #### [facility] [address] [place], [address] PREALBUMIN Collected: 05/05/2018 Status: F Source: [place] 11:30 AM [facility] REPOSITORY TYPE CODE TESTS RESULT OUT OF REFERENCE UNITS RANGE LAB L506.0500 20.0-40.0 mg/dL Low PREALBUMIN 9.9 Performed By: #### L100.0500, L500.2500, L506.0500 #### [facility] [address] [facility] [place], [address] Observed: 05/04/2018 Status: F Source: [place] CULTURE, DEEP WOUND 10:00 PM [facility] REPOSITORY Order Date: 02/15/17 Copy of report sent to Infection Control Printer MS#[id number] 05/06/18 6010 RUDY. Comments: 1. LEFT KNEE MRSA INFECTION [...] 1 S (NF) indicates non-formulary drug at [facility]. Approval by Infectious Disease Specialist required before non-formulary drugs may be ordered and/or dispensed. * CLSI guidelines does not recommend testing of cephalosporins. This interpretation is deduced from Beta-lactam/penicillin results. Cult, Anaerobic No anaerobic bacteria isolated. Performed By: #### M100.1500 #### [facility] Laboratory [address] [place] [address] [place], [address] Observed: 05/04/2018 Status: F Source: [place] LEZAMA, CARI W/ 10:00 PM [facility] [id number] REPOSITORY Comments: 1. LEFT KNEE MRSA INFECTION Is this test to exclude patient from TB Isolation? N Cu,Hmerkb4885 TESTING PERFORMED AT [facility]. ORIGINAL REPORT ON FILE IN LAB CONTAINS ADDITIONAL TEST SITE INFORMATION. CUF No yeast or mold isolated after [address] TESTING PERFORMED AT [facility]. ORIGINAL REPORT ON FILE IN LAB CONTAINS ADDITIONAL TEST SITE INFORMATION. Fungus Stain No yeast or mold observed. Performed By: #### M600.1900 #### [facility] Laboratory [address] [place], [place] [address] [place], [address] CONSULTATION Observed: 05/04/2018 Status: F Source: [place] 3:46 PM [facility] REPOSITORY [facility] Medical Records Department [facility] [place] [address] Consultation 05/04/18 1539 MR#: [id number] Acct: [id number] Name: NILSON PINA Rep #: [id number] : 1985 33 From: Alec Royal MD PCP: Jian Syed MD Status: ADM IN Y Location: [facility] OC894-3 Problem List (1) Left leg cellulitis Status: [...] VANCOMYCIN, TROUGH Collected: 05/04/2018 Status: F Source: [place] LEVEL 3:40 PM [facility] REPOSITORY Order Comment: Comments: PLEASE DRAW 30MIN [...] (Ventilator/Healtcare Associated) -Sepsis PLEASE CONTACT PHARMACY SERVICES (#[id number]) FOR INTERPRETATION OF RESULTS. Performed By: #### L501.8820 #### [facility] [address] [place] [place], [address] CBC W/DIFF, AUTOMATED Collected: 05/04/2018 Status: F Source: [place] 5:20 AM [facility] REPOSITORY TYPE CODE TESTS RESULT OUT [...] DIFF OK Performed By: #### L100.0100 #### [facility] [address] [facility] [place], [address] EXTREMITY LOWER WITH Observed: 05/03/2018 Status: F Source: [place] CONTRAST 10:34 AM [facility] REPOSITORY [facility] Imaging Services [address] [place] [address] Extremity Lower WITH Contrast MR#: [id number] Acct: [id number] Name: NILSON PINA Rep #: [id number] : 1985 M 33 From: Joseph Queen MD PCP: Jian Syed MD Status: ADM IN Study: Extremity Lower WITH Contrast Date of Exam: 05/03/18 Exam# [id number] Ordering Dr: Jian Manriquez DO STUDY: CT [...] CC: Jian Syed MD; Jian Manriquez DO Project Development Coordinator: Signed BASIC METABOLIC Collected: 05/03/2018 Status: F Source: [place] PROFILE (BMP) 7:20 AM [facility] REPOSITORY TYPE CODE TESTS RESULT OUT [...] Normal 5 Performed By: #### L500.2500 #### [facility] [address] [place], [address] VANCOMYCIN, TROUGH Collected: 05/03/2018 Status: F Source: [facility] 7:20 AM [facility] REPOSITORY Order Comment: Comments: draw trough level [...] (Ventilator/Healtcare Associated) -Sepsis PLEASE CONTACT PHARMACY SERVICES (#[id number]) FOR INTERPRETATION OF RESULTS. Performed By: #### L501.8820 #### [facility] [address] [place], [address] CBC W/DIFF, AUTOMATED Collected: 05/03/2018 Status: C Source: [place] 7:20 AM [facility] REPOSITORY TYPE CODE TESTS RESULT OUT [...] as: November Performed By: #### L100.0100 #### [facility] [address] [facility], [address] LACTIC ACID Collected: 05/02/2018 Status: F Source: [place] 9:38 PM [facility] REPOSITORY Order Comment: Yes/No query for Sepsis Lactate Rule Y TYPE CODE TESTS RESULT OUT OF RANGE REFERENCE UNITS LAB L503.6005 0.4-2.0 mmol/L Normal LACTIC ACID 1.0 Performed By: #### L503.6005 #### [facility] [address] [place], [address] Observed: 05/02/2018 Status: F Source: [place] CULTURE, BLOOD (WB) 9:38 PM [facility] REPOSITORY Has pt arrived? Y BC No growth in 5 days. Performed By: #### M200.1000 #### [facility] [address] [place], [address] BEDSIDE GLUCOSE Collected: 05/02/2018 Status: F Source: [place] 3:58 PM [facility] REPOSITORY TYPE CODE TESTS RESULT OUT OF REFERENCE UNITS RANGE LAB L501.080 70-110 mg/dL High BEDSIDE GLU 114 Result Comment: MANAGEMENT OF PATIENT CARE PER NURSING PROTOCOL Performed By: #### L501.080 #### [facility] Laboratory Point of Care [address] [place] [address] MRSA WOUND DNA BY Collected: 05/02/2018 Status: F Source: [place] PCR 10:30 AM [facility] REPOSITORY Order Comment: RESULTS CALLED TO CALEB 05/02/18 1240 [place]. REPORT READ BACK BY ASELF. Comments: left knee Specimen Source? left knee TYPE CODE TESTS RESULT OUT OF REFERENCE UNITS RANGE LAB L8200.1100 Negative High MRSA POSITIVE RESULT LAB L8200.1150 Negative High SA RESULT POSITIVE Performed By: #### L8200.1075 #### [facility] [address] [place], [address] HISTORY AND PHYSICAL Observed: 05/02/2018 Status: F Source: [place] EXAM 7:31 AM [facility] REPOSITORY [facility] Medical Records Department [address] [place] [address] History and Physical 05/02/18 0722 MR#: [id number] Acct: [id number] Name: NILSON PINA Rep #: [id number] : 1985 33 From: Kevin Cervantes DO [...] Lovenox. Code Visit Inpatient E AND M: 16087 Init Hosp L3 05/02/18 0731 <Electronically signed by Kevin Cervantes DO> Date Kevin Cervantes DO Cosigner Signature: Date (if applicable) CC: Kevin Cervantes DO; Jian Syed MD Signed CBC W/DIFF, AUTOMATED Collected: 05/02/2018 Status: F Source: [place] 6:30 AM [facility] REPOSITORY TYPE CODE TESTS RESULT OUT [...] Lymph 1.03 Performed By: #### L100.0100 #### [facility] [address] [place], [address] BASIC METABOLIC Collected: 05/02/2018 Status: F Source: [place] PROFILE ([facility]) 6:30 AM [facility] REPOSITORY TYPE CODE TESTS RESULT OUT [...] Normal 6 Performed By: #### L500.2500 #### [facility] [address] [facility], [address] EMERGENCY DEPARTMENT Observed: 05/02/2018 Status: F Source: [place] SUMMARY 6:28 AM [facility] REPOSITORY [facility] Medical Records Department [address] [place] [address] Emergency Department Summary 05/02/18 0625 MR#: [id number] Acct: [id number] Name: DAYANARA PINADAVIE Marsh Rep #: [id number] : 1985 33 From: Jose Ferris DO PCP: Kunal ALCARAZ,Jian Status: REG ER - ER Visit Summary [...] outpatient therapy] This note was generated with [employer] dictation software. It may contain incorrect words, [...] problems, contact your Primary Care Provider. Call [facility] ([phone]) or report to the closest Emergency Room. Call 911 if necessary. 05/02/18 0628 <Electronically signed by Jose Ferris DO> Date Jose Ferris DO Cosigner Signature (If Indicated): Date CC: Jian Syed MD Observed: 05/02/2018 Status: F Source: [place] CULTURE, WOUND 6:06 AM [facility] REPOSITORY Gram Stain Gram Stain 1+ White [...] 1 S (NF) indicates non-formulary drug at [facility]. Approval by Infectious Disease Specialist required before non-formulary drugs may be ordered and/or dispensed. * CLSI guidelines does not recommend testing of cephalosporins. This interpretation is deduced from Beta-lactam/penicillin results. Performed By: #### M100.1400 #### [facility] [address] [place], [address] EMERGENCY DEPARTMENT Observed: 04/30/2018 Status: F Source: [place] SUMMARY 9:48 PM [facility] REPOSITORY [facility] Medical Records Department [address] [place] [address] Emergency Department Summary 04/30/18 2142 MR#: [id number] Acct: [id number] Name: NILSON PINA Rep #: [id number] : 1985 33 From: Fortunato Dia MD [...] knee cellulitis] This note was generated with [employer] dictation software. It may contain incorrect words, [...] your Primary Care Provider. Call [facility] ([phone]) or report to the closest Emergency Room. Call 911 if necessary. 04/30/18 2148 <Electronically signed by Fortunato Dia MD> Date Fortunato Dia MD Cosigner Signature (If Indicated): Date CC: DEFINED NOT PROGRESS Observed: 04/30/2018 Status: COMPLETED Source: [place] 8:42 PM [facility] REPOSITORY HNO ID: [id number] Author: Corwin Mcclure Service: (none) Author Type: [...] APRN.CNP CNOV Observed: 04/30/2018 Status: COMPLETED Source: [place] 8:15 PM [facility] REPOSITORY Office Visit (UCWSTR) NILSON PINA ([id number]) 1985 M Date Time Provider Department 04/30/18 8:15 PM CORWIN MCCLURE) WSTR During your visit today, we recorded the [...] SEVERITY SOURCE 07/13/2018 Drug clindamycin/F006 Hives Unknown [facility] Allergy/416 001629(RXNORM) Hospital 569106(SNOM Repository ED CT) 07/13/2018 Drug vancomycin/F0060 Hives Unknown [facility] Allergy/416 23297(RXNORM) Hospital 157419(SNOM Repository ED CT) 04/30/2018 Drug No Known Unknown [facility] Allergy/416 Allergies/E60733 Hospital 591214(SNOM 0388(RXNORM) Repository ED CT) Drug NO KNOWN [facility] Class/33287 ALLERGIES [facility] 1003(SNOMED Repository CT) ENCOUNTERS ENCOUNTERS ADMIT/DISCHARGE ACCOUNT ADMITTING ENCOUNTER LOCATION SOURCE NUMBER CLASS 08/06/2018 [id number] Ambulatory BMSBuilding:Mandeep Menendez MS.[facility] Repository 08/06/2018 [id number] [facility] ing: Repository 07/13/2018/07/13/20 [id number] Ambulatory BMSBuilding:Mandeep Menendez 18 MS.[facility] Repository 07/02/2018 [id number] [facility]MS[facility] 07/02/2018/07/16/20 [id number] Ambulatory [address] ing: Repository 06/27/2018 [id number] Dipak Torrez Ambulatory BMSBuilding:Mandeep Menendez MS.CF.[facility] Repository 06/27/2018 [id number] Dipak Torrez Ambulatory BMS[facility] 06/27/2018 [id number] Dipak Torrez Ambulatory BMSBuilding:Mandeep Menendez MS.CF.[facility] Repository 06/27/2018 [id number] Shan Dipak Ambulatory BMSBuilding:B [place] CHAPIN.CF.[facility] Repository 06/27/2018/06/28/20 [id number] Dipak Torrez Ambulatory [address] ing:EP0Uaxq: Repository OA238Hel: 1 06/26/2018 [id number] [facility]ulatory [facility] ing:LAB Repository 06/11/2018 [id number] Ambulatory BMSBuilding:B [place].CF.[facility] Repository 06/11/2018/06/15/20 [id number] Ambulatory [address] ing: Repository 06/04/2018 [id number] Ambulatory BMSBuilding:Mandeep Menendez MS.CF.[facility] Repository 05/28/2018 [id number] Ambulatory BMSBuilding:Mandeep Menendez MS.CF.[facility] Repository 05/26/2018/06/15/20 [id number] Ambulatory [address] ing:LAB Repository 05/21/2018 [id number] Ambulatory BMSBuilding:Mandeep Menendez MS..[facility] Repository 05/11/2018/05/18/20 [id number] Marvin Lee Chi Inpatient [place] 18 Encounter [facility] ing:TCURoom: Repository PGK74Ihw: 1 05/11/2018 [id number] Marvin Lee Chi Ambulatory BMSBuilding:Mandeep Menendez MS.CF.[facility] Repository 05/02/2018/05/11/20 [id number] Kevin Cervantes Inpatient [place] 18 Encounter [facility] ing:WW8Hdmh: Repository PB590Vwc: 1 05/02/2018 [id number] Kevin Cervantes Ambulatory BMSBuilding:B [place] MS.[facility] Repository 05/02/2018 [id number] Kevin Cervantes Ambulatory BMSBuilding:B [place] MS.[facility] Repository 05/02/2018 [id number] Jopperi, Kevin Ambulatory BMSBuilding:B [place] MS.[facility] Repository 05/02/2018 [id number] Jopperi, Kevin Ambulatory BMSBuilding:B [place] MS.CF.[facility] Repository 05/02/2018 [id number] Jopperi, Kevin Ambulatory BMSBuilding:[place].CF.[facility] Repository 05/02/2018 [id number] Jopperi, Kevin Ambulatory BMSBuilding:B [place] MS.CF.[facility] Repository 05/02/2018 [id number] Jopperi, Kevin Ambulatory BMSBuilding:B [place] MS.[facility] Repository 05/02/2018 [id number] Joboriseri, Kevin Ambulatory BMSBuilding:B [place] MS.[facility] Repository 05/02/2018 [id number] Joboriseri, Kevin Ambulatory BMSBuilding:B [place] MS.[facility] Repository 05/02/2018 [id number] Surindereri, Kevin Ambulatory [facility] [place] [facility] 05/02/2018 [id number] Joboriseri, Kevin Ambulatory BMSBuilding:B [place] MS.[facility] Repository 05/02/2018 [id number] Joboriseri, Kevin Ambulatory BMSBuilding:B [place] MS.CF.[facility] Repository 05/02/2018 [id number] Joboriseri, Kevin Ambulatory BMSBuilding:B [place] MS.[facility] Repository 05/02/2018 [id number] Joboriseri, Kevin Ambulatory BMSBuilding:B [place] MS.CF.[facility] Repository 05/02/2018 [id number] Joboriseri, Kevin Ambulatory BMSBuilding:B [place] MS.[facility] Repository 05/02/2018 [id number] Joboriseri, Kevin Amb[facility] [place] [facility] 05/02/2018 [id number] Ambulatory BMSBuilding:W [place] [facility] Repository 05/02/2018 [id number] Ambulatory BMSBuilding:B [place] MS.[facility] Repository 04/30/2018/04/30/20 [id number] Emergency [place] 18 [facility] ing:ED Repository 04/30/2018/05/01/20 [id number] Ambulatory [address] Repository PAYERS PAYERS ENCOUNTER GUARANTOR PAYER SUBSCRIBER SOURCE 08/06/2018 NILSON R Primary NILSON R [place] [id number] Insurance:CORESOURCEP LEMONDOB: [facility] Number: [id number] [id number] Repository 17056Jfk: (330) Date:4185-31-76WH [phone] (HP) [address]. [place] 51823KD: 08/06/2018 Secondary NOT GIVENUNK [place] Insurance:SELF PAY [facility] Number: Effective Repository Date:2018-08-06 08/06/2018 NILSON R Primary NOT GIVENUNK [place] [id number] Insurance:SELF [place]Y [place] Number: Effective Repository 13293Uxf: (330) Date:2018-07-17 [phone] (HP) 07/13/2018 NILSON R Primary NILSON R [place] [id number] Insurance:CORESOURCEP LEMONDOB: [facility] Number: [id number], [place] [id number] Repository 15815Vvf: (330) Date:7352-39-62SU [phone] (HP) [address]. [place] 54516WQ: 07/13/2018 Secondary NOT GIVENUNK [place] Insurance:SELF PAY [facility] Number: Effective Repository Date:2018-07-13 07/02/2018 NILSON R Primary NILSON R [place] [id number] Insurance:CORESOURCEP LEMONDOB: [facility] Number: [id number], [place] [id number] Repository 18034Qxp: (330) Date:9739-65-48SV [phone] (HP) [address]. [place] 55178CE: 07/02/2018 Secondary NOT GIVENUNK [place] Insurance:SELF PAY [facility] Number: Effective Repository Date:2018-07-02 07/02/2018 NILSON R Primary NILSON R [place] [id number] Insurance:CORESOURCEP LEMONDOB: [facility] Number: [id number], [place] [id number] Repository 69130Ekd: (330) Date:7647-70-17NZ [phone] () [address]. [place] 23267YW: 07/02/2018 Secondary NOT GIVENUNK [place] Insurance:SELF PAY [facility] Number: Effective Repository Date:2018-06-16 06/27/2018 NILSON R Primary NILSON R [place] [id number] Insurance:CORESOURCEP LEMONDOB: [facility] Number: [id number], [place] [id number] Repository 64625Bqr: (330) Date:0107-04-91ZJ [phone] () [address]. [place] [id number]: 06/27/2018 Secondary NOT GIVENUNK [place] Insurance:SELF PAY [facility] Number: Effective Repository Date:2018-06-25 06/27/2018 NILSON R Primary NILSON R [place] [id number] Insurance:CORESOURCEP LEMONDOB: [facility] Number: [id number], [place] [id number] Repository 08445Cbc: (330) Date:5450-99-37QI [phone] () [address]. [place] 72589EA: 06/27/2018 Secondary NOT GIVENUNK [place] Insurance:SELF PAY [facility] Number: Effective Repository Date:2018-06-27 06/27/2018 NILSON R Primary NILSON R [place] [id number] Insurance:CORESOURCEP LEMONDOB: [facility] Number: [id number], [place] [id number] Repository 53557Odt: (330) Date:1978-61-94ZX [phone] (HP) [address]. [place] 25494QO: 06/27/2018 Secondary NOT GIVENUNK [place] Insurance:SELF PAY [facility] Number: Effective Repository Date:2018-06-27 06/27/2018 NILSON R Primary NILSON R [place] [id number] Insurance:CORESOURCEP LEMONDOB: [facility] Number: [id number], [place] [id number] Repository 18134Pto: (330) Date:2028-16-00CV [phone] (HP) [address]. [place] [id number]: 06/27/2018 Secondary NOT GIVENUNK [place] Insurance:SELF PAY [facility] Number: Effective Repository Date:2018-06-26 06/27/2018 NILSON R Primary NILSON R [place] [id number] Insurance:CORESOURCEP LEMONDOB: [facility] Number: [id number], [place] [id number] Repository 99274Okl: (330) Date:4491-54-75JU [phone] (HP) [address]. [place] 18533KD: 06/27/2018 Secondary NOT GIVENUNK [place] Insurance:SELF PAY [facility] Number: Effective Repository Date:2018-06-11 06/26/2018 NILSON R Primary NILSON R [place] [id number] Insurance:CORESOURCEP LEMONDOB: [facility] Number: [id number], [place] [id number] Repository 51763Jwi: (330) Date:4803-52-30RM [phone] (HP) [address]. [place] 28407RW: 06/26/2018 Secondary NOT GIVENUNK [place] Insurance:SELF PAY [facility] Number: Effective Repository Date:2018-06-16 06/11/2018 NILSON R Primary NILSON R [place] [id number] Insurance:CORESOURCEP LEMONDOB: [facility] Number: [id number], [place] [id number] Repository 66619Xsy: (330) Date:9164-91-10QU [phone] (HP) [address]. [place] 04905XR: 06/11/2018 Secondary NOT GIVENUNK [place] Insurance:SELF PAY [facility] Number: Effective Repository Date:2018-06-11 06/11/2018 NILSON R Primary NILSON R [place] [id number] Insurance:CORESOURCEP LEMONDOB: [facility] Number: [id number], [place] [id number] Repository 62299Lel: (330) Date:0126-66-71CG [phone] (HP) [address]. [place] [id number]: 06/11/2018 Secondary NOT GIVENUNK [place] Insurance:SELF PAY [facility] Number: Effective Repository Date:2018-05-21 06/04/2018 NILSON R Primary NILSON R [place] [id number] Insurance:CORESOURCEP LEMONDOB: [facility] Number: [id number], [place] [id number] Repository 12201Nbo: (330) Date:8716-83-01WV [phone] (HP) [address]. [place] 55436BF: 06/04/2018 Secondary NOT GIVENUNK [place] Insurance:SELF PAY [facility] Number: Effective Repository Date:2018-06-04 05/28/2018 NILSON R Primary NILSON R [place] [id number] Insurance:CORESOURCEP LEMONDOB: [facility] Number: [id number], [place] [id number] Repository 36869Wfs: (330) Date:6004-17-83VD [phone] (HP) [address]. [place] [id number]: 05/28/2018 Secondary NOT GIVENUNK [place] [facility]LF [facility]Y [facility] Number: Effective Repository Date:2018-05-28 05/26/2018 NILSON R Primary NILSON R [place] [id number] Insurance:CORESOURCEP LEMONDOB: [facility] Number: [id number], [place] [id number] Repository 03268Tyk: (330) Date:6845-48-99HH [phone] (HP) [address]. [place] 45964WA: 05/26/2018 Secondary NOT GIVENUNK [place] Insurance:SELF PAY [facility] Number: Effective Repository Date:2018-05-26 05/21/2018 NILSON R Primary NILSON R [place] [id number] Insurance:CORESOURCEP LEMONDOB: [facility] Number: [id number], [place] [id number] Repository 93875Eld: (330) Date:5324-57-12YX [phone] () [address]. [place] [id number]: 05/21/2018 Secondary NOT GIVENUNK [place] Insurance:SELF PAY [facility] Number: Effective Repository Date:2018-05-21 05/11/2018 NILSON R Primary NILSON R [place] [id number] Insurance:CORESOURCEP LEMONDOB: [facility] Number: [id number], [place] [id number] Repository 20388Ntb: (330) Date:8108-82-79IU [phone] (HP) [address]. [place] [id number]: 05/11/2018 Secondary NOT GIVENUNK [place] Insurance:SELF PAY [facility] Number: Effective Repository Date:2018-05-11 05/11/2018 NILSON R Primary NILSON R [place] [id number] Insurance:CORESOURCEP LEMONDOB: [facility] Number: [id number], [place] [id number] Repository 79798Pje: (330) Date:4092-21-60IO [phone] (HP) [address]. [place] [id number]: 05/11/2018 Secondary NOT GIVENUNK [place] Insurance:SELF PAY [facility] Number: Effective Repository Date:2018-05-11 05/02/2018 NILSON R Primary NILSON R [place] [id number] Insurance:CORESOURCEP LEMONDOB: [facility] Number: [id number], [place] [id number] Repository 97431Sdl: (330) Date:8743-13-26JP [phone] (HP) [address]. [place] 95782DC: 05/02/2018 Secondary NOT GIVENUNK [place] Insurance:SELF PAY [facility] Number: Effective Repository Date:2018-05-02 05/02/2018 NILSON R Primary NILSON R [place] [id number] Insurance:CORESOURCEP LEMONDOB: [facility] Number: [id number], [place] [id number] Repository 64314Mcd: (330) Date:9713-04-36BT [phone] (HP) [address]. [place] 62307PA: 05/02/2018 Secondary NOT GIVENUNK [place] Insurance:SELF PAY [facility] Number: Effective Repository Date:2018-05-02 05/02/2018 NILSON R Primary NILSON R [place] [id number] Insurance:CORESOURCEP LEMONDOB: [facility] Number: [id number], [place] [id number] Repository 62391Cto: 330) Date:1884-94-75OE [phone] (HP) [address]. [place] 72326NJ: 05/02/2018 Secondary NOT GIVENUNK [place] Insurance:SELF PAY [facility] Number: Effective Repository Date:2018-05-02 05/02/2018 NILSON R Primary NILSON R [place] [id number] Insurance:CORESOURCEP LEMONDOB: [facility] Number: [id number], [place] [id number] Repository 03083Kvo: (330) Date:6956-12-72NS [phone] (HP) [address]. [place] 33563PH: 05/02/2018 Secondary NOT GIVENUNK [place] Insurance:SELF PAY [facility] Number: Effective Repository Date:2018-05-02 05/02/2018 NILSON R Primary NILSON R [place] [id number] Insurance:CORESOURCEP LEMONDOB: [facility] Number: [id number], [place] [id number] Repository 43205Wla: (330) Date:3198-26-03YT [phone] (HP) [address]. [place] 66103CY: 05/02/2018 Secondary NOT GIVENUNK [place] Insurance:SELF PAY [facility] Number: Effective Repository Date:2018-05-02 05/02/2018 NILSON R Primary NILSON R [place] [id number] Insurance:CORESOURCEP LEMONDOB: [facility] Number: [id number], [place] [id number] Repository 93410Pib: (330) Date:3536-65-61WU [phone] (HP) [address]. [place] 91327FY: 05/02/2018 Secondary NOT GIVENUNK [place] Insurance:SELF PAY [facility] Number: Effective Repository Date:2018-05-02 05/02/2018 NILSON R Primary NILSON R [place] [id number] Insurance:CORESOURCEP LEMONDOB: [facility] Number: [id number], [place] [id number] Repository 80915Kcv: (330) Date:6943-40-69GF [address] [phone] (HP) [address]. [place] 66545WS: 05/02/2018 Secondary NOT GIVENUNK [place] Insurance:SELF PAY [facility] Number: Effective Repository Date:2018-05-02 05/02/2018 NILSON R Primary NILSON R [place] [id number] Insurance:CORESOURCEP LEMONDOB: [facility] Number: [id number], [place] [id number] Repository 47589Zvq: (330) Date:2258-40-97PK [phone] (HP) [address]. [place] 82897OJ: 05/02/2018 Secondary NOT GIVENUNK [place] Insurance:SELF PAY [facility] Number: Effective Repository Date:2018-05-02 05/02/2018 NILSON R Primary NILSON R [place] [id number] Insurance:CORESOURCEP LEMONDOB: [facility] Number: [id number], [place] [id number] Repository 42121Ion: (330) Date:5125-64-37LF [phone] (HP) [address]. [place] 73378ZG: 05/02/2018 Secondary NOT GIVENUNK [place] Insurance:SELF PAY [facility] Number: Effective Repository Date:2018-05-02 05/02/2018 NILSON R Primary NILSON R [place] [id number] Insurance:CORESOURCEP LEMONDOB: [facility] Number: [id number], [place] [id number] Repository 54025Mol: (330) Date:7470-91-92ZI [address] [phone] (HP) [address]. [place] [id number]: 05/02/2018 Secondary NOT GIVENUNK [place] Insurance:SELF PAY [facility] Number: Effective Repository Date:2018-05-02 05/02/2018 NILSON R Primary NILSON R [place] [id number] Insurance:CORESOURCEP LEMONDOB: [facility] Number: [id number], [place] [id number] Repository 13776Tyu: (330) Date:8113-99-39KJ [phone] (HP) [address]. [place] 20631VB: 05/02/2018 Secondary NOT GIVENUNK [place] Insurance:SELF PAY [facility]: Effective Repository Date:2018-05-02 05/02/2018 NILSON R Primary NILSON R [place] [id number] Insurance:CORESOURCEP LEMONDOB: [facility] Number: [id number], [place] [id number] Repository 15157Qjt: (330) Date:6706-70-91LF [address] [phone] (HP) [address]. [place] 00210JJ: 05/02/2018 Secondary NOT GIVENUNK [place] Insurance:SELF PAY [facility] Number: Effective Repository Date:2018-05-02 05/02/2018 NILSON R Primary NILSON R [place] [id number] Insurance:CORESOURCEP LEMONDOB: [facility] Number: [id number], [place] [id number] Repository 99706Hoo: (330) Date:3760-91-64OU [address] [phone] (HP) [address]. [place] 66904YH: 05/02/2018 Secondary NOT GIVENUNK [place] Insurance:SELF PAY [facility] Number: Effective Repository Date:2018-05-02 05/02/2018 NILSON R Primary NILSON R [place] [id number] Insurance:CORESOURCEP LEMONDOB: [facility] Number: [id number], [place] [id number] Repository 23326Xji: (330) Date:4405-85-43DY [phone] (HP) [address]. [place] 75725TZ: 05/02/2018 Secondary NOT GIVENUNK [place] Insurance:SELF PAY [facility] Number: Effective Repository Date:2018-05-02 05/02/2018 NILSON R Primary NILSON R [place] [id number] Insurance:CORESOURCEP LEMONDOB: [facility] Number: [id number], [place] [id number] Repository 49922Ljw: (330) Date:1655-60-98MD [address] [phone] (HP) [address]. [place] 08203HG: 05/02/2018 Secondary NOT GIVENUNK [place] Insurance:SELF PAY [facility] Number: Effective Repository Date:2018-05-02 05/02/2018 NILSON R Primary NILSON R [place] [id number] Insurance:CORESOURCEP LEMONDOB: [facility] Number: [id number], [place] [id number] Repository 92691Xpg: (330) Date:5304-46-99SV [phone] (HP) [address]. [place] 03397TM: 05/02/2018 Secondary NOT GIVENUNK [place] Insurance:SELF PAY [facility] Number: Effective Repository Date:2018-05-02 05/02/2018 NILSON R Primary NILSON R [place] [id number] Insurance:CORESOURCEP LEMONDOB: [facility] Number: [id number], [place] [id number] Repository 56994Ygf: (330) Date:0663-79-95WW [address] [phone] (HP) [address]. [place] 99587SC: 05/02/2018 Secondary NOT GIVENUNK [place] Insurance:SELF PAY [facility] Number: Effective Repository Date:2018-05-02 05/02/2018 NILSON R Primary NILSON R [place] [id number] Insurance:CORESOURCEP LEMONDOB: [facility] Number: [id number], [place] [id number] Repository 72380Ifi: (330) Date:1669-67-20YW [address] [phone] (HP) [address]. [place] 51764BG: 05/02/2018 Secondary NOT GIVENUNK [place] Insurance:SELF PAY [facility] Number: Effective Repository Date:2018-05-02 05/02/2018 NILSON R Primary NILSON R [place] [id number] Insurance:CORESOURCEP LEMONDOB: [facility] Number: [id number], [place] [id number] Repository 72326Wcv: (330) Date:4758-54-65DN [address] [phone] (HP) [address]. [place] 20435JU: 05/02/2018 Secondary NOT GIVENUNK [place] Insurance:SELF PAY [facility] Number: Effective Repository Date:2018-05-02 04/30/2018 NILSON R Primary NILSON R [place] [id number] Insurance:CORESOURCEP LEMONDOB: [facility] Number: [id number], [place] [id number] Repository 74439Ltp: (330) Date:2348-67-73NY [phone] () 23[address]MT. [place] 56440PC: 04/30/2018 Secondary NOT GIVENUNK [place] Insurance:SELF PAY [facility] Number: Effective Repository Date:2018-04-30
== END 2018-08-16 23:59 ==
LOC: WC 08:28
PROVIDERS: Family Provider Family Medicine; PCP Family Medicine; Visit Provider Surgery
DX: L97.122 Non-pressure chronic ulcer of left thigh with fat layer exposed (principal); Z86.14 Personal history of Methicillin resistant Staphylococcus aureus infection; M72.6 Necrotizing fasciitis; L97.822 Non-pressure chronic ulcer of other part of left lower leg with fat layer exposed
CPT/HCPCS: 11042

== ENCOUNTER 2018-08-27 07:47 | Outpatient (RCR) | payer OTHER, SELFPAY ==
[2018-08-17 01:23] VITALS: BP 136/88; PULSE 82; RESP 16; TEMP 37
[2018-08-27 08:18] VITALS: BP 146/87; PULSE 75; RESP 18; TEMP 37.4; BMI 31.8
--- NOTE | 2018-08-27 20:41 | PCM.WC.PN ---
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 History of Wound: Surgery 06/26/18 - 1. Surgical preparation left medial thigh with excisional debridement nonhealing ulcer with complex secondary wound closure. 2. Surgical preparation left lateral leg with excisional debridement nonhealing ulcer with complex secondary wound closure. 3. Surgical preparation left knee with excisional debridement nonhealing MRSA ulcer with STSG reconstruction from the left lateral abdominal wall (11 cm2) and placement of KATHE NPWT device. 4. Surgical preparation left medial leg with excisional debridement nonhealing ulcer with STSG reconstruction from the left lateral abdominal wall (15 cm2) and placement of KATHE NPWT device. Wound care - Bactroban followed by compression marie wrap. May alternative with Silver dressings. Operative culture - negative. He was treated with Zyvox perioperatively and Doxycycline at discharge and has finished them. Prealbumin from 06/27/18 was 26.4. Encourage nutritional supplementation with protein to help the healing process. Today he denies any fever. His appetite is good. He returned to work on 07/25/18 with limitations of 4 hours per day and no ladders. He is doing ok at work. He states he is ready to work up to 8 hours per day. He has tried climbing a ladder but was unable to spend more than a few minutes there before getting some discomfort. He has also noted some increased swelling in his left foot since he started to get on a ladder. Progress of Wound: Healed. - Physical Exam Vital Signs Temp Pulse Resp BP 99.3 F H 75 18 146/87 H 08/27/18 08:18 08/27/18 08:18 08/27/18 08:18 08/27/18 08:18 General: Alert, Oriented x3 HEENT: PERRLA, EOMI Oral: Moist Mucosa Neck: Supple Lungs: Clear to auscultation Cardiovascular: Regular rate, Regular Rhythm Abdomen: Soft, Non-Distended Skin: Incision - left lower extremity incisions are healed. Left lower extremity skin grafts are healed. Wound Measurements and Assessment WC - Nurse 1 - General Ulcer Measurement Start: 08/27/18 08:16 Freq: Status: Active Protocol: Activity Type Activity Date Activity User E-Sign Co-Sign Detail Recorded Client Recorded Date Recorded By Document 08/27/18 08:18 AN [id number] 08/27/18 08:36 AN 08/27/18 08:18 Wound Center Nurse 1 [Ulcer Assessment] 5 left lateral lower leg -Current Size (cm) - Length 0.1 -Current Size (cm) - Width 0.1 -Current Size (cm) - Depth 0.1 -Total Square Cm 0.01 -Date of Last Picture (Recall this 08/27/18 field) -Photo Taken Yes -Epithelialization None Present -Tunneling No -Undermining/Tunneling No -Circular Undermining No -Classification - Thickness Unclassifiable (Eschar Covered ) -Exudate Amt None Present -Wound Margin Flat & Intact -Granulation Amt None Present (0 %) -Slough/Fibrin No -Necrosis Amt None Present (0 %) -Structure Exposed None/Limited to Skin Breakdown -Texture (Crystal-wound Skin Appearance) Assessed Scarring -Temperature (Crystal-wound Skin No Abnormality Appearance) (Pt Warm) -Tenderness on Palpation (Crystal-wound Yes Skin Appearance) -Ulcer Cleansing Rinsed/ Irrigated with Saline -Foul Odor after Cleansing No 4 Left medial lower leg -Current Size (cm) - Length 0.1 -Current Size (cm) - Width 0.1 -Current Size (cm) - Depth 0.1 -Total Square Cm 0.01 -Date of Last Picture (Recall this 08/27/18 field) -Epithelialization None Present -Tunneling No -Undermining/Tunneling No -Exudate Amt None Present -Wound Margin Flat & Intact -Granulation Amt None Present (0 %) -Necrosis Amt None Present (0 %) -Texture (Crystal-wound Skin Appearance) Scarring -Moisture (Crystal-wound Skin Appearance Assessed ) -Color (Crystal-wound Skin Appearance) Assessed -Temperature (Crystal-wound Skin No Abnormality Appearance) (Pt Warm) -Tenderness on Palpation (Crystal-wound No Skin Appearance) -Ulcer Cleansing Rinsed/ Irrigated with Saline -Foul Odor after Cleansing No [Edema Assessment] -Left Calf (cm) 38.8 -Left Ankle (cm) 26.7 WC - Nurse 2 - General Ulcer CM Notes Start: 08/27/18 08:16 Freq: Status: Active Protocol: Activity Type Activity Date Activity User E-Sign Co-Sign Detail Recorded Client Recorded Date Recorded By Document 08/27/18 08:48 [id number] 08/27/18 08:50 08/27/18 08:48 Wound Center Nurse 2 [Procedure/Treatment] 5 left lateral lower leg -Correct Patient No -Correct Side, Site, Position No -Correct Procedure No -Procedure Performed No -Post Debridement Size (cm) - Length 0 -Post Debridement Size (cm) - Width 0 -Post Debridement Size (cm) - Depth 0 -Total Square Cm 0 -Wound/Ulcer Outcome Healed- Epithelialized 4 Left medial lower leg -Correct Patient No -Correct Side, Site, Position No -Correct Procedure No -Procedure Performed No -Post Debridement Size (cm) - Length 0 -Post Debridement Size (cm) - Width 0 -Post Debridement Size (cm) - Depth 0 -Total Square Cm 0 -Wound/Ulcer Outcome Healed- Epithelialized [See Physician Procedure note for Specifics] Pain Scale: 0-10 Numeric [Pain] -Is Patient Pain Free? Yes Neurological: Cranial nerves II-XII grossly intact Psych/Mental Status: Normal Affect, Appropriate Debridement Note Post-Debridement Measurements/Treatment - Nurse 2 - General Ulcer CM Notes Start: 08/27/18 08:16 Freq: Status: Active Protocol: Activity Type Activity Date Activity User E-Sign Co-Sign Detail Recorded Client Recorded Date Recorded By Document 08/27/18 08:48 [id number] 08/27/18 08:50 08/27/18 08:48 Wound Center Nurse 2 5 left lateral lower leg -Correct Patient No -Correct Side, Site, Position No -Correct Procedure No -Procedure Performed No -Post Debridement Size (cm) - Length 0 -Post Debridement Size (cm) - Width 0 -Post Debridement Size (cm) - Depth 0 -Total Square Cm 0 -Wound/Ulcer Outcome Healed- Epithelialized 4 Left medial lower leg -Correct Patient No -Correct Side, Site, Position No -Correct Procedure No -Procedure Performed No -Post Debridement Size (cm) - Length 0 -Post Debridement Size (cm) - Width 0 -Post Debridement Size (cm) - Depth 0 -Total Square Cm 0 -Wound/Ulcer Outcome Healed- Epithelialized Pain Scale: 0-10 Numeric Is Patient Pain Free? Yes Wound debrided: #4 Left medial leg. Laterality: Left Wound Grade/Stage: 3. No debridement was completed today - The graft is healed. - Additional Wound Wound debrided: #5 Left lateral leg. Laterality: Left Wound Grade/Stage: 3. Patient tolerated procedure: - - No debridement was completed today. The incision is healed. Assessment/Plan Assessment: 1. Nonhealing MRSA ulcer left knee, healed after skin grafting. 2. Nonhealing ulcer left medial thigh, healed after surgical closure. 3. Nonhealing ulcer left lateral leg, healed after surgical closure. 4. Nonhealing ulcer left medial leg, healed after skin grafting. 5. MRSA. 6. s/p surgical preparation left medial thigh with excisional debridement nonhealing ulcer with complex secondary wound closure and surgical preparation left lateral leg with excisional debridement nonhealing ulcer with complex secondary wound closure and surgical preparation left knee with excisional debridement nonhealing MRSA ulcer with STSG reconstruction from the left lateral abdominal wall (11 cm2) and placement of KATHE NPWT device and surgical preparation left medial leg with excisional debridement nonhealing ulcer with STSG reconstruction from the left lateral abdominal wall (15 cm2) and placement of KATHE NPWT device. Plan: Patient's wounds are healed. Massage with skin lotion daily to help soften up the scars. Continue compression MARIE wrap especially while working. He is starting to climb ladders. After a short while he notices discomfort and gets down. He has also noted some increased swelling in his left foot since he started to climb ladders. He can either apply the MARIE wrap all the way down to his toes for compression or he can wear SERG hose (15-20 mmHg). Wrote a script for that. He can work up to 8 hours per day but still have ladder restrictions. He is discharged from the Wound Center at this time. Followup on an as needed basis. When he feels he can be up on a ladder for extended periods of time, he will call my main office for a work release of the ladder restrictions. May alternate with Silver dressings as well. The incision left medial thigh remains healed. His operative cultures were negative. He continued Doxycycline for his previous MRSA culture and has finished them. His Prealbumin from 06/27/18 was 26.4. Encourage nutritional supplementation with protein to help the healing process. Keep left leg elevated when sitting. Will increase his work load to 8 hours per day but maintain the restriction of no climbing ladders. Followup 3 weeks.
== END 2018-09-13 23:59 ==
LOC: WC 07:47
PROVIDERS: Family Provider Family Medicine; PCP Family Medicine; Visit Provider Surgery
DX: Z09 Encounter for follow-up examination after completed treatment for conditions other than malignant neoplasm (principal); Z86.14 Personal history of Methicillin resistant Staphylococcus aureus infection
CPT/HCPCS: 99213; G0463

== ENCOUNTER → 2020-02-14 20:33 | Outpatient (CLI) | payer OTHER, SELFPAY | PROVIDERS: PCP Family Medicine; Referring Provider Family Medicine; Visit Provider Family Medicine | DX: G47.30 Sleep apnea, unspecified (principal); R40.0 Somnolence; R53.83 Other fatigue; E66.9 Obesity, unspecified | CPT/HCPCS: 95810 ==